=== PATIENT | male | born 1945 | race Caucasian/White ===

== ENCOUNTER 2016-07-28 16:30 | Inpatient (IN) | payer OTHER ==
--- NOTE | 2016-07-28 16:52 | CPEKG ---
Heart Rate: 155 RR Interval: 387 P-R Interval: 164 QRSD Interval: 98 QT Interval: 296 QTC Interval: 476 P Sheldon: 76 QRS Sheldon: 27 T Wave Sheldon: 51 EKG Severity - ABNORMAL ECG - EKG Impression: SUPRAVENTRICULAR TACHYCARDIA EKG Impression: SUPRAVENTRICULAR BIGEMINY EKG Impression: BORDERLINE R WAVE PROGRESSION, ANTERIOR LEADS Electronically Signed By: Sarah Lindquist 29-Jul-2016 18:12:35
[2016-07-28] MEDS ORDERED: NS 1,000 ML IV ONE ×2 (17:03→19:25)
[2016-07-28 17:13] LABS: ADD DIFF? YES; ADD MORPH? NO; ATYPICAL LYMPHOCYTE FLAG 20 (0-99); FRAGMENT RBC FLAG 0 (0-99); HEMATOCRIT 42.5 % (40.0-51.0); HEMOGLOBIN 15.2 g/dL (13.7-17.5); LIPEMIA HEMOLYSIS FLAG 90 (0-99); MEAN CELL HEMOGLOBIN CONCENTR. 35.8 g/dL (32.4-36.7); MEAN CELL VOLUME 78.4 fL (81.5-99.8); MEAN PLATELET VOLUME 9.4 fL (8.7-11.7); PLATELET CLUMPS FLAG 10 (0-99); PLATELET COUNT 213 10^3/uL (150-400); RED BLOOD CELL COUNT 5.42 10^6/uL (4.40-6.38); RED CELL DISTRIBUTION WIDTH 14.3 % (11.5-15.2)
[2016-07-28] MEDS ORDERED: NS 1,000 ML BAG *FOR SEPSIS ORDER SET ONLY IV ONE (17:19)
--- NOTE | 2016-07-28 17:22 | EDPHY ---
H & P Stated Complaint: SOB;dyspnea x 1 wk; worse past day Time Seen by Provider: 07/28/16 16:51 HPI/ROS: CHIEF COMPLAINT: Difficulty breathing HISTORY OF PRESENT ILLNESS: 70-year-old male presents the emergency department critically ill. Patient and his described that he developed a cold 6 days ago. They were in [place]. The return to [place] 4 days ago. Patient has been ill with generalized weakness, fever to 102, difficulty breathing, shortness of breath, and rapid heart rate. Patient denies sputum production. He has not been eating and drinking. He denies vomiting or diarrhea. He denies urinary complaints. He denies a headache. Further history is limited secondary to the patient's clinical condition. REVIEW OF SYSTEMS: Limited secondary to the patient's clinical condition. PAST MEDICAL HISTORY: Non-Hodgkin's lymphoma status post stem cell transplant 5 years ago. Currently not undergoing any treatment. Patient denies diabetes, hypertension, pulmonary embolism, asthma, emphysema. He does report he has a benign cyst on his right kidney. SOCIAL HISTORY: Patient is . Nonsmoker. VITAL SIGNS Reviewed by me. Hypoxic to 70%. Blood pressure 160/90, heart rate 140s, respiratory rate 22. Afebrile here. GENERAL: Thin, ill-appearing male. Significant respiratory distress. Retractions throughout. HEENT: Atraumatic. Eyes: No icterus, no injection. Mouth: Dry mucous membranes. No erythema or lesions. Neck: supple with no adenopathy. LUNGS: bibasilar rales. No wheezes or rhonchi auscultated. Increased work of breathing. CARDIAC: Tachycardic rate, regular. ABDOMEN: Soft, moderate right upper quadrant tenderness. A firm mass is palpable in the right upper quadrant. Patient states this is his renal cyst., abdomen is nondistended. No guarding or rebound. BACK: No CVA tenderness. EXTREMITIES: No trauma. No edema. Range of motion is normal throughout. NEURO: Alert and oriented, grossly nonfocal. SKIN: Warm and dry, no rash. PSYCHIATRIC: Normal mentation, no agitation. - Personal History Current Tetanus Diphtheria and Acellular Pertussis (TDAP): Yes - Social History Smoking Status: Current some day smoker Constitutional: Initial Vital Signs Temperature (C) 36.4 C 07/28/16 16:30 Heart Rate 122 H 07/28/16 16:30 Respiratory Rate 28 H 07/28/16 16:30 Blood Pressure 164/84 H 07/28/16 16:30 O2 Sat (%) 70 L 07/28/16 16:30 O2 Delivery Mode Non-Rebreather Mask O2 (L/minute) 14 Allergies/Adverse Reactions: Quinolones Allergy (Verified 07/28/16 18:40) mental status changes Home Medications: Medication Instructions Recorded Acetaminophen [Tylenol 325mg (*)] 650 mg PO Q6 PRN 07/28/16 Herbals/Supplements -Info Only 1 ea PO DAILY 07/28/16 Ibuprofen [Motrin (*)] 400 mg PO DAILY PRN 07/28/16 Godfrey-3 Fatty Acids [Fish Oil 1000 1,000 mg PO DAILY 07/28/16 mg (*)] Medical Decision Making ED Course/Re-evaluation: Patient was placed on a non-rebreather mask which allowed his saturations to increase to about 88%. Initial EKG demonstrates tachycardic rate with paired ventricular PVCs. Patient began receiving IV fluids. Portable chest x-ray was obtained which demonstrates bibasilar infiltrates left greater than right. Sepsis screen was begun. Patient has a initial lactic acid of 6.2. Of concern patient has a white count of 1.3, creatinine of 1.4, bilirubin of 6.2 , INR of 1.6. Patient's potassium is 2.9. He received 40 mEq by mouth. Respiratory therapy administered O2 via nasal cannula at 30 liters/minute. Patient's O2 sat is now 94%. Severe Sepsis/Septic Shock Care Note The patient presents to the ED with pneumonia identified as an acute infection. The patient did have evidence of end-organ dysfunction and met criteria for severe sepsis. This condition was identified by myself at 17 30. Patient also meets criteria for septic shock at this time.. The patients vital signs are 160 /90, 122, O2 sat 88%. Respiratory rate 20. 36.4. The patient has a venous lactic acid performed within 3 hours of the identification of severe sepsis which was found to be 6.2. The patient has blood cultures drawn and received ceftriaxone and azithromycin IV, per the severe sepsis treatment protocol. The initial lactate was elevated and rechecked within 6 hours of the identification time of severe sepsis and found to be: 4.1. Initially the patient was felt to have met criteria for septic shock secondary to a lactic acid of 6.1. However the patient's arterial lactic acid was 3.1. He has not been hypotensive at any point during his emergency department course. Patient was transferred to the ICU under the care of Dr. Edu Galarza. Differential Diagnosis: Differential diagnoses for the patient's symptom complex was considered including but not limited to sepsis, respiratory failure, pulmonary embolism, cardiac causes, atrial fibrillation, atrial flutter, overwhelming sepsis, septic shock, acidosis. Consult/Admit Bed Type: Dr. Edu Galarza, ICU Critical Care Time: I spent a total of 60 minutes minutes of critical care time in obtaining history , performing a physical exam, bedside monitoring of interventions, collecting and interpreting tests and discussion with consultants but not including time spent performing procedures. - Data Points Laboratory Results: Laboratory Results 07/28/16 17:00 07/28/16 17:00 07/28/16 17:00 WBC 1.31 L 10^3/uL (3.80-9.50) RBC 5.42 10^6/uL (4.40-6.38) Hgb 15.2 g/dL (13.7-17.5) Hct 42.5 % (40.0-51.0) MCV 78.4 L fL (81.5-99.8) MCH 28.0 pg (27.9-34.1) MCHC 35.8 g/dL (32.4-36.7) RDW 14.3 % (11.5-15.2) Plt Count 213 10^3/uL (150-400) MPV 9.4 fL (8.7-11.7) Neut % (Auto) Not Reported Lymph % (Auto) Not Reported [place] % (Auto) Not Reported Eos % (Auto) Not Reported Baso % (Auto) Not Reported Nucleat RBC Rel Count 0.0 % (0.0-0.2) Absolute Neuts (auto) Not Reported Absolute Lymphs (auto) Not Reported Absolute Monos (auto) Not Reported Absolute Eos (auto) Not Reported Absolute Basos (auto) Not Reported Absolute Nucleated RBC 0.00 10^3/uL (0-0.01) Immature Gran % Not Reported Seg Neutrophils % 7 % Band Neutrophils % 60 % Lymphocytes % 20 % Monocytes % 2 % Metamyelocytes % 10 % Myelocytes % 1 % Immature Gran # Not Reported Absolute Seg Neuts 0.09 L 10^/uL (1.70-6.50) Absolute Band Neuts 0.79 H 10^3/uL (0.00-0.70) Absolute Lymphocytes 0.26 L 10^3/uL (1.00-3.00) Absolute Monocytes 0.03 L 10^3/uL (0.30-0.80) Absolute Metamyelocyte 0.13 H 10^3/mL (0.00-0.00) Absolute Myelocytes 0.01 H 10^3/mL (0.00-0.00) Platelet Estimate ADEQUATE (ADEQ) Microcytic Cells 1+ H Schistocytes 1+ H Smear Review By Pending PT 13.7 SEC (12.0-15.0) INR 1.06 (0.83-1.16) D-Dimer 3.00 H ug/mLFEU (0.00-0.50) VBG Lactic Acid 6.1 H mmol/L (0.7-2.1) Sodium 131 L mEq/L (134-144) Potassium 2.9 L mEq/L (3.5-5.2) Chloride 84 L mEq/L (97-110) Carbon Dioxide 26 mEq/l (22-31) Anion Gap 21 mEq/L (8-16) BUN 25 H mg/dL (7-23) Creatinine 1.4 H mg/dL (0.7-1.3) Estimated GFR 50 Glucose 122 H mg/dL (70-100) Calcium 8.5 mg/dL (8.5-10.4) Total Bilirubin 6.2 H mg/dL (0.1-1.4) Conjugated Bilirubin 5.2 H mg/dL (0.0-0.5) Unconjugated Bilirubin 1.0 mg/dL (0.0-1.1) AST 170 H IU/L (17-59) ALT 82 H IU/L (21-72) Alkaline Phosphatase 217 H IU/L (38-126) Troponin I 0.018 ng/mL (0-0.034) NT-Pro-B Natriuret Pep 3210 H pg/mL (0-125) Total Protein 6.3 g/dL (6.3-8.2) Albumin 3.4 L g/dL (3.5-5.0) Medications Given: Discontinued Medications Hydromorphone HCl (Dilaudid) 0.5 mg IVP EDNOW ONE Stop: 07/28/16 18:04 Last Admin: 07/28/16 18:31 Dose: 0.5 mg Sodium Chloride (Ns) 1,000 mls @ 0 mls/hr IV ONCE ONE PRN Reason: Wide Open Stop: 07/28/16 17:04 Last Admin: 07/28/16 17:20 Dose: 1,000 mls Azithromycin 500 mg/ Dextrose 255 mls @ 255 mls/hr IV EDNOW ONE PRN Reason: Protocol Stop: 07/28/16 18:38 Last Admin: 07/28/16 18:30 Dose: 255 mls Ceftriaxone Sodium 2 gm/ (Dextrose) 50 mls @ 100 mls/hr IV EDNOW ONE PRN Reason: Protocol Stop: 07/28/16 18:08 Last Admin: 07/28/16 18:30 Dose: 50 mls Potassium Chloride (Klor-Con) 40 meq PO ONCE ONE Stop: 07/28/16 17:41 Last Admin: 07/28/16 18:30 Dose: 40 meq Sodium Chloride (Ns *For Sepsis Order Set Only*) 1,905 ml IV EDNOW ONE Stop: 07/28/16 17:20 Last Admin: 07/28/16 18:01 Dose: 1,905 ml Departure - Departure Disposition: [facility] Inpatient Acute Clinical Impression: Respiratory failure, Pneumonia, Severe sepsis with acute organ dysfunction Condition: Serious
--- NOTE | 2016-07-28 17:28 | DX ---
Portable Chest at 1706 hours History: Shortness of breath, tachypnea. Comparison: PA and lateral chest June 09, 2011. Findings: There is dense left lower lobe consolidation with patchy right basilar and inferior right upper lobe consolidation. A small left effusion is suspected. No pneumothorax . Heart size is normal. S-shaped scoliosis is present in the spine with mild degenerative change. Impression: 1. Dense basilar consolidation, most prominent in the left lower lobe, most likely representing pneum onia. 2. Possible small left effusion.
[2016-07-28 17:29] LABS: ADD SCAN? NO; LEFT SHIFT FLG 300 (0-99)
[2016-07-28 17:30] LABS: ALANINE AMINOTRANSFERASE 82 IU/L (21-72); ALBUMIN 3.4 g/dL (3.5-5.0); ALKALINE PHOSPHATASE 217 IU/L (38-126); ANION GAP 21 mEq/L (8-16); ASPARTATE AMINOTRANSFERASE 170 IU/L (17-59); BILIRUBIN,TOTAL 6.2 mg/dL (0.1-1.4); BILIRUBIN-CONJUGATED 5.2 mg/dL (0.0-0.5); CALCIUM 8.5 mg/dL (8.5-10.4); CARBON DIOXIDE 26 mEq/l (22-31); CHLORIDE 84 mEq/L (97-110); CREATININE 1.4 mg/dL (0.7-1.3); GLOMERULAR FILTRATION RATE 50; GLUCOSE 122 mg/dL (70-100); POTASSIUM 2.9 mEq/L (3.5-5.2); SODIUM 131 mEq/L (134-144); TOTAL PROTEIN 6.3 g/dL (6.3-8.2)
[2016-07-28] MEDS ORDERED: cefTRIAXone 2 GM in D5W 50 ML IV ONE (17:39)
[2016-07-28] MEDS ORDERED: AZITHROMYCIN IV 500 MG in D5W 250 ML IV ONE (17:39)
[2016-07-28] MEDS ORDERED: POTASSIUM CL 20 MEQ TAB PO ONE (17:40)
[2016-07-28 17:42] LABS: TROPONIN I 0.018 ng/mL (0-0.034)
[2016-07-28] MEDS ORDERED: HYDROmorphONE/DILAUDID 1 MG/ML SYR IVP ONE (18:03)
[2016-07-28 18:06] LABS: LACGHOST ORDER
[2016-07-28] MEDS ORDERED: ACETAMINOPHEN 325 MG TAB PO PRN (18:16)
[2016-07-28 18:28] LABS: INR 1.06 (0.83-1.16); PROTIME(PATIENT) 13.7 SEC (12.0-15.0)
[2016-07-28 18:33] LABS: PLATELET ESTIMATE ADEQUATE (ADEQ)
[2016-07-28 18:35] LABS: MICROCYTES 1+; SCHISTOCYTES 1+
[2016-07-28 18:40] LABS: BASE EXCESS 0.2 mEq/L (-2.5-2.5); BICARBONATE 22 mEq/L (22-26); MEASURED OXYGEN SATURATION 92 % (92-95); PCO2 29 mmHg (34-38); PO2 59 mmHg (65-75); TCO2 23 mEq/L (23-27)
[2016-07-28 18:42] LABS: O2 CONCENTRATIION 90 % (0-100); P/F RATIO 66 RATIO
--- NOTE | 2016-07-28 18:48 | PDGENHP ---
History and Physical - Chief Complaint Acute fatigue - History of Present Illness PCP: None HPI: 62-year-old male presenting with acute fatigue characterized as progressive weakness resulting in inability to get out of bed, rendering him mostly bed-bound for the past 2 days. He reports that approximately 7 days ago he began experiencing cough and shortness of breath, exacerbated by physical activity, resulting in generalized weakness and mostly bed-bound status. Since he has been bed-bound, he has noted increasing back and pelvic pain located posteriorly which he associates with being bed-bound. He denies any other infectious symptoms. He does report that he has had difficulty swallowing solids and particularly liquids, reporting that he has to keep from breathing while he drinks fluids. He is also noted that his urine output has decreased and has become increasingly dark. History Information - Allergies/Home Medication List Allergies/Adverse Reactions: Quinolones Allergy (Verified 07/28/16 18:40) mental status changes Home Medications: Acetaminophen [Tylenol 325mg (*)] 650 mg PO Q6 PRN 07/28/16 [Last Taken 16:00] Herbals/Supplements -Info Only 1 ea PO DAILY 07/28/16 [Last Taken Unknown] Ibuprofen [Motrin (*)] 400 mg PO DAILY PRN 07/28/16 [Last Taken 07/28/16 14:00] Meredith-3 Fatty Acids [Fish Oil 1000 mg (*)] 1,000 mg PO DAILY 07/28/16 [Last Taken Unknown] I have personally reviewed and updated: family history, medical history, social history, surgical history - Past Medical History Additional medical history: 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, underwent stem cell treatment in 2010 - Surgical History Additional surgical history: Numerous ports and catheter lines, all of which have been removed - Family History Additional family history: Mother with leukemia - Social History Smoking Status: Current some day smoker Alcohol Use: None Drug Use: Marijuana Additional social history: Normally very physically active and rides his bike approximately 30 miles, independent in ADLs Review of Systems ROS: 10pt was reviewed & negative except for what was stated in HPI & below Constitutional: Reports: weakness Respiratory: Reports: cough Gastrointestinal: Reports: other (Coughing with food) Muscolosketal: Reports: back pain, joint pain Physical Exam Temp Pulse Resp BP Pulse Ox 36.9 C 100 20 95/73 L 98 07/28/16 18:31 07/28/16 18:31 07/28/16 18:31 07/28/16 18:31 07/28/16 18:31 O2 (L/minute) 30 Constitutional: uncomfortable, No not in pain, No obese Eyes: PERRL, anicteric sclera, EOMI Ears, Nose, Mouth, Throat: hearing normal, no oral mucosal ulcers, dry mucous membranes Cardiovascular: tachycardia, No systolic murmur (Distant heart sounds), No irregularly irregular, No edema Respiratory: reduced air movement (Left base), respiratory distress (Visibly tachypneic), rhonchi (Bilaterally on inspiration), No expiratory wheeze, No bronchial breath sounds Gastrointestinal: normoactive bowel sounds, soft, non-tender abdomen, no palpable masses, No distension Skin: warm, normal color, no rashes or abrasions, no induration, other ( Infiltrated IV on right forearm), No mottled Musculoskeletal: other (No tenderness to palpation over his intercostals or his pelvic brim) Neurologic: AAOx3, sensation intact bilaterally, No weakness, No facial droop Psychiatric: interacting appropriately, not anxious, not encephalopathic, thought process linear Lab Data & Imaging Review 07/28/16 17:00 07/28/16 17:00 WBC 1.31 10^3/uL (3.80-9.50) L 07/28/16 17:00 RBC 5.42 10^6/uL (4.40-6.38) 07/28/16 17:00 Hgb 15.2 g/dL (13.7-17.5) 07/28/16 17:00 Hct 42.5 % (40.0-51.0) 07/28/16 17:00 MCV 78.4 fL (81.5-99.8) L 07/28/16 17:00 MCH 28.0 pg (27.9-34.1) 07/28/16 17:00 MCHC 35.8 g/dL (32.4-36.7) 07/28/16 17:00 RDW 14.3 % (11.5-15.2) 07/28/16 17:00 Plt Count 213 10^3/uL (150-400) 07/28/16 17:00 MPV 9.4 fL (8.7-11.7) 07/28/16 17:00 Neut % (Auto) Not Reported 07/28/16 17:00 Lymph % (Auto) Not Reported 07/28/16 17:00 [place] % (Auto) Not Reported 07/28/16 17:00 Eos % (Auto) Not Reported 07/28/16 17:00 Baso % (Auto) Not Reported 07/28/16 17:00 Nucleat RBC Rel Count 0.0 % (0.0-0.2) 07/28/16 17:00 Absolute Neuts (auto) Not Reported 07/28/16 17:00 Absolute Lymphs (auto) Not Reported 07/28/16 17:00 Absolute Monos (auto) Not Reported 07/28/16 17:00 Absolute Eos (auto) Not Reported 07/28/16 17:00 Absolute Basos (auto) Not Reported 07/28/16 17:00 Absolute Nucleated RBC 0.00 10^3/uL (0-0.01) 07/28/16 17:00 Immature Gran % Not Reported 07/28/16 17:00 Seg Neutrophils % 7 % 07/28/16 17:00 Band Neutrophils % 60 % 07/28/16 17:00 Lymphocytes % 20 % 07/28/16 17:00 Monocytes % 2 % 07/28/16 17:00 Metamyelocytes % 10 % 07/28/16 17:00 Myelocytes % 1 % 07/28/16 17:00 Immature Gran # Not Reported 07/28/16 17:00 Absolute Seg Neuts 0.09 10^/uL (1.70-6.50) L 07/28/16 17:00 Absolute Band Neuts 0.79 10^3/uL (0.00-0.70) H 07/28/16 17:00 Absolute Lymphocytes 0.26 10^3/uL (1.00-3.00) L 07/28/16 17:00 Absolute Monocytes 0.03 10^3/uL (0.30-0.80) L 07/28/16 17:00 Absolute Metamyelocyte 0.13 10^3/mL (0.00-0.00) H 07/28/16 17:00 Absolute Myelocytes 0.01 10^3/mL (0.00-0.00) H 07/28/16 17:00 Platelet Estimate ADEQUATE (ADEQ) 07/28/16 17:00 Microcytic Cells 1+ H 07/28/16 17:00 Schistocytes 1+ H 07/28/16 17:00 PT 13.7 SEC (12.0-15.0) 07/28/16 17:00 INR 1.06 (0.83-1.16) 07/28/16 17:00 D-Dimer 3.00 ug/mLFEU (0.00-0.50) H 07/28/16 17:00 Puncture Site LEFT RADIAL 07/28/16 18:30 Patient Temperature 37.0 DEGREES 07/28/16 18:30 pCO2 29 mmHg (34-38) L 07/28/16 18:30 pO2 59 mmHg (65-75) L 07/28/16 18:30 Total CO2 23 mEq/L (23-27) 07/28/16 18:30 ABG pH 7.50 (7.35-7.45) H 07/28/16 18:30 ABG PO2/FiO2 Ratio 66 RATIO 07/28/16 18:30 ABG O2 Saturation 92 % (92-95) 07/28/16 18:30 ABG Base Excess 0.2 mEq/L (-2.5-2.5) 07/28/16 18:30 ABG Lactic Acid 3.1 mmol/L (0.5-1.6) H 07/28/16 18:30 VBG Lactic Acid 4.1 mmol/L (0.7-2.1) H 07/28/16 18:15 Total O2 Concentration 30.0 LITERS 07/28/16 18:30 O2 Concentration % 90 % (0-100) 07/28/16 18:30 Sodium 131 mEq/L (134-144) L 07/28/16 17:00 Potassium 2.9 mEq/L (3.5-5.2) L 07/28/16 17:00 Chloride 84 mEq/L (97-110) L 07/28/16 17:00 Carbon Dioxide 26 mEq/l (22-31) 07/28/16 17:00 Bicarbonate 22 mEq/L (22-26) 07/28/16 18:30 Anion Gap 21 mEq/L (8-16) 07/28/16 17:00 BUN 25 mg/dL (7-23) H 07/28/16 17:00 Creatinine 1.4 mg/dL (0.7-1.3) H 07/28/16 17:00 Estimated GFR 50 07/28/16 17:00 Glucose 122 mg/dL (70-100) H 07/28/16 17:00 Calcium 8.5 mg/dL (8.5-10.4) 07/28/16 17:00 Total Bilirubin 6.2 mg/dL (0.1-1.4) H 07/28/16 17:00 Conjugated Bilirubin 5.2 mg/dL (0.0-0.5) H 07/28/16 17:00 Unconjugated Bilirubin 1.0 mg/dL (0.0-1.1) 07/28/16 17:00 AST 170 IU/L (17-59) H 07/28/16 17:00 ALT 82 IU/L (21-72) H 07/28/16 17:00 Alkaline Phosphatase 217 IU/L (38-126) H 07/28/16 17:00 Troponin I 0.018 ng/mL (0-0.034) 07/28/16 17:00 NT-Pro-B Natriuret Pep 3210 pg/mL (0-125) H 07/28/16 17:00 Total Protein 6.3 g/dL (6.3-8.2) 07/28/16 17:00 Albumin 3.4 g/dL (3.5-5.0) L 07/28/16 17:00 Visualized and Interpreted Chest x-ray results: Yes Chest X-Ray results: other (Dense infiltrate in the left, bilateral infiltrates present) Visualized and Interpreted EKG results: Yes EKG Interpretation: Positive for: other (Sinus arrhythmia versus SVT) Assessment & Plan Assessment: 70-year-old male presents with severe sepsis in the setting of possible aspiration pneumonia Plan: 1. Severe sepsis. Acute, new problem this provider, further workup indicated. Evidenced by tachycardia plus leukopenia plus tachypnea plus clear source of infection plus end-organ failure notably lactic acidosis and respiratory failure , resulting in autonomic dysregulation -severe sepsis order set placed -receiving weight based IV fluids -receiving empiric IV fluids -blood culture sent -will repeat arterial lactic acid now and then again in 2 hours as well as tomorrow a.m. to monitor for clearance -he will need to be monitored closely in the intensive care unit given marginally low blood pressures at a systolic of 95, potentially heralding the evolution of septic shock 2. Possible aspiration pneumonia. Acute, new problem this provider, further workup indicated. Evidenced by dense bilateral infiltrates, left greater than right, + sepsis physiology outlined above plus reports of coughing and possible aspiration with oral intake -initiate renally dosed Unasyn plus azithromycin -send sputum cultures when available -send urine strep and urine Legionella 3. Acute hypoxic respiratory failure. Evidenced by an SpO2 of 70% on room air on presentation with visible tachypnea and labored breathing with accessory muscle use, secondary to pneumonia outlined above and severe sepsis -requiring non-rebreather mask -getting ABG at this time -admitting to intensive care unit, monitor respiratory status for potential of intubation if necessary 4. Metabolic acidosis. Acute, lactic acidosis, secondary to autonomic dysregulation and severe sepsis -continue to monitor serial lactic acid levels -continue supplemental IV fluids 5. Acute kidney injury. Evidenced by serum creatinine level of 1.4, most likely secondary to a combination of hypovolemia as well as severe sepsis -continue to monitor strict I&Os, urine output, serum creatinine level -continue empiric IV fluids 6. Hyponatremia. Acute, secondary to renal hypoperfusion in the setting of conditions outlined above -continue monitor serum sodium level 7. Hypokalemia. Acute, replete with IV fluids -monitor serum sodium level closely given acute kidney injury -continue monitor on telemetry 8. Diffuse large B-cell lymphoma. Stage IIB, treated with stem cell transplant 5 years ago -doubt that his present presentation is related to this process -hold on consulting with Hematology Oncology Diet. Regular with [employer] eval tomorrow Prophylaxis. High risk patient, heparin subcu Code. Full per patient his child is MPOA Disposition. Anticipated discharge uncertain this time, anticipated length stay greater than 48 hours warranting inpatient admission status for acute severe sepsis requiring ICU level evaluation and management. 45 minutes of critical care time spent with the patient at bedside and coordinating his care, addressing the issues above, patient remains critically ill with a high risk of morbidity and mortality.
[2016-07-28] MEDS ORDERED: IBUPROFEN 200 MG TAB PO PRN (19:02)
[2016-07-28] MEDS ORDERED: NS W/ 20 KCl/L 1,000 ML IV SCH (19:15)
[2016-07-28 19:53] LABS: COLOR AMBER; LEUKOCYTE ESTERASE,URINE NEGATIVE (NEGATIVE); NITRITE,URINE NEGATIVE (NEGATIVE)
[2016-07-28 19:56] LABS: AMORPHOUS PRESENT /hpf (NONE-1+); BACTERIA TRACE /hpf (NONE SEEN)
[2016-07-28] MEDS: AMPICILLIN/SULBACTAM 1.5 GM in NS 50 ML IV SCH (21:01)
[2016-07-28] MEDS: oxyCODONE IR 5 MG TAB PO PRN (21:38)
[2016-07-28] MEDS: HEPARIN 5,000 UNIT/0.5 ML SYR SC SCH (21:41)
[2016-07-29] MEDS: NS W/ 20 KCl/L 1,000 ML IV SCH ×3 (04:10→20:47)
[2016-07-29 04:33] LABS: % IMMATURE GRANULYOCYTES 0.7 % (0.0-1.1); ABSOLUTE IMMATURE GRANULOCYTES 0.01 10^3/uL (0.00-0.10); ADD DIFF? NO; ADD MORPH? NO; ADD SCAN? YES; ATYPICAL LYMPHOCYTE FLAG 20 (0-99); FRAGMENT RBC FLAG 0 (0-99); HEMATOCRIT 31.5 % (40.0-51.0); HEMOGLOBIN 11.2 g/dL (13.7-17.5); LIPEMIA HEMOLYSIS FLAG 90 (0-99); MEAN CELL HEMOGLOBIN 28.1 pg (27.9-34.1); MEAN CELL HEMOGLOBIN CONCENTR. 35.6 g/dL (32.4-36.7); MEAN CELL VOLUME 78.9 fL (81.5-99.8); MEAN PLATELET VOLUME 10.1 fL (8.7-11.7); PLATELET CLUMPS FLAG 20 (0-99); PLATELET COUNT 160 10^3/uL (150-400); RED BLOOD CELL COUNT 3.99 10^6/uL (4.40-6.38); RED CELL DISTRIBUTION WIDTH 14.4 % (11.5-15.2)
[2016-07-29 04:53] LABS: BASE EXCESS -1.7 mEq/L (-2.5-2.5); BICARBONATE 21 mEq/L (22-26); MEASURED OXYGEN SATURATION 92 % (92-95); PCO2 31 mmHg (34-38); PO2 62 mmHg (65-75); TCO2 22 mEq/L (23-27)
[2016-07-29 04:54] LABS: O2 CONCENTRATIION 70 % (0-100); P/F RATIO 89 RATIO
[2016-07-29 04:54] LABS: INR 1.13 (0.83-1.16); PROTIME(PATIENT) 14.4 SEC (12.0-15.0)
[2016-07-29 05:06] LABS: LEFT SHIFT FLG 300 (0-99)
[2016-07-29 05:11] LABS: ALANINE AMINOTRANSFERASE 61 IU/L (21-72); ALBUMIN 2.4 g/dL (3.5-5.0); ALKALINE PHOSPHATASE 131 IU/L (38-126); ANION GAP 11 mEq/L (8-16); ASPARTATE AMINOTRANSFERASE 97 IU/L (17-59); BILIRUBIN,TOTAL 3.8 mg/dL (0.1-1.4); CALCIUM 6.7 mg/dL (8.5-10.4); CARBON DIOXIDE 22 mEq/l (22-31); CHLORIDE 98 mEq/L (97-110); GLOMERULAR FILTRATION RATE > 60; GLUCOSE 85 mg/dL (70-100); MAGNESIUM 2.1 mg/dL (1.6-2.3); POTASSIUM 3.7 mEq/L (3.5-5.2); SODIUM 131 mEq/L (134-144); TOTAL PROTEIN 5.1 g/dL (6.3-8.2)
[2016-07-29 05:17] LABS: TROPONIN I 0.014 ng/mL (0-0.034)
[2016-07-29] MEDS: HEPARIN 5,000 UNIT/0.5 ML SYR SC SCH ×3 (05:20→21:03)
[2016-07-29 05:21] LABS: BILIRUBIN-CONJUGATED 3.4 mg/dL (0.0-0.5); BILIRUBIN-UNCONJUGATED 0.4 mg/dL (0.0-1.1)
[2016-07-29 05:50] LABS: SCAN NEGATIVE
[2016-07-29] MEDS: AMPICILLIN/SULBACTAM 1.5 GM in NS 50 ML IV SCH ×2 (05:50→12:12)
[2016-07-29] MEDS: OMEGA-3 FATTY ACIDS 1,000 MG CAP PO SCH (08:22)
--- NOTE | 2016-07-29 08:48 | HOSPPROG ---
Hospitalist Progress Note Assessment/Plan: #Severe sepsis: 2/2 #Gram positive cocci bacteremia -all 4 bottles positive -likely Strep pneumo -cont IV Unasyn. ID consulted -check surveillance cultures #Aspiration PNA -LLL PNA -treatment as above #MELODY: resolved #Acute hypoxic resp failure -2/2 PNA #Hypovolemic hyponatremia -due to decreased PO intake -cont IVFs #Transaminitis -2/2 infection, hypotension. Trending down #Diffuss B-cell lymphoma -s/p several rounds of unsuccessful chemo. s/p stem cell transplant 2010 #Leukopenia -monitor closely. Suspect due to acute illness. Heme consulted #Diet: regular #DVT ppx: SQH Warrants inpatient admission with acute sepsis, IV abx, IVFs Subjective: tired today Objective: Vital Signs Temp Pulse Resp BP Pulse Ox 37.0 C 105 H 25 H 100/62 100 07/29/16 08:00 07/29/16 08:00 07/29/16 08:00 07/29/16 08:00 07/29/16 08:00 Laboratory Results 07/29/16 04:05 07/29/16 04:05 07/28/16 07/29/16 07/30/16 05:59 05:59 05:59 Intake Total 6635 500 Output Total 2004 125 Balance 4630 375 PT 14.4 SEC (12.0-15.0) 07/29/16 04:05 INR 1.13 (0.83-1.16) 07/29/16 04:05 - Physical Exam Constitutional: no apparent distress Eyes: PERRL Ears, Nose, Mouth, Throat: dry mucous membranes Cardiovascular: tachycardia Respiratory: reduced air movement (decreased BS in left base) Gastrointestinal: normoactive bowel sounds, soft, non-tender abdomen Genitourinary: no bladder fullness Skin: warm Musculoskeletal: full muscle strength Neurologic: AAOx3 Psychiatric: interacting appropriately ICD10 Worksheet Patient Problems: Problems Problem Status Diagnosed Pneumonia Acute Respiratory failure Acute Severe sepsis with acute organ dysfunction Acute
[2016-07-29] MEDS ORDERED: Herbals/Supplements -Info Only PO SCH (09:00)
[2016-07-29] MEDS ORDERED: AZITHROMYCIN IV 500 MG in D5W 250 ML IV SCH (09:00)
[2016-07-29] MEDS: oxyCODONE IR 5 MG TAB PO PRN ×3 (14:58→23:34)
--- NOTE | 2016-07-29 15:08 | GCON ---
[f rep st] CONSULTATION CRITICAL CARE CONSULTATION DATE OF CONSULTATION: 07/29/2016 REFERRING PHYSICIAN: Aleksandar Galarza MD CHIEF COMPLAINT: Weakness. HISTORY OF PRESENT ILLNESS: This is a 70-year-old male, who has had a several-day history of a cough productive of some thin mucus and shortness of breath and then great fatigue. He has been in bed an d has not been up being his usual active self. Usually he bicycles up to 30 miles a day and goes for long walks. He does not feel like he has had any fever or sweats or chills. There has been no orth opnea, paroxysmal nocturnal dyspnea, or pedal edema. He has had no gastrointestinal symptoms. He no rmally does not eat much, but his eating and especially his fluid intake has been remarkably decrease d over the past few days. PAST MEDICAL HISTORY: He had a diffuse large B-cell lymphoma and underwent several treatments of jessica motherapy and then stem cell treatment in 2010. The current status of that is unclear to me. ALLERGIES TO MEDICATIONS: Quinolones. SOCIAL HISTORY: He smokes tobacco and uses marijuana daily. He does not use alcohol and has never u sed illicit drugs. REVIEW OF SYSTEMS: Otherwise noncontributory, except as included above x 10 points. Specifically, ki martinez has had no genitourinary problems. PHYSICAL EXAMINATION: VITAL SIGNS: Blood pressure is 108/63, with a pulse of 99, respiratory rate o f 22, oxygen saturation 98% on L, and he has been afebrile the entire hospital stay. SKIN : Normal. HEAD: Without external evidence of trauma. EYES: Fundi not visualized. EARS: Canals clear. NOSE: Without septal deviation or polyps. MOUTH and PHARYNX: Clear without lesions. NECK: Supple without adenopathy. CHEST: There are extensive rales at both bases posteriorly. He is als o wheezing. HEART: PMI near the midepigastrium. S1 and S2 are normal. There is no S3, S4 or murmu r. ABDOMEN: Soft, without organomegaly or masses. No bruits are heard. Bowel sounds are present. There is no tenderness. EXTREMITIES: Full range of motion without clubbing, cyanosis, or periphera l edema. DATABASE: Chest x-ray shows bibasilar infiltrates. The white blood count is 1370, which is a signif icant reduction from his previous white blood counts of several years ago. Hematocrit is 31, with pl atelets of 160,000. INR is 1.1. Arterial blood gas is pO2 of 62, pCO2 31, pH 7.45. Chemistries: T he sodium is slightly low at 131. The total bilirubin is high at 3.8 with an elevated AST of 97. IMPRESSION: 1. Sepsis probably secondary to pneumonia. This has been worsened by the patient's decreased oral i ntake over the past several days. 2. Diffuse B-cell lymphoma. 3. Leukopenia. 4. Probable chronic obstructive pulmonary disease. PLAN: Blood cultures are showing gram-positive rods. The patient will be given Updraft nebulizers a nd is currently on supplemental oxygen. His white blood count will be carefully followed and Hematol ogy will be consulted. If it does not increase, the current decrease may well be due to his sepsis, but could also be recurrence of his lymphoma. He is on Unasyn intravenously. /[id number]/MODL
[2016-07-29] MEDS: cefTRIAXone 2 GM in D5W 50 ML IV SCH (18:13)
[2016-07-29] MEDS ORDERED: AMPICILLIN/SULBACTAM 1.5 GM in NS 50 ML IV SCH ×2 (18:42→21:00)
[2016-07-29 19:02] LABS: ANION GAP 9 mEq/L (8-16); CALCIUM 6.9 mg/dL (8.5-10.4); CARBON DIOXIDE 25 mEq/l (22-31); CHLORIDE 97 mEq/L (97-110); CREATININE 0.7 mg/dL (0.7-1.3); GLOMERULAR FILTRATION RATE > 60; GLUCOSE 105 mg/dL (70-100); MAGNESIUM 2.2 mg/dL (1.6-2.3); POTASSIUM 3.2 mEq/L (3.5-5.2); SODIUM 131 mEq/L (134-144)
[2016-07-29] MEDS ORDERED: PROTOCOL POTASSIUM 1 DOSE MISC PRN (19:38)
[2016-07-29] MEDS ORDERED: POTASSIUM CL 10 MEQ TAB PO ONE (19:41)
[2016-07-29] MEDS ORDERED: LORazepam 1 MG TAB PO ONE (20:00)
[2016-07-29] MEDS: guaiFENesin 600 MG TAB.ER PO SCH (20:05)
--- NOTE | 2016-07-29 20:52 | CPEKG ---
Heart Rate: 140 RR Interval: 429 QRSD Interval: 96 QT Interval: 300 QTC Interval: 458 QRS [place]: 66 T Wave [place]: 7 EKG Severity - ABNORMAL ECG - EKG Impression: ATRIAL FIBRILLATION, V-RATE 88-217 EKG Impression: VENTRICULAR PREMATURE COMPLEX EKG Impression: BORDERLINE INFERIOR Q WAVES Preliminary Awaiting MD Review
[2016-07-29] MEDS ORDERED: DILTIAZEM 25 MG/5 ML VIAL IVP ONE (20:53)
[2016-07-29] MEDS ORDERED: DILTIAZEM 25 MG/5 ML VIAL IVP SCH (21:00)
[2016-07-29] MEDS: DILTIAZEM 125 MG in D5W 125 ML IV SCH (21:29)
--- NOTE | 2016-07-29 21:59 | GCON ---
[f rep st] CONSULTATION INPATIENT INFECTIOUS DISEASE CONSULTATION. DATE OF CONSULTATION: 07/29/2016 REFERRING PHYSICIAN: Lillie Gongora MD REASON FOR REFERRAL: Strep pneumo bacteremia. HISTORY OF PRESENT ILLNESS: Patient is a 70-year-old male who was admitted through the emergency [facility] yesterday evening. He presented with acute fatigue over the past 2 days. He had reported that tito roximately a week prior to admission he began experiencing cough and shortness of breath. He was bran luated in the emergency room with a chest x-ray, blood work, and blood cultures. Chest x-ray showed significant consolidation in the left lower lobe. His blood work revealed a profound leukopenia to 1 .31. He had 60% band forms in his neutrophils. He was afebrile upon admission. Initial blood cultu res quickly grew Streptococcus pneumoniae in both sets. The patient was admitted to the ICU. He was started on Unasyn 1.5 g IV q.6. We are asked to give opinion on the treatment course for this condi tion. PAST MEDICAL HISTORY: 1. Diffuse large B-cell lymphoma. 2. Status post stem-cell treatment in 2010. The patient has been cancer free for the last 6 years. PAST SURGICAL HISTORY: Status post multiple port and catheter placements. ANTIBIOTICS: Unasyn. ALLERGIES: Patient is allergic to the fluoroquinolones. SOCIAL HISTORY: Patient currently is a tobacco user. Smokes some cigarettes every day. Denies any alcohol use. Occasional marijuana use. FAMILY HISTORY: Reviewed, but noncontributory. REVIEW OF SYSTEMS: Apart from that detailed above in history of present illness, comprehensive 10-sy stem review is negative. PHYSICAL EXAMINATION: VITAL SIGNS: Temperature maximum is 37.8, temperature current is 37.8, heart rate is 100, respiratory rate is 24, blood pressure is 119/84. GENERAL: The patient is a well-forme d, well-nourished male, in no acute distress. He is minorly toxic in appearance. He is alert and or iented x3. He has a pleasant demeanor. HEENT: Normocephalic for age. Atraumatic. No scleral icte kelsy. No oral lesion or drainage from the nares. Eyes: Lids and conjunctivae are within normal limi ts. Pupils are equal and round bilaterally. NECK: Supple, without meningismus. LUNGS: Clear to a uscultation on the right. Patient has coarse breath sounds with crackles in the left mid lung and di stal. Good effort. ABDOMEN: Soft, nontender. No masses. SKIN: Warm and dry to the touch. No ra sh or lesion noted. MUSCULOSKELETAL: No muscle belly tenderness is noted. No joint line effusion o r arthritis is seen. NEURO: Cranial nerves 2 through 12 seem to be intact. Peripheral sensation se ems intact in all extremities. LABORATORY DATA: The patient's CBC dated 07/29/2016 shows a white blood cell count of 1.37, hemoglob in 11.2, hematocrit 31.5, and a platelet count of 160. Differential shows 91% segmented neutrophils. Serum chemistries on 07/29/2016 show a sodium of 131, potassium of 3.2, chloride of 97, bicarbonate of 25, BUN of 15, creatinine of 0.7. Prior AST on admission is 170, ALT was 82. Urinalysis on 07/01 showed 2+ blood, 1+ protein, 5-10 white cells per high-power field. Urine Legionella antigen is pending, as is the urine Streptococcus pneumoniae antigen. MICROBIOLOGIC DATA: The patient has blood cultures dated 07/28/2016, which 2 out of 2 sets are growi ng Streptococcus pneumoniae. Sensitivity panel is pending. RADIOLOGIC DATA: Patient has a chest x-ray dated 07/28/2016. This x-ray was read as dense bibasilar consolidation most prominent in the left lower lobe, most likely representing pneumonia. Possible s mall left pleural effusion. ASSESSMENT: Left lower lobe pneumonia with Streptococcus pneumoniae bacteremia. Would at this point switch the patient from the broader Unasyn to a more narrow ceftriaxone 2 g IV daily. I think the l eukopenic findings on admission will likely resolve in the next 2-3 days given the assumption that th ere is no underlying malignancy or marrow involvement causing this. We will follow repeat blood cult ures tomorrow. Meantime, will continue ICU support. PLAN: 1. Continue antibiotics, but switch from Unasyn to ceftriaxone. 2. Repeat blood cultures tomorrow. 3. Continue ICU support and clinical monitoring. /[id number]/MODL
[2016-07-30] MEDS ORDERED: NS 500 ML IV ONE (01:57)
[2016-07-30] MEDS ORDERED: NS BOLUS 500 ML (Wide open) IV ONE (03:30)
[2016-07-30 04:47] LABS: IONIZED CALCIUM 1.03 MMOL/L (1.12-1.30)
[2016-07-30 04:58] LABS: ALANINE AMINOTRANSFERASE 57 IU/L (21-72); ALBUMIN 1.8 g/dL (3.5-5.0); ALKALINE PHOSPHATASE 148 IU/L (38-126); ANION GAP 8 mEq/L (8-16); ASPARTATE AMINOTRANSFERASE 89 IU/L (17-59); BILIRUBIN,TOTAL 1.9 mg/dL (0.1-1.4); CALCIUM 7.2 mg/dL (8.5-10.4); CARBON DIOXIDE 22 mEq/l (22-31); CHLORIDE 105 mEq/L (97-110); CREATININE 0.8 mg/dL (0.7-1.3); GLOMERULAR FILTRATION RATE > 60; GLUCOSE 100 mg/dL (70-100); POTASSIUM 3.2 mEq/L (3.5-5.2); SODIUM 135 mEq/L (134-144); TOTAL PROTEIN 3.8 g/dL (6.3-8.2)
[2016-07-30 05:00] LABS: % IMMATURE GRANULYOCYTES 1.6 % (0.0-1.1); ABSOLUTE IMMATURE GRANULOCYTES 0.12 10^3/uL (0.00-0.10); ADD DIFF? NO; ADD MORPH? NO; ADD SCAN? YES; ATYPICAL LYMPHOCYTE FLAG 0 (0-99); FRAGMENT RBC FLAG 0 (0-99); HEMATOCRIT 29.5 % (40.0-51.0); HEMOGLOBIN 10.5 g/dL (13.7-17.5); LIPEMIA HEMOLYSIS FLAG 90 (0-99); MEAN CELL HEMOGLOBIN 28.2 pg (27.9-34.1); MEAN CELL HEMOGLOBIN CONCENTR. 35.6 g/dL (32.4-36.7); MEAN CELL VOLUME 79.1 fL (81.5-99.8); MEAN PLATELET VOLUME 9.4 fL (8.7-11.7); PLATELET CLUMPS FLAG 10 (0-99); PLATELET COUNT 112 10^3/uL (150-400); RED BLOOD CELL COUNT 3.73 10^6/uL (4.40-6.38); RED CELL DISTRIBUTION WIDTH 14.9 % (11.5-15.2)
[2016-07-30 05:02] LABS: LEFT SHIFT FLG 300 (0-99)
[2016-07-30] MEDS ORDERED: POTASSIUM CL 10 MEQ TAB PO ONE (05:18)
[2016-07-30] MEDS ORDERED: CALCIUM GLUCONATE 2 GM in D5W 50 ML IV ONE (05:22)
[2016-07-30] MEDS ORDERED: ALBUMIN 25% 100 ML IV ONE (05:22)
[2016-07-30] MEDS: HEPARIN 5,000 UNIT/0.5 ML SYR SC SCH ×2 (05:43→14:27)
[2016-07-30 06:02] LABS: SCAN POSITIVE
[2016-07-30] MEDS: NS W/ 20 KCl/L 1,000 ML IV SCH ×2 (06:05→07:58)
[2016-07-30 06:28] LABS: PLATELET ESTIMATE DECREASED (ADEQ)
[2016-07-30 06:32] LABS: ELLIPTOCYTES 1+
[2016-07-30 06:36] LABS: TOXIC GRANULATION PRESENT; TOXIC VACUOLIZATION PRESENT
[2016-07-30] MEDS: cefTRIAXone 2 GM in D5W 50 ML IV SCH (07:59)
--- NOTE | 2016-07-30 08:33 | HOSPPROG ---
Hospitalist Progress Note Assessment/Plan: #Severe sepsis: 2/ #Strep pneumo bacteremia -cont IV CTX, surveillance bld cultures today #Acute toxic encephalopathy -due to morphine. Stopped this med. #Anxiety -low-dose Ativan PRN #Aspiration PNA -LLL PNA -treatment as above #MELODY: resolved #Hypocalcemia -IV calcium. Caution with CTX if needing further doses #Acute hypoxic resp failure -2/2 PNA #Hypovolemic hyponatremia -due to decreased PO intake -cont IVFs #Transaminitis -2/2 infection, hypotension. Trending down #Diffuss B-cell lymphoma -s/p several rounds of unsuccessful chemo. s/p stem cell transplant 2010 #Leukopenia -monitor closely. Suspect due to acute illness. Heme consulted #Diet: regular #DVT ppx: SQ[facility] Warrants inpatient admission with acute sepsis, IV abx, IVFs Subjective: confused this morning after morphine Objective: Vital Signs Temp Pulse Resp BP Pulse Ox 36.5 C 74 17 93/56 L 95 07/30/16 06:00 07/30/16 06:00 07/30/16 06:00 07/30/16 06:00 07/30/16 06:00 Laboratory Results 07/30/16 04:30 07/30/16 04:30 07/29/16 07/30/16 07/31/16 05:59 05:59 05:59 Intake Total 6635 8524 Output Total 2004 4400 Balance 4630 4124 PT 14.4 SEC (12.0-15.0) 07/29/16 04:05 INR 1.13 (0.83-1.16) 07/29/16 04:05 - Physical Exam Constitutional: other (confused, somnolent) Eyes: PERRL Ears, Nose, Mouth, Throat: moist mucous membranes Cardiovascular: tachycardia Respiratory: reduced air movement (LLL) Gastrointestinal: normoactive bowel sounds, soft, non-tender abdomen Genitourinary: no bladder fullness Skin: warm Musculoskeletal: full muscle strength Neurologic: CN II-XII Intact (slow to answer and not making complete sense) Psychiatric: interacting appropriately ICD10 Worksheet Patient Problems: Problems Problem Status Diagnosed Pneumonia Acute Respiratory failure Acute Severe sepsis with acute organ dysfunction Acute
--- NOTE | 2016-07-30 08:37 | HOSPPROG ---
Hospitalist Progress Note Assessment/Plan: #Severe sepsis: 2/2 #Strep pneumo bacteremia -cont IV CTX, surveillance bld cultures today #Aspiration PNA -LLL PNA -treatment as above #New onset a fib: HR 140s -dilt gtt started overnight #MELODY: resolved #Acute hypoxic resp failure -2/2 PNA #Hypovolemic hyponatremia -due to decreased PO intake -cont IVFs #Transaminitis -2/2 infection, hypotension. Trending down #Diffuss B-cell lymphoma -s/p several rounds of unsuccessful chemo. s/p stem cell transplant 2010 #Leukopenia -monitor closely. Suspect due to acute illness. Heme consulted #Diet: regular #DVT ppx: SQH Warrants inpatient admission with acute sepsis, IV abx, IVFs Objective: Vital Signs Temp Pulse Resp BP Pulse Ox 36.5 C 74 17 93/56 L 95 07/30/16 06:00 07/30/16 06:00 07/30/16 06:00 07/30/16 06:00 07/30/16 06:00 Laboratory Results 07/30/16 04:30 07/30/16 04:30 07/29/16 07/30/16 07/31/16 05:59 05:59 05:59 Intake Total 1126 8552 Output Total 2004 4409 Balance 4630 4124 PT 14.4 SEC (12.0-15.0) 07/29/16 04:05 INR 1.13 (0.83-1.16) 07/29/16 04:05 ICD10 Worksheet Patient Problems: Problems Problem Status Diagnosed Pneumonia Acute Respiratory failure Acute Severe sepsis with acute organ dysfunction Acute
[2016-07-30] MEDS: guaiFENesin 600 MG TAB.ER PO SCH ×2 (08:58→21:54)
[2016-07-30] MEDS: OMEGA-3 FATTY ACIDS 1,000 MG CAP PO SCH (08:58)
--- NOTE | 2016-07-30 09:56 | PDINTPN ---
Before School Progress Note Assessment/Plan: Assessment: #Pneumococcal pneumonia, slightly improved clinically #AFib resolved #B cell lymphoma #SIRS with tachycardia and hypotension resolved #MELODY resolved Plan: [facility]iotics [facility] 07/30/16 09:56 Subjective: Upset in general Objective: Vital Signs Temp Pulse Resp BP Pulse Ox 36.5 C 74 17 93/56 L 95 07/30/16 06:00 07/30/16 06:00 07/30/16 06:00 07/30/16 06:00 07/30/16 06:00 Laboratory Results 07/30/16 04:30 07/30/16 04:30 07/29/16 07/30/16 07/31/16 05:59 05:59 05:59 Intake Total 6635 8524 Output Total 2004 4400 Balance 4630 4124 PT 14.4 SEC (12.0-15.0) 07/29/16 04:05 INR 1.13 (0.83-1.16) 07/29/16 04:05 Physical Exam - Physical Exam General Appearance: alert, mild distress EENT: normal ENT inspection Neck: non-tender Respiratory: rales Cardiac/Chest: regular rate, rhythm Abdomen: non-tender, soft Back: Normal inspection Skin: warm/dry Lymphatic: no adenopathy Extremities: non-tender, No pedal edema ICD10 Worksheet Patient Problems: Problems Problem Status Diagnosed Pneumonia Acute Respiratory failure Acute Severe sepsis with acute organ dysfunction Acute
[2016-07-30] MEDS ORDERED: LORazepam 0.5 MG TAB PO PRN (10:45)
[2016-07-30] MEDS ORDERED: CALCIUM GLUCONATE 50 ML IV ONE (13:05)
--- NOTE | 2016-07-30 16:38 | PCMIDPN ---
Assessment/Plan: Assessment: Lobar pneumonia left lower lobe with some right basilar infiltrate as well. This coupled with Streptococcus pneumoniae bacteremia likely related. Continuing on ceftriaxone 2 g IV Q 24 hours. Sensitivities to the strep pneumo or not returned yet. Patient is ultimately going into a non sinus tachycardia. Likely atrial fibrillation. This is interfering with his oxygenation. Will repeat a chest x-ray today. Will also order a 2D echocardiogram to ensure that there is no valvular lesions in this presentation. White blood cell count return to 7000+. This is a good sign considering his presenting leukopenia. Plan: 1. Continue ceftriaxone. 2. Follow up on sensitivities to the Streptococcus pneumoniae isolate. 3. Follow repeat blood cultures. 4. Follow up on 2D echocardiogram. 07/30/16 16:37 Subjective: Patient is resting in his hospital bed. He is breathing somewhat rapidly. He is tachycardic. Able to converse but only in 3 or 4 words at a time. No fevers or chills. Objective: Ceftriaxone # 1 Vital Signs Temp Pulse Resp BP Pulse Ox 36.7 C 81 21 H 92/52 L 90 L 07/30/16 08:00 07/30/16 10:00 07/30/16 10:00 07/30/16 10:00 07/30/16 10:00 Laboratory Results 07/30/16 04:30 07/30/16 04:30 07/29/16 07/30/16 07/31/16 05:59 05:59 05:59 Intake Total 9175 1879 Output Total 2004 4400 Balance 4630 4124 - Physical Exam General Appearance: WD/WN, alert, apparent distress (Respiratory moderate), toxic (Mildly) Respiratory: respiratory distress (Add to my), accessory muscle use, crackles ( Bibasilar crackles left greater than right.), No lungs clear, No normal breath sounds Cardiac/Chest: tachycardia, irregularly irregular Skin: normal color, warm/dry, No rash Neuro/Psych: alert, normal mood/affect, oriented x 3 ICD10 Worksheet Patient Problems: Problems Problem Status Diagnosed Pneumonia Acute Respiratory failure Acute Severe sepsis with acute organ dysfunction Acute
--- NOTE | 2016-07-30 16:50 | DX ---
Chest 2 views - July 30, 2016, at 1640 hours history: Follow up pneumonia. Comparison: June 2016. Findings: Worsening bilateral diffuse alveolar opacities now involving not only the lower lobes, but also bilateral upper lobes. Borderline heart size. No pneumothorax. Atherosclerotic aorta. Impression: Worsening bilateral diffuse pneumonia.
--- NOTE | 2016-07-30 17:12 | CPEKG ---
Heart Rate: 116 RR Interval: 517 P-R Interval: 184 QRSD Interval: 100 QT Interval: 316 QTC Interval: 439 P [place]: 42 QRS [place]: 49 T Wave [place]: 24 EKG Severity - ABNORMAL ECG - EKG Impression: SINUS TACHYCARDIA EKG Impression: MULTIPLE VENTRICULAR PREMATURE COMPLEXES EKG Impression: PROBABLE LEFT ATRIAL ABNORMALITY EKG Impression: COMPARED TO PRIOR, SINUS TACHYCARDIA HAS REPLACED ATRIAL FIBRILLATION Electronically Signed By: Aleksandar Santana 31-Jul-2016 18:18:38
[2016-07-30 19:23] LABS: POTASSIUM 2.9 mEq/L (3.5-5.2)
[2016-07-30 20:41] LABS: BASE EXCESS -6.6 mEq/L (-2.5-2.5); BICARBONATE 18 mEq/L (22-26); MEASURED OXYGEN SATURATION 83 % (92-95); PCO2 33 mmHg (34-38); PO2 51 mmHg (65-75); TCO2 19 mEq/L (23-27)
[2016-07-30 20:42] LABS: O2 CONCENTRATIION 100 % (0-100); P/F RATIO 51 RATIO
--- NOTE | 2016-07-30 20:47 | DX ---
Chest, Two Views 2035 hours History: Pneumonia, hypoxia. Comparison: Earlier today at 16:40 hour. Findings: Cardiac silhouette is within normal range. No significant change in bilateral diffuse artur eolar opacities consistent with diffuse bilateral pneumonia. Possible minimal left pleural effusion. Heart is normal in size. Atherosclerotic aorta. No pneumothorax. Impression: No significant change in severe bilateral diffuse pneumonia.
[2016-07-30] MEDS ORDERED: fentaNYL 100 MCG/2 ML INJ IVP ONE (21:00)
[2016-07-30] MEDS: POTASSIUM Cl (KCl) 100 ML IV SCH ×3 (21:00→23:10)
[2016-07-30] MEDS ORDERED: PROPOFOL/EMULSION 1,000 MG/100 ML BOTTLE IV ONE (21:12)
[2016-07-30] MEDS ORDERED: fentaNYL 100 MCG/2 ML INJ ONE (21:12)
[2016-07-30] MEDS ORDERED: fentanYL/NACL/100 ML BAG IV ONE (21:13)
[2016-07-30] MEDS: fentaNYL/NACL 100 ML IV SCH (21:30)
[2016-07-30] MEDS: PROPOFOL/EMULSION 100 ML IV SCH (21:30)
--- NOTE | 2016-07-30 21:32 | SOAPPROG ---
Downtime Inpatient MD Late Entry SOAP Note: I was contacted by the ICU charge nurse for emergent central line placement in a patient with pneumonia, sepsis and pancytopenia. Platlet count has declined > 50% in 48 hours. He has been on Heparin and Ibuprofen. I will discontinue these meds and recheck the platelet count prior to proceeding. Management of patients sepsis optimally will require central venous catheter for monitoring of CVP despite increased risk of placement. Alejandro Branch MD, FACS
--- NOTE | 2016-07-30 21:32 | DX ---
Chest, One View Portable 2120 hours History: Pneumonia, hypoxia, intubation. Comparison: Earlier today. Findings: Cardiac silhouette is normal in size. Endotracheal torsion above the red. Diffuse alveo lar opacity throughout both lungs again identified and possible small left pleural effusion. Impression: 1. Diffuse bilateral pneumonia. 2. Endotracheal 4 cm above the red. 3. No pneumothorax.
[2016-07-30 21:49] LABS: HEMATOCRIT 28.8 % (40.0-51.0); HEMOGLOBIN 10.3 g/dL (13.7-17.5); MEAN CELL HEMOGLOBIN 27.9 pg (27.9-34.1); MEAN CELL HEMOGLOBIN CONCENTR. 35.8 g/dL (32.4-36.7); RED BLOOD CELL COUNT 3.69 10^6/uL (4.40-6.38); RED CELL DISTRIBUTION WIDTH 15.3 % (11.5-15.2)
[2016-07-30] MEDS ORDERED: SUCCINYLCHOLINE CHLORIDE 200 MG/10 ML VIAL IVP ONE (22:00)
[2016-07-30] MEDS ORDERED: ETOMIDATE 40 MG/20 ML INJ IV ONE (22:00)
--- NOTE | 2016-07-30 22:07 | EDPHY ---
Inpatient Procedure Narrative: I was called to the patient's bedside for worsening respiratory distress. Per report, Dr. Taylor requested that I come to the ICU to intubate the patient for worsening respiratory distress. I briefly reviewed the patient's medical record. I discussed the case with the nurse. Patient states that he is having increasing shortness of breath. He has failed his noninvasive respiratory measures. Patient consented verbally to intubation. I answered all his questions. Prior to intubation I treated the patient with fentanyl 100 mcg IV. Procedure: RSI Indication for the procedure was worsening respiratory distress and hypoxemia. The patient was preoxygenated with 100% oxygen by face mask and 10 L via nasal cannula. The patient was sedated with etomidate and paralyzed with succinylcholine (I reviewed the patient's potassium prior to intubation). The patient was orally endotracheally intubated with video laryngoscopy with an 7.5 ETT. Tracheal intubation was confirmed with misting on the tube; breath sounds were auscultated equally bilaterally; appropriate color change with [place] [employer] CO2 detector, capnography waveform is appropriate, oxygen saturation after procedure is 93% . Chest X-ray shows ETT in good position. The procedure was performed by myself. I discussed sedation with the nursing staff. There was started patient on a propofol drip per protocol.
[2016-07-30 22:20] LABS: BASE EXCESS -6.9 mEq/L (-2.5-2.5); BICARBONATE 19 mEq/L (22-26); MEASURED OXYGEN SATURATION 93 % (92-95); PCO2 43 mmHg (34-38); PO2 83 mmHg (65-75); TCO2 20 mEq/L (23-27)
[2016-07-30 22:21] LABS: END TIDAL CO2 40; O2 CONCENTRATIION 100 % (0-100); P/F RATIO 83 RATIO; PATIENT RATE 24; SIMV YES
[2016-07-30 22:22] LABS: PRESSURE SUPPORT 7
[2016-07-30] MEDS: NOREPINEPHRINE BITARTRATE 4 MG in D5W 500 ML IV SCH (23:38)
--- NOTE | 2016-07-30 23:48 | DX ---
Portable chest at 2336 hours History: Central line placement. Comparison: Same day earlier. Findings: Endotracheal 4 cm above the red . Left subclavian line in the superior vena cava region. No pneumothorax. No change in bilateral diffuse alveolar opacities. Cardiac silhouette within normal range. Impression: 1. Left subclavian central line in the superior vena cava without pneumothorax. 2. Severe diffuse bilateral pneumonia. 3. Endotracheal tube above the red.
[2016-07-30 23:53] LABS: IONIZED CALCIUM 1.16 MMOL/L (1.12-1.30)
--- NOTE | 2016-07-31 00:12 | POSTOPPROG ---
Post Op Note Date of Operation: 07/31/16 Surgeon: Chaim Branch (, FACS) Anesthesia: IV Sedation, Local (Specify) Pre-op Diagnosis: sepsis Post-op Diagnosis: same Indication: need for central venous pressure monitoring per sepsis protocol Procedure: placement left subclavian venous triple lume CVP cath Findings: CXR shows tip of catheter at the SVC/RA junction without pneumothorax Inf/Abcess present in the surg proc area at time of surgery?: Yes EBL: Minimal Complications: none
[2016-07-31] MEDS: POTASSIUM Cl (KCl) 100 ML IV SCH (00:16)
[2016-07-31] MEDS: LORazepam 2 MG/ML INJ IVP PRN ×3 (00:22→20:44)
--- NOTE | 2016-07-31 01:12 | GOP ---
[f rep st] OPERATIVE REPORT DATE OF OPERATION: SURGEON: Chaim Branch MD ANESTHESIA: Local with IV sedation. PREOPERATIVE DIAGNOSIS: 1. Sepsis. 2. Need for venous access for central venous pressure monitoring. POSTOPERATIVE DIAGNOSIS: 1. Sepsis. 2. Need for venous access for central venous pressure monitoring. PROCEDURE PERFORMED: Placement of left subclavian triple-lumen catheter. FINDINGS: ESTIMATED BLOOD LOSS: For the procedure 5 mL. INDICATIONS: Patient is a 70-year-old male, admitted to the hospital on 07/28/2016 with pneumonia. The patient has positive blood cultures for Streptococcus pneumoniae and has met sepsis criteria requ iring central venous pressure monitoring for further management with pressors and fluids. The patien t was also noted to have mild thrombocytopenia and has been on subcutaneous heparin, as well as nonst eroidal anti-inflammatory drugs. The patient is currently intubated. Consent was obtained prior to the procedure. DESCRIPTION OF PROCEDURE: A time-out was performed identifying the patient and the procedure itself. The left chest wall was prepped and draped in usual fashion. Patient was placed in Trendelenburg pos ition. At the time of the procedure his blood pressure was under 70 systolic. A sterile field was e stablished. The left subclavian vein was punctured on the 1st pass with an 18-gauge thin wall needle and a flexible J-wire was introduced and advanced without resistance. The subcutaneous tissues had been infiltrated with 1% lidocaine plain. The wire was advanced and the needle was withdrawn. A sma ll dianne was made in the skin with a scalpel and a dilator was passed over the wire. Subsequently a t riple lumen catheter was passed over the wire and advanced without resistance to a distance of approx imately 18 cm. The wire was removed. The catheter was secured to the skin with interrupted 0 silk s utures. Sterile dressings were applied. The catheter was aspirated and flushed with dilute heparin solution. The chest x-ray showed the catheter tip to be in the superior vena cava right atrial junct ion without pneumothorax. COMPLICATIONS: None. /[id number]/MODL
[2016-07-31] MEDS: PROPOFOL/EMULSION 100 ML IV SCH ×2 (03:30→11:18)
[2016-07-31] MEDS: fentaNYL/NACL 100 ML IV SCH ×2 (03:30→11:18)
[2016-07-31] MEDS ORDERED: PROTOCOL POTASSIUM 1 DOSE MISC PRN (03:31)
[2016-07-31 04:11] LABS: ALANINE AMINOTRANSFERASE 48 IU/L (21-72); ALBUMIN 1.9 g/dL (3.5-5.0); ALKALINE PHOSPHATASE 146 IU/L (38-126); ANION GAP 11 mEq/L (8-16); ASPARTATE AMINOTRANSFERASE 92 IU/L (17-59); BILIRUBIN,TOTAL 1.6 mg/dL (0.1-1.4); CALCIUM 7.5 mg/dL (8.5-10.4); CARBON DIOXIDE 20 mEq/l (22-31); CHLORIDE 106 mEq/L (97-110); CREATININE 0.7 mg/dL (0.7-1.3); GLOMERULAR FILTRATION RATE > 60; GLUCOSE 132 mg/dL (70-100); POTASSIUM 3.6 mEq/L (3.5-5.2); SODIUM 137 mEq/L (134-144); TOTAL PROTEIN 3.9 g/dL (6.3-8.2)
[2016-07-31] MEDS: NOREPINEPHRINE BITARTRATE 4 MG in D5W 500 ML IV SCH ×2 (04:13→08:28)
[2016-07-31 04:18] LABS: % IMMATURE GRANULYOCYTES 0.7 % (0.0-1.1); ABSOLUTE IMMATURE GRANULOCYTES 0.07 10^3/uL (0.00-0.10); ADD DIFF? NO; ADD MORPH? NO; ADD SCAN? YES; ATYPICAL LYMPHOCYTE FLAG 0 (0-99); FRAGMENT RBC FLAG 0 (0-99); HEMATOCRIT 28.5 % (40.0-51.0); HEMOGLOBIN 10.4 g/dL (13.7-17.5); LEFT SHIFT FLG 300 (0-99); LIPEMIA HEMOLYSIS FLAG 90 (0-99); MEAN CELL HEMOGLOBIN 28.2 pg (27.9-34.1); MEAN CELL HEMOGLOBIN CONCENTR. 36.5 g/dL (32.4-36.7); MEAN CELL VOLUME 77.2 fL (81.5-99.8); MEAN PLATELET VOLUME 10.3 fL (8.7-11.7); PLATELET CLUMPS FLAG 10 (0-99); PLATELET COUNT 113 10^3/uL (150-400); RED BLOOD CELL COUNT 3.69 10^6/uL (4.40-6.38); RED CELL DISTRIBUTION WIDTH 15.4 % (11.5-15.2)
[2016-07-31] MEDS: POTASSIUM Cl (KCl) 50 ML IV SCH ×6 (04:44→10:04)
[2016-07-31 05:09] LABS: SCAN POSITIVE
[2016-07-31 05:16] LABS: ECHINOCYTES 1+; HYPOCHROMIA 1+; LARGE PLATELETS PRESENT; MICROCYTES 1+; PLATELET ESTIMATE DECREASED (ADEQ); POLYCHROMASIA 1+
[2016-07-31 05:17] LABS: TOXIC GRANULATION PRESENT
[2016-07-31] MEDS: guaiFENesin 200 MG/10 ML UDCUP TUBE SCH ×5 (05:54→21:16)
[2016-07-31] MEDS: NS W/ 20 KCl/L 1,000 ML IV SCH (05:54)
[2016-07-31] MEDS: ACETAMINOPHEN 650 MG/20.3 ML UDCUP TUBE PRN ×2 (05:55→10:27)
[2016-07-31] MEDS ORDERED: FUROSEMIDE 40 MG/4 ML VIAL IVP ONE (07:47)
--- NOTE | 2016-07-31 07:54 | PDINTPN ---
Coil Machine Operator Progress Note Assessment/Plan: Assessment: #Pneumococcal pneumonia, slightly improved clinically #Respiratory Failure needing intubation overnight. CXR looks like pulmonary edema. I/O + by 13L in 3 days #AFib resolved #B cell lymphoma #SIRS with tachycardia and hypotension resolved until last night, then hypotensive again and on levophed at 9 #MELODY resolved #FEN: No nutrition Plan: Stop maintenance IV and give lasix Start tube feedings today Ceftriaxone Propofol and fentanyl Proph: famotidine and heparin 07/31/16 07:54 Subjective: sedated Objective: Vital Signs Temp Pulse Resp BP Pulse Ox 38.8 C H 119 H 26 H 101/67 91 L 07/31/16 07:00 07/31/16 07:00 07/31/16 07:00 07/31/16 07:00 07/31/16 07:00 Laboratory Results 07/31/16 03:40 07/31/16 03:40 07/30/16 07/31/16 08/01/16 05:59 05:59 05:59 Intake Total 8524 5979.0 Output Total 4400 2060 Balance 4124 3919.0 PT 14.4 SEC (12.0-15.0) 07/29/16 04:05 INR 1.13 (0.83-1.16) 07/29/16 04:05 Physical Exam - Physical Exam General Appearance: no apparent distress EENT: normal ENT inspection, ET tube Neck: non-tender Respiratory: rales Cardiac/Chest: regular rate, rhythm Abdomen: non-tender, soft Back: Normal inspection Skin: warm/dry Lymphatic: no adenopathy Extremities: non-tender, pedal edema Neuro/Psych: cognition abnormalities ICD10 Worksheet Patient Problems: Problems Problem Status Diagnosed Pneumonia Acute Respiratory failure Acute Severe sepsis with acute organ dysfunction Acute
[2016-07-31] MEDS: FAMOTIDINE 20 MG/NACL 50 ML IV SCH ×2 (08:18→21:16)
[2016-07-31 08:33] LABS: BASE EXCESS -6.7 mEq/L (-2.5-2.5); BICARBONATE 19 mEq/L (22-26); MEASURED OXYGEN SATURATION 89 % (92-95); PCO2 41 mmHg (34-38); PO2 67 mmHg (65-75); TCO2 20 mEq/L (23-27)
[2016-07-31 08:34] LABS: SIMV YES
[2016-07-31 08:35] LABS: END TIDAL CO2 28; O2 CONCENTRATIION 90 % (0-100); P/F RATIO 74 RATIO; PRESSURE SUPPORT 7
--- NOTE | 2016-07-31 08:57 | DX ---
Portable Chest, Single View July 31, 2016 5:15 am Indication: Pneumonia. Follow up. Comparison: Portable chest July 30, 2016. Findings: The ET tube and esophagogastric tube are unchanged in position. Diffuse bilateral confluent airspace consolidation has not significantly changed given differences in technique and positioning. Impression: No change since one day prior.
[2016-07-31] MEDS: cefTRIAXone 2 GM in D5W 50 ML IV SCH (09:10)
[2016-07-31] MEDS: OMEGA-3 FATTY ACIDS 1,000 MG CAP PO SCH (09:14)
[2016-07-31] MEDS: VASOPRESSIN/DEXTROSE 250 ML IV SCH ×2 (09:22→20:45)
--- NOTE | 2016-07-31 09:42 | CPEKG ---
Heart Rate: 130 RR Interval: 462 QRSD Interval: 90 QT Interval: 292 QTC Interval: 430 QRS [place]: 75 T Wave [place]: 67 EKG Severity - ABNORMAL ECG - EKG Impression: ATRIAL FIBRILLATION, V-RATE 61-169 EKG Impression: ATRIAL FIBRILLATION HAS RETURNED Electronically Signed By: Aleksandar Santana 31-Jul-2016 18:19:07
--- NOTE | 2016-07-31 09:51 | ECHO ---
[id number] + + [address] : : [place] [address] : : [phone] + + Adult Echocardiographic Report + ----+ :Name: JULIOCESAR MESA HStudy Date: 07/31/2016 07:01 AM : : Hospital Admission Number: [id number] Location: 247: :: 1945 Gender: Male Height: 69 in : :Age: 70 yrs Race: WH Weight: 143 lb : :Reason For Study: Strep pneumo bacteremia : : BSA: 1.8 meters2 : + ----+ MMode/2D Measurements & Calculations IVSd: 0.65 cm LVIDd: 4.7 cm FS: 12.7 % Ao root diam: 4.3 cm LVPWd: 0.81 cm LVIDs: 4.1 cm EDV(Teich): 101.5 ml LA dimension: 2.9 cm ESV(Teich): 73.7 ml EF(Teich): 27.3 % Normal Measurement Values: + + :LVIDd (3.5-5.7cm) IVSd (0.6-1.1cm) LVPWd (0.6-1.1cm) Aortic Root (2.0-3.7cm)Left Atrium (1.5-4.0cm): :LV Vol(d) (76-115ml) LV Vol(s) (29-48ml) Ejec Fraction (50-65%)PV Suhail (0.6- 1.2m/s) TV Suhail (0.4-1.0m/s) : :MV E Suhail (0.8-1.0m/s)MV A Suhail (0.3-1.0m/s)LVOT Suhail (0.7-1.2m/s) Asc Ao Suhail ( 0.9-1.8m/s) : + + Doppler Measurements & Calculations MV E max suhail: 51.3 cm/sec Ao V2 max: 123.8 cm/sec TR max suhail: 223.7 cm/sec MV A max suhail: 66.1 cm/sec Ao max P.1 mmHg TR max P.0 mmHg MV E/A: 0.78 RAP systole: 5.0 mmHg RVSP(TR): 25.0 mmHg Left Ventricle The left ventricle is normal in size. There is normal left ventricular wall thickness. Left ventricular systolic function is normal. E/a wave reversal. Regional wall motion abnormalities cannot be excluded due to limited visualization. pt is now in atrial fibrillation and comparing form echo of 2010 it is difficult to tel if there are any new rwma's noted. Right Ventricle The right ventricle is normal in size and function. Atria The left atrial size is normal. Right atrial size is normal. The interatrial septum is intact with no evidence for an atrial septal defect. Mitral Valve The mitral valve is normal in structure and function. There is no evidence of mitral valve prolapse. There is no mitral valve stenosis. There is trace mitral regurgitation. Tricuspid Valve Normal tricuspid valve. There is mild tricuspid regurgitation. Right ventricular systolic pressure is normal. Aortic Valve The aortic valve is trileaflet. The aortic valve opens well. There is no aortic stenosis. Trace to mild aortic regurgitation. Pulmonic Valve The pulmonic valve is normal in structure and function. There is no pulmonic valvular regurgitation. Great Vessels Borderline aortic root dilatation. Pericardium/Pleural There is no pericardial effusion. Conclusion A complete two-dimensional transthoracic echocardiogram was performed (2D, M-mode, Doppler and color flow Doppler). There is no evidence of a mass or vegetation. This does not rule out endocarditis. Left ventricular systolic function is normal. E/a wave reversal. There is trace mitral regurgitation. There is mild tricuspid regurgitation. Right ventricular systolic pressure is normal. Trace to mild aortic regurgitation. Borderline aortic root dilatation. pt is now in atrial fibrillation and comparing form echo of 2010 it is difficult to tel if there are any new rwma's noted Final Reading Physician: Noah Valenzuela signed on 07/31/2016 09:49 AM Ordering Physician: Farzad Rogers Performed By: Taisha Mcnulty, [facility]
[2016-07-31] MEDS: DILTIAZEM 125 MG in D5W 125 ML IV SCH (10:04)
[2016-07-31] MEDS ORDERED: ALBUTEROL 3 ML DEYVIAL IH PRN (10:53)
[2016-07-31] MEDS ORDERED: IPRATROPIUM BROMIDE 0.5 MG/2.5 ML DEYVIAL IH PRN (10:54)
[2016-07-31] MEDS ORDERED: AMIODARONE HCL 100 ML IV ONE (11:17)
[2016-07-31] MEDS ORDERED: AMIODARONE HCL 200 ML IV ONE (11:17)
[2016-07-31] MEDS: HYDROCORTISONE 100 MG/2 ML VIAL IVP SCH ×2 (11:18→21:16)
[2016-07-31 12:41] LABS: POTASSIUM 3.8 mEq/L (3.5-5.2)
[2016-07-31] MEDS ORDERED: POTASSIUM Cl (KCl) 50 ML IV ONE (12:48)
[2016-07-31 12:49] LABS: MAGNESIUM 1.5 mg/dL (1.6-2.3)
[2016-07-31] MEDS ORDERED: ALBUMIN 5% 500 ML BOTTLE IV ONE (13:24)
[2016-07-31] MEDS ORDERED: ALBUMIN 5% 500 ML IV ONE (13:28)
[2016-07-31] MEDS ORDERED: ALBUTEROL 60 PUFFS/8 GM MDI IH SCH (14:00)
[2016-07-31] MEDS: NOREPINEPHRINE BITARTRATE 16 MG in D5W 250 ML IV SCH (14:10)
--- NOTE | 2016-07-31 14:26 | PCMIDPN ---
Assessment/Plan: Assessment/Plan: 1. Sepsis secondary to Pneumococcal bacteremia adn LLL pneumonia: - Currently on ceftriaxone -f/u blood cx from 07/30/16 ngtd -tenuous hemodynamic status today. -care discussed with RN Med ceftraixone 2g qd Subjective: Intermittent spiking temps. on Vent, FIO2 100%. hypotensive. Objective: Vital Signs Temp Pulse Resp BP Pulse Ox 37.7 C 91 22 H 75/52 L 93 07/31/16 14:00 07/31/16 14:00 07/31/16 14:00 07/31/16 14:00 07/31/16 14:00 Microbiology 07/30/16 23:45 - Final Sputum, Induced/Suctioned Laboratory Results 07/31/16 03:40 07/31/16 12:20 07/30/16 07/31/16 08/01/16 05:59 05:59 05:59 Intake Total 8524 5979.0 Output Total 4400 2060 1550 Balance 4124 3919.0 -1550 - Physical Exam General Appearance: other (intubated in icu, sedated) EENT: ET Tube Respiratory: coarse breath sounds Cardiac/Chest: regular rate, rhythm Extremities: No swelling Abdomen: normal bowel sounds, non-tender, soft, No distended Skin: other (mottled skin) ICD10 Worksheet Patient Problems: Problems Problem Status Diagnosed Pneumonia Acute Respiratory failure Acute Severe sepsis with acute organ dysfunction Acute
[2016-07-31 14:59] LABS: HEMATOCRIT 28.9 % (40.0-51.0); HEMOGLOBIN 10.2 g/dL (13.7-17.5); MEAN CELL HEMOGLOBIN 27.6 pg (27.9-34.1); MEAN CELL HEMOGLOBIN CONCENTR. 35.3 g/dL (32.4-36.7); MEAN CELL VOLUME 78.1 fL (81.5-99.8); RED BLOOD CELL COUNT 3.7 10^6/uL (4.40-6.38); RED CELL DISTRIBUTION WIDTH 15.9 % (11.5-15.2)
[2016-07-31 15:03] LABS: BICARBONATE 18 mEq/L (22-26); MEASURED OXYGEN SATURATION 93 % (92-95); PCO2 39 mmHg (34-38); PO2 72 mmHg (65-75); TCO2 19 mEq/L (23-27)
[2016-07-31 15:04] LABS: SIMV YES
[2016-07-31 15:05] LABS: END TIDAL CO2 30; O2 CONCENTRATIION 100 % (0-100); P/F RATIO 72 RATIO; PRESSURE SUPPORT 7
--- NOTE | 2016-07-31 15:11 | DX ---
Portable Chest July 31, 2016 1436 hours Clinical Indications: Hypotension and hypoxia. Comparison: July 31, 2016, 0515 hours. Findings: Frontal view (only) shows persistent bilateral alveolar and interstitial infiltrates. Ther e is blunting of the left costophrenic angle. The endotracheal tube, nasogastric tube, and left subcl gene central line are unchanged in position. Impression: 1. Lines and tubes remain in adequate position. 2. Persistent bilateral airspace consolidation and left lower pleural effusion. No significant change from this morning or one day prior.
[2016-07-31 15:20] LABS: ALANINE AMINOTRANSFERASE 46 IU/L (21-72); ALBUMIN 2.2 g/dL (3.5-5.0); ALKALINE PHOSPHATASE 144 IU/L (38-126); ANION GAP 14 mEq/L (8-16); ASPARTATE AMINOTRANSFERASE 82 IU/L (17-59); BILIRUBIN,TOTAL 1.8 mg/dL (0.1-1.4); CALCIUM 7.7 mg/dL (8.5-10.4); CARBON DIOXIDE 20 mEq/l (22-31); CHLORIDE 102 mEq/L (97-110); CREATININE 0.8 mg/dL (0.7-1.3); GLOMERULAR FILTRATION RATE > 60; GLUCOSE 163 mg/dL (70-100); POTASSIUM 3.7 mEq/L (3.5-5.2); SODIUM 136 mEq/L (134-144); TOTAL PROTEIN 4.3 g/dL (6.3-8.2)
--- NOTE | 2016-07-31 15:31 | HOSPPROG ---
Hospitalist Progress Note Assessment/Plan: Assessment: 70-year-old male presents with septic shock in the setting of streptococcal pneumonia/bacteremia c/b worsening acute hypoxic/hypercapnic respiratory failure Plan: 1. Septic shock. Evidenced by tachycardia plus leukopenia plus tachypnea plus clear source of infection (bacteremia) plus end-organ failure notably lactic acidosis and respiratory failure, resulting in autonomic dysregulation in setting of infxn and requiring pressors -severe sepsis order set placed -received weight based IV fluids -received empiric IV fluids -CVP 10, cont on levo and vaso, adding steroids 2. Streptococcal pneumonia. Evidenced by dense bilateral infiltrates, left greater than right, + sepsis physiology outlined above plus strep bacteremia -cont CTX 2g 3. Acute hypoxic and hypercapnic respiratory failure. Evidenced by an SpO2 of 70% on room air on presentation with visible tachypnea and labored breathing with accessory muscle use plus elevated pCO2 and acidosis, secondary to pneumonia and acute diastolic CHF exacerbation -worsening and requiring intubation -requiring 100% FiO2 4. Metabolic acidosis. Acute, lactic acidosis, secondary to autonomic dysregulation and septic shock -off IVF given volume overload 5. Acute kidney injury. Evidenced by serum creatinine level of 1.4, most likely secondary to a combination of hypovolemia as well as septic shock -continue to monitor strict I&Os, urine output, serum creatinine level -appreciate nephrology consultation 6. Hyponatremia. Acute, secondary to renal hypoperfusion in the setting of conditions outlined above -continue monitor serum sodium level 7. Hypokalemia. Acute, repleted with IV fluids and K/Mg protocol -monitor serum sodium level closely given acute kidney injury -continue monitor on telemetry 8. Diffuse large B-cell lymphoma. Stage IIB, treated with stem cell transplant 5 years ago -doubt that his present presentation is related to this process -hold on consulting with Hematology Oncology 9. Acute diastolic CHF exacerbation. Evidenced by volume overload on exam + net pos 12+L LOS + diastolic dysfxn on Echo -given 80mg IV lasix this AM, reduce to 20mg IV 2xd given worsening hypotension -if UOP decreasing, consider albumin to augment renal perfusion given alb 1.9 10. Acute toxic encephalopathy. Evidenced by global brain dysfunction characterized as confusion + somnolence, acute change from baseline/presentation , 2/2 toxic effects of pain Rx and infxn -currently sedated while on vent -reassess once extubated 11. Atrial fibrillation. Acute RVR in setting of critical illness, likely paroxysmal -uncontrolled rate on dilt gtt -d/w Dr. Taylor, plan to amio load for afib and then wean off of dilt -hold on systemic anticoagulation 12. Streptococcal bacteremia. 2/2 PNA, repeat BCx NGTD -will need 14 days CTX 2g from neg cx date -appreciate ID consultation Diet. OGT, TF Prophylaxis. High risk patient, heparin subcu Code. Full per patient his child is MPOA Disposition. ADD uncertain, remains critically ill Subjective: Worsening respiratory distress overnight requiring intubation at approximately 10:00 p.m., receive Lasix this morning with worsening hypotension requiring introduction of vasopressin Objective: Vital Signs Temp Pulse Resp BP Pulse Ox 37.7 C 91 22 H 75/52 L 93 07/31/16 14:00 07/31/16 14:00 07/31/16 14:00 07/31/16 14:00 07/31/16 14:00 Microbiology 07/30/16 23:45 - Final Sputum, Induced/Suctioned Laboratory Results 07/31/16 14:30 07/31/16 14:24 07/30/16 07/31/16 08/01/16 05:59 05:59 05:59 Intake Total 8524 5979.0 Output Total 4400 2060 1550 Balance 4124 3919.0 -1550 PT 14.4 SEC (12.0-15.0) 07/29/16 04:05 INR 1.13 (0.83-1.16) 07/29/16 04:05 - Time Spent With Patient Time Spent with Patient: greater than 35 minutes Time Spent with Patient: Greater than 35 minutes spent on this patients care, greater than 50% of time spent counseling, educating, and coordinating care regarding the above mentioned plan. - Physical Exam Constitutional: chronically ill appearing, other (Intubated and sedated) Eyes: anicteric sclera, other (Constricted pupils bilaterally) Cardiovascular: irregularly irregular, tachycardia, edema (Diffuse anasarca) Respiratory: reduced air movement (Bilateral bases), rhonchi (Bilaterally left greater than right on inspiration), No expiratory wheeze, No bronchial breath sounds Gastrointestinal: normoactive bowel sounds, soft, non-tender abdomen, no palpable masses Neurologic: other (No response to tactile stimuli or verbal stimuli) ICD10 Worksheet Patient Problems: Problems Problem Status Diagnosed Pneumonia Acute Respiratory failure Acute Severe sepsis with acute organ dysfunction Acute
[2016-07-31] MEDS: ALBUTEROL 60 PUFFS/8 GM MDI IH SCH ×3 (16:07→23:59)
[2016-07-31] MEDS ORDERED: SODIUM BICARBONATE 50 MEQ/50 ML SYR IVP ONE (16:09)
[2016-07-31] MEDS ORDERED: NA BICARBONATE 50 MEQ/50 ML VIAL IV ONE (16:30)
[2016-07-31] MEDS: HEPARIN 5,000 UNIT/0.5 ML SYR SC SCH ×2 (16:36→21:16)
[2016-07-31] MEDS ORDERED: AMIODARONE HCL 540 MG in D5W 300 ML IV ONE (17:45)
[2016-07-31 18:40] LABS: POTASSIUM 4.4 mEq/L (3.5-5.2)
[2016-07-31] MEDS: CHLORHEXIDINE GLUCONATE 15 ML UDL PO SCH (21:15)
[2016-08-01] MEDS: NOREPINEPHRINE BITARTRATE 16 MG in D5W 250 ML IV SCH
[2016-08-01 00:45] LABS: POTASSIUM 4.3 mEq/L (3.5-5.2)
[2016-08-01] MEDS: guaiFENesin 200 MG/10 ML UDCUP TUBE SCH ×5 (01:35→23:54)
[2016-08-01] MEDS: PROPOFOL/EMULSION 100 ML IV SCH ×2 (01:35→21:13)
[2016-08-01] MEDS ORDERED: METOCLOPRAMIDE 10 MG/2 ML VIAL ONE (02:10)
[2016-08-01] MEDS ORDERED: METOCLOPRAMIDE 10 MG/2 ML VIAL IVP ONE (02:15)
[2016-08-01] MEDS ORDERED: PROTOCOL K PHOSPHATE 1 DOSE IV PRN (02:37)
[2016-08-01] MEDS ORDERED: PROTOCOL MAGNESIUM 1 DOSE IV PRN (02:37)
[2016-08-01] MEDS: fentaNYL/NACL 100 ML IV SCH ×2 (03:29→23:50)
[2016-08-01 04:18] LABS: BASE EXCESS -6.6 mEq/L (-2.5-2.5); BICARBONATE 19 mEq/L (22-26); IONIZED CALCIUM 1.21 MMOL/L (1.12-1.30); MEASURED OXYGEN SATURATION 96 % (92-95); PCO2 38 mmHg (34-38); PO2 89 mmHg (65-75); TCO2 20 mEq/L (23-27)
[2016-08-01 04:20] LABS: O2 CONCENTRATIION 70 % (0-100); P/F RATIO 127 RATIO; PATIENT RATE 28; PRESSURE SUPPORT 7; SIMV YES
[2016-08-01] MEDS: ALBUTEROL 60 PUFFS/8 GM MDI IH SCH ×5 (04:24→20:12)
[2016-08-01] MEDS ORDERED: NA BICARBONATE 50 MEQ/50 ML VIAL ONE (04:26)
[2016-08-01] MEDS ORDERED: NA BICARBONATE 50 MEQ/50 ML VIAL IV ONE (05:00)
[2016-08-01 05:30] LABS: ABSOLUTE NRBC COUNT 0.05 10^3/uL (0-0.01); ADD DIFF? YES; ADD MORPH? NO; ATYPICAL LYMPHOCYTE FLAG 10 (0-99); FRAGMENT RBC FLAG 0 (0-99); HEMATOCRIT 28.8 % (40.0-51.0); HEMOGLOBIN 10.3 g/dL (13.7-17.5); LIPEMIA HEMOLYSIS FLAG 90 (0-99); MEAN CELL HEMOGLOBIN 27.5 pg (27.9-34.1); MEAN CELL HEMOGLOBIN CONCENTR. 35.8 g/dL (32.4-36.7); MEAN PLATELET VOLUME 10.3 fL (8.7-11.7); NRBC-AUTO% 0.3 % (0.0-0.2); PLATELET CLUMPS FLAG 10 (0-99); PLATELET COUNT 74 10^3/uL (150-400); RED BLOOD CELL COUNT 3.74 10^6/uL (4.40-6.38); RED CELL DISTRIBUTION WIDTH 15.8 % (11.5-15.2)
[2016-08-01 05:38] LABS: ADD SCAN? NO; LEFT SHIFT FLG 300 (0-99)
[2016-08-01] MEDS: HEPARIN 5,000 UNIT/0.5 ML SYR SC SCH ×3 (05:48→21:05)
[2016-08-01 05:49] LABS: ALANINE AMINOTRANSFERASE 81 IU/L (21-72); ALBUMIN 2.3 g/dL (3.5-5.0); ALKALINE PHOSPHATASE 150 IU/L (38-126); ANION GAP 13 mEq/L (8-16); ASPARTATE AMINOTRANSFERASE 173 IU/L (17-59); CARBON DIOXIDE 24 mEq/l (22-31); CHLORIDE 101 mEq/L (97-110); CREATININE 0.8 mg/dL (0.7-1.3); GLOMERULAR FILTRATION RATE > 60; GLUCOSE 218 mg/dL (70-100); MAGNESIUM 1.7 mg/dL (1.6-2.3); POTASSIUM 4.2 mEq/L (3.5-5.2); SODIUM 138 mEq/L (134-144); TOTAL PROTEIN 4.3 g/dL (6.3-8.2)
[2016-08-01 06:14] LABS: HYPOCHROMIA 2+; TARGET CELLS 1+; TOXIC GRANULATION PRESENT; TOXIC VACUOLIZATION PRESENT
[2016-08-01 06:15] LABS: LARGE PLATELETS PRESENT; PLATELET ESTIMATE DECREASED (ADEQ)
[2016-08-01] MEDS ORDERED: MAGNESIUM SULF 1 GM/DEXTROSE 100 ML IV ONE (07:21)
[2016-08-01] MEDS: cefTRIAXone 2 GM in D5W 50 ML IV SCH (07:42)
[2016-08-01] MEDS: CHLORHEXIDINE GLUCONATE 15 ML UDL PO SCH ×2 (07:42→19:57)
[2016-08-01] MEDS: FAMOTIDINE 20 MG/NACL 50 ML IV SCH ×2 (07:43→20:18)
[2016-08-01] MEDS: HYDROCORTISONE 100 MG/2 ML VIAL IVP SCH ×2 (07:43→20:18)
[2016-08-01] MEDS: OMEGA-3 FATTY ACIDS 1,000 MG CAP PO SCH (07:45)
--- NOTE | 2016-08-01 08:33 | DX ---
Single Frontal Chest August 01, 2016 Indication: Persistent hypoxia. Comparison: July 31, 2016. Findings: Bilateral patchy alveolar and interstitial infiltrates are largely unchanged from one day prior. Endotracheal tube, central line, and NG tube are stable. Left base is slightly better aerated than one day prior. Impression: 1. Stable lines and tubes. 2. Slightly improved aeration at the left base. Bilateral infiltrates are otherwise largely unchanged .
[2016-08-01] MEDS: VECURONIUM BROMIDE 50 MG in D5W 50 ML IV SCH (09:12)
--- NOTE | 2016-08-01 09:13 | PDINTPN ---
Cylindrical Mixer Progress Note Assessment/Plan: Assessment/Plan: * #Pneumococcal pneumonia-continues to improve slowly clinically * #Respiratory Failure -fighting vent -add paralytic -continue rotarest bed * Shock-on multiple pressors * #AFib resolved * #B cell lymphoma * Sepsis with tachycardia and hypotension resolved until last night, then hypotensive again and on levophed at 9 * #MELODY resolved * #Nutrition-hold 40 min of critical care time spent with patient Case discussed with RT and nursing Subjective: Sedated, vented on rotarest bed Objective: Vital Signs Temp Pulse Resp BP Pulse Ox 37.1 C 72 16 130/97 H 95 08/01/16 08:00 08/01/16 08:00 08/01/16 08:00 08/01/16 08:00 08/01/16 08:00 Microbiology 07/30/16 23:45 - Final Sputum, Induced/Suctioned Laboratory Results 08/01/16 05:05 08/01/16 05:05 07/31/16 08/01/16 08/02/16 05:59 05:59 05:59 Intake Total 5979.0 3321.3 Output Total 2060 3350 Balance 3919.0 -28.7 PT 14.4 SEC (12.0-15.0) 07/29/16 04:05 INR 1.13 (0.83-1.16) 07/29/16 04:05 Physical Exam - Physical Exam General Appearance: other (on rotarest bed), No alert EENT: PERRL/EOMI, ET tube Neck: non-tender, full range of motion Respiratory: crackles (scattered), No lungs clear, No stridor, No wheezing Cardiac/Chest: normal peripheral pulses, regular rate, rhythm, systolic murmur Peripheral Pulses: 2+: carotid (R), carotid (L), femoral (R), femoral (L), dorsalis-pedis (R), dorsalis-pedis (L) Abdomen: normal bowel sounds, non-tender, soft Male Genitalia: deferred Rectal: deferred Skin: normal color, warm/dry Extremities: normal range of motion, non-tender, normal inspection, normal capillary refill Neuro/Psych: No alert ICD10 Worksheet Patient Problems: Problems Problem Status Diagnosed Pneumonia Acute Respiratory failure Acute Severe sepsis with acute organ dysfunction Acute
--- NOTE | 2016-08-01 09:22 | CPEKG ---
Heart Rate: 159 RR Interval: 377 P-R Interval: 152 QRSD Interval: 106 QT Interval: 280 QTC Interval: 456 P [place]: 74 QRS [place]: 27 T Wave [place]: 51 EKG Severity - ABNORMAL ECG - EKG Impression: SINUS TACHYCARDIA WITH PACs Electronically Signed By: Sinan Ling 01-Aug-2016 21:18:26
--- NOTE | 2016-08-01 09:28 | CPEKG ---
Heart Rate: 152 RR Interval: 395 QRSD Interval: 106 QT Interval: 300 QTC Interval: 477 QRS [place]: 62 T Wave [place]: 52 EKG Severity - ABNORMAL ECG - EKG Impression: SINUS TACHYCARDIA WITH PACs Electronically Signed By: Sinan Ling 01-Aug-2016 21:19:15
[2016-08-01] MEDS ORDERED: AMIODARONE HCL 100 ML IV ONE ×2 (10:21→21:00)
[2016-08-01] MEDS ORDERED: FUROSEMIDE 40 MG/4 ML VIAL IVP ONE (10:22)
--- NOTE | 2016-08-01 10:26 | HOSPPROG ---
Hospitalist Progress Note Assessment/Plan: Assessment: 70-year-old male presents with septic shock in the setting of streptococcal pneumonia/bacteremia c/b worsening acute hypoxic/hypercapnic respiratory failure Plan: 1. Septic shock. Evidenced by tachycardia plus leukopenia plus tachypnea plus clear source of infection (bacteremia) plus end-organ failure notably lactic acidosis and respiratory failure, resulting in autonomic dysregulation in setting of infxn and requiring pressors -order set placed -received weight based IV fluids -received empiric IV fluids -cont on vaso/levo/steroids, PRN albumin if worsening 2. Streptococcal pneumonia. Evidenced by dense bilateral infiltrates, left greater than right, + sepsis physiology outlined above plus strep bacteremia -cont CTX 2g 3. Acute hypoxic and hypercapnic respiratory failure. Evidenced by an SpO2 of 70% on room air on presentation with visible tachypnea and labored breathing with accessory muscle use plus elevated pCO2 and acidosis, secondary to pneumonia and acute diastolic CHF exacerbation -worsening and requiring intubation -remains very high risk patient of worsening morbidity/mortality -requiring 60% FiO2 on rotorest bed w/ paralytics 4. Metabolic acidosis. Acute, lactic acidosis, secondary to autonomic dysregulation and septic shock -off IVF given volume overload 5. Acute kidney injury. Evidenced by serum creatinine level of 1.4, most likely secondary to a combination of hypovolemia as well as septic shock -continue to monitor strict I&Os, urine output, serum creatinine level -appreciate nephrology consultation 6. Hyponatremia. Acute, secondary to renal hypoperfusion in the setting of conditions outlined above -continue monitor serum sodium level 7. Hypokalemia. Acute, repleted with IV fluids and K/Mg protocol -monitor serum sodium level closely given acute kidney injury -continue monitor on telemetry 8. Diffuse large B-cell lymphoma. Stage IIB, treated with stem cell transplant 5 years ago -doubt that his present presentation is related to this process -hold on consulting with Hematology Oncology 9. Acute diastolic CHF exacerbation. Evidenced by volume overload on exam + net pos 12+L LOS + diastolic dysfxn on Echo -CXR w/ improvement in based (personally interpreted) -net even w/ 40mg IV lasix, give 40mg IV lasix this AM w/ less vol infusion -if UOP decreasing, consider albumin to augment renal perfusion given alb 1.9 10. Acute toxic encephalopathy. Evidenced by global brain dysfunction characterized as confusion + somnolence, acute change from baseline/presentation , 2/2 toxic effects of pain Rx and infxn -currently sedated while on vent -reassess once extubated 11. Atrial fibrillation. Acute RVR in setting of critical illness, likely paroxysmal -s/p amio gtt/load -d/w Dr. Welch, plan to give daily 150mg IV amio and return to drip if rates run uncontrolled -DC dilt -hold on systemic anticoagulation 12. Streptococcal bacteremia. 2/2 PNA, repeat BCx NGTD -will need 14 days CTX 2g from 07/30/16 -appreciate ID consultation Diet. OGT, TF on hold given rotorest Prophylaxis. High risk patient, heparin subcu contraindicated w/ worsening thrombocytopenia Code. Full per patient his child is MPOA Disposition. ADD uncertain, remains critically ill Subjective: placed on rotorest, received alb for worsening BPs, no lasix last PM Objective: Vital Signs Temp Pulse Resp BP Pulse Ox 37.1 C 71 20 116/72 92 08/01/16 10:00 08/01/16 10:00 08/01/16 10:00 08/01/16 10:00 08/01/16 10:00 Microbiology 07/31/16 21:00 - Final Sputum, Induced/Suctioned 07/30/16 23:45 - Final Sputum, Induced/Suctioned Laboratory Results 08/01/16 05:05 08/01/16 05:05 07/31/16 08/01/16 08/02/16 05:59 05:59 05:59 Intake Total 5979.0 3321.3 Output Total 2060 3350 Balance 3919.0 -28.7 PT 14.4 SEC (12.0-15.0) 07/29/16 04:05 INR 1.13 (0.83-1.16) 07/29/16 04:05 - Physical Exam Constitutional: no apparent distress, not in pain, chronically ill appearing, other (intubated sedated), No uncomfortable Eyes: anicteric sclera, other (constricted pupils ) Cardiovascular: edema (diffuse), No systolic murmur, No irregularly irregular, No tachycardia Respiratory: reduced air movement (shortened insp and exp phase), rhonchi (L>R on inspiration), No expiratory wheeze, No bronchial breath sounds Gastrointestinal: soft, non-tender abdomen, No normoactive bowel sounds ( hypoactive), No guarding, No distension Psychiatric: encephalopathic, other (does not respond to tactile or verbal stimuli), No agitated ICD10 Worksheet Patient Problems: Problems Problem Status Diagnosed Pneumonia Acute Respiratory failure Acute Severe sepsis with acute organ dysfunction Acute
[2016-08-01 11:08] LABS: BASE EXCESS -4.2 mEq/L (-2.5-2.5); BICARBONATE 21 mEq/L (22-26); MEASURED OXYGEN SATURATION 95 % (92-95); PCO2 40 mmHg (34-38); PO2 79 mmHg (65-75); TCO2 22 mEq/L (23-27)
[2016-08-01 11:10] LABS: ASSIST CONTROL YES; O2 CONCENTRATIION 60 % (0-100); P/F RATIO 132 RATIO; TOTAL RATE 27
[2016-08-01] MEDS ORDERED: CARBOXYMETHYLCELLULOSE 1% 0.4 ML DROPERETTE EACHEYE PRN (11:21)
[2016-08-01] MEDS ORDERED: PETROLAT,WHT/MIN OIL/SOD CHL 3.5 GM OPHT.OINT EACHEYE PRN (11:31)
[2016-08-01 12:49] LABS: POTASSIUM 3.6 mEq/L (3.5-5.2)
[2016-08-01] MEDS: POTASSIUM Cl (KCl) 50 ML IV SCH ×3 (13:56→15:09)
[2016-08-01 18:01] LABS: POTASSIUM 3.7 mEq/L (3.5-5.2)
--- NOTE | 2016-08-01 18:30 | PCMIDPN ---
Assessment/Plan: Assessment/Plan: * Sepsis due to pneumococcal bacteremia with bilateral pneumonia: Remains on pressors with FiO2 decreased to 60%. Pneumococcal isolate is beta-lactam susceptible. Repeat blood culture show no growth to date. Continue ceftriaxone. Increased white blood cell count is encouraging given initial presentation with marked leukopenia. 08/01/16 18:27 Subjective: Patient intubated and paralyzed with FiO2 of 60%. Remains on blood pressure support. Objective: Vital Signs Temp Pulse Resp BP Pulse Ox 36.3 C 69 27 H 119/78 98 08/01/16 18:00 08/01/16 18:00 08/01/16 18:00 08/01/16 18:00 08/01/16 18:00 Microbiology 07/31/16 21:00 - Final Sputum, Induced/Suctioned 07/30/16 23:45 - Final Sputum, Induced/Suctioned Laboratory Results 08/01/16 05:05 08/01/16 17:34 07/31/16 08/01/16 08/02/16 05:59 05:59 05:59 Intake Total 5979.0 3321.3 1194.2 Output Total 2060 3350 2000 Balance 3919.0 -28.7 -805.8 Ceftriaxone # 3 Blood cultures 07/30/2016 no growth Sputum with Justyna albicans - Physical Exam General Appearance: other (Intubated and paralyzed) EENT: other (White coating on tongue), No scleral icterus, No conjunctival petechiae Respiratory: coarse breath sounds Cardiac/Chest: regular rate, rhythm Extremities: No inflammation Abdomen: No distended Skin: No embolic lesions ICD10 Worksheet Patient Problems: Problems Problem Status Diagnosed Pneumonia Acute Respiratory failure Acute Severe sepsis with acute organ dysfunction Acute
[2016-08-01] MEDS ORDERED: POTASSIUM Cl (KCl) 50 ML IV ONE (20:55)
[2016-08-02] MEDS: ALBUTEROL 60 PUFFS/8 GM MDI IH SCH ×6 (00:13→19:42)
[2016-08-02 01:00] LABS: POTASSIUM 4.4 mEq/L (3.5-5.2)
[2016-08-02] MEDS: VECURONIUM BROMIDE 50 MG in D5W 50 ML IV SCH (01:59)
[2016-08-02] MEDS: guaiFENesin 200 MG/10 ML UDCUP TUBE SCH ×6 (03:10→21:34)
[2016-08-02 04:06] LABS: ADD DIFF? YES; ADD MORPH? NO; FRAGMENT RBC FLAG 0 (0-99); LIPEMIA HEMOLYSIS FLAG 90 (0-99); MEAN CELL HEMOGLOBIN CONCENTR. 36.4 g/dL (32.4-36.7); PLATELET CLUMPS FLAG 0 (0-99)
[2016-08-02 04:27] LABS: ALANINE AMINOTRANSFERASE 218 IU/L (21-72); ALBUMIN 2.4 g/dL (3.5-5.0); ALKALINE PHOSPHATASE 160 IU/L (38-126); ANION GAP 13 mEq/L (8-16); ASPARTATE AMINOTRANSFERASE 465 IU/L (17-59); BILIRUBIN,TOTAL 2.3 mg/dL (0.1-1.4); CALCIUM 8.3 mg/dL (8.5-10.4); CARBON DIOXIDE 27 mEq/l (22-31); CHLORIDE 99 mEq/L (97-110); CREATININE 0.7 mg/dL (0.7-1.3); GLOMERULAR FILTRATION RATE > 60; GLUCOSE 172 mg/dL (70-100); MAGNESIUM 1.8 mg/dL (1.6-2.3); POTASSIUM 3.9 mEq/L (3.5-5.2); SODIUM 139 mEq/L (134-144); TOTAL PROTEIN 4.7 g/dL (6.3-8.2)
[2016-08-02 04:29] LABS: % IMMATURE GRANULYOCYTES 1.5 % (0.0-1.1); ABSOLUTE IMMATURE GRANULOCYTES 0.25 10^3/uL (0.00-0.10); ABSOLUTE NRBC COUNT 0.08 10^3/uL (0-0.01); ATYPICAL LYMPHOCYTE FLAG 20 (0-99); HEMATOCRIT 29.4 % (40.0-51.0); HEMOGLOBIN 10.7 g/dL (13.7-17.5); MEAN CELL HEMOGLOBIN 27.8 pg (27.9-34.1); MEAN CELL VOLUME 76.4 fL (81.5-99.8); MEAN PLATELET VOLUME 10.5 fL (8.7-11.7); NRBC-AUTO% 0.5 % (0.0-0.2); RED BLOOD CELL COUNT 3.85 10^6/uL (4.40-6.38); RED CELL DISTRIBUTION WIDTH 15.4 % (11.5-15.2)
[2016-08-02 04:34] LABS: ADD SCAN? NO; LEFT SHIFT FLG 300 (0-99); PLATELET COUNT 48 10^3/uL (150-400)
[2016-08-02 04:37] LABS: BILIRUBIN-CONJUGATED 1.8 mg/dL (0.0-0.5); BILIRUBIN-UNCONJUGATED 0.5 mg/dL (0.0-1.1)
[2016-08-02] MEDS: HEPARIN 5,000 UNIT/0.5 ML SYR SC SCH (04:49)
[2016-08-02] MEDS ORDERED: POTASSIUM Cl (KCl) 50 ML IV ONE ×3 (05:04→15:00)
[2016-08-02 05:07] LABS: HYPOCHROMIA 1+; PLATELET ESTIMATE DECREASED (ADEQ); TARGET CELLS 1+
[2016-08-02] MEDS: PROPOFOL/EMULSION 100 ML IV SCH ×2 (07:15→14:57)
[2016-08-02] MEDS ORDERED: MAGNESIUM SULF 1 GM/DEXTROSE 100 ML IV ONE (07:52)
[2016-08-02 08:16] LABS: BASE EXCESS -0.5 mEq/L (-2.5-2.5); BICARBONATE 24 mEq/L (22-26); MEASURED OXYGEN SATURATION 94 % (92-95); PCO2 43 mmHg (34-38); PO2 75 mmHg (65-75); TCO2 26 mEq/L (23-27)
[2016-08-02 08:18] LABS: ASSIST CONTROL YES; O2 CONCENTRATIION 60 % (0-100); P/F RATIO 125 RATIO; TOTAL RATE 27
--- NOTE | 2016-08-02 08:37 | PDINTPN ---
Community Engagement Specialist Progress Note Assessment/Plan: Assessment/Plan: * Pneumococcal pneumonia-continues to improve slowly clinically * Respiratory Failure -markedly better -D/C paralytic -D/C rotarest bed * Shock-improved * AFib resolved * B cell lymphoma * Sepsis with tachycardia and hypotension resolved until last night, then hypotensive again and on levophed at 9 * MELODY resolved * Nutrition-will restart this afternoon * VTE proph * Stress ulcer proph 35 min of critical care time spent with patient Case discussed with RT and nursing Subjective: Sedated and paralyzed Objective: Vital Signs Temp Pulse Resp BP Pulse Ox 37.5 C 73 27 H 94/58 L 96 08/02/16 07:00 08/02/16 07:00 08/02/16 07:00 08/02/16 07:00 08/02/16 07:00 Microbiology 07/31/16 21:00 - Final Sputum, Induced/Suctioned 07/30/16 23:45 - Final Sputum, Induced/Suctioned Laboratory Results 08/02/16 03:45 08/02/16 03:45 08/01/16 08/02/16 08/03/16 05:59 05:59 05:59 Intake Total 3321.3 2144.2 Output Total 3350 2625 120 Balance -28.7 -480.8 -120 PT 14.4 SEC (12.0-15.0) 07/29/16 04:05 INR 1.13 (0.83-1.16) 07/29/16 04:05 Laboratory Results 08/02/16 03:45 08/02/16 03:45 08/02/16 08/02/16 08:07 03:45 Patient Temperature 37.0 DEGREES pCO2 43 H mmHg (34 - 38) pO2 75 mmHg (65 - 75) Total CO2 26 mEq/L (23 - 27) ABG pH 7.37 (7.35 - 7.45) ABG PO2/FiO2 Ratio 125 RATIO ABG O2 Saturation 94 % (92 - 95) ABG Base Excess -0.5 mEq/L (-2.5 - 2.5) O2 Concentration % 60 % Respiration Rate 27 Set Respiration Rate 27 Assist Control YES Tidal Volume 700 PEEP 5 Calcium 8.3 L mg/dL (8.5 - 10.4) Phosphorus 3.2 mg/dL (2.5 - 4.5) Magnesium 1.8 mg/dL (1.6 - 2.3) Total Bilirubin 2.3 H mg/dL (0.1 - 1.4) Conjugated Bilirubin 1.8 H mg/dL (0.0 - 0.5) Unconjugated Bilirubin 0.5 mg/dL (0.0 - 1.1) AST 465 H IU/L (17 - 59) ALT 218 H IU/L (21 - 72) Alkaline Phosphatase 160 H IU/L (38 - 126) Total Protein 4.7 L g/dL (6.3 - 8.2) Albumin 2.4 L g/dL (3.5 - 5.0) 07/31/16 21:00 - Final Sputum, Induced/Suctioned Sputum Culture - Preliminary Justyna Albicans 07/30/16 23:45 - Final Sputum, Induced/Suctioned Sputum Culture - Preliminary Justyna Albicans Physical Exam - Physical Exam General Appearance: other (sedated), No alert EENT: PERRL/EOMI, ET tube Neck: non-tender, full range of motion, supple Respiratory: crackles (scattered), No respiratory distress, No wheezing Cardiac/Chest: normal peripheral pulses, regular rate, rhythm, systolic murmur Peripheral Pulses: 2+: carotid (R), carotid (L), femoral (R), femoral (L), dorsalis-pedis (R), dorsalis-pedis (L) Abdomen: normal bowel sounds, non-tender, soft Male Genitalia: deferred Rectal: deferred Skin: normal color, warm/dry Neuro/Psych: No alert ICD10 Worksheet Patient Problems: Problems Problem Status Diagnosed Pneumonia Acute Respiratory failure Acute Severe sepsis with acute organ dysfunction Acute
[2016-08-02] MEDS ORDERED: MAGNESIUM SULF 1 GM/DEXTROSE 100 ML BAG IV ONE (08:51)
[2016-08-02] MEDS: FAMOTIDINE 20 MG/NACL 50 ML IV SCH ×2 (08:52→20:34)
[2016-08-02] MEDS: CHLORHEXIDINE GLUCONATE 15 ML UDL PO SCH ×2 (08:52→19:49)
[2016-08-02] MEDS: HYDROCORTISONE 100 MG/2 ML VIAL IVP SCH (08:53)
[2016-08-02] MEDS: OMEGA-3 FATTY ACIDS 1,000 MG CAP PO SCH (08:54)
[2016-08-02] MEDS: cefTRIAXone 2 GM in D5W 50 ML IV SCH (08:55)
[2016-08-02 09:30] LABS: INR 1.03 (0.83-1.16); PROTIME(PATIENT) 13.4 SEC (12.0-15.0)
[2016-08-02] MEDS ORDERED: FUROSEMIDE 40 MG/4 ML VIAL ONE (10:22)
[2016-08-02] MEDS: FUROSEMIDE 40 MG/4 ML VIAL IVP SCH (10:30)
[2016-08-02] MEDS ORDERED: AMIODARONE HCL 150 MG/3 ML VIAL ONE (10:54)
[2016-08-02] MEDS ORDERED: AMIODARONE HCL 100 ML IV ONE (10:54)
[2016-08-02] MEDS ORDERED: AMIODARONE HCL 150 MG/3 ML VIAL IV ONE ×2 (11:30)
[2016-08-02] MEDS ORDERED: ALBUMIN 5% 250 ML BOTTLE IV ONE (12:02)
[2016-08-02] MEDS ORDERED: ALBUMIN 25% 100 ML IV ONE (12:19)
[2016-08-02 13:28] LABS: POTASSIUM 3.4 mEq/L (3.5-5.2)
[2016-08-02] MEDS ORDERED: AMIODARONE HCL 540 MG in D5W 300 ML IV ONE ×2 (13:30→18:00)
[2016-08-02] MEDS ORDERED: AMIODARONE HCL 200 ML IV ONE (13:30)
[2016-08-02] MEDS ORDERED: POTASSIUM Cl (KCl) 50 ML IV SCH (13:57)
[2016-08-02] MEDS: methylPREDNISolone SOD SUCC 125 MG/2 ML VIAL IVP SCH ×2 (14:37→22:42)
[2016-08-02] MEDS: fentaNYL/NACL 100 ML IV SCH (15:33)
--- NOTE | 2016-08-02 17:26 | HOSPPROG ---
Hospitalist Progress Note Assessment/Plan: Assessment: 70-year-old male presents with septic shock in the setting of streptococcal pneumonia/bacteremia c/b worsening acute hypoxic/hypercapnic respiratory failure and new onset Afib Plan: 1. Septic shock. Evidenced by tachycardia plus leukopenia plus tachypnea plus clear source of infection (bacteremia) plus end-organ failure notably lactic acidosis and respiratory failure, resulting in autonomic dysregulation in setting of infxn and requiring pressors -order set placed -off further fluids given dCHF -received empiric IV fluids -weaned off vaso/levo, PRN albumin IV 2. Streptococcal pneumonia. Evidenced by dense bilateral infiltrates, left greater than right, + sepsis physiology outlined above plus strep bacteremia -cont CTX 2g 3. Acute hypoxic and hypercapnic respiratory failure. Evidenced by an SpO2 of 70% on room air on presentation with visible tachypnea and labored breathing with accessory muscle use plus elevated pCO2 and acidosis, secondary to pneumonia and acute diastolic CHF exacerbation -requiring 40% FiO2 on vent, off rotorest and paralytics 4. Metabolic acidosis. Acute, lactic acidosis, secondary to autonomic dysregulation and septic shock -off IVF given volume overload 5. Acute kidney injury. Evidenced by serum creatinine level of 1.4, most likely secondary to a combination of hypovolemia as well as septic shock -continue to monitor strict I&Os, urine output, serum creatinine level -appreciate nephrology consultation 6. Hyponatremia. Acute, secondary to renal hypoperfusion in the setting of conditions outlined above -continue monitor serum sodium level 7. Hypokalemia. Acute, K/Mg protocol -monitor serum sodium level closely given acute kidney injury -continue monitor on telemetry 8. Diffuse large B-cell lymphoma. Stage IIB, treated with stem cell transplant 5 years ago -doubt that his present presentation is related to this process -hold on consulting with Hematology Oncology 9. Acute diastolic CHF exacerbation. Evidenced by volume overload on exam + net pos 12+L LOS + diastolic dysfxn on Echo -CXR w/ improvement in bases (personally interpreted) -net neg 500cc o/n, give 40mg IV today 10. Acute toxic encephalopathy. Evidenced by global brain dysfunction characterized as confusion + somnolence, acute change from baseline/presentation , 2/2 toxic effects of pain Rx and infxn -currently sedated while on vent -reassess once extubated 11. Atrial fibrillation. Acute RVR in setting of critical illness, likely paroxysmal, new diagnosis and worsening this AM -s/p amio gtt/load, then on HS dosing -hold on systemic anticoagulation -recurrence w/o hemodynamic compromise, given 150mg once, then continuous gtt -high risk morbidity/mortality, 35 minutes bedside critical care time spent addressing this issue and those above 12. Streptococcal bacteremia. 2/2 PNA, repeat BCx NGTD -will need 14 days CTX 2g from 07/30/16 -appreciate ID consultation 13. Acute reactive airway exacerbation. Evidenced by pCO2 retention, acidosis, smoking hx -d/w Dr. Welch, adjusted steroids to 60mg q8 IV, transition to prednisone once taking PO -cont nebs Diet. OGT, TF on hold given rotorest Prophylaxis. High risk patient, heparin subcu contraindicated w/ worsening thrombocytopenia Code. Full per patient his child is MPOA Disposition. ADD uncertain, remains critically ill Subjective: went back into atrial fibrillation with heart rates in the 150s Objective: Vital Signs Temp Pulse Resp BP Pulse Ox 37.3 C 98 24 H 130/68 H 90 L 08/02/16 17:00 08/02/16 17:00 08/02/16 17:00 08/02/16 17:00 08/02/16 17:00 Microbiology 07/31/16 21:00 - Final Sputum, Induced/Suctioned Sputum Culture - Final Justyna Albicans 07/30/16 23:45 - Final Sputum, Induced/Suctioned Sputum Culture - Final Justyna Albicans Laboratory Results 08/02/16 03:45 08/02/16 12:50 08/01/16 08/02/16 08/03/16 05:59 05:59 05:59 Intake Total 3321.3 2144.2 1.4 Output Total 3350 2625 2900 Balance -28.7 -480.8 -2898.6 PT 13.4 SEC (12.0-15.0) 08/02/16 08:45 INR 1.03 (0.83-1.16) 08/02/16 08:45 - Physical Exam Constitutional: no apparent distress, not in pain, chronically ill appearing, No uncomfortable Eyes: other ( constricted pupils) Cardiovascular: irregularly irregular, tachycardia, edema ( less in the lower extremities, persistently upper extremity), No systolic murmur Respiratory: rhonchi ( faint left greater than right on inspiration), No reduced air movement, No expiratory wheeze, No bronchial breath sounds Gastrointestinal: distension ( mildly), No normoactive bowel sounds ( hypoactive ), No tenderness Psychiatric: other ( no response to verbal stimuli) ICD10 Worksheet Patient Problems: Problems Problem Status Diagnosed Pneumonia Acute Respiratory failure Acute Severe sepsis with acute organ dysfunction Acute
--- NOTE | 2016-08-02 18:01 | PCMIDPN ---
Assessment/Plan: Assessment: Streptococcus pneumoniae sepsis and pneumonia. Continuing on ceftriaxone 2 g IV Q 24 hours. Seems to be improving. Oxygenating off the road arrest bed. Pressor support continues but at a lower level. Agree that the leukocytosis is an appropriate sign at this point. Plan: 1. Continue ceftriaxone. 2. Follow repeat blood cultures. Subjective: Patient remains sedated intubated. Less pressor support necessary. Tolerating ceftriaxone without obvious issue. No fevers. Objective: Ceftriaxone #4 Vital Signs Temp Pulse Resp BP Pulse Ox 37.3 C 98 24 H 130/68 H 90 L 08/02/16 17:00 08/02/16 17:00 08/02/16 17:00 08/02/16 17:00 08/02/16 17:00 Microbiology 07/31/16 21:00 - Final Sputum, Induced/Suctioned Sputum Culture - Final Justyna Albicans 07/30/16 23:45 - Final Sputum, Induced/Suctioned Sputum Culture - Final Justyna Albicans Laboratory Results 08/02/16 03:45 08/02/16 12:50 08/01/16 08/02/16 08/03/16 05:59 05:59 05:59 Intake Total 3321.3 2144.2 1110.6 Output Total 3350 2625 2900 Balance -28.7 -480.8 -1789.4 - Physical Exam General Appearance: WD/WN, other (Intubated and sedated.), No alert Respiratory: crackles (Scattered bilaterally), No lungs clear, No normal breath sounds Cardiac/Chest: tachycardia, irregularly irregular, No regular rate, rhythm Extremities: non-tender, normal inspection Skin: normal color, warm/dry, No rash ICD10 Worksheet Patient Problems: Problems Problem Status Diagnosed Pneumonia Acute Respiratory failure Acute Severe sepsis with acute organ dysfunction Acute
[2016-08-02 18:56] LABS: POTASSIUM 3.5 mEq/L (3.5-5.2)
[2016-08-02] MEDS: POTASSIUM Cl (KCl) 50 ML IV SCH ×3 (19:50→21:34)
[2016-08-02] MEDS ORDERED: AMIODARONE HCL 100 ML IV SCH (21:00)
[2016-08-02 22:50] LABS: POTASSIUM 4.2 mEq/L (3.5-5.2)
[2016-08-03] MEDS: ALBUTEROL 60 PUFFS/8 GM MDI IH SCH ×6 (00:37→20:47)
[2016-08-03] MEDS: PROPOFOL/EMULSION 100 ML IV SCH ×3 (01:38→22:17)
[2016-08-03] MEDS: guaiFENesin 200 MG/10 ML UDCUP TUBE SCH ×6 (01:51→22:08)
[2016-08-03 05:16] LABS: BASE EXCESS 4.6 mEq/L (-2.5-2.5); BICARBONATE 28 mEq/L (22-26); MEASURED OXYGEN SATURATION 93 % (92-95); PCO2 38 mmHg (34-38); PO2 65 mmHg (65-75); TCO2 29 mEq/L (23-27)
[2016-08-03] MEDS: methylPREDNISolone SOD SUCC 125 MG/2 ML VIAL IVP SCH ×3 (05:18→22:11)
[2016-08-03 05:20] LABS: CPAP YES; O2 CONCENTRATIION 40 % (0-100); P/F RATIO 163 RATIO; PATIENT RATE 19; PRESSURE SUPPORT 7
[2016-08-03 05:22] LABS: % IMMATURE GRANULYOCYTES 0.9 % (0.0-1.1); ABSOLUTE IMMATURE GRANULOCYTES 0.13 10^3/uL (0.00-0.10); ABSOLUTE NRBC COUNT 0.15 10^3/uL (0-0.01); ADD DIFF? NO; ADD MORPH? NO; ADD SCAN? YES; ATYPICAL LYMPHOCYTE FLAG 20 (0-99); FRAGMENT RBC FLAG 0 (0-99); HEMATOCRIT 29.7 % (40.0-51.0); HEMOGLOBIN 10.7 g/dL (13.7-17.5); LIPEMIA HEMOLYSIS FLAG 90 (0-99); MEAN CELL HEMOGLOBIN 27.3 pg (27.9-34.1); MEAN CELL VOLUME 75.8 fL (81.5-99.8); MEAN PLATELET VOLUME 12.6 fL (8.7-11.7); PLATELET CLUMPS FLAG 0 (0-99); PLATELET COUNT 51 10^3/uL (150-400); RED BLOOD CELL COUNT 3.92 10^6/uL (4.40-6.38); RED CELL DISTRIBUTION WIDTH 14.9 % (11.5-15.2)
[2016-08-03 05:27] LABS: LEFT SHIFT FLG 300 (0-99)
[2016-08-03 05:35] LABS: ALANINE AMINOTRANSFERASE 489 IU/L (21-72); ALBUMIN 2.7 g/dL (3.5-5.0); ALKALINE PHOSPHATASE 353 IU/L (38-126); BILIRUBIN,TOTAL 2.2 mg/dL (0.1-1.4); CALCIUM 8.6 mg/dL (8.5-10.4); CARBON DIOXIDE 31 mEq/l (22-31); CHLORIDE 102 mEq/L (97-110); CREATININE 0.8 mg/dL (0.7-1.3); GLOMERULAR FILTRATION RATE > 60; GLUCOSE 145 mg/dL (70-100); MAGNESIUM 2.1 mg/dL (1.6-2.3); SODIUM 144 mEq/L (134-144)
[2016-08-03] MEDS: fentaNYL/NACL 100 ML IV SCH ×2 (05:50→19:40)
[2016-08-03 05:59] LABS: SCAN NEGATIVE
[2016-08-03 06:49] LABS: ASPARTATE AMINOTRANSFERASE 970 IU/L (17-59)
[2016-08-03 07:29] LABS: ANION GAP 11 mEq/L (8-16); POTASSIUM 4.1 mEq/L (3.5-5.2)
[2016-08-03 07:30] LABS: BILIRUBIN-CONJUGATED 1.6 mg/dL (0.0-0.5); BILIRUBIN-UNCONJUGATED 0.6 mg/dL (0.0-1.1)
--- NOTE | 2016-08-03 08:11 | DX ---
Portable chest x-ray 0609 hours. History: Followup pneumonia. Findings: Comparison to August 01, 2016. ET tube and central line remain in place. NG tube has been removed. Heart size remains within normal limits. Pulmonary vasculature remains mildly prominent centrally. Moderate patchy bilateral alveolar infiltrates are stable more prominent centrally when compared to the prior study. No new consolidatio n is seen. Small left pleural effusion is suspected layering posteriorly. There is no pneumothorax. O sseous structures are unchanged. Impression: 1. Relatively stable moderate bilateral alveolar infiltrates with probable small left effusion compat ible with bilateral pneumonia. Consider ARDS or cryptogenic organizing pneumonia.
--- NOTE | 2016-08-03 09:14 | PDINTPN ---
[facility] Progress Note Assessment/Plan: Assessment/Plan: * Pneumococcal pneumonia-continues to improve slowly clinically * Respiratory Failure -markedly better. Did well on CPAP trial -if weaning parameters okay, will extubate * Shock-resolved * AFib resolved * B cell lymphoma * Sepsis * Elevated transaminases-agree with abd u/s -check NH3 * Sedation-on hold * MELODY resolved * Nutrition-will restart this afternoon * VTE proph * Stress ulcer proph 35 min of critical care time spent with patient Case discussed with RT and nursing Subjective: sedated, but arousable Objective: Vital Signs Temp Pulse Resp BP Pulse Ox 36.7 C 65 27 H 105/71 96 08/03/16 08:00 08/03/16 08:00 08/03/16 08:00 08/03/16 08:00 08/03/16 08:00 Microbiology 07/31/16 21:00 - Final Sputum, Induced/Suctioned Sputum Culture - Final Justyna Albicans 07/30/16 23:45 - Final Sputum, Induced/Suctioned Sputum Culture - Final Justyna Albicans Laboratory Results 08/03/16 05:05 08/03/16 05:05 08/02/16 08/03/16 08/04/16 05:59 05:59 05:59 Intake Total 2144.2 2103.1 Output Total 2625 4010 Balance -480.8 -1906.9 PT 13.4 SEC (12.0-15.0) 08/02/16 08:45 INR 1.03 (0.83-1.16) 08/02/16 08:45 Laboratory Results 08/03/16 05:05 08/03/16 05:05 08/03/16 08/03/16 05:08 05:05 Patient Temperature 37.0 DEGREES pCO2 38 mmHg (34 - 38) pO2 65 mmHg (65 - 75) Total CO2 29 H mEq/L (23 - 27) ABG pH 7.48 H (7.35 - 7.45) ABG PO2/FiO2 Ratio 163 RATIO ABG O2 Saturation 93 % (92 - 95) ABG Base Excess 4.6 H mEq/L (-2.5 - 2.5) O2 Concentration % 40 % Actual Respiration Rate 19 PEEP 5 Pressure Support 7 CPAP YES Calcium 8.6 mg/dL (8.5 - 10.4) Phosphorus 2.8 mg/dL (2.5 - 4.5) Magnesium 2.1 mg/dL (1.6 - 2.3) Total Bilirubin 2.2 H mg/dL (0.1 - 1.4) Conjugated Bilirubin 1.6 H mg/dL (0.0 - 0.5) Unconjugated Bilirubin 0.6 mg/dL (0.0 - 1.1) AST 970 H IU/L (17 - 59) ALT 489 H IU/L (21 - 72) Alkaline Phosphatase 353 H IU/L (38 - 126) Total Protein 5.0 L g/dL (6.3 - 8.2) Albumin 2.7 L g/dL (3.5 - 5.0) 07/31/16 21:00 - Final Sputum, Induced/Suctioned Sputum Culture - Final Justyna Albicans 07/30/16 23:45 - Final Sputum, Induced/Suctioned Sputum Culture - Final Justyna Albicans CXR-Reviewed by myself. ETT okay. No change overall - Time Spent With Patient Time Spent With Patient: 35 Physical Exam - Physical Exam General Appearance: other (sedated), No alert EENT: PERRL/EOMI, ET tube Neck: non-tender, full range of motion Respiratory: rhonchi (scattered), No respiratory distress, No stridor, No wheezing Cardiac/Chest: normal peripheral pulses, regular rate, rhythm, systolic murmur Abdomen: normal bowel sounds, non-tender, soft Male Genitalia: deferred Rectal: deferred Skin: normal color, warm/dry Extremities: normal range of motion Neuro/Psych: No alert ICD10 Worksheet Patient Problems: Problems Problem Status Diagnosed Pneumonia Acute Respiratory failure Acute Severe sepsis with acute organ dysfunction Acute
[2016-08-03] MEDS: CHLORHEXIDINE GLUCONATE 15 ML UDL PO SCH ×2 (09:26→20:14)
[2016-08-03] MEDS: FAMOTIDINE 20 MG/NACL 50 ML IV SCH ×2 (09:26→22:08)
[2016-08-03] MEDS: FUROSEMIDE 40 MG/4 ML VIAL IVP SCH (09:27)
[2016-08-03] MEDS: OMEGA-3 FATTY ACIDS 1,000 MG CAP PO SCH (09:27)
[2016-08-03] MEDS: cefTRIAXone 2 GM in D5W 50 ML IV SCH (09:49)
--- NOTE | 2016-08-03 11:05 | US ---
Ultrasound Abdomen Limited Clinical Indication: Transaminitis. Evaluate for venous thrombosis in a patient with a history of B- cell lymphoma. Comparison: November 07, 2010. Technique: Color and grayscale imaging of the abdomen. Findings: The liver is enlarged at 19.3 cm in length. Echotexture is normal. The portal vein is paten t. Hepatic veins are patent. There is mild dilation of the proximal hepatic veins near the right atri al confluence. There is no sonographic Alexandra sign. Gallbladder wall is normal between 2 and 4 mm. Co mmon bile duct is normal at 3.4 mm. The right kidney measures 6.8 x 5.7 x 17.4 cm with a 1.3 cm cortex, however the majority of the lengt h is a 10.5 x 11.1 x 10.9 cm cyst. Multiple other parapelvic and pararenal cysts are present. These h ave a benign appearance and are incidental. There is mild atherosclerotic disease of the aorta and a focal aneurysmal dilation to 31 mm. There is no significant lymphadenopathy. Limited views of the pancreas are unremarkable. Impression 1. 31 mm infrarenal abdominal aortic aneurysm. Recommend interval follow up in one year. 2. Hepatomegaly, nonspecific. 3. Flow in the hepatic veins is normal, however, there is mild dilation of the proximal hepatic veins . This can be seen in a patient with a history of high right atrial pressures. Recommend clinical cor relation for this finding. Message was relayed by Dr. Parsons to Dr. Galarza on August 03, 2016 at 10:25 a.m.
--- NOTE | 2016-08-03 13:02 | HOSPPROG ---
Hospitalist Progress Note Assessment/Plan: INTERVAL SUMMARY & DAILY PROGRESS NOTE DATE OF ADMISSION: 07/28/2016 INTERVAL DIAGNOSES 1. Septic shock 2. Streptococcal pneumonia 3. Acute hypoxic and hypercapnic respiratory failure 4. Acute metabolic acidosis 5. Acute kidney injury 6. Acute hyponatremia 7. Acute hypokalemia 8. Diffuse large B-cell lymphoma 9. Acute diastolic CHF exacerbation 10. Acute toxic encephalopathy 11. Atrial fibrillation with acute rapid ventricular response 12. Streptococcal bacteremia 13. Acute reactive airway exacerbation 14. Acute thrombocytopenia 15. Acute transaminitis 16. AAA CONSULTATIONS Infectious Disease, Pulmonary Critical Care, General surgery, Nephrology PROCEDURES / IMAGING 07/31/2016 subclavian line placement as well as intubation CHIEF COMPLAINT Shortness of breath and cough SUBJECTIVE Patient is currently intubated and sedated, appears uncomfortable on the vent HOSPITAL COURSE BY PROBLEM The patient presented with respiratory distress secondary to a dense streptococcal pneumonia complicated by streptococcal bacteremia and septic shock. Patient was intubated, required pressors, developed diastolic CHF after he was net positive 13 L length of stay. He has been weaned off of pressors and he is receiving diuretics daily with attempts to reduce his FiO2 and daily CPAP trial. He has developed intermittent atrial fibrillation with acute rapid ventricular response and it is suspected that this is occurring in the setting of intravascular depletion in the setting of active diuresis and hypoalbuminemia. His AFib RVR has responded favorably to an amiodarone drip and we are currently continuing him on twice daily dosing of 150 IV to be adjusted to oral dosing once he is extubated. He has been intermittently receiving boluses of albumin to improve renal perfusion and has been net-3 L over the past 48 hours as result of his active diuresis. Assessment: 70-year-old male presents with septic shock in the setting of streptococcal pneumonia/bacteremia c/b worsening acute hypoxic/hypercapnic respiratory failure and new onset Afib Plan: 1. Septic shock. Evidenced by tachycardia plus leukopenia plus tachypnea plus clear source of infection (bacteremia) plus end-organ failure notably lactic acidosis and respiratory failure, resulting in autonomic dysregulation in setting of infxn and requiring pressors -order set placed -off further fluids given dCHF -received empiric IV fluids -weaned off vaso/levo, PRN albumin IV 2. Streptococcal pneumonia. Evidenced by dense bilateral infiltrates, left greater than right, + sepsis physiology outlined above plus strep bacteremia -cont CTX 2g 3. Acute hypoxic and hypercapnic respiratory failure. Evidenced by an SpO2 of 70% on room air on presentation with visible tachypnea and labored breathing with accessory muscle use plus elevated pCO2 and acidosis, secondary to pneumonia and acute diastolic CHF exacerbation -requiring 40% FiO2 on vent, off rotorest and paralytics -d/w Dr. Welch, CPAP trial today -remains high risk patient w/ high risk of morbidity/mortality 4. Metabolic acidosis. Acute, lactic acidosis, secondary to autonomic dysregulation and septic shock -off IVF given volume overload 5. Acute kidney injury. Evidenced by serum creatinine level of 1.4, most likely secondary to a combination of hypovolemia as well as septic shock -continue to monitor strict I&Os, urine output, serum creatinine level -appreciate nephrology consultation 6. Hyponatremia. Acute, secondary to renal hypoperfusion in the setting of conditions outlined above -continue monitor serum sodium level 7. Hypokalemia. Acute, K/Mg protocol -monitor serum sodium level closely given acute kidney injury -continue monitor on telemetry 8. Diffuse large B-cell lymphoma. Stage IIB, treated with stem cell transplant 5 years ago -doubt that his present presentation is related to this process -hold on consulting with Hematology Oncology, should re-establish care s/p DC 9. Acute diastolic CHF exacerbation. Evidenced by volume overload on exam + net pos 13+L LOS + diastolic dysfxn on Echo -CXR w/ improvement in bases (personally interpreted) -net neg 2000cc o/n, give 40mg IV today 10. Acute toxic encephalopathy. Evidenced by global brain dysfunction characterized as confusion + somnolence, acute change from baseline/presentation , 2/2 toxic effects of pain Rx and infxn -currently sedated while on vent, lightening sedation for CPAP trial -reassess once extubated 11. Atrial fibrillation. Acute RVR in setting of critical illness, likely paroxysmal, new diagnosis -s/p amio gtt/load, then bid dosing -hold on systemic anticoagulation -adjust to PO dosing once extubated or has OGT 12. Streptococcal bacteremia. 2/2 PNA, repeat BCx NGTD -will need 14 days CTX 2g from 07/30/16 (08/12/16 stop date) -appreciate ID consultation 13. Acute reactive airway exacerbation. Evidenced by pCO2 retention, acidosis, smoking hx -d/w Dr. Welch, adjusted steroids to 60mg q8 IV, transition to prednisone once taking PO -cont nebs 14. Thrombocytopenia. Suspect 2/2 acute illness -monitor CBC -HIT Ab sent -no e/o DIC on labs 15. Transaminitis. Acutely worsening, new problem, further w/u indicated. Suspect 2/2 hepatic congestion in setting of CHF -US w/o portal thrombus -get NH4 level to determine if contributing to encephalopathy -cont to monitor CMP and INR 16. AAA. Incidental finding, 3.1cm -will rec annual monitoring Diet. No OGT, will need to place if unable to extubate in next 24hrs Prophylaxis. High risk patient, heparin subcu contraindicated w/ worsening thrombocytopenia Code. Full per patient his child is MPOA Disposition. ADD uncertain, remains critically ill Subjective: Patient appears uncomfortable on vent, non directable Objective: Vital Signs Temp Pulse Resp BP Pulse Ox 36.5 C 89 17 130/87 H 94 08/03/16 12:00 08/03/16 12:00 08/03/16 12:00 08/03/16 12:00 08/03/16 12:00 Microbiology 07/31/16 21:00 - Final Sputum, Induced/Suctioned Sputum Culture - Final Justyna Albicans 07/30/16 23:45 - Final Sputum, Induced/Suctioned Sputum Culture - Final Justyna Albicans Laboratory Results 08/03/16 05:05 08/02/16 08/03/16 08/04/16 05:59 05:59 05:59 Intake Total 2144.2 2103.1 94.4 Output Total 2625 4010 1000 Balance -480.8 -1906.9 -905.6 PT 13.4 SEC (12.0-15.0) 08/02/16 08:45 INR 1.03 (0.83-1.16) 08/02/16 08:45 - Physical Exam Constitutional: not in pain, uncomfortable, other (Intubated and somewhat sedated), No no apparent distress Eyes: anicteric sclera, other (Pupils are no longer constricted, patient is not focusing or moving his pupils from a fixed position), No scleral injection Cardiovascular: tachycardia, edema (Trace in the bilateral upper extremities), No systolic murmur, No irregularly irregular Respiratory: respiratory distress (Visible tachypnea), rhonchi (On inspiration and expiration bilaterally), No expiratory wheeze, No bronchial breath sounds Gastrointestinal: soft, non-tender abdomen, no palpable masses, No normoactive bowel sounds (Hypoactive), No distension Neurologic: other (Not responding to verbal stimuli or tactile stimuli) ICD10 Worksheet Patient Problems: Problems Problem Status Diagnosed Pneumonia Acute Respiratory failure Acute Severe sepsis with acute organ dysfunction Acute
[2016-08-03 13:04] LABS: POTASSIUM 3.4 mEq/L (3.5-5.2)
[2016-08-03] MEDS: POTASSIUM Cl (KCl) 50 ML IV SCH ×6 (13:22→21:30)
--- NOTE | 2016-08-03 15:32 | PCMIDPN ---
Assessment/Plan: Assessment/Plan: * Sepsis due to pneumococcal bacteremia with bilateral pneumonia: Overall improved with discontinuation of pressors and decreasing FiO2. Tolerating CPAP trials. Repeat blood culture show clearing of bacteremia. Chest x-ray with stable bilateral infiltrates. Continue ceftriaxone therapy. * Transaminitis: Suspect due to shock liver. Doubt related to ceftriaxone although would be other consideration. 08/03/16 15:29 08/03/16 15:29 Objective: Vital Signs Temp Pulse Resp BP Pulse Ox 36.5 C 134 H 23 H 127/81 H 97 08/03/16 12:00 08/03/16 15:00 08/03/16 15:00 08/03/16 15:00 08/03/16 15:00 Microbiology 07/31/16 21:00 - Final Sputum, Induced/Suctioned Sputum Culture - Final Justyna Albicans 07/30/16 23:45 - Final Sputum, Induced/Suctioned Sputum Culture - Final Justyna Albicans Laboratory Results 08/03/16 05:05 08/03/16 12:42 08/02/16 08/03/16 08/04/16 05:59 05:59 05:59 Intake Total 2144.2 2103.1 94.4 Output Total 2625 4010 1000 Balance -480.8 -1906.9 -905.6 Ceftriaxone # 5 Blood cultures 07/30/2016 no growth Chest x-ray with stable bilateral infiltrates Laboratory Tests 08/03/16 05:05 Total Bilirubin 2.2 H Conjugated Bilirubin 1.6 H AST 970 H ALT 489 H Alkaline Phosphatase 353 H - Physical Exam General Appearance: other (Intubated) EENT: ET Tube Respiratory: coarse breath sounds Cardiac/Chest: tachycardia Extremities: No inflammation Abdomen: non-tender, No distended Skin: No embolic lesions ICD10 Worksheet Patient Problems: Problems Problem Status Diagnosed Pneumonia Acute Respiratory failure Acute Severe sepsis with acute organ dysfunction Acute
[2016-08-03] MEDS ORDERED: NOREPINEPHRINE BITARTRATE 4 MG in D5W 500 ML IV SCH (16:30)
[2016-08-03] MEDS: NOREPINEPHRINE BITARTRATE 16 MG in D5W 250 ML IV SCH (18:23)
[2016-08-03 18:42] LABS: POTASSIUM 3.6 mEq/L (3.5-5.2)
[2016-08-03 19:11] LABS: HEPARIN INDUCED ANTIBODY Negative (Negative); REACTIVITY 5 % (<20)
[2016-08-03] MEDS ORDERED: POTASSIUM Cl (KCl) 10 MEQ/50 ML BAG IV ONE (19:40)
[2016-08-03] MEDS: LORazepam 2 MG/ML INJ IVP PRN (19:59)
[2016-08-03] MEDS ORDERED: AMIODARONE HCL 100 ML IV SCH (21:00)
[2016-08-04 00:40] LABS: POTASSIUM 3.9 mEq/L (3.5-5.2)
[2016-08-04] MEDS: ALBUTEROL 60 PUFFS/8 GM MDI IH SCH ×6 (00:50→21:12)
[2016-08-04] MEDS ORDERED: POTASSIUM Cl (KCl) 50 ML IV ONE ×4 (01:05→19:02)
[2016-08-04] MEDS: guaiFENesin 200 MG/10 ML UDCUP TUBE SCH ×6 (02:29→20:18)
[2016-08-04 04:42] LABS: INR 1.14 (0.83-1.16); PROTIME(PATIENT) 14.5 SEC (12.0-15.0)
[2016-08-04 04:48] LABS: ABSOLUTE IMMATURE GRANULOCYTES 0.13 10^3/uL (0.00-0.10); ABSOLUTE NRBC COUNT 0.35 10^3/uL (0-0.01); ADD DIFF? NO; ADD MORPH? YES; ADD SCAN? NO; ATYPICAL LYMPHOCYTE FLAG 80 (0-99); FRAGMENT RBC FLAG 0 (0-99); HEMATOCRIT 28.1 % (40.0-51.0); HEMOGLOBIN 10.1 g/dL (13.7-17.5); LEFT SHIFT FLG 70 (0-99); LIPEMIA HEMOLYSIS FLAG 90 (0-99); MEAN CELL HEMOGLOBIN 27.8 pg (27.9-34.1); MEAN CELL HEMOGLOBIN CONCENTR. 35.9 g/dL (32.4-36.7); MEAN CELL VOLUME 77.4 fL (81.5-99.8); PLATELET CLUMPS FLAG 0 (0-99); PLATELET COUNT 56 10^3/uL (150-400); RED BLOOD CELL COUNT 3.63 10^6/uL (4.40-6.38); RED CELL DISTRIBUTION WIDTH 14.5 % (11.5-15.2)
[2016-08-04 04:58] LABS: NRBC-AUTO% 2.8 % (0.0-0.2)
[2016-08-04 05:01] LABS: BASE EXCESS 6.2 mEq/L (-2.5-2.5); BICARBONATE 29 mEq/L (22-26); MEASURED OXYGEN SATURATION 96 % (92-95); PCO2 36 mmHg (34-38); PO2 80 mmHg (65-75); TCO2 30 mEq/L (23-27)
[2016-08-04 05:02] LABS: END TIDAL CO2 25; PATIENT RATE 27; PRESSURE SUPPORT 7; SIMV YES
[2016-08-04 06:06] LABS: MICROCYTES 1+; PLATELET ESTIMATE DECREASED (ADEQ); POLYCHROMASIA 1+; TARGET CELLS 2+
[2016-08-04 06:07] LABS: GIANT PLATELETS PRESENT
[2016-08-04] MEDS: methylPREDNISolone SOD SUCC 125 MG/2 ML VIAL IVP SCH ×3 (06:28→21:43)
--- NOTE | 2016-08-04 07:24 | DX ---
Portable Chest, 6:35 a.m., 2 views Clinical Indications: Followup pneumonia Comparison: August 03 Findings: ET tube and left subclavian catheter remain in place in good position. There is perhaps ea rly improvement in the patient's bilateral infiltrate consistent with pneumonia. Minimal costophreni c gutter blunting is also stable. There is no pneumothorax. Impression: Suspect early improvement.
[2016-08-04 07:54] LABS: ALANINE AMINOTRANSFERASE 422 IU/L (21-72); ALBUMIN 2.9 g/dL (3.5-5.0); ALKALINE PHOSPHATASE 345 IU/L (38-126); ANION GAP 14 mEq/L (8-16); ASPARTATE AMINOTRANSFERASE 467 IU/L (17-59); BILIRUBIN,TOTAL 1.8 mg/dL (0.1-1.4); CALCIUM 8.5 mg/dL (8.5-10.4); CARBON DIOXIDE 32 mEq/l (22-31); CHLORIDE 105 mEq/L (97-110); CREATININE 0.8 mg/dL (0.7-1.3); GLOMERULAR FILTRATION RATE > 60; GLUCOSE 158 mg/dL (70-100); MAGNESIUM 2.3 mg/dL (1.6-2.3); POTASSIUM 4.2 mEq/L (3.5-5.2); SODIUM 151 mEq/L (134-144); TOTAL PROTEIN 5.4 g/dL (6.3-8.2)
--- NOTE | 2016-08-04 08:18 | PCMIDPN ---
Assessment/Plan: 70-year-old male with an underlying large B-cell lymphoma presents with sepsis due to pneumococcal pneumonia and bacteremia. Generally patient is improving with a decreasing WBC and less O2 requirements. Limiting extubation is mental status. HIV test negative in 2010. Likely predisposition to severe pneumococcal disease is underlying lymphoma. # Pneumococcal pneumonia and bacteremia: Continue ceftriaxone 2 g IV daily # Elevated LFTs: Up yesterday but trending down today. At this point would not change antibiotics, although ceftriaxone can cause elevated LFTs. Microbiology 07/28 blood cultures 2 sets with pneumococcus 07/30 blood cultures: Negative Medications Ceftriaxone 2 g IV daily, # 6 Chest x-ray: Diffuse somewhat nodular appearing infiltrates, slightly improved particularly on the right Subjective: No specific events overnight. Tube feeds were stopped yesterday possibly for extubation and remain off. Some loose BMs associated with tube feeds. Objective: Vital Signs Temp Pulse Resp BP Pulse Ox 37 C 112 H 23 H 135/100 H 96 08/04/16 07:47 08/04/16 07:47 08/04/16 07:47 08/04/16 07:47 08/04/16 07:47 Microbiology 07/30/16 04:20 Blood Culture - Final Blood 07/30/16 04:30 Blood Culture - Final Blood Laboratory Results 08/04/16 04:25 08/04/16 07:20 08/03/16 08/04/16 08/05/16 05:59 05:59 05:59 Intake Total 2103.1 1652.7 Output Total 4010 2750 Balance -1906.9 -1097.3 Laboratory Tests 08/02/16 08/03/16 08/04/16 03:45 05:05 07:20 AST 465 H 970 H 467 H ALT 218 H 489 H 422 H - Physical Exam EENT: ET Tube, NG Tube, dry mucous membranes Respiratory: lungs clear, accessory muscle use Cardiac/Chest: tachycardia Extremities: No pedal edema Abdomen: normal bowel sounds, non-tender, soft Male Genitalia: solano Skin: pallor, No rash Neuro/Psych: other (Moving all 4 extremities spontaneously, but not following commands) - Line/s other Lines: other (Left triple-lumen subclavian), No drainage, No erythema ICD10 Worksheet Patient Problems: Problems Problem Status Diagnosed Pneumonia Acute Respiratory failure Acute Severe sepsis with acute organ dysfunction Acute
[2016-08-04] MEDS: fentaNYL/NACL 100 ML IV SCH ×2 (08:36→20:18)
[2016-08-04] MEDS: FUROSEMIDE 40 MG/4 ML VIAL IVP SCH (08:36)
[2016-08-04] MEDS: cefTRIAXone 2 GM in D5W 50 ML IV SCH (08:36)
[2016-08-04] MEDS: FAMOTIDINE 20 MG/NACL 50 ML IV SCH (08:36)
[2016-08-04] MEDS: OMEGA-3 FATTY ACIDS 1,000 MG CAP PO SCH (08:37)
[2016-08-04] MEDS: CHLORHEXIDINE GLUCONATE 15 ML UDL PO SCH ×2 (08:37→20:18)
--- NOTE | 2016-08-04 08:50 | PDINTPN ---
Mold Closer Helper Progress Note Assessment/Plan: Assessment/Plan: * Pneumococcal pneumonia-continues to improve slowly clinically * Respiratory Failure -markedly better. Did well on CPAP trial -ready for extubation once MS improves * Shock-resolved * AFib resolved * B cell lymphoma * Sepsis * Elevated transaminases-agree with abd u/s -check NH3 * Sedation-change to precedex * MELODY resolved * Nutrition-will restart this afternoon * VTE proph * Stress ulcer proph 35 min of critical care time spent with patient Case discussed with RT and nursing Subjective: agitated, not alert. Objective: Vital Signs Temp Pulse Resp BP Pulse Ox 39.6 C H 106 H 20 142/94 H 96 08/04/16 08:41 08/04/16 08:41 08/04/16 08:41 08/04/16 08:41 08/04/16 08:41 Microbiology 07/30/16 04:20 Blood Culture - Final Blood 07/30/16 04:30 Blood Culture - Final Blood Laboratory Results 08/04/16 04:25 08/04/16 07:20 08/03/16 08/04/16 08/05/16 05:59 05:59 05:59 Intake Total 2103.1 1652.7 Output Total 4010 2750 Balance -1906.9 -1097.3 PT 14.5 SEC (12.0-15.0) 08/04/16 04:25 INR 1.14 (0.83-1.16) 08/04/16 04:25 Laboratory Results 08/04/16 04:25 08/04/16 07:20 08/04/16 08/04/16 07:20 04:55 Patient Temperature 36.7 DEGREES pCO2 36 mmHg (34 - 38) pO2 80 H mmHg (65 - 75) Total CO2 30 H mEq/L (23 - 27) ABG pH 7.52 H (7.35 - 7.45) ABG O2 Saturation 96 H % (92 - 95) ABG Base Excess 6.2 H mEq/L (-2.5 - 2.5) Total O2 Concentration 40.0 LITERS Actual Respiration Rate 27 Set Respiration Rate 27 SIMV YES Tidal Volume 600 End Tidal CO2 25 PEEP 5 Pressure Support 7 Total Bilirubin 1.8 H mg/dL (0.1 - 1.4) AST 467 H IU/L (17 - 59) ALT 422 H IU/L (21 - 72) Alkaline Phosphatase 345 H IU/L (38 - 126) Total Protein 5.4 L g/dL (6.3 - 8.2) Albumin 2.9 L g/dL (3.5 - 5.0) CXR-reviewed by myself. Mildly improved - Time Spent With Patient Time Spent With Patient: 35 Physical Exam - Physical Exam General Appearance: other (restless), No alert EENT: PERRL/EOMI, normal ENT inspection, ET tube Neck: non-tender, full range of motion, supple, normal inspection Respiratory: crackles, prolonged expiration, No respiratory distress, No wheezing Cardiac/Chest: normal peripheral pulses, regular rate, rhythm, systolic murmur Peripheral Pulses: 2+: carotid (R), carotid (L), femoral (R), femoral (L), dorsalis-pedis (R), dorsalis-pedis (L) Abdomen: normal bowel sounds, non-tender, soft Male Genitalia: deferred Rectal: deferred Skin: normal color, warm/dry Extremities: normal range of motion, non-tender, normal inspection, normal capillary refill Neuro/Psych: No alert ICD10 Worksheet Patient Problems: Problems Problem Status Diagnosed Pneumonia Acute Respiratory failure Acute Severe sepsis with acute organ dysfunction Acute
[2016-08-04] MEDS: DEXMEDETOMIDINE HCL 400 MCG in NS 100 ML IV SCH ×2 (09:06→21:48)
--- NOTE | 2016-08-04 10:15 | HOSPPROG ---
Hospitalist Progress Note Assessment/Plan: 70-year-old male presents with septic shock in the setting of streptococcal pneumonia/bacteremia c/b worsening acute hypoxic/hypercapnic respiratory failure and new onset Afib 1. Septic shock (improving). Evidenced by tachycardia plus leukopenia plus tachypnea plus clear source of infection (bacteremia) plus end-organ failure notably lactic acidosis and respiratory failure, resulting in autonomic dysregulation in setting of infxn and requiring pressors 2. Streptococcal pneumonia with bacteremia . Evidenced by dense bilateral infiltrates, left greater than right, + sepsis physiology outlined above plus strep bacteremia -cont CTX 2g -will need 14 days CTX 2g from 07/30/16 (08/12/16 stop date) -appreciate ID consultation 3. Acute hypoxic and hypercapnic respiratory failure. Evidenced by an SpO2 of 70% on room air on presentation with visible tachypnea and labored breathing with accessory muscle use plus elevated pCO2 and acidosis, secondary to pneumonia and acute diastolic CHF exacerbation -requiring 40% FiO2 on vent, off rotorest and paralytics -d/w Dr. Welch, CPAP trial today -remains high risk patient w/ high risk of morbidity/mortality 4. Metabolic acidosis. Acute, lactic acidosis, secondary to autonomic dysregulation and septic shock -off IVF given volume overload 5. Acute kidney injury. Evidenced by serum creatinine level of 1.4, most likely secondary to a combination of hypovolemia as well as septic shock -continue to monitor strict I&Os, urine output, serum creatinine level -appreciate nephrology consultation 6. Hyponatremia. Acute, secondary to renal hypoperfusion in the setting of conditions outlined above -continue monitor serum sodium level 7. Hypokalemia. Acute, K/Mg protocol -monitor serum sodium level closely given acute kidney injury -continue monitor on telemetry 8. Diffuse large B-cell lymphoma. Stage IIB, treated with stem cell transplant 5 years ago -doubt that his present presentation is related to this process -hold on consulting with Hematology Oncology, should re-establish care s/p DC 9. Acute diastolic CHF exacerbation. Evidenced by volume overload on exam + net pos 13+L LOS + diastolic dysfxn on Echo -CXR w/ improvement in bases (personally interpreted) -net neg 2000cc o/n, give 40mg IV today 10. Acute toxic encephalopathy. Evidenced by global brain dysfunction characterized as confusion + somnolence, acute change from baseline/presentation , 2/2 toxic effects of pain Rx and infxn -currently sedated while on vent, lightening sedation for CPAP trial -reassess once extubated 11. Atrial fibrillation. Acute RVR in setting of critical illness, likely paroxysmal, new diagnosis -s/p amio gtt/load, then bid dosing -hold on systemic anticoagulation -adjust to PO dosing once extubated or has OGT 12. Acute reactive airway exacerbation. Evidenced by pCO2 retention, acidosis, smoking hx -d/w Dr. Welch, adjusted steroids to 60mg q8 IV, transition to prednisone once taking PO -cont nebs 13. Thrombocytopenia. Suspect 2/2 acute illness -monitor CBC -HIT Ab negative -no e/o DIC on labs 15. Transaminitis (improving) Suspect 2/2 hepatic congestion in setting of CHF -US w/o portal thrombus -NH4 within normal range -cont to monitor CMP and INR 16. AAA. Incidental finding, 3.1cm -will rec annual monitoring Diet. No OGT, will need to place if unable to extubate in next 24hrs Prophylaxis. High risk patient, heparin subcu contraindicated w/ worsening thrombocytopenia Code. Full per patient his child is MPOA Disposition. ADD uncertain, remains critically ill Subjective: pt is sedated Objective: Vital Signs Temp Pulse Resp BP Pulse Ox 37 C 110 H 20 135/88 H 94 08/04/16 09:15 08/04/16 09:15 08/04/16 09:15 08/04/16 09:15 08/04/16 09:15 Microbiology 07/30/16 04:20 Blood Culture - Final Blood 07/30/16 04:30 Blood Culture - Final Blood Laboratory Results 08/04/16 04:25 08/04/16 07:20 08/03/16 08/04/16 08/05/16 05:59 05:59 05:59 Intake Total 2103.1 1652.7 Output Total 4010 2750 Balance -1906.9 -1097.3 PT 14.5 SEC (12.0-15.0) 08/04/16 04:25 INR 1.14 (0.83-1.16) 08/04/16 04:25 - Physical Exam Constitutional: chronically ill appearing Cardiovascular: regular rate and rhythym, no murmur, rub, or gallop Respiratory: no respiratory distress, no rales or rhonchi, clear to auscultation , reduced air movement Gastrointestinal: normoactive bowel sounds, soft, non-tender abdomen, no palpable masses, No guarding, No rebound Genitourinary: no bladder fullness, no bladder tenderness Skin: no rashes or abrasions, no fluctuance, no induration ICD10 Worksheet Patient Problems: Problems Problem Status Diagnosed Pneumonia Acute Respiratory failure Acute Severe sepsis with acute organ dysfunction Acute
[2016-08-04 12:13] LABS: POTASSIUM 3.8 mEq/L (3.5-5.2)
--- NOTE | 2016-08-04 13:21 | DX ---
Portable Chest August 04, 2016 1243 hours History: Feeding tube placement. Pneumonia. Comparison: Earlier today. Findings: ET tube 7 cm above the red. Left subclavian line in the superior vena cava. Bilateral alveolar opacities again noted more prominent in the left lower lobe. Tortuous aorta. Cardi ac silhouette within normal range. Feeding tube coiled in the esophagogastric junction. Impression: 1. ET tube 7 cm above the red. 2. Feeding tube coiled in the distal esophagogastric junction. Continue advancing.
[2016-08-04] MEDS ORDERED: D5W 1,000 ML IV SCH (15:00)
[2016-08-04] MEDS ORDERED: D50W 25 GM/50 ML SYR IVP PRN (18:06)
[2016-08-04] MEDS ORDERED: PARAMETERS MISC PRN (18:06)
[2016-08-04 18:34] LABS: POTASSIUM 3.8 mEq/L (3.5-5.2)
[2016-08-04] MEDS: FAMOTIDINE 20 MG TAB TUBE SCH (20:18)
[2016-08-04] MEDS: INSULIN REGULAR, HUMAN 100 UNIT/1 ML VIAL STANDARD SC SCH (20:54)
[2016-08-04] MEDS ORDERED: PROPOFOL/EMULSION 1,000 MG/100 ML BOTTLE IV ONE (23:17)
[2016-08-05] MEDS: PROPOFOL/EMULSION 100 ML IV SCH ×3 (00:23→19:53)
[2016-08-05] MEDS: ALBUTEROL 60 PUFFS/8 GM MDI IH SCH ×7 (00:31→23:56)
[2016-08-05] MEDS: guaiFENesin 200 MG/10 ML UDCUP TUBE SCH ×6 (02:12→20:01)
[2016-08-05] MEDS: fentaNYL/NACL 100 ML IV SCH ×2 (02:15→19:54)
[2016-08-05 03:44] LABS: % IMMATURE GRANULYOCYTES 1.2 % (0.0-1.1); ABSOLUTE IMMATURE GRANULOCYTES 0.16 10^3/uL (0.00-0.10); ABSOLUTE NRBC COUNT 0.17 10^3/uL (0-0.01); ADD DIFF? NO; ADD MORPH? YES; ADD SCAN? NO; ATYPICAL LYMPHOCYTE FLAG 80 (0-99); FRAGMENT RBC FLAG 0 (0-99); HEMATOCRIT 26.9 % (40.0-51.0); HEMOGLOBIN 9.2 g/dL (13.7-17.5); LEFT SHIFT FLG 20 (0-99); LIPEMIA HEMOLYSIS FLAG 90 (0-99); MEAN CELL HEMOGLOBIN 27.7 pg (27.9-34.1); MEAN CELL HEMOGLOBIN CONCENTR. 34.2 g/dL (32.4-36.7); PLATELET CLUMPS FLAG 10 (0-99); PLATELET COUNT 58 10^3/uL (150-400); RED BLOOD CELL COUNT 3.32 10^6/uL (4.40-6.38)
[2016-08-05 03:49] LABS: NRBC-AUTO% 1.2 % (0.0-0.2)
[2016-08-05 04:10] LABS: ALANINE AMINOTRANSFERASE 268 IU/L (21-72); ALBUMIN 2.4 g/dL (3.5-5.0); ALKALINE PHOSPHATASE 240 IU/L (38-126); ANION GAP 10 mEq/L (8-16); ASPARTATE AMINOTRANSFERASE 163 IU/L (17-59); BILIRUBIN,TOTAL 1.1 mg/dL (0.1-1.4); CARBON DIOXIDE 34 mEq/l (22-31); CHLORIDE 105 mEq/L (97-110); CREATININE 0.7 mg/dL (0.7-1.3); GLOMERULAR FILTRATION RATE > 60; GLUCOSE 145 mg/dL (70-100); MAGNESIUM 2.4 mg/dL (1.6-2.3); POTASSIUM 3.9 mEq/L (3.5-5.2); SODIUM 149 mEq/L (134-144); TOTAL PROTEIN 4.6 g/dL (6.3-8.2)
[2016-08-05] MEDS ORDERED: POTASSIUM Cl (KCl) 50 ML IV ONE ×2 (04:33→07:51)
[2016-08-05 04:38] LABS: BASE EXCESS 5.6 mEq/L (-2.5-2.5); BICARBONATE 30 mEq/L (22-26); MEASURED OXYGEN SATURATION 92 % (92-95); PCO2 48 mmHg (34-38); PO2 68 mmHg (65-75); TCO2 32 mEq/L (23-27)
[2016-08-05 04:39] LABS: CPAP YES
[2016-08-05 04:40] LABS: END TIDAL CO2 39; O2 CONCENTRATIION 50 % (0-100); P/F RATIO 136 RATIO; PATIENT RATE 20; PRESSURE SUPPORT 10
[2016-08-05 04:52] LABS: GIANT PLATELETS PRESENT; PLATELET ESTIMATE DECREASED (ADEQ); POLYCHROMASIA 1+; TARGET CELLS 2+; TOXIC GRANULATION PRESENT
[2016-08-05] MEDS: methylPREDNISolone SOD SUCC 125 MG/2 ML VIAL IVP SCH ×3 (05:00→20:01)
[2016-08-05] MEDS: OMEGA-3 FATTY ACIDS 1,000 MG CAP PO SCH (07:55)
[2016-08-05] MEDS: cefTRIAXone 2 GM in D5W 50 ML IV SCH (08:08)
[2016-08-05] MEDS: CHLORHEXIDINE GLUCONATE 15 ML UDL PO SCH ×2 (08:08→20:01)
[2016-08-05] MEDS: INSULIN REGULAR, HUMAN 100 UNIT/1 ML VIAL STANDARD SC SCH ×4 (08:14→20:01)
--- NOTE | 2016-08-05 08:38 | PDINTPN ---
Career Placement Services Counselor Progress Note Assessment/Plan: Assessment/Plan: * Pneumococcal pneumonia-continues to improve slowly clinically. CXR better * Respiratory Failure -markedly better. Did well on CPAP trial -ready for extubation once MS improves * Shock-resolved * AFib resolved * B cell lymphoma * Sepsis * Elevated transaminases-agree with abd u/s * Encephalopathy-not waking up. Unclear cause. Metabolic most likely -check CT head * Sedation-back on propofol * Hypernatremia-start 07/31 NS * MELODY resolved * Nutrition-will restart this afternoon * VTE proph * Stress ulcer proph 35 min of critical care time spent with patient Case discussed with RT and nursing Subjective: Eyes open. Objective: Vital Signs Temp Pulse Resp BP Pulse Ox 37.1 C 105 H 30 H 148/97 H 95 08/05/16 08:15 08/05/16 08:15 08/05/16 08:15 08/05/16 08:15 08/05/16 08:15 Microbiology 07/30/16 04:20 Blood Culture - Final Blood 07/30/16 04:30 Blood Culture - Final Blood Laboratory Results 08/05/16 03:35 08/05/16 03:35 08/04/16 08/05/16 08/06/16 05:59 05:59 05:59 Intake Total 1652.7 2478.4 Output Total 2750 2975 150 Balance -1097.3 -496.6 -150 PT 14.5 SEC (12.0-15.0) 08/04/16 04:25 INR 1.14 (0.83-1.16) 08/04/16 04:25 Laboratory Results 08/05/16 03:35 08/05/16 03:35 08/05/16 08/05/16 04:25 03:35 Patient Temperature 36.9 DEGREES pCO2 48 H mmHg (34 - 38) pO2 68 mmHg (65 - 75) Total CO2 32 H mEq/L (23 - 27) ABG pH 7.42 (7.35 - 7.45) ABG PO2/FiO2 Ratio 136 RATIO ABG O2 Saturation 92 % (92 - 95) ABG Base Excess 5.6 H mEq/L (-2.5 - 2.5) O2 Concentration % 50 % Actual Respiration Rate 20 End Tidal CO2 39 PEEP 5 Pressure Support 10 CPAP YES Calcium 8.0 L mg/dL (8.5 - 10.4) Phosphorus 3.3 D mg/dL (2.5 - 4.5) Magnesium 2.4 H mg/dL (1.6 - 2.3) Total Bilirubin 1.1 mg/dL (0.1 - 1.4) AST 163 H IU/L (17 - 59) ALT 268 H IU/L (21 - 72) Alkaline Phosphatase 240 H IU/L (38 - 126) Total Protein 4.6 L g/dL (6.3 - 8.2) Albumin 2.4 L g/dL (3.5 - 5.0) CXR-reviewed by myself. Improved infiltrates. ETT okay - Time Spent With Patient Time Spent With Patient: 35 Physical Exam - Physical Exam General Appearance: other (agitated), No alert EENT: PERRL/EOMI, normal ENT inspection Neck: non-tender, full range of motion, supple, normal inspection Respiratory: chest non-tender, lungs clear, normal breath sounds Cardiac/Chest: normal peripheral pulses, regular rate, rhythm Abdomen: normal bowel sounds, non-tender, soft Male Genitalia: deferred Rectal: deferred Skin: normal color, warm/dry Extremities: normal range of motion, non-tender, normal inspection, normal capillary refill Neuro/Psych: cognition abnormalities, No alert ICD10 Worksheet Patient Problems: Problems Problem Status Diagnosed Pneumonia Acute Respiratory failure Acute Severe sepsis with acute organ dysfunction Acute
--- NOTE | 2016-08-05 08:47 | DX ---
Portable Chest, Single View August 05, 2016 at 6:45 a.m. Indication: Pneumonia. Follow up. Comparison: Portable chest dated August 04, 2016. Findings: The feeding tube has been advanced and the tip, likely in the body of the stomach, now exte nds off the inferior margin of the film. The ET tube and left subclavian line are unchanged. Bilatera l perihilar and basilar airspace consolidation has not significantly changed since 18 hours prior. No pneumothorax has developed. Heart size is within normal limits for technique. Impression: 1. Feeding tube tip now in stomach. 2. The remainder of support devices are in good position. 3. Bilateral airspace consolidation either representing noncardiogenic pulmonary edema, aspiration, o r bronchopneumonia is unchanged.
[2016-08-05] MEDS ORDERED: FAMOTIDINE 20 MG TAB PO SCH (09:00)
[2016-08-05] MEDS ORDERED: LORazepam 2 MG/ML INJ IVP ONE (09:00)
[2016-08-05] MEDS: 1/2 NS 1,000 ML IV SCH ×2 (09:06→23:14)
[2016-08-05] MEDS: FAMOTIDINE 20 MG TAB TUBE SCH (09:07)
--- NOTE | 2016-08-05 09:22 | PCMIDPN ---
Assessment/Plan: Assessment/Plan: 1. Sepsis secondary to Pneumococcal bacteremia with bilateral pneumonia: - Currently on ceftriaxone -f/u blood cx from 07/30/16 ngtd -D #7 from negative cultures. -recent cxr images reviewed: continued bilateral infiltrates. 2. Leukocytosis: - fluctuating. Likely multifactorial (current infections, steroids, etc) -will follow 3. Elevated LFT's: - improving. continue to monitor while on ceftraixone therapy. 4. Hx of Large B-cell Lymphoma. Med ceftraixone 2g qd--07/29/16------D#7 from negative blood cultures solumedrol 60mg q8--08/02/16 Subjective: Afebrile. On vent, fio2 at 50%. some tachypnea despite that. [place] with clear yellow urine. Objective: Vital Signs Temp Pulse Resp BP Pulse Ox 37.1 C 105 H 30 H 148/97 H 95 08/05/16 08:15 08/05/16 08:15 08/05/16 08:15 08/05/16 08:15 08/05/16 08:15 Microbiology 07/30/16 04:20 Blood Culture - Final Blood 07/30/16 04:30 Blood Culture - Final Blood Laboratory Results 08/05/16 03:35 08/05/16 03:35 08/04/16 08/05/16 08/06/16 05:59 05:59 05:59 Intake Total 1652.7 2478.4 Output Total 2750 2975 150 Balance -1097.3 -496.6 -150 - Physical Exam General Appearance: other (arousable to verbal stimuli) EENT: ET Tube Respiratory: coarse breath sounds Cardiac/Chest: regular rate, rhythm Extremities: No swelling Abdomen: normal bowel sounds, non-tender, soft, No distended Male Genitalia: solano Skin: No erythema ICD10 Worksheet Patient Problems: Problems Problem Status Diagnosed Pneumonia Acute Respiratory failure Acute Severe sepsis with acute organ dysfunction Acute
[2016-08-05] MEDS: FAMOTIDINE 20 MG/NACL 50 ML IV SCH ×2 (09:58→20:02)
--- NOTE | 2016-08-05 12:42 | CT ---
CT Head (Without Contrast) August 05, 2016 Indication: Altered mental status. Technique: Standard noncontrast head CT protocol utilizing 5 mm thick collimated slices and field of view of 23 cm. Dose reduction techniques were utilized. Comparison: None. Findings: The brain is normally developed. No intracranial hemorrhage, mass lesion, swelling, or ext raaxial fluid collection. The ventricles are normal caliber and midline. The torres and white matter odonnell s normal attenuation. No evidence of ischemia. The bones are unremarkable. An ET tube and nasogastric tube are in place. Paranasal sinuses are clear except for minimal mucosal thickening in the ethmoid and maxillary sinuses. Impression: 1. Normal brain. No acute intracranial hemorrhage or evidence of ischemia. 2. Minimal sinus disease.
[2016-08-05 13:06] LABS: POTASSIUM 4.3 mEq/L (3.5-5.2)
--- NOTE | 2016-08-05 15:21 | HOSPPROG ---
Hospitalist Progress Note Assessment/Plan: 70-year-old male presents with septic shock in the setting of streptococcal pneumonia/bacteremia c/b worsening acute hypoxic/hypercapnic respiratory failure and new onset Afib 1. Septic shock secondary to PNA - improving. 2. Streptococcal pneumonia with bacteremia. CXR shows some improvement. -cont CTX 2g -will need 14 days CTX 2g from 07/30/16 (08/12/16 stop date) -appreciate ID consultation 3. Acute hypoxic and hypercapnic respiratory failure secondary to pneumonia and acute diastolic CHF exacerbation -requiring 40% FiO2 on vent, off rotorest and paralytics -did well with CPAP trial, but mentation not ready for extubation -remains high risk patient w/ high risk of morbidity/mortality 4. Metabolic acidosis. Acutely had lactic acidosis secondary to septic shock, now serum CO2 >30. 5. Acute kidney injury. Resolved, but still azotemic. Cr initially 1.4, most likely secondary to a combination of hypovolemia as well as septic shock / decreased perfusion -continue to monitor strict I&Os, urine output, serum creatinine level -appreciate nephrology consultation 6. Hypernatremia. D5W started yesterday, changed to 1/2 NS today, some improvement. -continue monitor serum sodium level 7. Hypokalemia - resolved 8. Diffuse large B-cell lymphoma. Stage IIB, treated with stem cell transplant 5 years ago -doubt that his present presentation is related to this process -hold on consulting with Hematology Oncology, should re-establish care s/p DC 9. Acute diastolic CHF exacerbation. Continues to diurese net negative, wt down to 67 kg from 73 kg after volume resuscitation during initial sepsis phase -CXR w/ improvement in bases (personally interpreted) 10. Acute toxic encephalopathy. 2/2 toxic effects of pain Rx and infxn -currently sedated while on vent, prn ativan -reassess once extubated 11. Atrial fibrillation. Acute RVR in setting of critical illness, likely paroxysmal, new diagnosis, now back in sinus -Amio dc'd, cont to monitor -hold on systemic anticoagulation 12. Acute reactive airway exacerbation. Evidenced by pCO2 retention, acidosis, smoking hx -wean solumedrol to 60 mg IV BID -cont nebs 13. Thrombocytopenia. Suspect 2/2 acute illness -monitor CBC -HIT Ab negative -no e/o DIC on labs 15. Transaminitis (improving) Suspect 2/2 hepatic congestion in setting of CHF vs shock liver secondary to septic shock presentation -US w/o portal thrombus -NH4 within normal range -cont to monitor CMP and INR 16. AAA. Incidental finding, 3.1cm -will rec annual monitoring as outpt Diet. No OGT, will need to place if unable to extubate in next 24hrs Prophylaxis. High risk patient, heparin subcu contraindicated w/ worsening thrombocytopenia. Code. Full per patient his child is MPOA Disposition. Cont ICU Subjective: Intubated, sedated. Occasionally restless, agitated, tries to pull at tubes. Objective: Vital Signs Temp Pulse Resp BP Pulse Ox 37 C 78 17 134/92 H 94 08/05/16 14:00 08/05/16 14:00 08/05/16 14:00 08/05/16 14:00 08/05/16 14:00 Laboratory Results 08/05/16 03:35 08/05/16 12:35 08/04/16 08/05/16 08/06/16 05:59 05:59 05:59 Intake Total 1652.7 2478.4 Output Total 2750 2975 150 Balance -1097.3 -496.6 -150 PT 14.5 SEC (12.0-15.0) 08/04/16 04:25 INR 1.14 (0.83-1.16) 08/04/16 04:25 - Physical Exam Constitutional: chronically ill appearing Eyes: PERRL Ears, Nose, Mouth, Throat: moist mucous membranes Cardiovascular: regular rate and rhythym Respiratory: no respiratory distress, inspiratory crackles Gastrointestinal: normoactive bowel sounds, soft, non-tender abdomen Skin: warm Neurologic: other (sedated) Psychiatric: encephalopathic ICD10 Worksheet Patient Problems: Problems Problem Status Diagnosed Pneumonia Acute Respiratory failure Acute Severe sepsis with acute organ dysfunction Acute
[2016-08-05] MEDS: LORazepam 2 MG/ML INJ IVP SCH ×2 (16:37→20:02)
[2016-08-06] MEDS: LORazepam 2 MG/ML INJ IVP SCH ×2 (02:04→08:46)
[2016-08-06] MEDS: PROPOFOL/EMULSION 100 ML IV SCH ×3 (02:04→23:34)
[2016-08-06] MEDS: guaiFENesin 200 MG/10 ML UDCUP TUBE SCH ×2 (02:04→05:13)
[2016-08-06 03:27] LABS: % IMMATURE GRANULYOCYTES 1.4 % (0.0-1.1); ABSOLUTE IMMATURE GRANULOCYTES 0.13 10^3/uL (0.00-0.10); ABSOLUTE NRBC COUNT 0.14 10^3/uL (0-0.01); ADD DIFF? NO; ADD MORPH? YES; ADD SCAN? NO; ATYPICAL LYMPHOCYTE FLAG 50 (0-99); FRAGMENT RBC FLAG 0 (0-99); HEMATOCRIT 27.8 % (40.0-51.0); HEMOGLOBIN 9.1 g/dL (13.7-17.5); LEFT SHIFT FLG 20 (0-99); LIPEMIA HEMOLYSIS FLAG 80 (0-99); MEAN CELL HEMOGLOBIN 27.7 pg (27.9-34.1); MEAN CELL HEMOGLOBIN CONCENTR. 32.7 g/dL (32.4-36.7); MEAN CELL VOLUME 84.5 fL (81.5-99.8); MEAN PLATELET VOLUME 13.1 fL (8.7-11.7); PLATELET CLUMPS FLAG 0 (0-99); PLATELET COUNT 73 10^3/uL (150-400); RED BLOOD CELL COUNT 3.29 10^6/uL (4.40-6.38); RED CELL DISTRIBUTION WIDTH 15.4 % (11.5-15.2)
[2016-08-06 03:34] LABS: NRBC-AUTO% 1.5 % (0.0-0.2)
[2016-08-06 03:45] LABS: ALANINE AMINOTRANSFERASE 185 IU/L (21-72); ALBUMIN 2.3 g/dL (3.5-5.0); ALKALINE PHOSPHATASE 183 IU/L (38-126); ANION GAP 7 mEq/L (8-16); ASPARTATE AMINOTRANSFERASE 75 IU/L (17-59); BILIRUBIN,TOTAL 1.1 mg/dL (0.1-1.4); CALCIUM 7.9 mg/dL (8.5-10.4); CARBON DIOXIDE 32 mEq/l (22-31); CHLORIDE 107 mEq/L (97-110); CREATININE 0.7 mg/dL (0.7-1.3); GLOMERULAR FILTRATION RATE > 60; GLUCOSE 134 mg/dL (70-100); MAGNESIUM 2.4 mg/dL (1.6-2.3); POTASSIUM 3.8 mEq/L (3.5-5.2); SODIUM 146 mEq/L (134-144); TOTAL PROTEIN 4.4 g/dL (6.3-8.2)
[2016-08-06] MEDS ORDERED: POTASSIUM Cl (KCl) 50 ML IV ONE (04:07)
[2016-08-06 04:16] LABS: BASE EXCESS 5.5 mEq/L (-2.5-2.5); BICARBONATE 29 mEq/L (22-26); MEASURED OXYGEN SATURATION 99 % (92-95); PCO2 40 mmHg (34-38); PO2 115 mmHg (65-75); TCO2 30 mEq/L (23-27)
[2016-08-06 04:18] LABS: SIMV YES
[2016-08-06 04:19] LABS: END TIDAL CO2 35; O2 CONCENTRATIION 45 % (0-100); P/F RATIO 256 RATIO; PATIENT RATE 16; PRESSURE SUPPORT 7
[2016-08-06] MEDS: ALBUTEROL 60 PUFFS/8 GM MDI IH SCH ×5 (04:19→20:07)
[2016-08-06 04:22] LABS: MACROCYTES 1+; MICROCYTES 1+
[2016-08-06 04:23] LABS: GIANT PLATELETS PRESENT; LARGE PLATELETS PRESENT; PLATELET ESTIMATE DECREASED (ADEQ)
[2016-08-06 04:24] LABS: HYPOCHROMIA 2+; POLYCHROMASIA 1+
[2016-08-06 04:27] LABS: TOXIC GRANULATION PRESENT
[2016-08-06] MEDS: CHLORHEXIDINE GLUCONATE 15 ML UDL PO SCH ×2 (08:05→19:56)
[2016-08-06] MEDS: FAMOTIDINE 20 MG/NACL 50 ML IV SCH ×2 (08:05→20:07)
--- NOTE | 2016-08-06 08:06 | PCMIDPN ---
Assessment/Plan: Assessment/Plan: 1. Sepsis secondary to Pneumococcal bacteremia with bilateral pneumonia: - Currently on ceftriaxone -f/u blood cx from 07/30/16 ngtd -D #8 from negative cultures. -recent cxr images reviewed: continued bilateral infiltrates. -Remains on vent 2. Leukocytosis: - improved today. Likely multifactorial in nature. -will follow 3. Elevated LFT's: - continues to improve. continue to monitor while on ceftriaxone therapy. 4. Hx of Large B-cell Lymphoma. Med ceftraixone 2g qd--07/29/16------D#8 from negative blood cultures solumedrol 60mg q8--08/02/16---changed to q12 08/05/16 Subjective: Afebrile. REmains in icu. sedated due to agitation and mental status issues per RN. on 40% fio2. less secretions. Objective: Vital Signs Temp Pulse Resp BP Pulse Ox 36.7 C 102 H 20 122/79 H 97 08/06/16 04:00 08/06/16 07:00 08/06/16 07:00 08/06/16 07:00 08/06/16 07:00 Laboratory Results 08/06/16 03:15 08/06/16 03:15 08/05/16 08/06/16 08/07/16 05:59 05:59 05:59 Intake Total 2478.4 2448 Output Total 2975 1950 Balance -496.6 498 - Physical Exam General Appearance: other (intubated , sedated in icu. agitated when sedation lightened per RN. moves legs all over) EENT: ET Tube Respiratory: coarse breath sounds Cardiac/Chest: regular rate, rhythm Extremities: No swelling Abdomen: normal bowel sounds, non-tender, soft, No distended Male Genitalia: solano Skin: No erythema ICD10 Worksheet Patient Problems: Problems Problem Status Diagnosed Pneumonia Acute Respiratory failure Acute Severe sepsis with acute organ dysfunction Acute
[2016-08-06] MEDS: INSULIN REGULAR, HUMAN 100 UNIT/1 ML VIAL STANDARD SC SCH ×4 (08:11→21:27)
[2016-08-06] MEDS: cefTRIAXone 2 GM in D5W 50 ML IV SCH (08:12)
[2016-08-06] MEDS: OMEGA-3 FATTY ACIDS 1,000 MG CAP PO SCH (08:20)
[2016-08-06] MEDS: methylPREDNISolone SOD SUCC 125 MG/2 ML VIAL IVP SCH ×2 (08:20→20:05)
--- NOTE | 2016-08-06 08:31 | DX ---
Portable chest x-ray 0633 hours. History: Followup pneumonia. Findings: Comparison to August 05, 2016. ET tube, feeding tube, and central line remain in place. Heart size and pulmonary vasculature are nor mal. Moderate bilateral perihilar alveolar infiltrates are stable. There is no new consolidation or s ignificant effusion. There is no pneumothorax. Impression: 1. Stable moderate perihilar bilateral infiltrates.
--- NOTE | 2016-08-06 09:03 | PDINTPN ---
Safety Officer Progress Note Assessment/Plan: Assessment/Plan: * Pneumococcal pneumonia-continues to improve slowly clinically. CXR better * Respiratory Failure -markedly better. Did well on CPAP trial -ready for extubation once MS improves * Shock-resolved * AFib resolved * B cell lymphoma * Sepsis * Elevated transaminases-agree with abd u/s * Encephalopathy-not waking up. Unclear cause. Metabolic most likely. -CT head negative * Sedation-back on propofol -stop ativan * Hypernatremia-improved -continue 07/31 NS * MELODY resolved * Nutrition-will restart this afternoon * VTE proph * Stress ulcer proph 35 min of critical care time spent with patient Case discussed with RT and nursing Subjective: Obtunded. Objective: Vital Signs Temp Pulse Resp BP Pulse Ox 37.2 C 97 21 H 141/84 H 97 08/06/16 08:00 08/06/16 08:00 08/06/16 08:00 08/06/16 08:00 08/06/16 08:00 Laboratory Results 08/06/16 03:15 08/06/16 03:15 08/05/16 08/06/16 08/07/16 05:59 05:59 05:59 Intake Total 2478.4 2448 Output Total 2975 1950 Balance -496.6 498 PT 14.5 SEC (12.0-15.0) 08/04/16 04:25 INR 1.14 (0.83-1.16) 08/04/16 04:25 Laboratory Results 08/06/16 03:15 08/06/16 03:15 08/06/16 04:10 Patient Temperature 36.7 DEGREES pCO2 40 H mmHg (34 - 38) pO2 115 H mmHg (65 - 75) Total CO2 30 H mEq/L (23 - 27) ABG pH 7.48 H (7.35 - 7.45) ABG PO2/FiO2 Ratio 256 RATIO ABG O2 Saturation 99 H % (92 - 95) ABG Base Excess 5.5 H mEq/L (-2.5 - 2.5) O2 Concentration % 45 % Actual Respiration Rate 16 Set Respiration Rate 16 SIMV YES Tidal Volume 600 End Tidal CO2 35 PEEP 5 Pressure Support 7 Physical Exam - Physical Exam General Appearance: unresponsive, No alert EENT: PERRL/EOMI, normal ENT inspection, ET tube Neck: non-tender, full range of motion, supple Respiratory: crackles (few), No respiratory distress, No stridor, No wheezing Cardiac/Chest: normal peripheral pulses, regular rate, rhythm Peripheral Pulses: 2+: carotid (R), carotid (L), femoral (R), femoral (L), dorsalis-pedis (R), dorsalis-pedis (L) Abdomen: normal bowel sounds, non-tender, soft Male Genitalia: deferred Rectal: deferred Skin: normal color, warm/dry Extremities: normal range of motion, non-tender, normal inspection, normal capillary refill Neuro/Psych: sensory deficit, cognition abnormalities, No alert ICD10 Worksheet Patient Problems: Problems Problem Status Diagnosed Pneumonia Acute Respiratory failure Acute Severe sepsis with acute organ dysfunction Acute
[2016-08-06] MEDS: 1/2 NS 1,000 ML IV SCH (11:46)
--- NOTE | 2016-08-06 13:57 | HOSPPROG ---
Hospitalist Progress Note Assessment/Plan: 70-year-old male presents with septic shock in the setting of streptococcal pneumonia/bacteremia c/b worsening acute hypoxic/hypercapnic respiratory failure and new onset Afib 1. Septic shock secondary to PNA - improving though still ventilated due to mentation 2. Acute encephalopathy - suspect toxic/metabolic, may need time for drug clearance. Ativan D/C'd. Ct head neg. 2. Streptococcal pneumonia with bacteremia. CXR shows some improvement. -cont CTX 2g -will need 14 days CTX 2g from 07/30/16 (08/12/16 stop date) -appreciate ID consultation 3. Acute hypoxic and hypercapnic respiratory failure secondary to pneumonia and acute diastolic CHF exacerbation -requiring 40% FiO2 on vent, off rotorest and paralytics -did well with CPAP trial, but mentation not ready for extubation -remains high risk patient w/ high risk of morbidity/mortality 4. Metabolic acidosis. Acutely had lactic acidosis secondary to septic shock, now serum CO2 >30. 5. Acute kidney injury. Resolved, but still azotemic. Cr initially 1.4, most likely secondary to a combination of hypovolemia as well as septic shock / decreased perfusion -continue to monitor strict I&Os, urine output, serum creatinine level -appreciate nephrology consultation 6. Hypernatremia. D5W started yesterday, changed to 1/2 NS today, some improvement. -continue monitor serum sodium level 7. Hypokalemia - resolved 8. Diffuse large B-cell lymphoma. Stage IIB, treated with stem cell transplant 5 years ago -doubt that his present presentation is related to this process -hold on consulting with Hematology Oncology, should re-establish care s/p DC 9. Acute diastolic CHF exacerbation. Continues to diurese net negative, wt down to 67 kg from 73 kg after volume resuscitation during initial sepsis phase -CXR w/ improvement in bases (personally interpreted) 10. Acute toxic encephalopathy. 2/2 toxic effects of pain Rx and infxn -currently sedated while on vent -reassess once extubated 11. Atrial fibrillation. Acute RVR in setting of critical illness, likely paroxysmal, new diagnosis, now back in sinus -Amio dc'd, cont to monitor -hold on systemic anticoagulation 12. Acute reactive airway exacerbation. Evidenced by pCO2 retention, acidosis, smoking hx -wean solumedrol to 60 mg IV BID -cont nebs 13. Thrombocytopenia. Suspect 2/2 acute illness -monitor CBC -HIT Ab negative -no e/o DIC on labs 15. Transaminitis (improving) Suspect 2/2 hepatic congestion in setting of CHF vs shock liver secondary to septic shock presentation -US w/o portal thrombus -NH4 within normal range -cont to monitor CMP and INR 16. AAA. Incidental finding, 3.1cm -will rec annual monitoring as outpt Diet. No OGT, will need to place if unable to extubate in next 24hrs Prophylaxis. High risk patient, heparin subcu contraindicated w/ worsening thrombocytopenia. Code. Full per patient his child is MPOA Disposition. Cont ICU Subjective: Pt vented, sedated, intermittently agitated Objective: Vital Signs Temp Pulse Resp BP Pulse Ox 37.2 C 108 H 25 H 139/95 H 95 08/06/16 12:00 08/06/16 12:13 08/06/16 12:13 08/06/16 12:00 08/06/16 12:13 Laboratory Results 08/06/16 03:15 08/06/16 11:59 08/05/16 08/06/16 08/07/16 05:59 05:59 05:59 Intake Total 2478.4 2448 Output Total 2975 1950 Balance -496.6 498 PT 14.5 SEC (12.0-15.0) 08/04/16 04:25 INR 1.14 (0.83-1.16) 08/04/16 04:25 - Physical Exam Constitutional: no apparent distress Eyes: PERRL Cardiovascular: regular rate and rhythym Respiratory: no respiratory distress, inspiratory crackles Gastrointestinal: normoactive bowel sounds, soft, non-tender abdomen Skin: warm ICD10 Worksheet Patient Problems: Problems Problem Status Diagnosed Pneumonia Acute Respiratory failure Acute Severe sepsis with acute organ dysfunction Acute
[2016-08-06 18:16] LABS: POTASSIUM 4.1 mEq/L (3.5-5.2)
[2016-08-06] MEDS: fentaNYL/NACL 100 ML IV SCH (20:53)
[2016-08-07] MEDS: ALBUTEROL 60 PUFFS/8 GM MDI IH SCH ×6 (00:15→20:17)
[2016-08-07] MEDS: 1/2 NS 1,000 ML IV SCH ×2 (04:04→19:40)
[2016-08-07 04:36] LABS: % IMMATURE GRANULYOCYTES 1.7 % (0.0-1.1); ABSOLUTE IMMATURE GRANULOCYTES 0.28 10^3/uL (0.00-0.10); ABSOLUTE NRBC COUNT 0.09 10^3/uL (0-0.01); ADD DIFF? NO; ADD MORPH? NO; ADD SCAN? NO; ATYPICAL LYMPHOCYTE FLAG 10 (0-99); FRAGMENT RBC FLAG 0 (0-99); HEMOGLOBIN 11.2 g/dL (13.7-17.5); LEFT SHIFT FLG 10 (0-99); LIPEMIA HEMOLYSIS FLAG 90 (0-99); MEAN CELL HEMOGLOBIN 28.3 pg (27.9-34.1); MEAN CELL HEMOGLOBIN CONCENTR. 33.9 g/dL (32.4-36.7); MEAN CELL VOLUME 83.3 fL (81.5-99.8); MEAN PLATELET VOLUME 11.6 fL (8.7-11.7); NRBC-AUTO% 0.5 % (0.0-0.2); PLATELET CLUMPS FLAG 10 (0-99); PLATELET COUNT 110 10^3/uL (150-400); RED BLOOD CELL COUNT 3.96 10^6/uL (4.40-6.38)
[2016-08-07 04:45] LABS: ALANINE AMINOTRANSFERASE 217 IU/L (21-72); ALBUMIN 2.8 g/dL (3.5-5.0); ALKALINE PHOSPHATASE 219 IU/L (38-126); ANION GAP 6 mEq/L (8-16); ASPARTATE AMINOTRANSFERASE 111 IU/L (17-59); BILIRUBIN,TOTAL 1.2 mg/dL (0.1-1.4); CARBON DIOXIDE 31 mEq/l (22-31); CHLORIDE 108 mEq/L (97-110); CREATININE 0.5 mg/dL (0.7-1.3); GLOMERULAR FILTRATION RATE > 60; GLUCOSE 156 mg/dL (70-100); MAGNESIUM 2.2 mg/dL (1.6-2.3); SODIUM 145 mEq/L (134-144); TOTAL PROTEIN 5.1 g/dL (6.3-8.2)
[2016-08-07] MEDS: fentaNYL/NACL 100 ML IV SCH ×3 (04:53→23:09)
[2016-08-07] MEDS: cefTRIAXone 2 GM in D5W 50 ML IV SCH (08:45)
[2016-08-07] MEDS: methylPREDNISolone SOD SUCC 125 MG/2 ML VIAL IVP SCH (08:45)
[2016-08-07] MEDS: INSULIN REGULAR, HUMAN 100 UNIT/1 ML VIAL STANDARD SC SCH ×4 (08:45→20:45)
[2016-08-07] MEDS: FAMOTIDINE 20 MG/NACL 50 ML IV SCH ×2 (08:45→20:46)
[2016-08-07] MEDS: CHLORHEXIDINE GLUCONATE 15 ML UDL PO SCH ×2 (08:46→20:47)
[2016-08-07] MEDS: OMEGA-3 FATTY ACIDS 1,000 MG CAP PO SCH (08:46)
[2016-08-07] MEDS ORDERED: METOPROLOL TARTRATE 50 MG TAB ONE (10:28)
[2016-08-07] MEDS: METOPROLOL TARTRATE 25 MG TAB TUBE SCH ×2 (10:30→20:47)
[2016-08-07] MEDS ORDERED: AMIODARONE HCL 100 ML IV ONE (10:53)
[2016-08-07] MEDS ORDERED: METOPROLOL TARTRATE 5 MG/5 ML INJ IVP ONE (10:54)
[2016-08-07] MEDS ORDERED: AMIODARONE HCL 540 MG in D5W 300 ML IV ONE ×2 (10:56→22:00)
[2016-08-07] MEDS ORDERED: FUROSEMIDE 40 MG/4 ML VIAL IVP ONE (11:00)
[2016-08-07] MEDS: PROPOFOL/EMULSION 100 ML IV SCH ×2 (11:17→19:27)
[2016-08-07] MEDS: AMIODARONE HCL 200 ML IV ONE ×2 (11:24→16:01)
[2016-08-07] MEDS: AMIODARONE HCL 200 MG TAB PO SCH ×2 (11:35→20:46)
[2016-08-07] MEDS: ACETAMINOPHEN 650 MG/20.3 ML UDCUP TUBE PRN (13:36)
[2016-08-07] MEDS: HEPARIN 5,000 UNIT/0.5 ML SYR SC SCH ×2 (14:18→21:33)
--- NOTE | 2016-08-07 14:53 | HOSPPROG ---
Hospitalist Progress Note Assessment/Plan: 70-year-old male presents with septic shock in the setting of streptococcal pneumonia/bacteremia c/b worsening acute hypoxic/hypercapnic respiratory failure and new onset Afib #. Septic shock secondary to PNA - shock physiology improved though still ventilated #. Acute encephalopathy - Improved. Ativan D/C'd. Ct head neg. #. Streptococcal pneumonia with bacteremia. CXR shows some improvement. -cont CTX 2g -will need 14 days CTX 2g from 07/30/16 (08/12/16 stop date) -appreciate ID consultation #. Acute hypoxic and hypercapnic respiratory failure secondary to pneumonia and acute diastolic CHF exacerbation -increased WOB with CPAP trial this am, though mentation improved off sedation. Will attempt again this afternoon. #. Acute kidney injury. Resolved, but still azotemic. #. Hypernatremia. Improving. Cont / NS, follow. #. Diffuse large B-cell lymphoma. Stage IIB, treated with stem cell transplant 5 years ago -outpt oncology f/u #. Acute diastolic CHF exacerbation. Continues to diurese net negative, wt down to 62 kg from 73 kg after volume resuscitation during initial sepsis phase -CXR w/ improvement in bases (personally interpreted) -hold Lasix for now #. Atrial fibrillation. Acute RVR in setting of critical illness, was on amio, which had been d/c'd due to return of NSR. A fib / RVR recurred today, converted to NSR after IV Amio bolus -start oral amio to maintain NSR -hold on systemic anticoagulation, if continues to recur, will need to reconsider #. Acute reactive airway exacerbation. Evidenced by pCO2 retention, acidosis, smoking hx -change to po pred via feeding tube -cont nebs #. Thrombocytopenia. Suspect 2/2 acute illness, improved. -monitor CBC -HIT Ab negative, resume DELVIS for DVT PPLX and monitor plt -no e/o DIC on labs #. Transaminitis (improving) Suspect 2/2 hepatic congestion in setting of CHF vs shock liver secondary to septic shock presentation -US w/o portal thrombus -NH4 within normal range -cont to monitor CMP and INR #. AAA. Incidental finding, 3.1cm -will rec annual monitoring as outpt Diet. OGT, tube feeds Prophylaxis. High risk patient, resume DELVIS Code. Full per patient his child is MPOA Disposition. Cont ICU Subjective: Pt ventilated, sedated. During CPAP trial this am, pt was more alert off sedation, but had tachypnea. No fevers. Objective: Vital Signs Temp Pulse Resp BP Pulse Ox 37.9 C 95 27 H 143/90 H 95 08/07/16 14:00 08/07/16 14:00 08/07/16 14:00 08/07/16 14:00 08/07/16 14:00 Laboratory Results 08/07/16 04:18 08/07/16 04:18 08/06/16 08/07/16 08/08/16 05:59 05:59 05:59 Intake Total 2448 3370.1 Output Total 1950 2250 1900 Balance 498 1120.1 -1900 PT 14.5 SEC (12.0-15.0) 08/04/16 04:25 INR 1.14 (0.83-1.16) 08/04/16 04:25 - Physical Exam Constitutional: no apparent distress Eyes: PERRL Ears, Nose, Mouth, Throat: moist mucous membranes Cardiovascular: regular rate and rhythym Respiratory: no respiratory distress Gastrointestinal: normoactive bowel sounds, soft, non-tender abdomen Skin: warm ICD10 Worksheet Patient Problems: Problems Problem Status Diagnosed Pneumonia Acute Respiratory failure Acute Severe sepsis with acute organ dysfunction Acute
[2016-08-07] MEDS ORDERED: DIGOXIN 500 MCG/2 ML AMP IVP ONE ×2 (16:07→23:55)
[2016-08-07] MEDS ORDERED: DIGOXIN 500 MCG/2 ML AMP IVP SCH (16:30)
[2016-08-07] MEDS ORDERED: AMIODARONE HCL 200 ML IV ONE (16:30)
--- NOTE | 2016-08-07 16:34 | PDINTPN ---
Label Press Operator Progress Note Assessment/Plan: Assessment: * Pneumococcal pneumonia-continues to improve slowly. CXR better but infiltrates persist * Respiratory Failure: Not weaning today, still with labored respirations * Shock-resolved * AFib recurrent: Back on amiodarone * B cell lymphoma * Sepsis - resolving * Elevated transaminases-improved * Encephalopathy-secondary to toxic metabolic issues, improving * Sedation-on propofol * Hypernatremia-improved -continue 1/2 NS * MELODY resolved * Nutrition-on TFs * VTE proph-on subcu heparin * Stress ulcer proph Plan: Continue care in the intensive care unit. Continue ventilatory management. Increased CPAP weans as tolerated. Restart amiodarone bolus and drip. Consider digoxin if this does not hold his atrial fibrillation. Metoprolol to be started as well. Continue antibiotics, bronchodilator therapy , and steroids as well as current medical management. Follow lab, chest x-ray and blood gases. 45 min of critical care time spent with patient. Discussed with hospitalist, nursing, respiratory therapy, and the ICU multi disciplinary team. Objective: Vital Signs Temp Pulse Resp BP Pulse Ox 38.0 C 145 H 29 H 135/102 H 97 08/07/16 16:00 08/07/16 16:00 08/07/16 16:00 08/07/16 16:00 08/07/16 16:00 Laboratory Results 08/07/16 04:18 08/07/16 04:18 08/06/16 08/07/16 08/08/16 05:59 05:59 05:59 Intake Total 2448 3370.1 Output Total 1950 2250 2120 Balance 498 1120.1 -2120 PT 14.5 SEC (12.0-15.0) 08/04/16 04:25 INR 1.14 (0.83-1.16) 08/04/16 04:25 ICD10 Worksheet Patient Problems: Problems Problem Status Diagnosed Pneumonia Acute Respiratory failure Acute Severe sepsis with acute organ dysfunction Acute
[2016-08-07] MEDS ORDERED: ALBUMIN 5% 500 ML IV ONE ×2 (16:45→18:00)
[2016-08-07] MEDS ORDERED: ALBUMIN 5% 500 ML BOTTLE IV ONE ×2 (16:48→17:37)
[2016-08-07 18:07] LABS: POTASSIUM 3.4 mEq/L (3.5-5.2)
--- NOTE | 2016-08-07 18:48 | PCMIDPN ---
Assessment/Plan: Assessment/Plan: * Sepsis due to pneumococcal bacteremia with bilateral pneumonia: Low grade temperature overnight. CXR with less prominent infiltrates. Continued trials to wean from ventilator. Continue ceftriaxone. * Transaminitis: Suspect due to shock liver. Improving over time. 08/07/16 18:46 Objective: Vital Signs Temp Pulse Resp BP Pulse Ox 37.1 C 73 16 114/72 97 08/07/16 18:00 08/07/16 18:00 08/07/16 18:00 08/07/16 18:00 08/07/16 18:00 Laboratory Results 08/07/16 04:18 08/07/16 17:45 08/06/16 08/07/16 08/08/16 05:59 05:59 05:59 Intake Total 2448 3370.1 2963.0 Output Total 1950 2250 2220 Balance 498 1120.1 743.0 Tm 38.0 Ceftriaxone #9 CXR with bilateral infiltrates; less prominent - Physical Exam General Appearance: no apparent distress EENT: ET Tube Respiratory: coarse breath sounds Cardiac/Chest: regular rate, rhythm Abdomen: non-tender, No distended Skin: No embolic lesions ICD10 Worksheet Patient Problems: Problems Problem Status Diagnosed Pneumonia Acute Respiratory failure Acute Severe sepsis with acute organ dysfunction Acute
[2016-08-07] MEDS ORDERED: DIGOXIN 100 MCG/ML AMP *PEDIATRIC IVP ONE (20:07)
[2016-08-08] MEDS: ALBUTEROL 60 PUFFS/8 GM MDI IH SCH ×7 (00:11→21:00)
[2016-08-08] MEDS: ACETAMINOPHEN 650 MG/20.3 ML UDCUP TUBE PRN ×3 (02:04→18:02)
[2016-08-08 05:22] LABS: BASE EXCESS 5.5 mEq/L (-2.5-2.5); BICARBONATE 30 mEq/L (22-26); END TIDAL CO2 39; MEASURED OXYGEN SATURATION 92 % (92-95); PCO2 44 mmHg (34-38); PO2 66 mmHg (65-75); TCO2 31 mEq/L (23-27)
[2016-08-08 05:23] LABS: PATIENT RATE 28; PRESSURE SUPPORT 7
[2016-08-08 06:01] LABS: % IMMATURE GRANULYOCYTES 1.1 % (0.0-1.1); ABSOLUTE NRBC COUNT 0.02 10^3/uL (0-0.01); ADD DIFF? NO; ADD MORPH? NO; ADD SCAN? NO; ATYPICAL LYMPHOCYTE FLAG 0 (0-99); FRAGMENT RBC FLAG 0 (0-99); HEMATOCRIT 31.5 % (40.0-51.0); HEMOGLOBIN 10.4 g/dL (13.7-17.5); LEFT SHIFT FLG 30 (0-99); LIPEMIA HEMOLYSIS FLAG 80 (0-99); MEAN CELL HEMOGLOBIN 27.7 pg (27.9-34.1); MEAN CELL VOLUME 83.8 fL (81.5-99.8); MEAN PLATELET VOLUME 12.6 fL (8.7-11.7); NRBC-AUTO% 0.1 % (0.0-0.2); PLATELET CLUMPS FLAG 0 (0-99); PLATELET COUNT 102 10^3/uL (150-400); RED BLOOD CELL COUNT 3.76 10^6/uL (4.40-6.38); RED CELL DISTRIBUTION WIDTH 16.8 % (11.5-15.2)
[2016-08-08 06:20] LABS: ALANINE AMINOTRANSFERASE 137 IU/L (21-72); ALBUMIN 3.1 g/dL (3.5-5.0); ALKALINE PHOSPHATASE 159 IU/L (38-126); ANION GAP 9 mEq/L (8-16); ASPARTATE AMINOTRANSFERASE 56 IU/L (17-59); CALCIUM 8.2 mg/dL (8.5-10.4); CARBON DIOXIDE 33 mEq/l (22-31); CHLORIDE 102 mEq/L (97-110); CREATININE 0.6 mg/dL (0.7-1.3); GLOMERULAR FILTRATION RATE > 60; GLUCOSE 87 mg/dL (70-100); POTASSIUM 3.4 mEq/L (3.5-5.2); SODIUM 144 mEq/L (134-144); TOTAL PROTEIN 5.2 g/dL (6.3-8.2)
[2016-08-08] MEDS: PROPOFOL/EMULSION 100 ML IV SCH ×3 (06:29→22:48)
[2016-08-08] MEDS: HEPARIN 5,000 UNIT/0.5 ML SYR SC SCH ×3 (06:29→21:13)
[2016-08-08] MEDS: OMEGA-3 FATTY ACIDS 1,000 MG CAP PO SCH (07:37)
[2016-08-08] MEDS: INSULIN REGULAR, HUMAN 100 UNIT/1 ML VIAL STANDARD SC SCH ×4 (08:33→21:10)
[2016-08-08] MEDS: 1/2 NS 1,000 ML IV SCH (08:38)
--- NOTE | 2016-08-08 08:38 | PCMIDPN ---
Assessment/Plan: Assessment/Plan: 1. Sepsis secondary to Pneumococcal bacteremia with bilateral pneumonia: - Currently on ceftriaxone -f/u blood cx from 07/30/16 ngtd -D #10 from negative cultures. -recent cxr images reviewed: continued bilateral infiltrates. - care discussed and coordinated with flame cutting supervisor and hospitalist team, as well as RN. 2. Leukocytosis: -Likely multifactorial (current infections, steroids, etc) -trending up past few days. Follow -given recent fevers, presence of cental lines. blood cx one through line, peripheral vein. -no stools at present despite tube feeds. Will order for c. diff if stools loose. 3. Elevated LFT's: - improving. continue to monitor while on ceftraixone therapy. 4. Hx of Large B-cell Lymphoma. Med ceftraixone 2g qd--07/29/16------D#10 from negative blood cultures (07/30/16) solumedrol 60mg q8--08/02/16--dosed reduced over past several days. Now on prednisone 60mg daily. Subjective: Remains in ICU. Eyes open, tracks occasionally to verbal stimuli. Not consistently nodding to questions. No overnight events per RN. Not having stools. solano in place. Secretions improved per RN. Objective: Vital Signs Temp Pulse Resp BP Pulse Ox 37.8 C 64 16 95/55 L 92 08/08/16 06:00 08/08/16 07:00 08/08/16 07:00 08/08/16 07:00 08/08/16 07:00 Laboratory Results 08/08/16 05:29 08/08/16 05:23 08/07/16 08/08/16 08/09/16 05:59 05:59 05:59 Intake Total 3370.1 5054.0 Output Total 2250 3470 Balance 1120.1 1584.0 - Physical Exam General Appearance: alert, other (mildly tachypneic. On vent. ) EENT: ET Tube Respiratory: coarse breath sounds (bilaterally) Cardiac/Chest: regular rate, rhythm, other (sc line) Extremities: No swelling Abdomen: normal bowel sounds, non-tender, soft, distended (mild but soft. no guarding.) Male Genitalia: solano Skin: No rash - Time Spent With Patient Time Spent with Patient: greater than 35 minutes Time Spent with Patient: Greater than 35 minutes spent on this patients care, greater than 50% of time spent counseling, educating, and coordinating care regarding the above mentioned plan. ICD10 Worksheet Patient Problems: Problems Problem Status Diagnosed Pneumonia Acute Respiratory failure Acute Severe sepsis with acute organ dysfunction Acute
[2016-08-08] MEDS: CHLORHEXIDINE GLUCONATE 15 ML UDL PO SCH ×2 (08:39→20:23)
[2016-08-08] MEDS: FAMOTIDINE 20 MG/NACL 50 ML IV SCH ×2 (08:39→21:13)
[2016-08-08] MEDS: METOPROLOL TARTRATE 25 MG TAB TUBE SCH ×2 (08:54→21:13)
[2016-08-08] MEDS: cefTRIAXone 2 GM in D5W 50 ML IV SCH (08:55)
[2016-08-08] MEDS: predniSONE 20 MG TAB TUBE SCH (08:55)
[2016-08-08] MEDS ORDERED: predniSONE 20 MG TAB PO SCH (09:00)
[2016-08-08] MEDS ORDERED: PROTOCOL MAGNESIUM 1 DOSE IV PRN (09:10)
[2016-08-08] MEDS ORDERED: PROTOCOL POTASSIUM 1 DOSE MISC PRN (09:10)
[2016-08-08] MEDS ORDERED: PROTOCOL K PHOSPHATE 1 DOSE IV PRN (09:10)
[2016-08-08] MEDS ORDERED: PROTOCOL CALCIUM 1 DOSE IV PRN (09:10)
[2016-08-08] MEDS: AMIODARONE HCL 200 MG TAB PO SCH ×2 (09:12→21:13)
--- NOTE | 2016-08-08 09:16 | DX ---
Portable Chest August 08, 2016, at 0616 Hours History: Follow up pneumonia. Comparison: Portable chest August 06, 2016. Findings: There is increased, diffuse, predominantly basilar and perihilar consolidation bilaterally with relative sparing of the lung apices. There is no pneumothorax. Heart size is normal. Left PICC tip is in the upper SVC. Feeding tube tip extends off the inferior margin of the study. Endotracheal tube tip is 5.3 cm above the red. Impression: Increased bilateral consolidation suggesting worsening pneumonia, aspiration, or pulmona ry edema.
[2016-08-08 09:35] LABS: MAGNESIUM 1.9 mg/dL (1.6-2.3); POTASSIUM 3.5 mEq/L (3.5-5.2)
[2016-08-08 09:48] LABS: IONIZED CALCIUM 1.19 MMOL/L (1.12-1.30)
[2016-08-08] MEDS: POTASSIUM Cl (KCl) 50 ML IV SCH ×3 (09:51→11:16)
[2016-08-08 12:00] LABS: BASE EXCESS 3.7 mEq/L (-2.5-2.5); BICARBONATE 28 mEq/L (22-26); MEASURED OXYGEN SATURATION 98 % (92-95); PCO2 42 mmHg (34-38); PO2 106 mmHg (65-75); TCO2 29 mEq/L (23-27)
[2016-08-08] MEDS ORDERED: K PHOS 10 MMOL in D5W 250 ML IV ONE (12:00)
[2016-08-08 12:01] LABS: CPAP YES; END TIDAL CO2 39; O2 CONCENTRATIION 40 % (0-100); P/F RATIO 265 RATIO
[2016-08-08 12:02] LABS: PATIENT RATE 23; PRESSURE SUPPORT 7
[2016-08-08] MEDS: fentaNYL/NACL 100 ML IV SCH (12:32)
[2016-08-08] MEDS ORDERED: LIDOCAINE 2% JELLY 5 ML TUBE TP ONE (12:53)
[2016-08-08] MEDS ORDERED: LIDOCAINE 1% 30 ML SDV MISC ONE (12:53)
--- NOTE | 2016-08-08 13:01 | HOSPPROG ---
Hospitalist Progress Note Assessment/Plan: 70-year-old male presents with septic shock in the setting of streptococcal pneumonia/bacteremia c/b worsening acute hypoxic/hypercapnic respiratory failure and new onset Afib #. Septic shock secondary to PNA - shock physiology improved though remains vent dependent #. Acute encephalopathy - Improved. Ativan D/C'd. Ct head neg. #. Streptococcal pneumonia with bacteremia. CXR shows slightly increasing infiltrates. wbc's on the rise. -bronch today revealed significant secretions -repeat sputum culture sent -cont CTX 2g -will need 14 days CTX 2g from 07/30/16 (08/12/16 stop date) -appreciate ID consultation #. Acute hypoxic and hypercapnic respiratory failure secondary to pneumonia and acute diastolic CHF exacerbation. Currently on 100% FiO2 from 40%, weaning back down. -bronch today as above -cont daily CPAP trials #. Acute kidney injury. Resolved, but still azotemic, likely secondary to diuresis. #. Hypernatremia. Improving. Cont 07/31 NS, follow. #. Diffuse large B-cell lymphoma. Stage IIB, treated with stem cell transplant 5 years ago -outpt oncology f/u #. Acute diastolic CHF exacerbation. With diuresis, wt down to 61 kg from 73 kg after volume resuscitation during initial sepsis phase. Wt on admit 63kg. -CXR today shows worsening infiltrates -bronch planned, if goes well, try for extubation -hold Lasix for now #. Atrial fibrillation. Acute RVR in setting of critical illness, was on amio, which had been d/c'd due to return of NSR. A fib / RVR recurred today, converted to NSR after IV Amio bolus -cont oral amio to maintain NSR -hold on systemic anticoagulation, if continues to recur, will need to reconsider #. Acute reactive airway exacerbation. Evidenced by pCO2 retention, acidosis, smoking hx -change to po pred via feeding tube -cont nebs #. Thrombocytopenia. Suspect 2/2 acute illness, improved. -monitor CBC -HIT Ab negative, resume DELVIS for DVT PPLX and monitor plt -no e/o DIC on labs #. Transaminitis (improving) Suspect 2/2 hepatic congestion in setting of CHF vs shock liver secondary to septic shock presentation -US w/o portal thrombus -NH4 within normal range -cont to monitor CMP and INR #. AAA. Incidental finding, 3.1cm -will rec annual monitoring as outpt Diet. OGT, tube feeds Prophylaxis. High risk patient, resume DELVIS Code. Full per patient his child is MPOA Disposition. Cont ICU Subjective: Pt vented, sedated, though he is tracking. No fevers. Objective: Vital Signs Temp Pulse Resp BP Pulse Ox 38.2 C 73 28 H 137/86 H 92 08/08/16 12:00 08/08/16 12:20 08/08/16 12:00 08/08/16 12:00 08/08/16 12:20 Laboratory Results 08/08/16 05:29 08/08/16 05:29 08/07/16 08/08/16 08/09/16 05:59 05:59 05:59 Intake Total 3370.1 5054.0 Output Total 2250 3470 Balance 1120.1 1584.0 PT 14.5 SEC (12.0-15.0) 08/04/16 04:25 INR 1.14 (0.83-1.16) 08/04/16 04:25 - Physical Exam Constitutional: no apparent distress Eyes: PERRL Cardiovascular: regular rate and rhythym Respiratory: no respiratory distress, inspiratory crackles Gastrointestinal: normoactive bowel sounds, soft, non-tender abdomen Skin: warm ICD10 Worksheet Patient Problems: Problems Problem Status Diagnosed Pneumonia Acute Respiratory failure Acute Severe sepsis with acute organ dysfunction Acute
--- NOTE | 2016-08-08 13:54 | PDINTPN ---
Computer Operations Technician Progress Note Assessment/Plan: Assessment: * Pneumococcal pneumonia-continues to improve slowly. CXR: infiltrates persist , slightly worse today, impart secondary to volume * Respiratory Failure: Tolerating CPAP weans much better but occasionally has increased tachypnea with retractions and accessary muscle use, probably secondary to mucus plugging. Will bronch today. * Shock-resolved * AFib recurrent: Back on amiodarone: In normal sinus rhythm currently * H/O B cell lymphoma * Sepsis - resolved, blood pressures occasionally on the low side. * Elevated transaminases-improved * Encephalopathy-secondary to toxic metabolic issues, improved * Sedation-on propofol, fentanyl at as low of doses as possible * Hypernatremia-improved * MELODY resolved * Nutrition-on TFs * VTE proph-on subcu heparin * Stress ulcer proph-Pepcid Plan: Continue care in the intensive care unit. Continue ventilatory management. Bronchoscopy today to assess secretions. Re-culture sputum. Increased CPAP weans as tolerated. Continue amiodarone. Metoprolol to be started as well. Continue antibiotics, bronchodilator therapy, and steroids as well as current medical management. Follow lab, chest x-ray and blood gases. 50 min of critical care time spent with patient, not including bronchoscopy. Discussed with patient's son who just arrived from out of town in his family, hospitalist, nursing, respiratory therapy, and the ICU multi disciplinary team. Subjective: Sedated, on the ventilator, appears comfortable, arouses and is responsive. Dyspneic at times. Tolerating CPAP weans for an hour or longer but can develop some respiratory distress late in the weans. Objective: Vital Signs Temp Pulse Resp BP Pulse Ox 38.2 C 80 20 115/68 100 08/08/16 12:00 08/08/16 13:00 08/08/16 13:00 08/08/16 13:00 08/08/16 13:00 Laboratory Results 08/08/16 05:29 08/08/16 05:29 08/07/16 08/08/16 08/09/16 05:59 05:59 05:59 Intake Total 3370.1 5054.0 Output Total 2250 3470 Balance 1120.1 1584.0 PT 14.5 SEC (12.0-15.0) 08/04/16 04:25 INR 1.14 (0.83-1.16) 08/04/16 04:25 Laboratory Tests 08/08/16 08/08/16 08/08/16 05:23 05:29 11:50 pCO2 42 H pO2 106 H ABG pH 7.44 O2 Concentration % 40 Actual Respiration Rate 23 PEEP 5 Pressure Support 7 CPAP YES Sodium 144 Potassium 3.4 L Chloride 102 Carbon Dioxide 33 H BUN 27 H Creatinine 0.6 L Glucose 87 Calcium 8.2 L Phosphorus 2.0 L D Magnesium 1.9 Total Bilirubin 1.0 AST 56 ALT 137 H Albumin 3.1 L CXR: Bilateral infiltrates appear to be somewhat worse today with increased consolidation in the retrocardiac area. Lines and tubes in good position. Physical Exam - Physical Exam General Appearance: thin, other (Sedated, on the ventilator) EENT: PERRL/EOMI, ET tube, other (NG in place) Neck: normal inspection Respiratory: respiratory distress (At time), accessory muscle use (At time), decreased breath sounds (Markedly decreased breath sounds bilaterally.), rales ( Few at lateral bases), rhonchi (Few present centrally), wheezing (Minimal in expiration), prolonged expiration, No normal breath sounds Cardiac/Chest: regular rate, rhythm (Remains in normal sinus on amiodarone) Abdomen: normal bowel sounds (Tolerating), non-tender, soft Male Genitalia: other (Thomas catheter) Skin: warm/dry, pallor Lymphatic: no adenopathy Extremities: pedal edema Neuro/Psych: no motor/sensory deficits (Moves all extremities weakly), motor weakness (Generalized), No cognition abnormalities (Appears intact, looks to voice, responds) ICD10 Worksheet Patient Problems: Problems Problem Status Diagnosed Pneumonia Acute Respiratory failure Acute Severe sepsis with acute organ dysfunction Acute
--- NOTE | 2016-08-08 14:59 | GPN ---
[f rep st] PROCEDURE NOTE DATE OF PROCEDURE: 08/08/2016 PROCEDURE: Therapeutic bronchoscopy. REASON FOR PROCEDURE: Pneumonia, secretions in a patient on the ventilator who has mucous plugging a nd difficulty regarding weaning attempts. PROCEDURE NOTE: The procedure was done in the intensive care unit. Informed consent was obtained fr om the patient's son. Appropriate time-out was performed. Barrier masks were worn. The fiberoptic bronchoscope was passed via an adapter in the end of the patient's endotracheal tube, into the distal trachea, and from there into the lower tracheobronchial tree bilaterally. There were copious secretions on the left side distally in all segments. Secretions were removed with suction and lavage. These were somewhat purulent and relatively thick. Secretions were present on the right side, but were much less in quantity. No culture was sent, as a culture was sent by Respiratory ear lier in the day with similar secretions suctioned from the patient's trachea. The patient tolerated the procedure well. There were no complications. Vital signs and oxygen satur ation on the ventilator remained normal throughout the procedure. The patient was on propofol and fe ntanyl at the time of the procedure, and was bolused with 40 mg of propofol and 25 mcg of fentanyl sp ecifically for the procedure. /[id number]/MODL
[2016-08-08 19:16] LABS: POTASSIUM 4.2 mEq/L (3.5-5.2)
[2016-08-09] MEDS: ALBUTEROL 60 PUFFS/8 GM MDI IH SCH ×6 (00:39→20:40)
[2016-08-09] MEDS: fentaNYL/NACL 100 ML IV SCH ×2 (02:45→11:41)
[2016-08-09] MEDS: ACETAMINOPHEN 650 MG/20.3 ML UDCUP TUBE PRN (03:13)
[2016-08-09 05:32] LABS: BASE EXCESS 4.8 mEq/L (-2.5-2.5); BICARBONATE 28 mEq/L (22-26); CPAP YES; END TIDAL CO2 35; MEASURED OXYGEN SATURATION 92 % (92-95); O2 CONCENTRATIION 40 % (0-100); P/F RATIO 158 RATIO; PATIENT RATE 18; PCO2 37 mmHg (34-38); PO2 63 mmHg (65-75); PRESSURE SUPPORT 7; TCO2 29 mEq/L (23-27)
[2016-08-09 05:33] LABS: IONIZED CALCIUM 1.19 MMOL/L (1.12-1.30)
[2016-08-09 05:38] LABS: % IMMATURE GRANULYOCYTES 0.9 % (0.0-1.1); ABSOLUTE IMMATURE GRANULOCYTES 0.17 10^3/uL (0.00-0.10); ADD DIFF? NO; ADD MORPH? NO; ADD SCAN? NO; ATYPICAL LYMPHOCYTE FLAG 10 (0-99); FRAGMENT RBC FLAG 0 (0-99); HEMATOCRIT 30.7 % (40.0-51.0); HEMOGLOBIN 10.2 g/dL (13.7-17.5); LEFT SHIFT FLG 30 (0-99); LIPEMIA HEMOLYSIS FLAG 80 (0-99); MEAN CELL HEMOGLOBIN 27.3 pg (27.9-34.1); MEAN CELL HEMOGLOBIN CONCENTR. 33.2 g/dL (32.4-36.7); MEAN CELL VOLUME 82.1 fL (81.5-99.8); MEAN PLATELET VOLUME 11.2 fL (8.7-11.7); PLATELET CLUMPS FLAG 0 (0-99); PLATELET COUNT 102 10^3/uL (150-400); RED BLOOD CELL COUNT 3.74 10^6/uL (4.40-6.38); RED CELL DISTRIBUTION WIDTH 16.5 % (11.5-15.2)
[2016-08-09 05:55] LABS: ALANINE AMINOTRANSFERASE 132 IU/L (21-72); ALBUMIN 2.6 g/dL (3.5-5.0); ALKALINE PHOSPHATASE 165 IU/L (38-126); ANION GAP 7 mEq/L (8-16); ASPARTATE AMINOTRANSFERASE 77 IU/L (17-59); BILIRUBIN,TOTAL 0.9 mg/dL (0.1-1.4); CALCIUM 8.4 mg/dL (8.5-10.4); CARBON DIOXIDE 30 mEq/l (22-31); CHLORIDE 102 mEq/L (97-110); CREATININE 0.5 mg/dL (0.7-1.3); GLOMERULAR FILTRATION RATE > 60; GLUCOSE 133 mg/dL (70-100); MAGNESIUM 1.9 mg/dL (1.6-2.3); POTASSIUM 3.6 mEq/L (3.5-5.2); SODIUM 139 mEq/L (134-144); TOTAL PROTEIN 4.9 g/dL (6.3-8.2)
[2016-08-09] MEDS: HEPARIN 5,000 UNIT/0.5 ML SYR SC SCH ×2 (06:04→14:30)
[2016-08-09] MEDS: CHLORHEXIDINE GLUCONATE 15 ML UDL PO SCH ×2 (08:46→19:58)
[2016-08-09] MEDS: predniSONE 20 MG TAB TUBE SCH (09:39)
[2016-08-09] MEDS: cefTRIAXone 2 GM in D5W 50 ML IV SCH (09:40)
[2016-08-09] MEDS: INSULIN REGULAR, HUMAN 100 UNIT/1 ML VIAL STANDARD SC SCH ×4 (09:40→21:13)
[2016-08-09] MEDS: METOPROLOL TARTRATE 25 MG TAB TUBE SCH ×2 (09:40→22:17)
[2016-08-09] MEDS: AMIODARONE HCL 200 MG TAB PO SCH ×2 (09:40→22:18)
[2016-08-09] MEDS: FAMOTIDINE 20 MG/NACL 50 ML IV SCH ×2 (09:40→20:06)
[2016-08-09] MEDS: OMEGA-3 FATTY ACIDS 1,000 MG CAP PO SCH (09:40)
[2016-08-09] MEDS: PROPOFOL/EMULSION 100 ML IV SCH ×2 (09:54→17:21)
[2016-08-09] MEDS ORDERED: LIDOCAINE 1% 30 ML SDV MISC ONE (09:59)
[2016-08-09] MEDS ORDERED: LIDOCAINE 2% JELLY 5 ML TUBE TP ONE (09:59)
--- NOTE | 2016-08-09 10:12 | WOCRNPDOC ---
WOCRN Advanced Assessment Note - Skin Integrity Problem, Advanced Assess coccyx Dressing Type: Allevyn Life Dressing Description: Clean/Dry, Intact Exudate Amount: None Exudate Characteristic(s): None Integumentary Issue Intervention: Visualized Under Dressing Jada Wound Tissue: Blanching, Erythema, Intact Jada Wound Swelling: None Wound Bed Color: Red Site Odor: None Site Measurement - Head-to-Toe Length X Width X Depth (cm): [id number] Pressure Injury Stage: Stage 1 Pressure Injury Present on Admit: No Skin Integrity Problem Comment: Small area of non-blanching erythema noted on coccyx, consistent in appearance with a stage I pressure injury. Jada-wound tissue has mild blanching erythema, presently intact. Patient repositioned on L side. brand communications manager Brad present and assisting.
--- NOTE | 2016-08-09 11:14 | HOSPPROG ---
Hospitalist Progress Note Assessment/Plan: 70-year-old male presented with septic shock in the setting of streptococcal pneumonia/bacteremia with worsening acute hypoxic/hypercapnic respiratory failure requiring intubation on 07/30/2016 and new onset Afib. Day 10 on ventilator, repeat sputum Cx growing pseudomonas, atbx broadened to Zosyn per ID. #. Septic shock secondary to PNA - shock physiology improved though remains vent dependent #. Acute hypoxic and hypercapnic respiratory failure secondary to pneumococcal and now pseudomonal pneumonia, acute diastolic CHF exacerbation and likely element of COPD exacerbation with tobacco hx and elevated pCO2. Currently on 40 % FiO2. Day 10 on vent. Bronch again today revealed persistent left sided secretions. CXR with increasing infiltrates. 08/08 sputum Cx growing pseudomonas. Diuresed, weight down to 61 kg from 73 kg after volume resuscitation during initial sepsis phase. Currently holding Lasix, but rapidly becoming more net positive. -repeat bronch today -s/p 11 days of Ceftriaxone -atbx broadened to Zosyn, day 1 -cont prednisone, nebs -resume Lasix -cont daily CPAP trials -Appreciate ID and Pulmonary assistance #. Atrial fibrillation. Acute RVR in setting of critical illness, was on amio, which had been d/c'd due to return of NSR. A fib / RVR recurred, converted to NSR after IV Amio bolus -cont oral amio to maintain NSR -hold on systemic anticoagulation, if continues to recur, will need to reconsider #. Acute kidney injury. Resolved, but still azotemic, likely secondary to diuresis, improving, Lasix on hold. #. Diffuse large B-cell lymphoma. Stage IIB, treated with stem cell transplant 5 years ago -outpt oncology f/u #. Thrombocytopenia. Suspect 2/2 acute illness, improved. -monitor CBC -HIT Ab negative, resume DELVIS for DVT PPLX and monitor plt -no e/o DIC on labs #. Transaminitis (improving) Suspect 2/2 hepatic congestion in setting of CHF vs shock liver secondary to septic shock presentation -US w/o portal thrombus -NH4 within normal range -cont to monitor CMP and INR #. AAA. Incidental finding, 3.1cm -will rec annual monitoring as outpt Diet. OGT, tube feeds at goal Prophylaxis. High risk patient, cont DELVIS Code. Full per patient his child is MPOA Disposition. Cont ICU Subjective: Vented, sedated. Tmax 38.5. Objective: Vital Signs Temp Pulse Resp BP Pulse Ox 38.4 C H 88 27 H 150/83 H 92 08/09/16 10:00 08/09/16 10:00 08/09/16 10:00 08/09/16 10:00 08/09/16 10:00 Microbiology 08/08/16 11:45 - Final Sputum, Induced/Suctioned Laboratory Results 08/09/16 05:22 08/09/16 05:22 08/08/16 08/09/16 08/10/16 05:59 05:59 05:59 Intake Total 5054.0 3436 Output Total 3470 2350 Balance 1584.0 1086 PT 14.5 SEC (12.0-15.0) 08/04/16 04:25 INR 1.14 (0.83-1.16) 08/04/16 04:25 - Physical Exam Constitutional: no apparent distress Eyes: PERRL Cardiovascular: regular rate and rhythym Respiratory: inspiratory crackles Gastrointestinal: normoactive bowel sounds, soft, non-tender abdomen Skin: warm ICD10 Worksheet Patient Problems: Problems Problem Status Diagnosed Pneumonia Acute Respiratory failure Acute Severe sepsis with acute organ dysfunction Acute
--- NOTE | 2016-08-09 11:17 | PCMIDPN ---
Assessment/Plan: Assessment/Plan: * Sepsis due to pneumococcal bacteremia with bilateral pneumonia: Temperature to 38.5 today. Chest x-ray with more prominent infiltrates and still with difficulty weaning. BAL yesterday showed purulent secretions and sputum is growing Pseudomonas. Findings consistent with healthcare associated pneumonia. Will change ceftriaxone to Zosyn pending susceptibility profile. Zosyn will also provide coverage against Streptococcus pneumoniae which is penicillin susceptible. * Healthcare associated pneumonia: See above. * Fever: Likely due to healthcare associated pneumonia. Antibiotic modification as outlined above. Obtain blood cultures. * Transaminitis: Suspect due to shock liver. Continued improvement over time. 08/09/16 11:14 Subjective: Intubated and difficulty with weaning trials. Agitated. Objective: Vital Signs Temp Pulse Resp BP Pulse Ox 38.4 C H 88 27 H 150/83 H 92 08/09/16 10:00 08/09/16 10:00 08/09/16 10:00 08/09/16 10:00 08/09/16 10:00 Microbiology 08/08/16 11:45 - Final Sputum, Induced/Suctioned Laboratory Results 08/09/16 05:22 08/09/16 05:22 08/08/16 08/09/16 08/10/16 05:59 05:59 05:59 Intake Total 5054.0 3436 Output Total 3470 2350 Balance 1584.0 1086 Tm 38.5 Ceftriaxone # 11 Sputum with 4+ Pseudomonas aeruginosa BAL yesterday with purulent secretions noted Chest x-ray with more prominent bilateral infiltrates - Physical Exam General Appearance: other (Agitated but able to follow some simple commands) EENT: ET Tube, No scleral icterus Respiratory: coarse breath sounds Cardiac/Chest: regular rate, rhythm Extremities: No inflammation Abdomen: non-tender, No distended - Line/s other Lines: other (Left IJ), No drainage, No erythema ICD10 Worksheet Patient Problems: Problems Problem Status Diagnosed Pneumonia Acute Respiratory failure Acute Severe sepsis with acute organ dysfunction Acute
[2016-08-09] MEDS: PIPERACILLIN/TAZO 4.5 GM/DEX 100 ML IV SCH ×3 (11:18→17:21)
--- NOTE | 2016-08-09 13:34 | PDINTPN ---
Butter Grader Progress Note Assessment/Plan: Assessment: * Pneumococcal pneumonia-continues to improve slowly, however now with Pseudomonas. Antibiotics changed to Zosyn. Appreciate ID consult * Respiratory Failure: Tolerating CPAP weans better but has increased tachypnea with retractions and accessary muscle use after 1 hour. Copious secretions on bronchoscopy yesterday. Will bronch again today. * Shock-resolved * AFib recurrent: Back on amiodarone: In normal sinus rhythm * H/O B cell lymphoma * Sepsis - resolved, blood pressures occasionally on the low side. * Elevated transaminases-improved * Encephalopathy-secondary to toxic metabolic issues, improved * Sedation-on propofol, fentanyl at as low of doses as possible * Hypernatremia-improved * MELODY resolved * Nutrition-on TFs * VTE proph-on subcu heparin * Stress ulcer proph-Pepcid Plan: Continue care in the intensive care unit. Continue ventilatory management. Bronchoscopy again today to removed secretions. Increased CPAP weans as tolerated, but will not extubate today. Continue amiodarone orally. Continue Metoprolol. Start Zosyn per ID, continue bronchodilator therapy, steroids, as well as current medical management. Follow lab, chest x-ray and blood gases. 45 min of critical care time spent with patient, not including bronchoscopy. Discussed with hospitalist, nursing, respiratory therapy, and the ICU multi disciplinary team. Subjective: More awake, alert, responsive. Tolerating CPAP weaning trials for over an hour, but will become more tachypneic at the end. Secretions persist. Objective: Vital Signs Temp Pulse Resp BP Pulse Ox 38.4 C H 88 27 H 150/83 H 92 08/09/16 10:00 08/09/16 10:00 08/09/16 10:00 08/09/16 10:00 08/09/16 10:00 Microbiology 08/08/16 11:45 - Final Sputum, Induced/Suctioned Laboratory Results 08/09/16 05:22 08/09/16 05:22 08/08/16 08/09/16 08/10/16 05:59 05:59 05:59 Intake Total 5054.0 3436 Output Total 3470 2350 Balance 1584.0 1086 PT 14.5 SEC (12.0-15.0) 08/04/16 04:25 INR 1.14 (0.83-1.16) 08/04/16 04:25 Laboratory Tests 08/09/16 08/09/16 05:22 05:25 pCO2 37 pO2 63 L ABG pH 7.49 H O2 Concentration % 40 Actual Respiration Rate 18 End Tidal CO2 35 PEEP 5 Pressure Support 7 CPAP YES Calcium 8.4 L Ionized Calcium 1.19 Phosphorus 2.1 L Magnesium 1.9 AST 77 H ALT 132 H Albumin 2.6 L CXR: None today. Physical Exam - Physical Exam General Appearance: thin, other ( Sedated, arouses, tries to communicate.) EENT: PERRL/EOMI, ET tube, other ( NG tube in place ) Neck: normal inspection (gular venous distension) Respiratory: decreased breath sounds ( bilaterally), rales (nchia), rhonchi ( present), No normal breath sounds Cardiac/Chest: regular rate, rhythm ( sinus) Abdomen: normal bowel sounds (ng), non-tender, soft Male Genitalia: other (lae) Skin: warm/dry, pallor Lymphatic: no adenopathy Extremities: pedal edema ( 1+) Neuro/Psych: no motor/sensory deficits (ties), cognition abnormalities ( hard to assess but improved, probably normal) ICD10 Worksheet Patient Problems: Problems Problem Status Diagnosed Pneumonia Acute Respiratory failure Acute Severe sepsis with acute organ dysfunction Acute
--- NOTE | 2016-08-09 14:48 | GPN ---
[f rep st] PROCEDURE NOTE DATE OF PROCEDURE: 08/09/2016 PROCEDURE: Therapeutic bronchoscopy. INDICATION: Persistent secretions in a patient with pneumococcal, now Pseudomonas pneumonia, on the ventilator, unable to wean successfully secondary to increased secretions. This procedure is being d one to fully remove secretions and facilitate his weaning. DESCRIPTION OF PROCEDURE: The procedure was performed in the intensive care unit. Informed consent was obtained from the patient's family. Appropriate time-out was performed. Barrier masks were worn . The patient was on propofol and fentanyl. He was bolused with 40 mg of propofol and 50 mcg of fen tanyl, for the procedure. Approximately 10 mL of 1% lidocaine was used for topical anesthesia. PROCEDURE NOTE: The fiberoptic bronchoscope was advanced via an adaptor on the end of the patient's endotracheal tube, and into the trachea and lower tracheobronchial tree bilaterally. Copious secreti ons were present bilaterally, left greater than right. These were somewhat less than seen yesterday but were a little thicker. Secretions were removed with suction and lavage. No cultures were sent. The patient tolerated the procedure well. Vital signs and oxygen saturations during the procedure on the ventilator, stayed within normal limits. IMPRESSION: Copious secretions persist, slightly less, slightly thicker compared to yesterday. /[id number]/MODL
[2016-08-09] MEDS ORDERED: ALBUMIN 5% 500 ML BOTTLE IV ONE (15:25)
[2016-08-09] MEDS ORDERED: ALBUMIN 5% 500 ML IV ONE (15:30)
[2016-08-09] MEDS ORDERED: FUROSEMIDE 40 MG/4 ML VIAL IVP ONE (16:28)
[2016-08-09 17:54] LABS: POTASSIUM 3.7 mEq/L (3.5-5.2)
[2016-08-09] MEDS ORDERED: POTASSIUM Cl (KCl) 50 ML IV ONE (18:19)
[2016-08-09] MEDS ORDERED: NS BOLUS 1000 ML (Wide open) IV ONE (20:30)
[2016-08-09] MEDS ORDERED: OLANZapine 10 MG/2 ML VIAL IM ONE (22:30)
[2016-08-10] MEDS: PIPERACILLIN/TAZO 4.5 GM/DEX 100 ML IV SCH ×4 (00:02→18:13)
[2016-08-10] MEDS: HEPARIN 5,000 UNIT/0.5 ML SYR SC SCH ×4 (00:02→21:57)
[2016-08-10] MEDS: ALBUTEROL 60 PUFFS/8 GM MDI IH SCH ×7 (00:19→20:08)
[2016-08-10] MEDS ORDERED: PROPOFOL/EMULSION 100 ML IV SCH (00:26)
[2016-08-10] MEDS: 1/2 NS 1,000 ML IV SCH ×2 (00:43→16:39)
[2016-08-10] MEDS: PROPOFOL/EMULSION 100 ML IV SCH ×2 (00:44→07:44)
[2016-08-10] MEDS: ACETAMINOPHEN 650 MG/20.3 ML UDCUP TUBE PRN ×3 (02:47→20:16)
[2016-08-10] MEDS: NOREPINEPHRINE BITARTRATE 16 MG in D5W 250 ML IV SCH (02:55)
[2016-08-10] MEDS: fentaNYL/NACL 100 ML IV SCH ×2 (03:50→13:32)
[2016-08-10 04:33] LABS: IONIZED CALCIUM 1.18 MMOL/L (1.12-1.30)
[2016-08-10 04:34] LABS: % IMMATURE GRANULYOCYTES 0.7 % (0.0-1.1); ADD DIFF? NO; ADD MORPH? NO; ADD SCAN? NO; ATYPICAL LYMPHOCYTE FLAG 0 (0-99); FRAGMENT RBC FLAG 0 (0-99); HEMOGLOBIN 8.7 g/dL (13.7-17.5); LEFT SHIFT FLG 10 (0-99); LIPEMIA HEMOLYSIS FLAG 80 (0-99); MEAN CELL HEMOGLOBIN 27.7 pg (27.9-34.1); MEAN CELL HEMOGLOBIN CONCENTR. 33.5 g/dL (32.4-36.7); MEAN CELL VOLUME 82.8 fL (81.5-99.8); MEAN PLATELET VOLUME 11.4 fL (8.7-11.7); PLATELET CLUMPS FLAG 10 (0-99); PLATELET COUNT 110 10^3/uL (150-400); RED BLOOD CELL COUNT 3.14 10^6/uL (4.40-6.38); RED CELL DISTRIBUTION WIDTH 16.4 % (11.5-15.2)
[2016-08-10 04:53] LABS: BASE EXCESS 7.4 mEq/L (-2.5-2.5); BICARBONATE 32 mEq/L (22-26); MEASURED OXYGEN SATURATION 92 % (92-95); PCO2 47 mmHg (34-38); PO2 62 mmHg (65-75); TCO2 34 mEq/L (23-27)
[2016-08-10 04:53] LABS: ALANINE AMINOTRANSFERASE 115 IU/L (21-72); ALBUMIN 2.3 g/dL (3.5-5.0); ALKALINE PHOSPHATASE 143 IU/L (38-126); ANION GAP 7 mEq/L (8-16); ASPARTATE AMINOTRANSFERASE 75 IU/L (17-59); BILIRUBIN,TOTAL 0.7 mg/dL (0.1-1.4); CALCIUM 7.7 mg/dL (8.5-10.4); CARBON DIOXIDE 33 mEq/l (22-31); CHLORIDE 102 mEq/L (97-110); CREATININE 0.7 mg/dL (0.7-1.3); GLOMERULAR FILTRATION RATE > 60; GLUCOSE 126 mg/dL (70-100); MAGNESIUM 1.8 mg/dL (1.6-2.3); POTASSIUM 3.3 mEq/L (3.5-5.2); SODIUM 142 mEq/L (134-144); TOTAL PROTEIN 4.7 g/dL (6.3-8.2)
[2016-08-10 05:01] LABS: CPAP YES; O2 CONCENTRATIION 45 % (0-100); P/F RATIO 138 RATIO; PATIENT RATE 12; PRESSURE SUPPORT 7
[2016-08-10] MEDS ORDERED: POTASSIUM CL 10 MEQ TAB TUBE ONE (07:34)
[2016-08-10] MEDS ORDERED: MAGNESIUM SULF 1 GM/DEXTROSE 100 ML IV ONE (07:35)
[2016-08-10] MEDS: INSULIN REGULAR, HUMAN 100 UNIT/1 ML VIAL STANDARD SC SCH ×4 (08:26→22:03)
[2016-08-10] MEDS: CHLORHEXIDINE GLUCONATE 15 ML UDL PO SCH ×2 (08:37→20:06)
--- NOTE | 2016-08-10 08:43 | DX ---
AP Portable Chest August 10, 2016 Clinical Indication: Follow up infiltrates. Comparison: August 08, 2016. Findings: The bilateral infiltrates are relatively stable. Endotracheal tube terminates in the mid ca bing. Central line is in adequate position in the upper SVC. Feeding tube takes a normal course. Left basilar consolidation and/or effusion is stable. Impression: Stable bilateral consolidation and left effusion.
[2016-08-10] MEDS: OMEGA-3 FATTY ACIDS 1,000 MG CAP PO SCH (08:53)
[2016-08-10] MEDS: predniSONE 20 MG TAB TUBE SCH (08:55)
[2016-08-10] MEDS: AMIODARONE HCL 200 MG TAB PO SCH ×2 (08:55→20:17)
[2016-08-10] MEDS: FAMOTIDINE 20 MG/NACL 50 ML IV SCH ×2 (08:58→20:15)
[2016-08-10] MEDS: FUROSEMIDE 40 MG/4 ML VIAL IVP SCH (08:58)
[2016-08-10] MEDS: METOPROLOL TARTRATE 25 MG TAB TUBE SCH ×2 (08:58→20:21)
[2016-08-10] MEDS: VANCOMYCIN HCL/NORMAL SALINE 250 ML IV SCH ×2 (10:03→21:57)
--- NOTE | 2016-08-10 10:49 | HOSPPROG ---
Hospitalist Progress Note Assessment/Plan: DIAGNOSIS: # ACUTE SEPTIC SHOCK WITH PULM, RENAL, LIVER AFFECTED # ACUTE RESP FAILURE, HYPOXEMIC, [facility] # PNEUMOCOCCAL PNEUMONIA # RECURRENT FEVER, NOW WITH PSEUDOMONAS IN SPUTUM CX # MELODY, RESOLVED FXN # STAGE 1 DECUB CHANGES ON COCCYX # HX LYMPHOMA PLANS: -continue supportive care with mechanical ventilator, fluid resuscitation, pressors -Continue current antibiotics -DVT and stress ulcer prophylaxis -skin care prevention measures for stage I decubitus I reviewed the patient's condition and care plan detail Dr. Stewart Dillard today Patient also seen on multidisciplinary rounds SUBJECTIVE: Sedated on vent stenosis symptom evaluation available OBJECTIVE Vitals reviewed: Stable without fever solutions developer, my personal review: Sinus rhythm Exam: Sedated on ventilator Endotracheal tube in good position and secured Ventilator pressures in compliance good skin warm dry color ok resps per ventilator lungs clear BSs heart regular abd soft nondistended nontender, bowel sounds present limbs warm, no edema iv site ok Chest x-ray, portable today, my personal review: Persistent unchanged bilateral pulmonary infiltrates with likely left pleural effusion Laboratory data reviewed Objective: Vital Signs Temp Pulse Resp BP Pulse Ox 38.5 C H 81 16 104/52 L 95 08/10/16 10:00 08/10/16 10:00 08/10/16 10:00 08/10/16 10:00 08/10/16 10:00 Microbiology 08/08/16 11:45 - Final Sputum, Induced/Suctioned Sputum Culture - Final Pseudomonas Aeruginosa Laboratory Results 08/10/16 04:20 08/10/16 04:20 08/09/16 08/10/16 08/11/16 06:59 06:59 06:59 Intake Total 3436 4855 Output Total 2040 5548 Balance 1086 -735 PT 14.5 SEC (12.0-15.0) 08/04/16 04:25 INR 1.14 (0.83-1.16) 08/04/16 04:25 ICD10 Worksheet Patient Problems: Problems Problem Status Diagnosed Pneumonia Acute Respiratory failure Acute Severe sepsis with acute organ dysfunction Acute
[2016-08-10] MEDS ORDERED: ALBUMIN 5% 500 ML IV ONE (10:50)
--- NOTE | 2016-08-10 13:45 | PCMIDPN ---
Assessment/Plan: Assessment/Plan: * Sepsis due to pneumococcal bacteremia with bilateral pneumonia: Has completed 12 days of antibiotic therapy and continues on agent active against Streptococcus pneumoniae as outlined below. * Healthcare associated pneumonia due to Pseudomonas aeruginosa: Continue Zosyn 4.5 g IV q.6 hours. Follow chest x-ray including effusion which present on left but appears relatively small. * Fever: Likely due to healthcare associated pneumonia. Blood cultures also show 1 of 2 sets with GPCs in clusters. Suspect this likely will represent contamination but given that patient has persistent fever and is on vasopressors will treat with vancomycin pending identification. * Transaminitis: Suspect due to shock liver. Continued improvement over time. 08/10/16 13:44 Subjective: Intubated. Continues with fever. On Levophed for blood pressure support. Objective: Vital Signs Temp Pulse Resp BP Pulse Ox 38 C 65 12 110/56 L 94 08/10/16 13:00 08/10/16 13:00 08/10/16 13:00 08/10/16 13:00 08/10/16 13:00 Microbiology 08/08/16 11:45 - Final Sputum, Induced/Suctioned Sputum Culture - Final Pseudomonas Aeruginosa Laboratory Results 08/10/16 04:20 08/10/16 04:20 08/09/16 08/10/16 08/11/16 05:59 05:59 05:59 Intake Total 3436 4855 100 Output Total 2350 5590 1900 Balance 0968 -570 -2756 Zosyn # 2 (antibiotics # 12) Blood cultures 08/09/2016 1/2 sets GPCs in clusters Blood cultures 08/08/2016 no growth Pseudomonal susceptibility shows fischer susceptibility to usual anti pseudomonal drugs - Physical Exam General Appearance: non-toxic EENT: No scleral icterus Respiratory: coarse breath sounds Cardiac/Chest: regular rate, rhythm Extremities: No inflammation Abdomen: non-tender, No distended - Line/s other Lines: other (Left IJ), No drainage, No erythema ICD10 Worksheet Patient Problems: Problems Problem Status Diagnosed Pneumonia Acute Respiratory failure Acute Severe sepsis with acute organ dysfunction Acute
[2016-08-10] MEDS ORDERED: POLYETHYLENE GLYCOL 3350 17 GM PKT PO PRN (16:07)
[2016-08-10] MEDS ORDERED: PHENOL 177 ML THROAT SPRAY PO PRN (16:07)
[2016-08-10] MEDS ORDERED: LACTULOSE 20 GM/30 ML UDCUP PO PRN (16:07)
[2016-08-10] MEDS ORDERED: BISACODYL 10 MG SUPP PR PRN (16:07)
[2016-08-10] MEDS ORDERED: MAGNESIUM HYDROXIDE 30 ML UDCUP PO PRN (16:07)
--- NOTE | 2016-08-10 16:24 | PDINTPN ---
Le[employer]aper Deliverer Progress Note Assessment/Plan: Assessment: * Pneumococcal pneumonia-continues to improve slowly, however now with Pseudomonas. Antibiotics changed to Zosyn. Appreciate ID consult * Respiratory Failure: Tolerating CPAP weans today for greater than 2 hours. Parameters acceptable, blood gas okay. Secretions seem less. Will extubate and see how he does. If he needs to be reintubated then tracheostomy likely will be needed. * Shock-resolved * AFib recurrent: On amiodarone: In normal sinus rhythm * H/O B cell lymphoma * Sepsis - resolved, blood pressures occasionally on the low side. * Elevated transaminases-improved * Encephalopathy-secondary to toxic metabolic issues, improved * Sedation-on propofol, fentanyl at as low of doses as possible * Hypernatremia-improved . Hypokalemia: On replacement. * MELODY resolved * Nutrition-on TFs * VTE proph-on subcu heparin * Stress ulcer proph-Pepcid Plan: Continue care in the intensive care unit. Will proceed with extubation today issues doing well on CPAP. Mental status however remains an issue for post extubation status, cough, clearing mucus, etc. Will leave NG to be in his I anticipate swallow will be quite unsafe. Continue amiodarone orally. Continue Metoprolol. Continue Zosyn per ID, continue bronchodilator therapy, steroids, as well as current medical management. Follow lab, chest x-ray and blood gases. Vancomycin will be started for the good positive blood culture showing gram-positive cocci however this may be a contaminant. 55 min of critical care time spent with patient, not including bronchoscopy. Discussed with Patient's son and [id number], hospitalist, nursing, respiratory therapy, and the ICU multi disciplinary team. Subjective: On ventilator, sedated, restless, looks to voice, a kicking his legs off the bed. Tolerating CPAP weans Objective: Vital Signs Temp Pulse Resp BP Pulse Ox 37.8 C 85 12 125/68 H 93 08/10/16 16:00 08/10/16 16:00 08/10/16 16:00 08/10/16 16:00 08/10/16 16:00 Microbiology 08/08/16 11:45 - Final Sputum, Induced/Suctioned Sputum Culture - Final Pseudomonas Aeruginosa Laboratory Results 08/10/16 04:20 08/10/16 04:20 08/09/16 08/10/16 08/11/16 05:59 05:59 05:59 Intake Total 3436 4855 100 Output Total 2350 5579 2700 Balance 1086 -735 -2600 PT 14.5 SEC (12.0-15.0) 08/04/16 04:25 INR 1.14 (0.83-1.16) 08/04/16 04:25 Laboratory Tests 08/10/16 08/10/16 04:20 04:43 pCO2 47 H pO2 62 L ABG pH 7.44 O2 Concentration % 45 Actual Respiration Rate 12 PEEP 5 Pressure Support 7 CPAP YES Sodium 142 Potassium 3.3 L Chloride 102 Carbon Dioxide 33 H BUN 22 Creatinine 0.7 Calcium 7.7 L Phosphorus 2.8 D Magnesium 1.8 AST 75 H ALT 115 H Albumin 2.3 L CXR: About the same. Bilateral infiltrates persist with left lower lobe atelectasis/more dense infiltrate and effusion. Physical Exam - Physical Exam General Appearance: mild distress, thin EENT: PERRL/EOMI, ET tube, other ( Nasogastric tube in place) Neck: normal inspection (bvious JVD) Respiratory: No decreased breath sounds ( course, scattered rales with central congestion), No wheezing Cardiac/Chest: regular rate, rhythm ( distant heart tones. Soft systolic murmur. P2 normal) Abdomen: non-tender, soft, No normal bowel sounds (ng) Male Genitalia: other ( Thomas catheter in place. Good urine output last 48 hours) Skin: warm/dry, pallor Extremities: pedal edema ( trace) Neuro/Psych: no motor/sensory deficits (s), No cognition abnormalities ( restless, confused on the ventilator) ICD10 Worksheet Patient Problems: Problems Problem Status Diagnosed Pneumonia Acute Respiratory failure Acute Severe sepsis with acute organ dysfunction Acute
[2016-08-10 18:49] LABS: POTASSIUM 3.3 mEq/L (3.5-5.2)
[2016-08-10] MEDS: POTASSIUM Cl (KCl) 50 ML IV SCH ×3 (20:15→21:55)
[2016-08-10] MEDS: SENNOSIDES/DOCUSATE SODIUM TAB PO SCH (20:22)
[2016-08-10] MEDS: IPRATROPIUM/ALBUTEROL 3 ML DEYVIAL IH SCH (21:41)
[2016-08-11] MEDS: PIPERACILLIN/TAZO 4.5 GM/DEX 100 ML IV SCH ×4 (00:31→18:27)
[2016-08-11] MEDS: LORazepam 2 MG/ML INJ IVP PRN ×3 (00:32→22:50)
[2016-08-11 00:48] LABS: POTASSIUM 3.7 mEq/L (3.5-5.2)
[2016-08-11] MEDS ORDERED: POTASSIUM Cl (KCl) 50 ML IV ONE (01:09)
[2016-08-11] MEDS: ACETAMINOPHEN 650 MG/20.3 ML UDCUP TUBE PRN ×2 (02:00→18:27)
[2016-08-11 02:42] LABS: BASE EXCESS 1.7 mEq/L (-2.5-2.5); BICARBONATE 24 mEq/L (22-26); MEASURED OXYGEN SATURATION 81 % (92-95); PCO2 36 mmHg (34-38); PO2 51 mmHg (65-75); TCO2 25 mEq/L (23-27)
[2016-08-11 02:44] LABS: IONIZED CALCIUM 1.21 MMOL/L (1.12-1.30)
[2016-08-11 02:45] LABS: % IMMATURE GRANULYOCYTES 0.8 % (0.0-1.1); ABSOLUTE IMMATURE GRANULOCYTES 0.13 10^3/uL (0.00-0.10); ADD DIFF? NO; ADD MORPH? NO; ADD SCAN? NO; ATYPICAL LYMPHOCYTE FLAG 10 (0-99); FRAGMENT RBC FLAG 0 (0-99); HEMATOCRIT 29.5 % (40.0-51.0); HEMOGLOBIN 9.8 g/dL (13.7-17.5); LEFT SHIFT FLG 10 (0-99); LIPEMIA HEMOLYSIS FLAG 80 (0-99); MEAN CELL HEMOGLOBIN 27.7 pg (27.9-34.1); MEAN CELL HEMOGLOBIN CONCENTR. 33.2 g/dL (32.4-36.7); MEAN CELL VOLUME 83.3 fL (81.5-99.8); MEAN PLATELET VOLUME 10.7 fL (8.7-11.7); PLATELET CLUMPS FLAG 0 (0-99); PLATELET COUNT 147 10^3/uL (150-400); RED BLOOD CELL COUNT 3.54 10^6/uL (4.40-6.38); RED CELL DISTRIBUTION WIDTH 16.7 % (11.5-15.2)
[2016-08-11 03:19] LABS: ALANINE AMINOTRANSFERASE 227 IU/L (21-72); ALBUMIN 2.9 g/dL (3.5-5.0); ALKALINE PHOSPHATASE 280 IU/L (38-126); ANION GAP 12 mEq/L (8-16); ASPARTATE AMINOTRANSFERASE 200 IU/L (17-59); BILIRUBIN,TOTAL 1.1 mg/dL (0.1-1.4); CALCIUM 8.6 mg/dL (8.5-10.4); CARBON DIOXIDE 28 mEq/l (22-31); CHLORIDE 106 mEq/L (97-110); CREATININE 0.7 mg/dL (0.7-1.3); GLOMERULAR FILTRATION RATE > 60; GLUCOSE 86 mg/dL (70-100); POTASSIUM 4.9 mEq/L (3.5-5.2); SODIUM 146 mEq/L (134-144); TOTAL PROTEIN 5.8 g/dL (6.3-8.2)
[2016-08-11 03:43] LABS: BASE EXCESS 2.4 mEq/L (-2.5-2.5); BICARBONATE 27 mEq/L (22-26); MEASURED OXYGEN SATURATION 99 % (92-95); TCO2 28 mEq/L (23-27)
[2016-08-11 03:47] LABS: PCO2 47 mmHg (34-38); PO2 168 mmHg (65-75)
[2016-08-11 04:01] LABS: BIPAP YES; EXP PRESSURE 7; INSP PRESSURE 14; O2 CONCENTRATIION 100 % (0-100); P/F RATIO 168 RATIO
[2016-08-11 04:17] LABS: COLOR YELLOW; LEUKOCYTE ESTERASE,URINE NEGATIVE (NEGATIVE); NITRITE,URINE NEGATIVE (NEGATIVE)
[2016-08-11 04:30] LABS: MUCUS TRACE /lpf (NONE-1+); RBC,URINE 50-182 /hpf (0-3)
[2016-08-11] MEDS: IPRATROPIUM/ALBUTEROL 3 ML DEYVIAL IH SCH ×4 (04:33→21:42)
[2016-08-11] MEDS: HEPARIN 5,000 UNIT/0.5 ML SYR SC SCH ×3 (05:42→20:17)
--- NOTE | 2016-08-11 08:35 | DX ---
Single Frontal Chest August 11, 2016 Clinical Indication: Follow up infiltrates. Comparison: August 10, 2015. Findings: The central line and feeding tube are unchanged and in good position. Bilateral diffuse inf iltrates are again noted. Heart size is upper limits of normal. Small left and right pleural effusion s are present. Impression: 1. Stable bilateral consolidation and small effusions. 2. Feeding tube and central line in good position. Endotracheal tube is not visualized on today's exa mination.
--- NOTE | 2016-08-11 08:42 | HOSPPROG ---
Hospitalist Progress Note Assessment/Plan: DIAGNOSIS: # RECURRENT FEVER/HYPOTENSION/RESP FAILURE TODAY WITH INCREASED LIVER TRANSAMINASES # ACUTE SEPTIC SHOCK WITH PULM, RENAL, LIVER AFFECTED # ACUTE RESP FAILURE, HYPOXEMIC, REMAINS ON [facility] VENTILATOR # PNEUMOCOCCAL PNEUMONIA # RECURRENT FEVER, NOW WITH PSEUDOMONAS IN SPUTUM CX # MELODY, RESOLVED FXN # STAGE 1 DECUB CHANGES ON COCCYX # HX LYMPHOMA yest was extubated and taken off pressor. Last night he had high fever to 104 along with acute change in card/resp status. Remains on bipap now. Also he required resumption of pressor overnight. Also all 08/09 blood cultures now w staph in clusters, so ? staph from a line or other source Will need to review w ID PLANS: -continue supportive care with bipap, fluid resuscitation, pressors -Dr Ashby has recommended change in antibiotics to cover possible staph -will DC central line in case of line sepsis as source, and get new picc -DVT and stress ulcer prophylaxis -skin care prevention measures for stage I decubitus Patient seen on multidisciplinary rounds SUBJECTIVE: The patient was extubated overnight and taken off pressors. However during the night he had acute episode with hypotension respiratory distress and temperature 40 degrees. At this time he is back on significant dose of pressor support as well as BiPAP therapy The patient is encephalopathic and having difficulty in conversation so symptoms are difficult to evaluate. It seems that he does not have pain as best I can tell OBJECTIVE Vitals reviewed: Stable without fever cardiac tech, my personal review: Sinus rhythm Exam: Sedated on ventilator Endotracheal tube in good position and secured Ventilator pressures in compliance good skin warm dry color ok resps per ventilator lungs clear BSs heart regular abd soft nondistended nontender, bowel sounds present limbs warm, no edema iv site ok Chest x-ray, portable today, my personal review: Persistent unchanged bilateral pulmonary infiltrates with likely left pleural effusion Laboratory data reviewed Objective: Vital Signs Temp Pulse Resp BP Pulse Ox 38.1 C 92 17 133/71 H 100 08/11/16 07:00 08/11/16 07:00 08/11/16 07:00 08/11/16 07:00 08/11/16 07:00 Microbiology 08/08/16 11:45 - Final Sputum, Induced/Suctioned Sputum Culture - Final Pseudomonas Aeruginosa Laboratory Results 08/11/16 02:40 08/11/16 02:40 08/10/16 08/11/16 08/12/16 06:59 06:59 06:59 Intake Total 4857 4298 Output Total 4972 4280 Balance -735 18 PT 14.5 SEC (12.0-15.0) 08/04/16 04:25 INR 1.14 (0.83-1.16) 08/04/16 04:25 ICD10 Worksheet Patient Problems: Problems Problem Status Diagnosed Pneumonia Acute Respiratory failure Acute Severe sepsis with acute organ dysfunction Acute
[2016-08-11] MEDS: VANCOMYCIN HCL/NORMAL SALINE 250 ML IV SCH ×2 (08:48→20:16)
[2016-08-11] MEDS: FAMOTIDINE 20 MG/NACL 50 ML IV SCH ×2 (08:48→20:16)
[2016-08-11] MEDS: CHLORHEXIDINE GLUCONATE 15 ML UDL PO SCH ×2 (08:48→20:17)
[2016-08-11] MEDS: METOPROLOL TARTRATE 25 MG TAB TUBE SCH ×2 (08:48→20:16)
[2016-08-11] MEDS: FUROSEMIDE 40 MG/4 ML VIAL IVP SCH (08:48)
[2016-08-11] MEDS: predniSONE 20 MG TAB TUBE SCH (08:48)
[2016-08-11] MEDS: SENNOSIDES/DOCUSATE SODIUM TAB PO SCH ×2 (08:48→19:19)
[2016-08-11 09:27] LABS: IONIZED CALCIUM 1.17 MMOL/L (1.12-1.30)
[2016-08-11] MEDS: AMIODARONE HCL 200 MG TAB PO SCH ×2 (09:28→20:16)
[2016-08-11] MEDS: INSULIN REGULAR, HUMAN 100 UNIT/1 ML VIAL STANDARD SC SCH ×4 (09:28→20:21)
[2016-08-11 10:08] LABS: MAGNESIUM 1.9 mg/dL (1.6-2.3); POTASSIUM 3.6 mEq/L (3.5-5.2)
[2016-08-11] MEDS ORDERED: ALTEPLASE 2 MG VIAL IVP PRN (10:26)
--- NOTE | 2016-08-11 10:26 | PCMIDPN ---
Assessment/Plan: 1. History of sepsis secondary to pneumococcus with bilateral pneumonia: Extubated yesterday. Stable-oid on BiPAP. As per Dr. Green's note, the patient received 12 days of therapy for this, and remains on 2 antibiotics active against this organism. No evidence of meningitis or endocarditis. Although rare , pneumococcus can also cause metastatic disease to unusual sites, such as the spleen and liver. Would obtain right upper quadrant ultrasound given history of transaminitis. Please see 4. Also of note, the patient has agreed to an HIV antibody test. 2. History of healthcare associated pneumonia with pansensitive Pseudomonas aeruginosa: Continue Zosyn as is. Dose appropriate, creatinine stable. Chest x-ray stable , as are oxygen requirements. 3. Fever with blood cultures growing gram-positive cocci in clusters: Microbiology lab feels that this is likely a coagulase-negative staphylococci, although definitive tests are pending. Suspect line-related bacteremia given growth from left subclavian. Would discontinue left subclavian today and replace central line. This was conveyed to the patient's nurse and treating team. Continue vancomycin; Vancomycin trough will need to be checked tomorrow. 4. Transaminitis: This is worse today with an elevated AST, ALT, and alkaline phosphatase. As per 1., will obtain right upper quadrant ultrasound. I have also ordered hepatitis serologies for completeness sake. Suspect ischemic hepatopathy overall, but feel it is appropriate to obtain ultrasound to rule out other causes. 5. Diarrhea: C diff has been ordered. This is apparently new. 6. Stage I decubitus on coccyx: Continue wound care. Subjective: Extubated yesterday. Remains stable-oid on BiPAP. Had a fever last night to 40 degrees--blood cultures are growing gram-positive cocci in clusters. Also having some diarrhea, which is new. In spite of all this however, his Levophed dose is being weaned to off. Objective: Prednisone 60 mg daily started on August 08 Vancomycin 1 g IV q.12 hours day 1. Zosyn 4.5 g IV Q 6 day 3. (Antibiotics day 13.) T-max 40 degrees BiPAP 100% FiO2, 98% Vital Signs Temp Pulse Resp BP Pulse Ox 38.1 C 91 17 131/76 H 100 08/11/16 07:00 08/11/16 08:48 08/11/16 07:00 08/11/16 08:48 08/11/16 07:00 Microbiology 08/08/16 11:45 - Final Sputum, Induced/Suctioned Sputum Culture - Final Pseudomonas Aeruginosa Laboratory Results 08/11/16 02:40 08/11/16 09:05 08/10/16 08/11/16 08/12/16 05:59 05:59 05:59 Intake Total 4855 4298 Output Total 5567 4280 Balance -735 August 09 blood cultures x2 are growing 2/4 bottles GPCs in clusters August 08 sputum 4+ Pseudomonas aeruginosa - Physical Exam General Appearance: cachetic, other (Response to simple commands such as open your eyes) EENT: No scleral icterus, No thrush Respiratory: lungs clear (Anterolaterally) Neck: supple Cardiac/Chest: tachycardia, No diastolic murmur, No systolic murmur Abdomen: soft, distended Skin: other (Skin mottling plantar aspects of both feet. Apparently has stage I decubitus on his sacrum that I did not see.), No embolic lesions ICD10 Worksheet Patient Problems: Problems Problem Status Diagnosed Pneumonia Acute Respiratory failure Acute Severe sepsis with acute organ dysfunction Acute
[2016-08-11] MEDS: OMEGA-3 FATTY ACIDS 1,000 MG CAP PO SCH (12:16)
[2016-08-11] MEDS: 1/2 NS 1,000 ML IV SCH (13:03)
[2016-08-11] MEDS: POTASSIUM Cl (KCl) 50 ML IV SCH ×3 (13:03→15:19)
--- NOTE | 2016-08-11 14:37 | US ---
Portable Complete Abdominal Sonography Clinical History: 70-year-old male in the ICU with a history of pneumococcal sepsis and pseudomonal p neumonia, and a prior lymphoma now with fevers to 104 degrees, and rising liver function tests. Technique: A curvilinear 5 MHz transducer was used to sonographically evaluate the upper abdomen. Col or Doppler was also used. The exam was technically limited by the patient's body habitus, and an inab ility to follow the project manager process development's commands. Comparison Studies: Right upper quadrant abdominal sonography dated August 03, 2016, complete abdomin al sonography dated November 15, 2010, the images associated with a percutaneous biopsy of left upper qu adrant mass dated November 18, 2010, and CT imaging of the abdomen and pelvis dated December 29, 2009. Findings: The pancreas is completely obscured by overlying bowel gas, as is the zzh-[id number] abdomin al aorta. The proximal abdominal aorta is at the upper limits of normal, measuring 2.[address] The visualized IVC is normal in caliber. The main portal vein is patent, and color flow is demon strated at the hepatic vein trifurcation. The liver measures 16.5 cm along the right midaxillary line . There is no focal hepatic mass. There is no intrahepatic or extrahepatic bile duct dilatation. The common bile duct measures 5.6 mm. There is no intrahepatic bile duct dilatation. The gallbladder is m oderately distended, with a small amount of sludge. The patient was unable to be positioned in the le ft lateral decubitus position. There is no ascites, however, there is a small right pleural effusion. The right kidney measures 16.3 x 6.7 x 3.4 cm and in the lower pole, there is a 10.5 x 4.0 x 9.1 cm cyst. In the upper pole, there is a 1.9 x 1.8 x 1.5 cm cyst. The left kidney measures 11.7 x 5.1 x 4. 7 cm, and multiple cysts are identified. The largest is seen in the upper pole measuring 2.0 x 1.7 x 2.0 cm, and in the mid-pole measuring 2.8 x 3.0 x 2.7 cm. There is no hydronephrosis or perinephric f luid. The spleen is not identified. Impression: 1. Technically limited study secondary to the patient's body habitus and bowel gas, with inadequate a ssessment of the pancreas and of the [id number]-yz-ripjpt abdominal aorta. 2. Normal sonographic appearance of the liver, with no focal hepatic mass or bile duct dilatation. 3. Small amount of gallbladder sludge, and no evidence of cholecystitis. 4. Bilateral renal cortical cysts. 5. Absent spleen. 6. Small right pleural effusion.
[2016-08-11] MEDS: fentaNYL/NACL 100 ML IV SCH (16:25)
--- NOTE | 2016-08-11 17:59 | PDINTPN ---
Liner Assembler Progress Note Assessment/Plan: Assessment: * Pneumococcal pneumonia-continues to improve slowly, however now with Pseudomonas. Antibiotics changed to Zosyn. Appreciate ID consult * Respiratory Failure: Respiratory status remains somewhat marginal post extubation. needed BiPAP over night. Now seems to be more comfortable with a simple mask alone. We will see how he does. * Shock-resolved , but blood pressures remain marginal. Often on Levophed. * Gram-positive sepsis. Staph hominis is growing on 2 different cultures. On vancomycin. Infectious Disease following. * AFib recurrent: On amiodarone: In normal sinus rhythm , bradycardic at times * H/O B cell lymphoma * Sepsis - resolved, blood pressures occasionally on the low side. * Elevated transaminases-improved * Encephalopathy-secondary to toxic metabolic issues, improved * Hypernatremia-improved . Hypokalemia: On replacement. * MELODY resolved * Nutrition-on TFs * VTE proph-on subcu heparin * Stress ulcer proph-Pepcid Plan: Continue care in the intensive care unit. Will leave NG to be in for now. I anticipate swallow will be quite unsafe. Continue amiodarone. Continue Metoprolol. Continue Zosyn and vancomycin per ID, continue bronchodilator therapy, steroids, as well as current medical management. Pull current central line. Culture tip if possible. Place new PICC line. Follow lab, chest x-ray and blood gases. Prognosis based on respiratory status is guarded. He may need to be reintubated. If so, would proceed with tracheostomy. May need LTAC if he goes in this direction. 45 min of critical care time spent with patient, not including bronchoscopy. Discussed with hospitalist, nursing, respiratory therapy, and the ICU multi disciplinary team. Subjective: Lethargic, needing BiPAP alternating with a simple mask. Arousable, responsive, confused. Does not remember he is in the hospital.. Objective: Vital Signs Temp Pulse Resp BP Pulse Ox 38.6 C H 81 26 H 131/73 H 97 08/11/16 17:00 08/11/16 17:25 08/11/16 17:25 08/11/16 17:00 08/11/16 17:25 Laboratory Results 08/11/16 02:40 08/11/16 09:05 08/10/16 08/11/16 08/12/16 05:59 05:59 05:59 Intake Total 4855 4298 Output Total 5590 4280 3025 Balance -735 18 -3025 PT 14.5 SEC (12.0-15.0) 08/04/16 04:25 INR 1.14 (0.83-1.16) 08/04/16 04:25 Microbiology 08/09/16 11:27 Blood Blood Culture - Preliminary Staphylococcus Hominis 08/09/16 11:27 Blood Blood Culture - Preliminary Staphylococcus Hominis Laboratory Tests 08/11/16 08/11/16 02:40 03:35 pCO2 47 H pO2 168 H D ABG pH 7.38 O2 Concentration % 100 Expiratory Pressure 7 Inspiratory Pressure 14 Mode BiPAP YES Sodium 146 H Potassium 4.9 Chloride 106 Carbon Dioxide 28 BUN 19 Creatinine 0.7 Glucose 86 Calcium 8.6 Phosphorus 2.2 L D Magnesium 2.0 Total Bilirubin 1.1 D AST 200 H ALT 227 H Albumin 2.9 L CXR: Bilateral diffuse perihilar infiltrates persist. Effusion primarily at left base. Lines and tubes in good position. Abdominal ultrasound: Liver and gallbladder negative. Spleen absent. Small effusion present on the left. Physical Exam - Physical Exam General Appearance: thin, other ( Sleepy, arouses. Febrile) EENT: PERRL/EOMI, other ( simple mask in place. Nasogastric tube. Dry mucous membranes) Neck: normal inspection (n) Respiratory: lungs clear ( anteriorly), decreased breath sounds ( at bases), rales ( rales at lateral posterior bases), No rhonchi, No wheezing Cardiac/Chest: regular rate, rhythm, systolic murmur Abdomen: normal bowel sounds, non-tender, soft, other ( tolerating tube feeding) Male Genitalia: other Skin: warm/dry, pallor Extremities: pedal edema ( trace +) Neuro/Psych: no motor/sensory deficits ( moves all extremities weakly and equally), cognition abnormalities ( confused but appropriate. Not agitated currently.), No oriented x 3 ICD10 Worksheet Patient Problems: Problems Problem Status Diagnosed Pneumonia Acute Respiratory failure Acute Severe sepsis with acute organ dysfunction Acute
--- NOTE | 2016-08-11 18:12 | IR ---
Imaging Guided Peripherally Inserted Central Catheter History: Central line access for multiple medications. Prophylactic Antibiotic: Cefazolin was not ordered and administered for antimicrobial prophylaxis be cause it was not medically necessary for this procedure. VTE Prophylaxis: There is not an order for VTE prophylaxis to be given within 24 hours after procedu re end time because it was not medically necessary for this procedure. Crosscutting Measure: Patient's current list of medications including all known prescriptions, over- the-counters, herbals, and vitamin/mineral/dietary supplements are reviewed. Medications' name, dosa ge, frequency, and route of administration are confirmed. patient is a non-smoker. Technique: This procedure is performed at patient's bedside. No fluoroscopy was utilized. Following i nformed consent, the right arm was prepped and draped in sterile fashion. 1% Xylocaine was used for l ocal anesthetic. All elements of maximal sterile barrier technique including cap, mask, sterile damian n, sterile gloves, large sterile sheet, hand hygiene, and 2% chlorhexidine for cutaneous antisepsis, followed. Ultrasound evaluation of potential access site was performed. After successfully identifying a patent vessel, ultrasound guidance was used to puncture the vein. A permanent recording was created for the patient's record. Ultrasound transducer was placed in sterile sleeve and used for real-time imaging guidance over steri le gel to enter the basilic vein. 0.018 measuring wire was passed centrally. A skin dianne with scalpel blade was followed by removing the access needle. A 5 Tamazight peel-away sheath was followed by a 5 F rench double-lumen central catheter, trimmed to 38 cm length. The tip of the catheter was positioned centrally and the guidewire removed. The hub of the catheter was fixed to the skin using a sterile S tatLock adhesive device, and a sterile dressing was applied. The catheter was irrigated. Fluoroscopy: 0 min Dose: 0 mGy Exposures: 0 images Impression: 5 Tamazight double lumen peripherally inserted central catheter. Chest x-ray to follow to e valuate tip placement.
[2016-08-11 18:53] LABS: POTASSIUM 3.3 mEq/L (3.5-5.2)
--- NOTE | 2016-08-11 19:41 | DX ---
AP Portable Chest on August 11, 2016 Indication: Evaluate line placement. Findings: Left-sided catheter terminates in proximal SVC, unchanged. Right-sided PICC terminates in t he mid SVC. Diffuse pulmonary infiltrates are again noted. Impression: Good positioning of right-sided PICC, ready for immediate use.
[2016-08-12] MEDS: PIPERACILLIN/TAZO 4.5 GM/DEX 100 ML IV SCH ×2 (00:15→05:06)
[2016-08-12] MEDS: ACETAMINOPHEN 650 MG/20.3 ML UDCUP TUBE PRN ×6 (00:44→23:42)
[2016-08-12 03:41] LABS: HEMATOCRIT 26.8 % (40.0-51.0); HEMOGLOBIN 9.2 g/dL (13.7-17.5); MEAN CELL HEMOGLOBIN 27.9 pg (27.9-34.1); MEAN CELL HEMOGLOBIN CONCENTR. 34.3 g/dL (32.4-36.7); MEAN CELL VOLUME 81.2 fL (81.5-99.8); RED BLOOD CELL COUNT 3.3 10^6/uL (4.40-6.38); RED CELL DISTRIBUTION WIDTH 16.4 % (11.5-15.2)
[2016-08-12 03:45] LABS: IONIZED CALCIUM 1.18 MMOL/L (1.12-1.30)
[2016-08-12] MEDS: LORazepam 2 MG/ML INJ IVP PRN ×2 (03:46→23:42)
[2016-08-12 03:57] LABS: MAGNESIUM 1.9 mg/dL (1.6-2.3); POTASSIUM 3.2 mEq/L (3.5-5.2)
[2016-08-12] MEDS ORDERED: POTASSIUM CL 10 MEQ TAB PO ONE (04:02)
[2016-08-12] MEDS: IPRATROPIUM/ALBUTEROL 3 ML DEYVIAL IH SCH ×4 (04:05→20:45)
[2016-08-12] MEDS ORDERED: POTASSIUM CL 20 MEQ/15 ML UDCUP PO ONE (04:30)
[2016-08-12] MEDS: HEPARIN 5,000 UNIT/0.5 ML SYR SC SCH ×3 (05:06→21:17)
[2016-08-12] MEDS: SENNOSIDES/DOCUSATE SODIUM TAB PO SCH ×2 (07:04→20:35)
[2016-08-12] MEDS: OMEGA-3 FATTY ACIDS 1,000 MG CAP PO SCH (07:04)
[2016-08-12] MEDS: CHLORHEXIDINE GLUCONATE 15 ML UDL PO SCH ×2 (08:43→19:09)
[2016-08-12] MEDS: INSULIN REGULAR, HUMAN 100 UNIT/1 ML VIAL STANDARD SC SCH ×4 (08:43→21:17)
[2016-08-12] MEDS: FAMOTIDINE 20 MG/NACL 50 ML IV SCH ×2 (08:45→21:17)
[2016-08-12] MEDS: 1/2 NS 1,000 ML IV SCH (08:47)
[2016-08-12] MEDS: METOPROLOL TARTRATE 25 MG TAB TUBE SCH ×2 (08:55→20:35)
[2016-08-12] MEDS: AMIODARONE HCL 200 MG TAB PO SCH ×2 (08:56→20:34)
[2016-08-12] MEDS: FUROSEMIDE 40 MG/4 ML VIAL IVP SCH (08:56)
[2016-08-12] MEDS: predniSONE 20 MG TAB TUBE SCH (08:56)
--- NOTE | 2016-08-12 10:13 | PCMIDPN ---
Assessment/Plan: 70-year-old male with an underlying large B-cell lymphoma initially presents with sepsis due to pneumococcal pneumonia and bacteremia now course complicated by recurrent sepsis due to HAP # HAP secondary to PsA --on high dose zosyn # CoNS line infection, subclavian removed, on vancomycin --increase dose of vancomycin, plan 14 day course # ongoing fever: ?drug fever --check LFTs, manual diff on WBC # Pneumococcal pneumonia and bacteremia: zosyn will cover # Elevated LFTs - repeat today, could be ischemic from sepsis or related to zosyn/drug fever Microbiology 07/28 blood cultures 2 sets with pneumococcus 07/30 blood cultures (2) : Negative 08/08 blood cx (2): NGTD Subjective: off bipap at time of my exam. Difficult to get him to endorse any complaints Objective: Vital Signs Temp Pulse Resp BP Pulse Ox 38.6 C H 85 22 H 120/89 H 98 08/12/16 08:00 08/12/16 08:00 08/12/16 08:00 08/12/16 08:00 08/12/16 08:00 Laboratory Results 08/12/16 03:30 08/12/16 03:30 08/11/16 08/12/16 08/13/16 05:59 05:59 05:59 Intake Total 4298 3988 Output Total 4280 4200 Balance 18 -212 - Physical Exam General Appearance: cachetic, other EENT: dry mucous membranes, poor dentition Respiratory: crackles, No accessory muscle use Neck: supple Cardiac/Chest: regular rate, rhythm Extremities: No pedal edema, No swelling Abdomen: non-tender, soft Male Genitalia: solano Skin: No rash, No embolic lesions Neuro/Psych: other (sleep but arousable, following commmands) - Line/s RUE PICC Lines: No drainage, No erythema ICD10 Worksheet Patient Problems: Problems Problem Status Diagnosed Pneumonia Acute Respiratory failure Acute Severe sepsis with acute organ dysfunction Acute
[2016-08-12] MEDS: VANCOMYCIN HCL/NORMAL SALINE 250 ML IV SCH (10:34)
[2016-08-12] MEDS: VANCOMYCIN 1.25 GM in D5W 250 ML IV SCH ×2 (11:08→22:21)
--- NOTE | 2016-08-12 11:32 | HOSPPROG ---
Hospitalist Progress Note Assessment/Plan: DIAGNOSIS: # RECURRENT FEVER / HYPOTENSION / RESP FAILURE WITH INCREASED LIVER TRANSAMINASES - # SUSPECTED CENTRAL IV LINE SEPSIS (that line removed; staph in cultures) # ACUTE SEPTIC SHOCK WITH PULM, RENAL, LIVER AFFECTED # ACUTE RESP FAILURE, HYPOXEMIC, REMAINS ON MECH VENTILATOR # PNEUMOCOCCAL PNEUMONIA # RECURRENT FEVER, WITH PSEUDOMONAS IN SPUTUM CX - possible nosocomial infection on top of original pnuemonia # ACUTE ENCEPHALOPATHY, MULTIFACTORIAL # SEVERE DECONDTIONING # MELODY, RESOLVED FXN # STAGE 1 DECUB CHANGES ON COCCYX # HX LYMPHOMA Overnight had some ativan, 3 doses and used bipap This am is lethargic/encephalopathic, and with ongoing high fever. ? if the fever is from staph or a drug fever or other source Overall resps and hemodynamics stable, but remains severely ill w marked fever, and is not far from needing vent support PLANS: -continue supportive care with intermittent bipap, fluid resuscitation, nutrition by tube feeds -continue vanco for staph line sepsis (dose increased due to low trough) -recheck liver enzymes, ? indication of possible drug fever -? consider change of abx for his strep and pseudomonas -DVT and stress ulcer prophylaxis -skin care prevention measures for stage I decubitus Patient seen on multidisciplinary rounds I reviewed his condition and care in detail with Dr Dillard and Dr Felder today SUBJECTIVE: Used Bipap overnight per nurses had some agitation and was given 3 doses ativan on night guard is now off pressors currently he is awake but not conversant, he does indicate to me he has no pain or nausea hard to assess sxs otherwise OBJECTIVE Vitals reviewed: Stable bp,p,r; current temp 39.7 and he has basically had continuous fever > 24 hrs now cafeteria monitor, my personal review: Sinus rhythm 70s Exam: awake, but lethargic and looks very tired; gives me occaisional yes/no answers; hard to assess orientation resps relaxed skin warm dry color ok lungs clear BSs heart regular abd soft nondistended nontender, bowel sounds present limbs warm, no edema picc site ok Objective: Vital Signs Temp Pulse Resp BP Pulse Ox 38.6 C H 72 21 H 115/68 97 08/12/16 08:00 08/12/16 10:00 08/12/16 10:00 08/12/16 10:00 08/12/16 10:00 Laboratory Results 08/12/16 03:30 08/12/16 03:30 08/11/16 08/12/16 08/13/16 06:59 06:59 06:59 Intake Total 4298 3988 Output Total 4286 4203 Balance 18 -212 PT 14.5 SEC (12.0-15.0) 08/04/16 04:25 INR 1.14 (0.83-1.16) 08/04/16 04:25 ICD10 Worksheet Patient Problems: Problems Problem Status Diagnosed Pneumonia Acute Respiratory failure Acute Severe sepsis with acute organ dysfunction Acute
[2016-08-12 11:43] LABS: ALANINE AMINOTRANSFERASE 170 IU/L (21-72); ALBUMIN 2.3 g/dL (3.5-5.0); ALKALINE PHOSPHATASE 236 IU/L (38-126); ANION GAP 7 mEq/L (8-16); ASPARTATE AMINOTRANSFERASE 137 IU/L (17-59); BILIRUBIN,TOTAL 0.8 mg/dL (0.1-1.4); CARBON DIOXIDE 28 mEq/l (22-31); CHLORIDE 103 mEq/L (97-110); CREATININE 0.7 mg/dL (0.7-1.3); GLOMERULAR FILTRATION RATE > 60; GLUCOSE 129 mg/dL (70-100); POTASSIUM 3.3 mEq/L (3.5-5.2); SODIUM 138 mEq/L (134-144); TOTAL PROTEIN 5.2 g/dL (6.3-8.2)
[2016-08-12 12:24] LABS: ELLIPTOCYTES 1+; HYPOCHROMIA 1+; MICROCYTES 1+; PLATELET ESTIMATE ADEQUATE (ADEQ); TARGET CELLS 1+; TOXIC VACUOLIZATION PRESENT
[2016-08-12] MEDS ORDERED: ALBUMIN 5% 500 ML IV ONE (12:37)
--- NOTE | 2016-08-12 12:38 | PDINTPN ---
Holter Scanning Technician Progress Note Assessment/Plan: Assessment: * Pneumococcal pneumonia-continues to improve slowly, however now with Pseudomonas. Antibiotics changed to Zosyn. Initial pneumococcal pneumonia associated with ARDS. He has persistent post inflammatory infiltrates. * Respiratory Failure: Respiratory status remains somewhat marginal post extubation. Needed BiPAP over night. On simple OxyMask currently and doing well. * Sepsis/Septic Shock-resolved , but blood pressures remain marginal. Off and on Levophed. * Gram-positive sepsis possibly secondary to central line, now removed. Staph hominis is growing on 2 different cultures. On vancomycin. Infectious Disease following. * AFib recurrent: On amiodarone: In normal sinus rhythm with ectopy, bradycardic at times * H/O B cell lymphoma, stem cell transplant in 2010 * Elevated transaminases-improved * Encephalopathy-secondary to toxic metabolic issues, improved but he remains significantly confused. Multifactorial. * Hypernatremia: improved . Hypokalemia: On replacement. * MELODY resolved * Nutrition-on TFs * VTE proph-on subcu heparin * Stress ulcer proph-Pepcid Plan: Continue care in the intensive care unit. Continue feedings by NG tube. Swallow not yet safe.. Continue amiodarone. Continue Metoprolol. Continue Zosyn and vancomycin per ID, continue bronchodilator therapy, steroids, as well as current medical management. Culture tip if possible. Follow lab, chest x- ray and blood gases. Prognosis based on respiratory status remains guarded. He may need to be reintubated? If so, would proceed with tracheostomy. May need LTAC if he goes in this direction. 45 min of critical care time spent with patient, not including bronchoscopy. Discussed with hospitalist, nursing, respiratory therapy, and the ICU multi disciplinary team. Subjective: Confused, mild distress. Looks to voice, tries to answer simple questions. Got Ativan last night, was on fentanyl. Off fentanyl currently. Objective: Vital Signs Temp Pulse Resp BP Pulse Ox 38.6 C H 82 24 H 115/68 93 08/12/16 08:00 08/12/16 11:41 08/12/16 11:41 08/12/16 10:00 08/12/16 11:41 Laboratory Results 08/12/16 03:30 08/12/16 03:30 08/11/16 08/12/16 08/13/16 05:59 05:59 05:59 Intake Total 4298 3988 Output Total 4280 4200 Balance 18 -212 PT 14.5 SEC (12.0-15.0) 08/04/16 04:25 INR 1.14 (0.83-1.16) 08/04/16 04:25 Laboratory Tests 08/12/16 03:30 Calcium 8.0 L Total Bilirubin 0.8 AST 137 H ALT 170 H Albumin 2.3 L Physical Exam - Physical Exam General Appearance: mild distress, cachetic EENT: PERRL/EOMI, other (OxyMask in place) Neck: normal inspection (No JVD) Respiratory: lungs clear (Anteriorly), decreased breath sounds (At bases), rales (Bibasilar rales laterally), wheezing (Minimal), other (Less tachypneic), No respiratory distress, No accessory muscle use, No rhonchi Cardiac/Chest: regular rate, rhythm, other (CVP 8) Abdomen: normal bowel sounds (Tolerating tube feeding), non-tender, soft Male Genitalia: other Skin: warm/dry, pallor Extremities: pedal edema (Trace) Neuro/Psych: no motor/sensory deficits (Moves all extremities equally), cognition abnormalities (Confused, oriented x1), No oriented x 3 ICD10 Worksheet Patient Problems: Problems Problem Status Diagnosed Pneumonia Acute Respiratory failure Acute Severe sepsis with acute organ dysfunction Acute
[2016-08-12] MEDS: NS W/ 20 KCl/L 1,000 ML IV SCH (12:55)
[2016-08-12] MEDS: PIPERACILLIN NA/TAZO 4.5 GM in D5W 100 ML IV SCH ×3 (12:55→23:43)
[2016-08-12 18:12] LABS: POTASSIUM 3.4 mEq/L (3.5-5.2)
[2016-08-12] MEDS: POTASSIUM Cl (KCl) 50 ML IV SCH ×3 (18:29→19:39)
[2016-08-12] MEDS: METOPROLOL TARTRATE 5 MG/5 ML INJ IVP SCH (21:16)
[2016-08-13] MEDS ORDERED: ACETAMINOPHEN 650 MG SUPP PR ONE (01:16)
[2016-08-13] MEDS: ACETAMINOPHEN 650 MG SUPP PR PRN ×2 (02:09→13:33)
[2016-08-13] MEDS: METOPROLOL TARTRATE 5 MG/5 ML INJ IVP SCH (02:40)
[2016-08-13] MEDS: IPRATROPIUM/ALBUTEROL 3 ML DEYVIAL IH SCH ×4 (04:24→19:42)
[2016-08-13] MEDS: LORazepam 2 MG/ML INJ IVP PRN ×2 (04:47→21:06)
[2016-08-13] MEDS: PIPERACILLIN NA/TAZO 4.5 GM in D5W 100 ML IV SCH (05:27)
[2016-08-13] MEDS: HEPARIN 5,000 UNIT/0.5 ML SYR SC SCH ×3 (05:27→21:09)
[2016-08-13 05:46] LABS: % IMMATURE GRANULYOCYTES 0.8 % (0.0-1.1); ABSOLUTE IMMATURE GRANULOCYTES 0.08 10^3/uL (0.00-0.10); ADD DIFF? NO; ADD MORPH? NO; ADD SCAN? NO; ATYPICAL LYMPHOCYTE FLAG 10 (0-99); FRAGMENT RBC FLAG 20 (0-99); HEMATOCRIT 27.1 % (40.0-51.0); HEMOGLOBIN 9.2 g/dL (13.7-17.5); LEFT SHIFT FLG 70 (0-99); LIPEMIA HEMOLYSIS FLAG 90 (0-99); MEAN CELL HEMOGLOBIN 27.5 pg (27.9-34.1); MEAN CELL HEMOGLOBIN CONCENTR. 33.9 g/dL (32.4-36.7); MEAN CELL VOLUME 80.9 fL (81.5-99.8); MEAN PLATELET VOLUME 11.4 fL (8.7-11.7); PLATELET CLUMPS FLAG 10 (0-99); PLATELET COUNT 179 10^3/uL (150-400); RED BLOOD CELL COUNT 3.35 10^6/uL (4.40-6.38); RED CELL DISTRIBUTION WIDTH 15.6 % (11.5-15.2)
[2016-08-13 05:47] LABS: BASE EXCESS 0.5 mEq/L (-2.5-2.5); BICARBONATE 23 mEq/L (22-26); MEASURED OXYGEN SATURATION 93 % (92-95); PCO2 34 mmHg (34-38); PO2 76 mmHg (65-75); TCO2 24 mEq/L (23-27)
[2016-08-13 05:55] LABS: BIPAP YES; EXP PRESSURE 7; INSP PRESSURE 15; O2 CONCENTRATIION 50 % (0-100); P/F RATIO 152 RATIO
[2016-08-13 05:56] LABS: IONIZED CALCIUM 1.14 MMOL/L (1.12-1.30)
[2016-08-13 06:27] LABS: ALANINE AMINOTRANSFERASE 321 IU/L (21-72); ALBUMIN 2.7 g/dL (3.5-5.0); ALKALINE PHOSPHATASE 304 IU/L (38-126); ANION GAP 10 mEq/L (8-16); ASPARTATE AMINOTRANSFERASE 388 IU/L (17-59); BILIRUBIN,TOTAL 1.1 mg/dL (0.1-1.4); CALCIUM 7.8 mg/dL (8.5-10.4); CARBON DIOXIDE 26 mEq/l (22-31); CHLORIDE 104 mEq/L (97-110); CREATININE 0.8 mg/dL (0.7-1.3); GLOMERULAR FILTRATION RATE > 60; GLUCOSE 89 mg/dL (70-100); MAGNESIUM 1.9 mg/dL (1.6-2.3); POTASSIUM 3.3 mEq/L (3.5-5.2); SODIUM 140 mEq/L (134-144); TOTAL PROTEIN 5.9 g/dL (6.3-8.2)
[2016-08-13] MEDS: OMEGA-3 FATTY ACIDS 1,000 MG CAP PO SCH (07:01)
[2016-08-13] MEDS: SENNOSIDES/DOCUSATE SODIUM TAB PO SCH ×2 (07:01→20:36)
[2016-08-13] MEDS: CHLORHEXIDINE GLUCONATE 15 ML UDL PO SCH ×2 (07:43→21:07)
[2016-08-13] MEDS: POTASSIUM Cl (KCl) 50 ML IV SCH ×7 (07:44→22:34)
[2016-08-13] MEDS: FAMOTIDINE 20 MG/NACL 50 ML IV SCH ×2 (07:44→21:07)
[2016-08-13] MEDS: INSULIN REGULAR, HUMAN 100 UNIT/1 ML VIAL STANDARD SC SCH ×4 (07:48→21:41)
--- NOTE | 2016-08-13 08:48 | PCMIDPN ---
Assessment/Plan: 70-year-old male with an underlying large B-cell lymphoma initially presents with sepsis due to pneumococcal pneumonia and bacteremia now course complicated by recurrent sepsis due to HAP and ongoing fever remains critically ill. # HAP secondary to PsA, CXR reviewed and appears generally stable, possibly slightly improved --change from zosyn for concern driving fever, change to meropenem as below. Plan total of 7 days of therapy, MAR adjusted # CoNS line infection, subclavian removed --cont vancomycin, plan 14 day course --check trough Sunday # ongoing fever: ?drug fever - no rash, improving wbc without eosinophils BUT increasing LFTs + constant fever suggests drug fever. Could also consider malignancy as a cause --repeat blood cultures --change zosyn to Merrem for 2 more days to complete therapy for HAP. noted allergy to FQ # Pneumococcal pneumonia and bacteremia: carbapenem will cover, although day # 16 of therapy, likely adequately treated # Elevated LFTs - trending up today, concern for drug reaction, also could consider ischemic from sepsis Microbiology 07/28 blood cultures 2 sets with pneumococcus 07/30 blood cultures (2) : Negative 08/08 blood cx /2 (one from [facility], one peripheral): s. hominis, vanco AMANDA <0.5 08/11 blood cx (1): NGTD 08/11 Cdiff neg meds zosyn #5 vancomycin #3 pred 60 daily Subjective: multiple BMs overnight but semi-formed continued fever, Tm 40 Objective: Vital Signs Temp Pulse Resp BP Pulse Ox 40.1 C H 96 38 H 101/69 98 08/13/16 07:54 08/13/16 07:54 08/13/16 07:54 08/13/16 07:54 08/13/16 07:54 Laboratory Results 08/13/16 05:30 08/13/16 05:30 08/12/16 08/13/16 08/14/16 05:59 05:59 05:59 Intake Total 3988 3639 Output Total 4200 3400 Balance -212 239 - Physical Exam General Appearance: alert, apparent distress, other (BIPAP in place) EENT: pale conjunctiva, NG Tube, dry mucous membranes Respiratory: accessory muscle use, crackles, coarse breath sounds Neck: supple Cardiac/Chest: regular rate, rhythm Extremities: No pedal edema, No inflammation, No swelling Abdomen: normal bowel sounds, non-tender, soft Skin: diaphoresis, No rash Neuro/Psych: other (moving all 4 ext, following commands) - Line/s RUE PICC Lines: No drainage, No erythema ICD10 Worksheet Patient Problems: Problems Problem Status Diagnosed Pneumonia Acute Respiratory failure Acute Severe sepsis with acute organ dysfunction Acute
--- NOTE | 2016-08-13 08:58 | DX ---
Portable AP Upright Chest August 13, 2016 at 6:25 a.m. Clinical History: 70-year-old male in the ICU for follow-up of respiratory status. Comparison Study: Chest, dated August 11, 2016. Findings: In the interim, the feeding tube and the left subclavian central venous catheter have been removed. A right-sided PICC line remains stable in position, terminating near the SVC/right atrial ju nction. Numerous telemetry monitoring lead lines are present. The cardiac silhouette size is stable. There is blunting of the costophrenic angles, consistent with small pleural effusions. There are bila teral parenchymal infiltrates, perhaps slightly more consolidated in each midlung. There is no pneumo thorax. The patient is slightly rotated to right. Impression: 1. Interval removal of the Dobbhoff feeding tube and the left subclavian central venous catheter sinc e August 11, 2016. 2. Progressive bilateral infiltrates with more dense consolidation in the midlung zones, right greate r than left.
[2016-08-13] MEDS: predniSONE 20 MG TAB TUBE SCH (09:06)
[2016-08-13] MEDS: AMIODARONE HCL 200 MG TAB PO SCH ×2 (09:06→20:36)
[2016-08-13] MEDS: MEROPENEM 1 GM in NS 100 ML IV SCH ×3 (10:01→21:34)
[2016-08-13] MEDS: VANCOMYCIN 1.25 GM in D5W 250 ML IV SCH ×2 (11:05→22:34)
[2016-08-13] MEDS: FUROSEMIDE 40 MG/4 ML VIAL IVP SCH (12:10)
[2016-08-13] MEDS: NS W/ 20 KCl/L 1,000 ML IV SCH (13:52)
--- NOTE | 2016-08-13 15:14 | PDINTPN ---
Recycle Coordinator Progress Note Assessment/Plan: Assessment: * Pneumococcal pneumonia-improved, extubated, however now with Pseudomonas. Antibiotics adjusted per Infectious Disease. Initial pneumococcal pneumonia associated with ARDS. He has persistent post inflammatory infiltrates. * Respiratory Failure: Respiratory status remains somewhat marginal post extubation. Needed BiPAP over night. On simple OxyMask currently and doing well. * Sepsis/Septic Shock-resolved , but blood pressures remain marginal. Off and on Levophed. * Gram-positive sepsis possibly secondary to central line, now removed. Staph hominis is growing on 2 different cultures. On vancomycin. Infectious Disease following. * AFib recurrent: On amiodarone: In normal sinus rhythm with ectopy, bradycardic at times * H/O B cell lymphoma, stem cell transplant in 2010 * Elevated transaminases-improved * Encephalopathy-secondary to toxic metabolic issues, improved but he remains significantly confused. Multifactorial. * Hypernatremia: improved . Hypokalemia: On replacement. * Anemia: Hematocrit stable, 27 today. No evidence of active bleeding. Follow. * MELODY resolved * Nutrition-off TFs as he pulled out his feeding to * VTE proph-on subcu heparin * Stress ulcer proph-Pepcid Plan: Continue care in the intensive care unit. I will try to replace feeding NG tube. Swallow not yet safe.. Continue amiodarone. Continue Metoprolol. Continue antibiotics per ID, continue bronchodilator therapy, steroids, as well as current medical management. Follow lab, chest x-ray and blood gases. Prognosis based on respiratory status remains guarded. He has not progressed since his extubation and is somewhat worse today, requiring BiPAP almost continually. My feeling is that we will need to proceed with tracheostomy and LTAC. I discussed this with the patient's son and his [id number]. 45 min of critical care time spent with patient, not including bronchoscopy. Discussed with the patient's family, hospitalist, nursing, respiratory therapy, and the ICU multi disciplinary team. Subjective: On BiPAP over night. Appears weaker. Looks to voice, tries to respond to simple questions. Family at bedside Objective: Vital Signs Temp Pulse Resp BP Pulse Ox 40 C H 70 32 H 109/66 90 L 08/13/16 12:00 08/13/16 14:00 08/13/16 14:00 08/13/16 14:00 08/13/16 14:00 Microbiology 08/08/16 09:41 Blood Culture - Final Blood Laboratory Results 08/13/16 05:30 08/13/16 05:30 08/12/16 08/13/16 08/14/16 05:59 05:59 05:59 Intake Total 3988 3639 Output Total 4200 3400 Balance -212 239 PT 14.5 SEC (12.0-15.0) 08/04/16 04:25 INR 1.14 (0.83-1.16) 08/04/16 04:25 Laboratory Tests 08/13/16 08/13/16 05:30 05:40 pCO2 34 pO2 76 H ABG pH 7.45 O2 Concentration % 50 Expiratory Pressure 7 Inspiratory Pressure 15 Mode BiPAP YES Calcium 7.8 L Ionized Calcium 1.14 Phosphorus 2.3 L Magnesium 1.9 Total Bilirubin 1.1 AST 388 H ALT 321 H Albumin 2.7 L CXR: About the same. Bilateral interstitial/post inflammatory infiltrates persist. Left base is better. Physical Exam - Physical Exam General Appearance: thin, other (Some) EENT: PERRL/EOMI, other (BiPAP in place, nasogastric tube has been pulled out) Neck: normal inspection (No obvious) Respiratory: decreased breath sounds (Lungs fairly clear, better than x-ray suggests.), rales (Few at bases), No rhonchi, No wheezing Cardiac/Chest: regular rate, rhythm, systolic murmur (Heart tones somewhat distant) Abdomen: normal bowel sounds, non-tender, soft, other (NG tube pulled out) Male Genitalia: other (Place. Good urine output last 4 days: Output greater than input) Skin: warm/dry, pallor Extremities: pedal edema Neuro/Psych: no motor/sensory deficits (Moves all extremities), motor weakness ( Globally weak), cognition abnormalities (Oriented to person, confused otherwise) ICD10 Worksheet Patient Problems: Problems Problem Status Diagnosed Pneumonia Acute Respiratory failure Acute Severe sepsis with acute organ dysfunction Acute
--- NOTE | 2016-08-13 15:23 | CPEKG ---
Heart Rate: 69 RR Interval: 870 P-R Interval: 140 QRSD Interval: 82 QT Interval: 404 QTC Interval: 433 P Moccasin: 73 QRS [place]occasin: 35 T Wave Moccasin: 80 EKG Severity - ABNORMAL ECG - EKG Impression: SINUS RHYTHM EKG Impression: LEFT ATRIAL ABNORMALITY EKG Impression: PROBABLE LVH WITH SECONDARY REPOL ABNRM EKG Impression: ST DEPRESSION, CONSIDER ISCHEMIA, ANT-LAT LDS Electronically Signed By: Dexter Clemons 14-Aug-2016 07:39:59
[2016-08-13 15:56] LABS: POTASSIUM 2.9 mEq/L (3.5-5.2)
[2016-08-13] MEDS ORDERED: PROTOCOL POTASSIUM 1 DOSE MISC PRN (16:12)
[2016-08-13] MEDS ORDERED: ALBUMIN 5% 500 ML IV ONE (17:16)
--- NOTE | 2016-08-13 17:29 | HOSPPROG ---
Hospitalist Progress Note Assessment/Plan: DIAGNOSIS: # SUSPECTED DRUG FEVER (ERTAPENAM) / HYPOTENSION / WITH INCREASED LIVER TRANSAMINASES - # SUSPECTED CENTRAL IV LINE SEPSIS (that line removed; staph in cultures) # ACUTE SEPTIC SHOCK WITH PULM, RENAL, LIVER AFFECTED # ACUTE RESP FAILURE, HYPOXEMIC, REMAINS ON MECH VENTILATOR # PNEUMOCOCCAL PNEUMONIA # RECURRENT FEVER, WITH PSEUDOMONAS IN SPUTUM CX - possible nosocomial infection on top of original pnuemonia # ACUTE ENCEPHALOPATHY, MULTIFACTORIAL # SEVERE DECONDTIONING # MELODY, RESOLVED FXN # STAGE 1 DECUB CHANGES ON COCCYX # HX LYMPHOMA today remains with ongoing and continuous high fevers (?drug fever) and is somewhat hypotensive; CVP may need some help; is requiring bipap support overall not making much progress day to day I agree with Dr Dillard that he is likely going to need tracheostomy PLANS: -antibiotics changed in case ertapenam was cause of fever (to merem) -continue supportive care with bipap, fluid resuscitation, nutrition by tube feeds -continue vanco for staph line sepsis (dose increased due to low trough) -DVT and stress ulcer prophylaxis -skin care prevention measures for stage I decubitus Patient seen on multidisciplinary rounds I reviewed his condition and care in detail with Dr Dillard and Dr Felder today SUBJECTIVE: pt is unable to discuss sxs due to weakness, resp failure on bipap, and delirium requiring ongoing bipap per nurses had some agitation and was given 3 doses ativan on night custodian is now off pressors OBJECTIVE Vitals reviewed: Fevers remain continuously high, BPs are upper 80s to low 90s syst, pulse steady claims associate, my personal review: Sinus rhythm Exam: awake, but lethargic and looks very tired; too weak to converse resps per bipap skin warm dry color ok lungs clear BSs heart regular abd soft nondistended, appears nontender, bowel sounds present limbs warm, no edema picc site ok Objective: Vital Signs Temp Pulse Resp BP Pulse Ox 39.7 C H 88 26 H 103/53 L 92 08/13/16 16:00 08/13/16 17:00 08/13/16 17:00 08/13/16 16:00 08/13/16 17:00 Microbiology 08/08/16 09:41 Blood Culture - Final Blood Laboratory Results 08/13/16 05:30 08/13/16 15:26 08/12/16 08/13/16 08/14/16 06:59 06:59 06:59 Intake Total 3988 3639 Output Total 4200 3400 Balance -212 239 PT 14.5 SEC (12.0-15.0) 08/04/16 04:25 INR 1.14 (0.83-1.16) 08/04/16 04:25 ICD10 Worksheet Patient Problems: Problems Problem Status Diagnosed Pneumonia Acute Respiratory failure Acute Severe sepsis with acute organ dysfunction Acute
[2016-08-14 01:17] LABS: POTASSIUM 3.5 mEq/L (3.5-5.2)
[2016-08-14] MEDS: POTASSIUM Cl (KCl) 50 ML IV SCH ×3 (01:56→03:28)
[2016-08-14] MEDS: ACETAMINOPHEN 650 MG SUPP PR PRN ×2 (02:49→15:46)
[2016-08-14] MEDS: LORazepam 2 MG/ML INJ IVP PRN ×2 (03:14→22:26)
[2016-08-14] MEDS: IPRATROPIUM/ALBUTEROL 3 ML DEYVIAL IH SCH ×4 (03:46→20:28)
[2016-08-14] MEDS: MEROPENEM 1 GM in NS 100 ML IV SCH (05:11)
[2016-08-14] MEDS: HEPARIN 5,000 UNIT/0.5 ML SYR SC SCH ×3 (05:11→22:26)
[2016-08-14 05:30] LABS: BASE EXCESS -2.9 mEq/L (-2.5-2.5); BICARBONATE 20 mEq/L (22-26); MEASURED OXYGEN SATURATION 90 % (92-95); PCO2 32 mmHg (34-38); PO2 68 mmHg (65-75); TCO2 21 mEq/L (23-27)
[2016-08-14 05:31] LABS: BIPAP YES; EXP PRESSURE 7; INSP PRESSURE 14; O2 CONCENTRATIION 50 % (0-100); P/F RATIO 136 RATIO
[2016-08-14 05:42] LABS: % IMMATURE GRANULYOCYTES 1.1 % (0.0-1.1); ABSOLUTE IMMATURE GRANULOCYTES 0.09 10^3/uL (0.00-0.10); ADD DIFF? NO; ADD MORPH? NO; ADD SCAN? YES; ATYPICAL LYMPHOCYTE FLAG 0 (0-99); FRAGMENT RBC FLAG 20 (0-99); HEMATOCRIT 26.5 % (40.0-51.0); LEFT SHIFT FLG 90 (0-99); LIPEMIA HEMOLYSIS FLAG 90 (0-99); MEAN CELL HEMOGLOBIN 27.1 pg (27.9-34.1); MEAN CELL VOLUME 79.8 fL (81.5-99.8); MEAN PLATELET VOLUME 11.2 fL (8.7-11.7); PLATELET CLUMPS FLAG 0 (0-99); PLATELET COUNT 174 10^3/uL (150-400); RED BLOOD CELL COUNT 3.32 10^6/uL (4.40-6.38); RED CELL DISTRIBUTION WIDTH 15.9 % (11.5-15.2)
[2016-08-14 05:45] LABS: ALANINE AMINOTRANSFERASE 356 IU/L (21-72); ALBUMIN 2.9 g/dL (3.5-5.0); ALKALINE PHOSPHATASE 262 IU/L (38-126); ANION GAP 8 mEq/L (8-16); ASPARTATE AMINOTRANSFERASE 427 IU/L (17-59); BILIRUBIN,TOTAL 0.9 mg/dL (0.1-1.4); CALCIUM 7.6 mg/dL (8.5-10.4); CARBON DIOXIDE 25 mEq/l (22-31); CHLORIDE 110 mEq/L (97-110); CREATININE 0.8 mg/dL (0.7-1.3); GLOMERULAR FILTRATION RATE > 60; GLUCOSE 68 mg/dL (70-100); MAGNESIUM 2.1 mg/dL (1.6-2.3); POTASSIUM 3.9 mEq/L (3.5-5.2); SODIUM 143 mEq/L (134-144); TOTAL PROTEIN 5.5 g/dL (6.3-8.2)
[2016-08-14 06:15] LABS: SCAN NEGATIVE
[2016-08-14] MEDS: OMEGA-3 FATTY ACIDS 1,000 MG CAP PO SCH (07:37)
[2016-08-14] MEDS: SENNOSIDES/DOCUSATE SODIUM TAB PO SCH ×2 (07:37→19:16)
[2016-08-14] MEDS: predniSONE 20 MG TAB TUBE SCH (07:37)
[2016-08-14] MEDS: INSULIN REGULAR, HUMAN 100 UNIT/1 ML VIAL STANDARD SC SCH ×4 (07:38→23:01)
--- NOTE | 2016-08-14 07:54 | DX ---
Portable Chest, 6:16 a.m. Clinical Indications: Followup pneumonia Comparison: August 13 and Findings: Blunting of the left costophrenic gutter continues to improve since August 11. Mild right costophrenic gutter blunting is stable. There is progressive consolidation of the lateral segment of the right upper lobe. The remainder the infiltrates are little if at all changed. A right arm PICC l ine remains in place with tip in the superior vena cava. Heart size remains stable and normal. Impression: 1. Increasing peripheral consolidation right upper lobe. 2. Improving left pleural effusion.
[2016-08-14] MEDS: FAMOTIDINE 20 MG/NACL 50 ML IV SCH ×2 (08:23→20:13)
[2016-08-14] MEDS: CHLORHEXIDINE GLUCONATE 15 ML UDL PO SCH ×2 (08:23→20:13)
[2016-08-14] MEDS: FUROSEMIDE 40 MG/4 ML VIAL IVP SCH (08:24)
[2016-08-14] MEDS: AMIODARONE HCL 200 MG TAB PO SCH ×2 (08:24→19:16)
--- NOTE | 2016-08-14 08:49 | PDINTPN ---
Clean Room Operator Progress Note Assessment/Plan: Assessment/Plan: * Pneumococcal pneumonia- * Respiratory Failure -Stable on Bipap--unable to wean -consider trial of vapotherm -Consider trach * Shock-resolved * AFib resolved * B cell lymphoma * Sepsis * Elevated transaminases- * Encephalopathy-markedly better * MELODY resolved * Nutrition-will restart this afternoon * VTE proph * Stress ulcer proph Case discussed with RT and nursing Subjective: Awake. comfortable on Bipap Objective: Vital Signs Temp Pulse Resp BP Pulse Ox 38.2 C 94 28 H 114/82 H 95 08/14/16 08:00 08/14/16 08:00 08/14/16 08:00 08/14/16 08:00 08/14/16 08:00 Microbiology 08/08/16 10:06 Blood Culture - Final Blood 08/08/16 09:41 Blood Culture - Final Blood Laboratory Results 08/14/16 05:10 08/14/16 05:00 08/13/16 08/14/16 08/15/16 05:59 05:59 05:59 Intake Total 3639 2642 Output Total 3400 3550 Balance 239 -908 PT 14.5 SEC (12.0-15.0) 08/04/16 04:25 INR 1.14 (0.83-1.16) 08/04/16 04:25 Laboratory Results 08/14/16 05:10 08/14/16 05:00 08/14/16 08/14/16 05:20 05:00 Patient Temperature 39.0 DEGREES pCO2 32 L mmHg (34 - 38) pO2 68 mmHg (65 - 75) Total CO2 21 L mEq/L (23 - 27) ABG pH 7.43 (7.35 - 7.45) ABG PO2/FiO2 Ratio 136 RATIO ABG O2 Saturation 90 L % (92 - 95) ABG Base Excess -2.9 L mEq/L (-2.5 - 2.5) O2 Concentration % 50 % Expiratory Pressure 7 Inspiratory Pressure 14 Mode BiPAP YES AST 427 H IU/L (17 - 59) ALT 356 H IU/L (21 - 72) Alkaline Phosphatase 262 H IU/L (38 - 126) Total Protein 5.5 L g/dL (6.3 - 8.2) Albumin 2.9 L g/dL (3.5 - 5.0) Physical Exam - Physical Exam General Appearance: alert, no apparent distress EENT: PERRL/EOMI, other (bipap mask) Neck: non-tender, full range of motion Respiratory: decreased breath sounds, No respiratory distress, No wheezing Cardiac/Chest: normal peripheral pulses, regular rate, rhythm, systolic murmur Abdomen: normal bowel sounds, non-tender, soft Male Genitalia: deferred Rectal: deferred Skin: normal color, warm/dry Extremities: normal range of motion, non-tender, normal inspection, normal capillary refill Neuro/Psych: alert ICD10 Worksheet Patient Problems: Problems Problem Status Diagnosed Pneumonia Acute Respiratory failure Acute Severe sepsis with acute organ dysfunction Acute
[2016-08-14] MEDS ORDERED: POTASSIUM Cl (KCl) 50 ML IV ONE ×2 (11:07→13:46)
--- NOTE | 2016-08-14 11:19 | PCMIDPN ---
Assessment/Plan: Assessment: Streptococcus pneumoniae sepsis and pneumonia. Finished treatment, then covered for possible pseudomonal pneumonia with zosyn then meropenem - now with persisting fevers felt possibly due to drug reaction/drug fever. Staph hominis bacteremia from 08/09 felt to be central line related -- line removed. After reviewing the progression of CXR, doubt there is evidence of new area of infiltrate from his original s. pneumo presentation, so suspect that the pseudomonas may be a colonizer and not a pathogen. He does seem likely to be having trouble dealing with beta lactam antibiotics, so removal of the meropenem leaving only vancomycin for the coverage of the documented s. hominis may help him defervesce and normalize. Plan: 1. Discontinue meropenem. 2. Follow repeat blood cultures. 3. Continue Vancomycin. 08/15/16 00:16 08/15/16 00:17 Subjective: Patient resting in hospital bed. Weak appearing but nods that he is doing okay. Remains persistently febrile. Objective: Vancomycin #4 meropenem #1 Vital Signs Temp Pulse Resp BP Pulse Ox 38.9 C H 94 27 H 125/77 H 90 L 08/14/16 10:00 08/14/16 10:00 08/14/16 10:00 08/14/16 10:00 08/14/16 10:00 Microbiology 08/08/16 10:06 Blood Culture - Final Blood 08/08/16 09:41 Blood Culture - Final Blood Laboratory Results 08/14/16 05:10 08/14/16 05:00 08/13/16 08/14/16 08/15/16 05:59 05:59 05:59 Intake Total 3639 2642 Output Total 3400 3550 Balance 239 -908 - Physical Exam General Appearance: WD/WN, alert, no apparent distress, thin, toxic (moderately) Respiratory: No lungs clear, No normal breath sounds, No respiratory distress Cardiac/Chest: regular rate, rhythm, No tachycardia Extremities: non-tender, normal inspection Skin: normal color, warm/dry, No rash Neuro/Psych: alert ICD10 Worksheet Patient Problems: Problems Problem Status Diagnosed Pneumonia Acute Respiratory failure Acute Severe sepsis with acute organ dysfunction Acute
[2016-08-14] MEDS: VANCOMYCIN 1.25 GM in D5W 250 ML IV SCH ×2 (11:47→22:26)
[2016-08-14] MEDS ORDERED: K PHOS 10 MMOL in D5W 250 ML IV ONE (12:00)
[2016-08-14 12:07] LABS: IONIZED CALCIUM 0.96 MMOL/L (1.12-1.30)
[2016-08-14] MEDS ORDERED: CALCIUM GLUCONATE 50 ML IV ONE (12:15)
[2016-08-14 12:56] LABS: IMMUNOGLOBULIN A 76 mg/dL (61 - 356); IMMUNOGLOBULIN G 1080 mg/dL (767 - 1590); IMMUNOGLOBULIN M 95 mg/dL (37 - 286)
[2016-08-14 13:43] LABS: POTASSIUM 3.7 mEq/L (3.5-5.2)
--- NOTE | 2016-08-14 16:11 | HOSPPROG ---
Hospitalist Progress Note Assessment/Plan: DIAGNOSIS: # SUSPECTED DRUG FEVER (ERTAPENAM) / HYPOTENSION / WITH INCREASED LIVER TRANSAMINASES - # SUSPECTED CENTRAL IV LINE SEPSIS (that line removed; staph in cultures) # ACUTE SEPTIC SHOCK WITH PULM, RENAL, LIVER AFFECTED # ACUTE RESP FAILURE, HYPOXEMIC, REMAINS ON MECH VENTILATOR # PNEUMOCOCCAL PNEUMONIA # RECURRENT FEVER, WITH PSEUDOMONAS IN SPUTUM CX - possible nosocomial infection on top of original pnuemonia # ACUTE ENCEPHALOPATHY, MULTIFACTORIAL # SEVERE DECONDTIONING # MELODY, RESOLVED FXN # STAGE 1 DECUB CHANGES ON COCCYX # HX LYMPHOMA remains with ongoing and continuous high fevers (?drug fever) and is somewhat hypotensive; CVP may need some help; is requiring bipap support he is likely going to need tracheostomy hemodynamically stable but no real resp improvement PLANS: -stop ertapenam -continue supportive care with bipap, fluid resuscitation, nutrition by tube feeds -continue vanco for staph line sepsis (dose increased due to low trough) -DVT and stress ulcer prophylaxis -skin care prevention measures for stage I decubitus -will need LTAC when stablizes enough Patient seen on multidisciplinary rounds I reviewed his condition and care in detail with Dr Welch and Ken today SUBJECTIVE: pt is unable to discuss sxs due to weakness, resp failure on bipap, and delirium requiring ongoing bipap OBJECTIVE Vitals reviewed: Fevers remain continuously high, BPs now normal off pressor, pulse steady monitor tech, my personal review: Sinus rhythm Exam: awake, but lethargic and looks very tired; too weak to converse resps per bipap skin warm dry color ok lungs clear BSs heart regular abd soft nondistended, appears nontender, bowel sounds present limbs warm, no edema picc site ok CXR today one view, my personal review/interp: persisting dense bilateral infiltrates diffusely Objective: Vital Signs Temp Pulse Resp BP Pulse Ox 39.9 C H 119 H 19 122/86 H 99 08/14/16 15:00 08/14/16 15:00 08/14/16 15:00 08/14/16 15:00 08/14/16 15:00 Microbiology 08/08/16 10:06 Blood Culture - Final Blood 08/08/16 09:41 Blood Culture - Final Blood Laboratory Results 08/14/16 05:10 08/14/16 13:10 08/13/16 08/14/16 08/15/16 06:59 06:59 06:59 Intake Total 3639 2642 Output Total 3400 6400 1800 Balance 603 -843 -1800 PT 14.5 SEC (12.0-15.0) 08/04/16 04:25 INR 1.14 (0.83-1.16) 08/04/16 04:25 ICD10 Worksheet Patient Problems: Problems Problem Status Diagnosed Pneumonia Acute Respiratory failure Acute Severe sepsis with acute organ dysfunction Acute
[2016-08-14] MEDS: ORAL BALANCE GEL TUBE PO PRN (22:32)
[2016-08-15 00:48] LABS: POTASSIUM 4.4 mEq/L (3.5-5.2)
[2016-08-15] MEDS: IPRATROPIUM/ALBUTEROL 3 ML DEYVIAL IH SCH ×2 (04:28→11:45)
[2016-08-15] MEDS: HEPARIN 5,000 UNIT/0.5 ML SYR SC SCH ×3 (06:12→23:25)
[2016-08-15 06:15] LABS: IONIZED CALCIUM 1.17 MMOL/L (1.12-1.30)
[2016-08-15 06:48] LABS: MAGNESIUM 2.2 mg/dL (1.6-2.3); POTASSIUM 3.6 mEq/L (3.5-5.2)
[2016-08-15] MEDS: INSULIN REGULAR, HUMAN 100 UNIT/1 ML VIAL STANDARD SC SCH ×3 (07:29→18:06)
[2016-08-15] MEDS ORDERED: fentaNYL 100 MCG/2 ML INJ IV ONE ×2 (07:30→12:30)
[2016-08-15] MEDS ORDERED: MIDAZOLAM 2 MG/2 ML VIAL IVP ONE ×2 (07:30→12:30)
[2016-08-15] MEDS ORDERED: LIDOCAINE 1% 30 ML SDV MISC ONE (07:40)
[2016-08-15] MEDS ORDERED: LIDOCAINE 2% JELLY 5 ML TUBE TP ONE (07:40)
[2016-08-15] MEDS ORDERED: PROPOFOL/EMULSION 1,000 MG/100 ML BOTTLE IV ONE (07:43)
[2016-08-15] MEDS: PROPOFOL/EMULSION 100 ML IV SCH ×2 (08:00→20:42)
[2016-08-15] MEDS ORDERED: SUCCINYLCHOLINE CHLORIDE 200 MG/10 ML VIAL IV ONE ×2 (08:00→12:30)
[2016-08-15] MEDS: fentaNYL/NACL 100 ML IV SCH ×2 (08:00→20:42)
--- NOTE | 2016-08-15 08:06 | PDINTPN ---
Special Day Class Teacher Progress Note Assessment/Plan: Assessment/Plan: * Pneumococcal pneumonia- * Respiratory Failure -Stable on Bipap--unable to wean -Patient intubated -trach today * Shock-resolved * AFib resolved * B cell lymphoma * Sepsis * Elevated transaminases- * Encephalopathy-markedly better * MELODY resolved * Nutrition-will restart this afternoon -consult GI for PEG * VTE proph * Stress ulcer proph Case discussed with RT and nursing 40 min of critical care time spent with patient Subjective: Sedated Objective: Vital Signs Temp Pulse Resp BP Pulse Ox 39.2 C H 100 25 H 121/81 H 94 08/15/16 07:00 08/15/16 07:00 08/15/16 07:00 08/15/16 07:00 08/15/16 07:00 Microbiology 08/09/16 11:27 Blood Culture - Final Blood Staphylococcus Hominis 08/08/16 10:06 Blood Culture - Final Blood Laboratory Results 08/14/16 05:10 08/15/16 06:00 08/14/16 08/15/16 08/16/16 05:59 05:59 05:59 Intake Total 2642 2034 Output Total 3550 2700 Balance -908 -666 PT 14.5 SEC (12.0-15.0) 08/04/16 04:25 INR 1.14 (0.83-1.16) 08/04/16 04:25 Physical Exam - Physical Exam General Appearance: other (sedated), No alert EENT: PERRL/EOMI, normal ENT inspection, ET tube Neck: non-tender, full range of motion, supple, normal inspection Respiratory: crackles (few), No respiratory distress, No wheezing, No prolonged expiration Cardiac/Chest: normal peripheral pulses, regular rate, rhythm, systolic murmur Peripheral Pulses: 2+: carotid (R), carotid (L), femoral (R), femoral (L), dorsalis-pedis (R), dorsalis-pedis (L) Abdomen: normal bowel sounds, non-tender, soft Male Genitalia: deferred Rectal: deferred Skin: normal color, warm/dry Extremities: normal range of motion, non-tender, normal inspection, normal capillary refill ICD10 Worksheet Patient Problems: Problems Problem Status Diagnosed Pneumonia Acute Respiratory failure Acute Severe sepsis with acute organ dysfunction Acute
--- NOTE | 2016-08-15 08:24 | PCMIDPN ---
Assessment/Plan: Assessment/Plan: 1. Fevers: - Possible drug fevers. No rash noted. LFT were going up as of yesterday. -Off b-lactams, and carbapenems since 08/14/16 - not requiring pressors. -If drug fever, will usually take several days for fevers to improve despite being off offending agent. -f/u blood cx from 08/13 pending. no diarrhea. Solano in place - if fevers persist may need further imaging with Ct chest and possibly abd/ pelvis -care coordiated with roller mill operator team and RN. 2. Staph hominis line infection: - Currently on Vanco for above. new picc line from 08/11/16. -old line removed. -f/u blood cx from 08/13 pending still -vanco trough 14.4 on 08/14/16, 3. Sepsis secondary to Pneumococcal bacteremia with bilateral pneumonia: - s/p ceftriaxone -f/u blood cx from 07/30/16 ngtd -Completed therapy - care discussed and coordinated with roller mill operator and hospitalist team, as well as RN. 4. Resp failure: - ongoing. had to be intubated today 08/15/16. plan is for trach later this morning. -recent sputum with Pseudomonas. Colonization vs new pneumonia. s/p 6 days of anti-pseudomonal coverage. 5. Hx of Large B-cell Lymphoma. Med vanco 1.25gm q12- 08/12/16 s/p zosyn (08/09/16- 08/13/16); merem (08/13/16- 08/14/16) s/p ceftraixone 2g qd--07/29/16--- s/p solumedrol--->prednisone Subjective: Remains in icu. was on bipap but required intubated this morning. for trach later this morning. Patient restless this AM. tachypneic on vent. bp high. Solano with morgan urine, not cloudy at present. no diarrhea. hasn't been fed. no skin breakdown per RN. Objective: Vital Signs Temp Pulse Resp BP Pulse Ox 39.2 C H 109 H 23 H 174/116 H 97 08/15/16 08:00 08/15/16 08:00 08/15/16 08:00 08/15/16 08:00 08/15/16 08:00 Microbiology 08/09/16 11:27 Blood Culture - Final Blood Staphylococcus Hominis 08/08/16 10:06 Blood Culture - Final Blood Laboratory Results 08/14/16 05:10 08/15/16 06:00 08/14/16 08/15/16 08/16/16 05:59 05:59 05:59 Intake Total 1808 0984 Output Total 9628 5540 Balance -908 -666 - Physical Exam General Appearance: alert, other (restless and tachypneic) EENT: ET Tube Respiratory: coarse breath sounds (bilaterally) Cardiac/Chest: tachycardia Extremities: No swelling Abdomen: normal bowel sounds, non-tender, soft, No distended Male Genitalia: solano Skin: No rash (anteriorly), No erythema ICD10 Worksheet Patient Problems: Problems Problem Status Diagnosed Pneumonia Acute Respiratory failure Acute Severe sepsis with acute organ dysfunction Acute
--- NOTE | 2016-08-15 09:16 | GPN ---
[f rep st] PROCEDURE NOTE PROCEDURE: Intubation. INDICATION: Respiratory failure. ANESTHESIA GIVEN: He received Versed 2 mg, succinylcholine 80 mg. He was also placed on a propofol drip. Procedure was performed in the intensive care unit with continuous pulse ox, EKG, and blood pressure monitoring. DESCRIPTION OF PROCEDURE: Via GlideScope, patient was intubated with a #8 endotracheal tube and tape d in at 25 cm at the lip. Tracheal position was confirmed via capnograph. Patient tolerated the pro cedure well. There were no apparent complications. Portable chest x-ray will be performed later aft er tracheostomy. /[id number]/MODL
[2016-08-15] MEDS: AMIODARONE HCL 200 MG TAB PO SCH ×2 (10:07→22:49)
[2016-08-15] MEDS: SENNOSIDES/DOCUSATE SODIUM TAB PO SCH ×2 (10:08→23:25)
[2016-08-15] MEDS: predniSONE 20 MG TAB TUBE SCH (10:08)
[2016-08-15] MEDS: OMEGA-3 FATTY ACIDS 1,000 MG CAP PO SCH (10:08)
[2016-08-15] MEDS: FAMOTIDINE 20 MG/NACL 50 ML IV SCH ×4 (10:13→21:30)
--- NOTE | 2016-08-15 10:31 | GPN ---
[f rep st] PROCEDURE NOTE PROCEDURE: Percutaneous tracheostomy. INDICATION: Chronic respiratory failure. ANESTHESIA: He received Versed 2 mg, fentanyl 100 mcg, as well as Norcuron 8 mg. The procedure was performed in the intensive care unit with continuous pulse ox, EKG, blood pressure, and bronchoscopic monitoring. DESCRIPTION OF PROCEDURE: The patient was prepped and draped in the usual fashion. A 1 cm incision was made approximately 1 cm above the suprasternal notch. Blunt dissection was then made to the trac hea. Needle with catheter was inserted through the 2nd tracheal interspace. Tracheal position was c onfirmed via bronchoscopy. Catheter was advanced, and the needle was removed. Guidewire was inserte d through the catheter, and the catheter was removed. A small bore dilator was inserted over the rocio dewire and then removed. A tapering size dilator was then inserted over the guidewire. The trachea was dilated to a #36-[place]. Dilator was then removed. A #8 Shiley trach was loaded over a #28-Fren ch dilator. This was inserted over the guidewire. The guidewire and the dilator were then removed. Tracheal position was re-confirmed via bronchoscopy. #8 Shiley trach was then sewn into place. The patient tolerated the procedure well. There were no apparent complications. Portable chest x-ray h as been called for. /[id number]/MODL
--- NOTE | 2016-08-15 10:45 | HOSPPROG ---
Hospitalist Progress Note Assessment/Plan: SUMMARY OF HOSPITAL COURSE TO DATE: This man presented initially critically ill with pneumococcal pneumonia and septic shock, with respiratory failure requiring mech vent. He subsequently grew pseudomonas in sputum with fever and antibiotics were changed to cover the organism. After this he defervesced and was making some progress. However subsequently he had recurrence of fever with Staph hominis growing in blood cultures. It was felt that he most likely had line sepsis. His central line was removed and replaced with a new PICC, and vancomycin was started and he continues on vancomycin. Following this he again defervesced and continued to make slow progress. Most recently however he has developed ongoing continuous around the clock high fevers between 38 and 40 degrees for approximately the last 4 days. It was felt that this was most likely due to carbapenem medications being given for pneumococcus and Pseudomonas. Those medicines have been stopped as of August 14. He did complete a full course of therapy for the Pseudomonas and pneumococcus. He remains on vancomycin at this time to treat staff, and is still having high fevers. In terms of respiratory failure we have been able to wean him off of the vent however he continued to have ongoing severe secretions as well as need for ventilatory support with BiPAP which he was only tolerating moderately well. As of this morning he now has a tracheostomy in place and is doing actually significantly better with that and will now be able to suction secretions more effectively. He is still somewhat hypotensive but has been off pressors now for a few days. He does not have evidence of heart failure otherwise and does not have renal failure or liver failure at this time. He does remain somewhat encephalopathic. Hopefully this will improve if we can reduce sedation if he tolerates the tracheostomy better than the BiPAP. He remains extremely weak, and needs assistance with nutrition. He will receive a PEG hopefully either today or tomorrow. Is anticipated that he will most likely end up needing LTAC unless he has dramatic improvement in the next couple of days or so after his tracheostomy placement DIAGNOSIS: # SUSPECTED DRUG FEVER (ERTAPENAM) / HYPOTENSION / WITH INCREASED LIVER TRANSAMINASES - # SUSPECTED CENTRAL IV LINE SEPSIS (that line removed; staph in cultures) # ACUTE SEPTIC SHOCK WITH PULM, RENAL, LIVER AFFECTED # ACUTE RESP FAILURE, HYPOXEMIC, REMAINS ON MECH VENTILATOR # PNEUMOCOCCAL PNEUMONIA # RECURRENT FEVER, WITH PSEUDOMONAS IN SPUTUM CX - possible nosocomial infection on top of original pnuemonia # ACUTE ENCEPHALOPATHY, MULTIFACTORIAL # SEVERE DECONDTIONING # MELODY, RESOLVED FXN # STAGE 1 DECUB CHANGES ON COCCYX # HX LYMPHOMA PLANS: -tracheostomy care, suctioning -continue supportive care, fluid resuscitation, nutrition by tube feeds -continue vanco for staph line sepsis (dose increased due to low trough); continue off carbipenams which are suspected to have caused drug fever -DVT and stress ulcer prophylaxis -skin care and prevention measures for stage I decubitus -will need likely LTAC when stablizes enough Patient seen on multidisciplinary rounds I reviewed his condition and care in detail with Dr Welch and Ken today SUBJECTIVE: pt is unable to discuss sxs due to sedation after tracheostomy tracheostomy has been placed this am, and large volumes of thick mucous plugs were removed at that time OBJECTIVE Vitals reviewed: still with continuously high fevers, BPs now normal off pressor, pulse intermittently tachycardic certified welder, my personal review: Sinus rhythm Exam: awake, but lethargic and looks very tired; too weak to converse resps per tracheostomy which looks good skin warm dry color ok lungs course BSs heart regular abd soft nondistended, appears nontender, bowel sounds present limbs warm, no edema picc site ok Objective: Vital Signs Temp Pulse Resp BP Pulse Ox 39.3 C H 94 20 74/47 L 88 L 08/15/16 10:00 08/15/16 10:00 08/15/16 10:00 08/15/16 10:00 08/15/16 10:00 Microbiology 08/09/16 11:27 Blood Culture - Final Blood Staphylococcus Hominis 08/08/16 10:06 Blood Culture - Final Blood Laboratory Results 08/14/16 05:10 08/15/16 06:00 08/14/16 08/15/16 08/16/16 06:59 06:59 06:59 Intake Total 2642 2034 Output Total 3550 2700 Balance -908 -666 PT 14.5 SEC (12.0-15.0) 08/04/16 04:25 INR 1.14 (0.83-1.16) 08/04/16 04:25 ICD10 Worksheet Patient Problems: Problems Problem Status Diagnosed Pneumonia Acute Respiratory failure Acute Severe sepsis with acute organ dysfunction Acute
[2016-08-15] MEDS ORDERED: fentaNYL 100 MCG/2 ML INJ ONE (10:59)
[2016-08-15] MEDS ORDERED: MIDAZOLAM 2 MG/2 ML VIAL ONE (10:59)
[2016-08-15] MEDS ORDERED: VECURONIUM BROMIDE 10 MG VIAL ONE (10:59)
[2016-08-15] MEDS ORDERED: SUCCINYLCHOLINE CHLORIDE*ANESTHESIA ONLY*200 MG/10 ML SYR IVP ONE (11:00)
[2016-08-15] MEDS: FUROSEMIDE 40 MG/4 ML VIAL IVP SCH (11:10)
[2016-08-15] MEDS: VANCOMYCIN 1.25 GM in D5W 250 ML IV SCH ×2 (11:10→23:25)
[2016-08-15] MEDS: ACETAMINOPHEN 650 MG SUPP PR PRN (11:10)
[2016-08-15] MEDS: POTASSIUM Cl (KCl) 50 ML IV SCH ×3 (11:10→12:24)
[2016-08-15] MEDS: CHLORHEXIDINE GLUCONATE 15 ML UDL PO SCH ×3 (11:11→22:49)
[2016-08-15] MEDS: NS W/ 20 KCl/L 1,000 ML IV SCH (11:38)
--- NOTE | 2016-08-15 12:17 | GPN ---
[f rep st] PROCEDURE NOTE DATE OF PROCEDURE: 08/15/2016 PROCEDURE: Therapeutic bronchoscopy. INDICATION: Pseudomonas pneumonia with mucous plugging and hypoxemia and chronic respiratory failure . DESCRIPTION OF PROCEDURE: The procedure was done in the intensive care unit. Informed consent was o btained from the patient's family. The patient was intubated by Dr. Welch prior to the procedure. A tracheostomy was also performed during my bronchoscopy, and the patient was paralyzed and given oth er medications for the procedure per Dr. Welch. Please see his tracheostomy note regarding details. Appropriate timeout was performed. Barrier masks were worn. No topical lidocaine was required. The fiberoptic bronchoscope was passed via an adapter on the end of the patient's endotracheal tube into the distal trachea and in the lower tracheobronchial tree. There was significant mucus plugging on the left side obstructing the left upper lobe. There was purulent mucus in the left lower lobe and i n the right lower lobe area. This was identified. The bronchoscope was then withdrawn to the end of the patient's endotracheal tube and the endotracheal tube was slid up with the bronchoscope at its e nd to the upper trachea, just below the larynx. Ventilation was maintained with the balloon up. Und er direct visualization by myself, Dr. Welch entered the trachea, passed a wire, dilators, and passe d the percutaneous tracheostomy tube into the trachea without difficulty. The bronchoscope was remov ed from the patient's endotracheal tube and placed in the patient's new tracheostomy tube. Perfect p osition above the main red was documented. The bronchoscope was removed and the patient was then placed on the ventilator. Oxygen saturations during this portion of the procedure and vital signs re mained normal throughout. Following stabilization on the ventilator, the bronchoscope was advanced through an adaptor on the en d of the patient's tracheostomy tube, into the trachea, and into the lower tracheobronchial tree bila terally. Mucus was removed from both lower lobes. I attempted to remove the mucus plug from the lef t upper lobe, but was unable to do this with a small bronchoscope. Cultures were obtained at this ti me and sent for an aerobic specimen. The therapeutic bronchoscope was then obtained. Bronchoscopy was completed with the therapeutic scop e and the patient's very significant large mucous plug obstructing the left upper lobe was removed wi th some difficulty via multiple attempts. At the end, there were no further secretions in the left u pper lobe and airways were clear bilaterally. The patient tolerated the procedure well. The lowest saturation seen was 88% during this portion of the procedure. Other vital signs and blood pressure remained stable. ASSESSMENT: 1. Mucus plugging of the left upper lobe with bilateral purulent mucus consistent with pneumonia. M ucus plugs were removed during this procedure and cultures were sent. 2. Successful percutaneous tracheostomy tube placement by Dr. Welch with endotracheal visualization by myself. /[id number]/MODL
[2016-08-15] MEDS ORDERED: VECURONIUM BROMIDE 10 MG VIAL IV ONE (12:30)
[2016-08-15] MEDS: ALBUTEROL 60 PUFFS/8 GM MDI IH SCH ×3 (13:43→20:50)
--- NOTE | 2016-08-15 14:52 | WOCRNPDOC ---
[facility] Advanced Assessment Note - Skin Integrity Problem, Advanced Assess coccyx Dressing Type: Allevyn Life Dressing Description: Soiled Exudate Amount: None Exudate Characteristic(s): None Integumentary Issue Intervention: Dressing Changed, Barrier Cream Applied Laura Wound Tissue: Blanching, Erythema, Intact Laura Wound Swelling: None Wound Bed Color: Red Pressure Injury Stage: Stage 1 Skin Integrity Problem Comment: Site was previously non-blanching w/ intact skin. During today's assessment, skin remains intact and now demonstrates sluggish blanching. Patient has a very prominent coccyx, and site should continue to be protected. Allevyn Life dressing applied, and Calazime cream applied distally to laura-anal skin where incontinence-associated dermatitis was noted. Continue w/ turns q2, off-loading coccyx at all times.
[2016-08-15 15:14] LABS: POTASSIUM 4.9 mEq/L (3.5-5.2)
[2016-08-15 19:05] LABS: POTASSIUM 4.5 mEq/L (3.5-5.2)
[2016-08-15 21:50] LABS: BASE EXCESS -6.2 mEq/L (-2.5-2.5); BICARBONATE 19 mEq/L (22-26); MEASURED OXYGEN SATURATION 94 % (92-95); PCO2 37 mmHg (34-38); PO2 78 mmHg (65-75); TCO2 20 mEq/L (23-27)
[2016-08-15 21:51] LABS: O2 CONCENTRATIION 100 % (0-100); P/F RATIO 78 RATIO; SIMV YES
[2016-08-15 21:52] LABS: END TIDAL CO2 30; PATIENT RATE 20; PRESSURE SUPPORT 10
[2016-08-16] MEDS: ALBUTEROL 60 PUFFS/8 GM MDI IH SCH ×6 (00:30→20:53)
[2016-08-16] MEDS: INSULIN REGULAR, HUMAN 100 UNIT/1 ML VIAL STANDARD SC SCH ×4 (01:40→18:51)
[2016-08-16] MEDS: ACETAMINOPHEN 650 MG SUPP PR PRN (04:37)
[2016-08-16 05:34] LABS: BASE EXCESS -5.4 mEq/L (-2.5-2.5); BICARBONATE 20 mEq/L (22-26); MEASURED OXYGEN SATURATION 92 % (92-95); PCO2 43 mmHg (34-38); PO2 77 mmHg (65-75); TCO2 21 mEq/L (23-27)
[2016-08-16 05:36] LABS: END TIDAL CO2 31; O2 CONCENTRATIION 80 % (0-100); P/F RATIO 96 RATIO; PATIENT RATE 22; PRESSURE SUPPORT 10; SIMV YES
[2016-08-16 05:37] LABS: IONIZED CALCIUM 1.13 MMOL/L (1.12-1.30)
[2016-08-16] MEDS: fentaNYL/NACL 100 ML IV SCH ×3 (05:51→22:40)
[2016-08-16] MEDS: HEPARIN 5,000 UNIT/0.5 ML SYR SC SCH (05:52)
[2016-08-16 06:12] LABS: POTASSIUM 4.2 mEq/L (3.5-5.2)
[2016-08-16] MEDS ORDERED: LACTULOSE 20 GM/30 ML UDCUP TUBE PRN (08:08)
[2016-08-16] MEDS ORDERED: MAGNESIUM HYDROXIDE 30 ML UDCUP TUBE PRN (08:09)
[2016-08-16] MEDS: PROPOFOL/EMULSION 100 ML IV SCH ×2 (08:20→20:53)
[2016-08-16] MEDS: ORAL BALANCE GEL TUBE PO PRN (08:21)
[2016-08-16] MEDS: CHLORHEXIDINE GLUCONATE 15 ML UDL PO SCH ×3 (08:26→20:50)
[2016-08-16] MEDS: AMIODARONE HCL 200 MG TAB TUBE SCH ×3 (08:28→20:53)
[2016-08-16] MEDS: FUROSEMIDE 40 MG/4 ML VIAL IVP SCH (08:29)
[2016-08-16] MEDS: FAMOTIDINE 20 MG/NACL 50 ML IV SCH (08:29)
[2016-08-16] MEDS: predniSONE 20 MG TAB TUBE SCH ×3 (08:29→11:37)
--- NOTE | 2016-08-16 08:51 | PDINTPN ---
[employer] Processing Worker Progress Note Assessment/Plan: Assessment/Plan: * Pneumococcal pneumonia- * Respiratory Failure -Stable on vent. Still with high FIO2 * S/P trach * Shock-resolved * AFib resolved * B cell lymphoma * Sepsis * Elevated transaminases- * Encephalopathy-markedly better * MELODY resolved * Nutrition-will restart this afternoon -consult GI for PEG * VTE proph * Stress ulcer proph Case discussed with RT and nursing 35 min of critical care time spent with patient Subjective: awake Objective: Vital Signs Temp Pulse Resp BP Pulse Ox 38.3 C 106 H 27 H 107/67 99 08/16/16 07:00 08/16/16 07:00 08/16/16 07:00 08/16/16 07:00 08/16/16 07:00 Microbiology 08/11/16 03:29 Blood Culture - Final Blood 08/15/16 10:55 - Final Sputum, Induced/Suctioned Laboratory Results 08/14/16 05:10 08/16/16 05:40 08/15/16 08/16/16 08/17/16 05:59 05:59 05:59 Intake Total 2034 4532.4 Output Total 2700 2450 Balance -666 2082.4 PT 14.5 SEC (12.0-15.0) 08/04/16 04:25 INR 1.14 (0.83-1.16) 08/04/16 04:25 Laboratory Results 08/14/16 05:10 08/16/16 05:40 08/16/16 08/16/16 08/16/16 06:38 05:40 05:23 Puncture Site RIGHT RADIAL Patient Temperature 38.9 DEGREES pCO2 43 H mmHg (34 - 38) pO2 77 H mmHg (65 - 75) Total CO2 21 L mEq/L (23 - 27) ABG pH 7.30 L (7.35 - 7.45) ABG PO2/FiO2 Ratio 96 RATIO ABG O2 Saturation 92 % (92 - 95) ABG Base Excess -5.4 L mEq/L (-2.5 - 2.5) O2 Concentration % 80 % Actual Respiration Rate 22 Set Respiration Rate 22 SIMV YES Tidal Volume 600 End Tidal CO2 31 PEEP 5 Pressure Support 10 Potassium 4.2 mEq/L (3.5 - 5.2) Bicarbonate 20 L mEq/L (22 - 26) POC Glucose 82 mg/dL (70 - 100) Ionized Calcium 1.13 MMOL/L (1.12 - 1.30) Phosphorus 3.9 D mg/dL (2.5 - 4.5) 08/16/16 08/16/16 01:25 01:00 Puncture Site Patient Temperature pCO2 pO2 Total CO2 ABG pH ABG PO2/FiO2 Ratio ABG O2 Saturation ABG Base Excess O2 Concentration % Actual Respiration Rate Set Respiration Rate SIMV Tidal Volume End Tidal CO2 PEEP Pressure Support Potassium 4.0 mEq/L (3.5 - 5.2) Bicarbonate POC Glucose 112 H mg/dL (70 - 100) Ionized Calcium Phosphorus CXR-reviewed by myself. Trach okay. No change in bilat infiltrates - Time Spent With Patient Time Spent With Patient: 35 Physical Exam - Physical Exam General Appearance: alert, mild distress EENT: PERRL/EOMI, normal ENT inspection Neck: non-tender, full range of motion, other (trach site C&D) Respiratory: crackles (scattered), No normal breath sounds, No respiratory distress, No wheezing Cardiac/Chest: systolic murmur, irregularly irregular Peripheral Pulses: 2+: carotid (R), carotid (L), femoral (R), femoral (L), dorsalis-pedis (R), dorsalis-pedis (L) Abdomen: normal bowel sounds, non-tender, soft Male Genitalia: deferred Rectal: deferred Skin: normal color, warm/dry ICD10 Worksheet Patient Problems: Problems Problem Status Diagnosed Pneumonia Acute Respiratory failure Acute Severe sepsis with acute organ dysfunction Acute
--- NOTE | 2016-08-16 09:11 | DX ---
Portable AP Chest at 5:45 AM Clinical History: 70-year-old male in the ICU for follow up of respiratory status. COMPARISON STUDY: Chest, dated August 14, 2016. FINDINGS: In the interim, a tracheostomy tube has been placed which terminates 7 cm above the red. There is a right-sided PICC line which terminates in the distal SVC. Telemetry monitoring lead lines are present. The cardiac and mediastinal silhouette is stable in appearance. There are persistent bi lateral infiltrates, which are similar in distribution. Trace blunting of the costophrenic angles is observed. There are senescent features of the spine with a sigmoid-shaped thoracolumbar scoliosis. IMPRESSION: Interim tracheostomy placement since August 14, 2016 with a stable appearance of bilater al infiltrates and trace effusions.
[2016-08-16] MEDS ORDERED: LIDOCAINE 1% 2 ML INJ ONE (10:51)
--- NOTE | 2016-08-16 10:52 | GCON ---
[f rep st] CONSULTATION INPATIENT CONSULTATION NOTE REQUESTING PHYSICIAN: Dr. Welch. REASON FOR CONSULTATION: Consider PEG tube placement. CHIEF COMPLAINT: Difficult to evaluate given the patient's sedation status. HISTORY OF PRESENT ILLNESS: Briefly, the patient is a 70-year-old male who was admitted to the [facility] on July 28, 2016. At that time, he was having progressive weakness and shortness of breath. He was ultimately diagnosed with severe sepsis as a consequence of pneumonia. His hospital course h as been prolonged. He has had complications of drug fever, line sepsis, septic shock with multiorgan failure (pulmonary, kidney, and liver affected). He has had pneumococcal pneumonia as well as perha ps Pseudomonas pneumonia. He has, as a result, developed severe deconditioning. It is anticipated t hat he will have a relatively prolonged recovery. He recently had a tracheostomy tube placed and now requires a more permanent means of administering food and medication prior to considering discharge to long-term assisted care facility. ALLERGIES: Quinolones. CURRENT MEDICATIONS: Include Tylenol, Proventil, amiodarone, Dulcolax, calcium, Peridex, dextrose, s ubcu Lovenox, Pepcid, fentanyl, insulin, lactulose, lorazepam, milk of magnesia, Lopressor, morphine, potassium replacement, prednisone, Diprivan. He has recently completed courses of antibiotics with ertapenem. SOCIAL HISTORY: He does not drink alcohol. He smokes cigarettes rarely. He uses marijuana periodic ally. He has a very active physical lifestyle with approximately 30 miles of bike riding per day. FAMILY HISTORY: Significant for a mother with leukemia. 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 REVIEW OF SYSTEMS: A complete review of systems was unable to be elicited from the patient due to hi s current sedated and trach status. PHYSICAL EXAM: GENERAL: This is a thin, ill-appearing male in no apparent distress. HEENT: His pu pils are equal, round, reactive to light and accommodation. His sclerae are nonicteric. His orophar ynx is clear, but his oral mucosa is dry. HEART: Tachycardia without murmur. RESPIRATORY: Good ai r movement with ventilator dependence, although he has some decreased sounds at the left base and mike e crackles and rhonchi. GI: Normoactive bowel sounds. He has a soft, nontender abdomen without micah ound or guarding. SKIN: Warm and dry without rash. MUSCULOSKELETAL: No tenderness or arthritis. NEUROLOGIC: He appears to be somewhat alert and will track with questions, but the exact detail of h is orientation is uncertain given his sedated and trach status. He has no overt neurological abnorma lities. LABORATORY TESTING: His white count is 7.91, hematocrit of 26.5, platelet count of 174. INR at last check was 1.1 on the 6th of this month. IMPRESSION AND RECOMMENDATIONS: The patient is currently convalescing from an acute septic illness r elated to pneumonia. It is felt that due to his deconditioning and poor return of pulmonary function that he may need a long-term reliable source of nutrition and medication administration. He has no current contraindications undergoing percutaneous endoscopic gastrostomy tube placement. The placeme nt of the tube, its risks and benefits, were discussed with the patient's power of district attorney. The pat ient is currently on antibiotic therapy. We will plan for attempt at PEG placement today. If we are unsuccessful in finding a suitable locati on for the PEG, we will consider alternate recommendations for PEG placement. I am hopeful, however, given his thin abdomen that has not had operative interventions prior, that we will have a successfu l procedure. Assuming PEG placement goes well today, we can proceed with nutrition and medication ad ministration tomorrow. /[id number]/MODL
[2016-08-16 10:54] LABS: ALANINE AMINOTRANSFERASE 307 IU/L (21-72); ALBUMIN 2.6 g/dL (3.5-5.0); ALKALINE PHOSPHATASE 261 IU/L (38-126); ANION GAP 14 mEq/L (8-16); ASPARTATE AMINOTRANSFERASE 240 IU/L (17-59); CALCIUM 7.2 mg/dL (8.5-10.4); CARBON DIOXIDE 22 mEq/l (22-31); CHLORIDE 115 mEq/L (97-110); CREATININE 1.4 mg/dL (0.7-1.3); GLOMERULAR FILTRATION RATE 50; GLUCOSE 75 mg/dL (70-100); SODIUM 151 mEq/L (134-144); TOTAL PROTEIN 5.8 g/dL (6.3-8.2)
--- NOTE | 2016-08-16 11:17 | SUROPNOTE ---
[facility] Operative Report - Surgery BRIEF GI NOTE PEG PLACEMENT Indication: feeding difficulty Meds: additional propofol and fentanyl was titrated using current sedation orders Complications: none acutely Findings 1. nl duodenum, stomach, and esophagus 2. successful 20Fr PEG placed in left upper abdomen without complications 3. unsuccessful placement of finder needle 2x prior to successful placement of finder needle into stomach in a more lateral and caudal position IMPRESSION/RECS: 1. Feeding Difficulty - PEG placed - ok to use for meds/flushes today - I will check on the PEG site tomorrow, and if it remains good, will ok for use with feeding - will follow, call with questions
[2016-08-16] MEDS: VANCOMYCIN 1.25 GM in D5W 250 ML IV SCH (11:21)
[2016-08-16] MEDS ORDERED: LIDOCAINE 1% 30 ML SDV IF ONE (11:30)
--- NOTE | 2016-08-16 11:57 | GPN ---
[f rep st] PROCEDURE NOTE PROCEDURE: Percutaneous endoscopic gastrostomy tube placement. INDICATION: Prolonged need for medication and nutrition administration. COMPLICATIONS: Acutely none. MEDICATIONS: Additional propofol and fentanyl were administered at the bedside using the patient's sedation protocol related to his ventilator status. Vancomycin antibiotic is currently being used for underlying infection, so no additional antibiotics were given. DESCRIPTION OF PROCEDURE: After informed consent was obtained from the patient' s durable power of criminal attorney (his son), the patient was left in the supine position. The forward viewing upper endoscope was advanced through the mouth into the proximal duodenum. Retroflexed views in the gastric cardia were obtained. The duodenum, stomach and esophagus were examined and were normal. Using palpation and transillumination, a place on the anterior abdomen suitable for PEG placement was chosen. This area was anesthetized with approximately 5 cc of Xylocaine. Introduction of the finer needle was then done. Initial placement of the finder needle was unsuccessful, and despite what appeared to be good location via transillumination and palpation, the needle tip did not enter the stomach. This area was then abandoned. A new area was cleaned with lidocaine and anesthetized with Xylocaine, and reintroduction of the finder needle led to passage into the gastric lumen. The wire was then advanced through the needle, drug through the mouth, and attached to the PEG tube. The PEG was then pulled through the mouth and out the hole made by the finer needle after a small incision to extend that os. The scope was then readvanced in the stomach to check gastrostomy tube placement. The bumper was then cinched to approximately 2 cm. The area was dressed. IMPRESSION/RECOMMENDATIONS: Successful placement of PEG tube. There was 1 site chosen that did not yield any good result. Ultimately, a slightly more lateral and caudal location was chosen and successful. We will monitor the PEG location overnight. If it appears to be in suitable location without complication, we will okay the PEG for use for feedings tomorrow. /[id number]/MODL MTDD
[2016-08-16] MEDS ORDERED: NS 500 ML IV ONE ×2 (13:07→19:00)
[2016-08-16] MEDS: ACETAMINOPHEN 650 MG/20.3 ML UDCUP TUBE PRN ×3 (13:13→21:45)
[2016-08-16] MEDS ORDERED: D5W 1/2 NS 1,000 ML IV SCH (13:15)
[2016-08-16 14:42] LABS: POTASSIUM 3.6 mEq/L (3.5-5.2)
[2016-08-16] MEDS: POTASSIUM Cl (KCl) 50 ML IV SCH ×3 (14:57→16:22)
--- NOTE | 2016-08-16 16:54 | HOSPPROG ---
Hospitalist Progress Note Assessment/Plan: * severe pneumococcal pneumonia * status post ceftriaxone * Pseudomonas in sputum * status post antibiotics * this has been stopped due to drug fever * possible drug fever * off beta-lactam antibiotics * elevated liver function tests * may be due to antibiotics as well * will trend * acute respiratory failure * status post tracheostomy now with PEG tube * atrial fibrillation * resolved * continue amiodarone and metoprolol * hypernatremia * due to diuresis * will stop Lasix * Staph hominis bacteremia * on vancomycin * acute renal failure * creatinine has increased due to diuresis * will get back a little bit of fluid * acute encephalopathy * history of lymphoma 35 minutes of critical care times inspected Subjective: continued fevers. Getting PEG tube today Objective: Vital Signs Temp Pulse Resp BP Pulse Ox 37.5 C 97 24 H 100/66 88 L 08/16/16 15:59 08/16/16 15:59 08/16/16 15:59 08/16/16 15:59 08/16/16 15:59 Microbiology 08/15/16 10:55 - Final Sputum, Induced/Suctioned 08/09/16 11:27 Blood Culture - Final Blood Staphylococcus Hominis 08/11/16 03:29 Blood Culture - Final Blood Laboratory Results 08/14/16 05:10 08/16/16 13:00 08/15/16 08/16/16 08/17/16 05:59 05:59 05:59 Intake Total 2034 4532.4 250 Output Total 2700 2450 840 Balance -666 2082.4 -590 PT 14.5 SEC (12.0-15.0) 08/04/16 04:25 INR 1.14 (0.83-1.16) 08/04/16 04:25 discussed on interdisciplinary rounds - Physical Exam Constitutional: no apparent distress, appears nourished, not in pain Eyes: anicteric sclera, EOMI Ears, Nose, Mouth, Throat: moist mucous membranes, hearing normal, ears appear normal, No oral thrush Cardiovascular: regular rate and rhythym, no murmur, rub, or gallop Respiratory: no respiratory distress, no rales or rhonchi, clear to auscultation Gastrointestinal: normoactive bowel sounds, soft, non-tender abdomen, no palpable masses Skin: warm Neurologic: other ( response to questions appropriately) Psychiatric: interacting appropriately, not anxious, not encephalopathic, thought process linear ICD10 Worksheet Patient Problems: Problems Problem Status Diagnosed Pneumonia Acute Respiratory failure Acute Severe sepsis with acute organ dysfunction Acute
--- NOTE | 2016-08-16 18:35 | CPEKG ---
Heart Rate: 124 RR Interval: 484 QRSD Interval: 84 QT Interval: 328 QTC Interval: 471 QRS [place]: -43 T Wave [place]: 188 EKG Severity - ABNORMAL ECG - EKG Impression: ATRIAL FLUTTER, A-RATE 294 EKG Impression: PROBABLE INFERIOR INFARCT, AGE INDETERMINATE EKG Impression: NONSPECIFIC T ABNORMALITIES, ANT-LAT LEADS EKG Impression: BORDERLINE PROLONGED QT INTERVAL Electronically Signed By: Elfego Steinberg 17-Aug-2016 15:04:18
--- NOTE | 2016-08-16 18:44 | SOAPPROG ---
SOAP Progress Note Assessment/Plan: Called to bedside with HR 150s, hypotension after turning patient. S: had PEG placed today and diuresed (-660cc) today. On Fentanyl, Propofol O: afebrile, HR 140s, appears irregular on tele, BP 60/50s Gen: cachetic, ill-appearing HEENT: trach CV: tachy, irreg, irreg, distant heart sounds Lung: coarse BS anteriorly GI: PEG in place Psych: no grimace with exam A&P: 1. Tachycardia: EKG showing flutter. Has been in and out of fib here. Currently on amio and metoprolol -SBP has improved to 90, HR 120s -trial 500cc bolus and reassess 08/16/16 18:44 08/16/16 18:46 Objective: Vital Signs Temp Pulse Resp BP Pulse Ox 36.4 C 144 H 21 H 95/72 L 90 L 08/16/16 18:00 08/16/16 18:00 08/16/16 18:00 08/16/16 18:00 08/16/16 18:00 Microbiology 08/15/16 10:55 - Final Sputum, Induced/Suctioned 08/09/16 11:27 Blood Culture - Final Blood Staphylococcus Hominis 08/11/16 03:29 Blood Culture - Final Blood Laboratory Results 08/14/16 05:10 08/16/16 13:00 08/15/16 08/16/16 08/17/16 05:59 05:59 05:59 Intake Total 2034 4532.4 1871.9 Output Total 2700 2450 980 Balance -666 2082.4 891.9 PT 14.5 SEC (12.0-15.0) 08/04/16 04:25 INR 1.14 (0.83-1.16) 08/04/16 04:25 ICD10 Worksheet Patient Problems: Problems Problem Status Diagnosed Pneumonia Acute Respiratory failure Acute Severe sepsis with acute organ dysfunction Acute
--- NOTE | 2016-08-16 18:59 | PCMIDPN ---
Assessment/Plan: Assessment/Plan: * Sepsis due to pneumococcal bacteremia with bilateral pneumonia: Completed course of antibiotic therapy. * Fever: Persistent fever after treatment of Pseudomonas and S. hominis. May represent drug fever from prior B-lactam use. Repeat blood cultures are no growth. Continue to follow post-d/c of meropenem. If persists, may need further imaging to assess for occult infectious focus. * Transaminitis: Improving. Potentially due to drug hypersensitivity. * S. hominis catheter associated bacteremia: s/p line removal. Repeat blood cultures no growth. See below discussion regarding vancomycin. * Increased creatinine: Potential for vancomycin nephrotoxicity - will hold vancomycin and repeat trough this pm. 08/16/16 18:56 08/16/16 19:01 08/16/16 19:03 Subjective: PEG placement today. Persistent fever. Objective: Vital Signs Temp Pulse Resp BP Pulse Ox 36.4 C 144 H 21 H 95/72 L 90 L 08/16/16 18:00 08/16/16 18:00 08/16/16 18:00 08/16/16 18:00 08/16/16 18:00 Microbiology 08/15/16 10:55 - Final Sputum, Induced/Suctioned 08/09/16 11:27 Blood Culture - Final Blood Staphylococcus Hominis 08/11/16 03:29 Blood Culture - Final Blood Laboratory Results 08/14/16 05:10 08/16/16 13:00 08/15/16 08/16/16 08/17/16 05:59 05:59 05:59 Intake Total 2034 4532.4 1871.9 Output Total 2700 2450 980 Balance -666 2082.4 891.9 Tm 39.0 Blood cultures 08/13/16 no growth Sputum C. albicans Laboratory Tests 08/14/16 08/16/16 10:39 10:01 Total Bilirubin 1.0 AST 240 H ALT 307 H Alkaline Phosphatase 261 H Vancomycin Trough 14.4 - Physical Exam General Appearance: alert, no apparent distress EENT: No scleral icterus Respiratory: coarse breath sounds Cardiac/Chest: tachycardia Extremities: No inflammation Abdomen: non-tender, No distended ICD10 Worksheet Patient Problems: Problems Problem Status Diagnosed Pneumonia Acute Respiratory failure Acute Severe sepsis with acute organ dysfunction Acute
[2016-08-16 19:28] LABS: POTASSIUM 3.8 mEq/L (3.5-5.2)
[2016-08-16] MEDS ORDERED: POTASSIUM Cl (KCl) 50 ML IV ONE (20:12)
[2016-08-16] MEDS: FAMOTIDINE 20 MG TAB PO SCH (20:52)
[2016-08-17] MEDS: ALBUTEROL 60 PUFFS/8 GM MDI IH SCH ×6 (00:23→20:03)
[2016-08-17 00:40] LABS: POTASSIUM 4.2 mEq/L (3.5-5.2)
[2016-08-17] MEDS: INSULIN REGULAR, HUMAN 100 UNIT/1 ML VIAL STANDARD SC SCH ×4 (01:13→17:48)
[2016-08-17 04:57] LABS: IONIZED CALCIUM 1.12 MMOL/L (1.12-1.30)
[2016-08-17 04:58] LABS: HEMATOCRIT 23.6 % (40.0-51.0); MEAN CELL HEMOGLOBIN 27.7 pg (27.9-34.1); MEAN CELL HEMOGLOBIN CONCENTR. 33.9 g/dL (32.4-36.7); MEAN CELL VOLUME 81.7 fL (81.5-99.8); PLATELET COUNT 100 10^3/uL (150-400); RED BLOOD CELL COUNT 2.89 10^6/uL (4.40-6.38); RED CELL DISTRIBUTION WIDTH 17.4 % (11.5-15.2)
[2016-08-17 04:59] LABS: % IMMATURE GRANULYOCYTES 0.7 % (0.0-1.1); ABSOLUTE IMMATURE GRANULOCYTES 0.08 10^3/uL (0.00-0.10); ADD DIFF? NO; ADD MORPH? NO; ADD SCAN? NO; ATYPICAL LYMPHOCYTE FLAG 20 (0-99); FRAGMENT RBC FLAG 20 (0-99); LEFT SHIFT FLG 70 (0-99); LIPEMIA HEMOLYSIS FLAG 90 (0-99); MEAN PLATELET VOLUME 11.5 fL (8.7-11.7); PLATELET CLUMPS FLAG 10 (0-99)
[2016-08-17 05:30] LABS: ALANINE AMINOTRANSFERASE 225 IU/L (21-72); ALBUMIN 2.3 g/dL (3.5-5.0); ALKALINE PHOSPHATASE 265 IU/L (38-126); ANION GAP 9 mEq/L (8-16); ASPARTATE AMINOTRANSFERASE 152 IU/L (17-59); BILIRUBIN,TOTAL 0.8 mg/dL (0.1-1.4); CALCIUM 7.1 mg/dL (8.5-10.4); CARBON DIOXIDE 20 mEq/l (22-31); CHLORIDE 116 mEq/L (97-110); CREATININE 1.5 mg/dL (0.7-1.3); GLOMERULAR FILTRATION RATE 47; GLUCOSE 144 mg/dL (70-100); SODIUM 145 mEq/L (134-144); TOTAL PROTEIN 5.4 g/dL (6.3-8.2)
[2016-08-17] MEDS ORDERED: CALCIUM GLUCONATE 50 ML IV ONE (05:35)
[2016-08-17] MEDS: LORazepam 2 MG/ML INJ IVP PRN ×2 (06:51→20:25)
[2016-08-17] MEDS: fentaNYL/NACL 100 ML IV SCH (07:29)
[2016-08-17] MEDS: AMIODARONE HCL 200 MG TAB TUBE SCH ×2 (07:44→21:24)
[2016-08-17] MEDS: CHLORHEXIDINE GLUCONATE 15 ML UDL PO SCH ×2 (07:44→21:24)
[2016-08-17] MEDS: FAMOTIDINE 20 MG TAB PO SCH (07:44)
[2016-08-17] MEDS: FAMOTIDINE 20 MG TAB TUBE SCH ×2 (08:20→21:24)
--- NOTE | 2016-08-17 08:30 | SOAPPROG ---
SOAP Progress Note Assessment/Plan: Assessment: 1. PEG placement - no evidence of complications overnight - tolerating meds/flushes Plan: 1. PEG Site - bumper adjusted to 2cm - no evidence of PEG placement complication - ok to start PEG use for feeds - TF rate/choice/etc per nutrition svc and primary team - will sign off, call with questions 08/17/16 08:27 Subjective: CC: no acute events S: sedated/trached so unable to elicit focal complaints per RN/chart, no acute events overnight Objective: Vital Signs Temp Pulse Resp BP Pulse Ox 37.9 C 74 24 H 134/81 H 99 08/17/16 08:00 08/17/16 08:00 08/17/16 08:00 08/17/16 08:00 08/17/16 08:00 Microbiology 08/15/16 10:55 - Final Sputum, Induced/Suctioned 08/09/16 11:27 Blood Culture - Final Blood Staphylococcus Hominis 08/11/16 03:29 Blood Culture - Final Blood Laboratory Results 08/17/16 04:40 08/17/16 04:40 08/16/16 08/17/16 08/18/16 05:59 05:59 05:59 Intake Total 4532.4 3562.9 Output Total 2450 1630 1356 Balance 2082.4 1932.9 -1356 PT 14.5 SEC (12.0-15.0) 08/04/16 04:25 INR 1.14 (0.83-1.16) 08/04/16 04:25 Physical Exam - Physical Exam EENT: PERRL/EOMI Neck: non-tender Respiratory: lungs clear Cardiac/Chest: normal peripheral pulses Abdomen: normal bowel sounds, soft, other (PEG site looks good w/o erythema or bleeding), No distended, No guarding, No rebound Skin: normal color Neuro/Psych: no motor/sensory deficits ICD10 Worksheet Patient Problems: Problems Problem Status Diagnosed Pneumonia Acute Respiratory failure Acute Severe sepsis with acute organ dysfunction Acute
[2016-08-17] MEDS ORDERED: ENOXAPARIN 40 MG/0.4 ML SYR SC SCH ×2 (09:00→10:31)
--- NOTE | 2016-08-17 09:04 | PDINTPN ---
Toe Stripper Progress Note Assessment/Plan: Assessment/Plan: * Pneumococcal pneumonia- * Respiratory Failure -Stable on vent. Still with high FIO2 * S/P trach * S/P PEG * Shock-resolved * AFib resolved * B cell lymphoma * Sepsis * Elevated transaminases- * Encephalopathy-resolved * MELODY resolved * Nutrition-will restart this afternoon * VTE proph * Stress ulcer proph * Dispo-okay for LTAC Case discussed with RT and nursing 35 min of critical care time spent with patient Subjective: Awake and alert, comfortable. Objective: Vital Signs Temp Pulse Resp BP Pulse Ox 38.1 C 98 19 134/81 H 95 08/17/16 08:11 08/17/16 08:11 08/17/16 08:11 08/17/16 08:00 08/17/16 08:11 Microbiology 08/15/16 10:55 - Final Sputum, Induced/Suctioned 08/09/16 11:27 Blood Culture - Final Blood Staphylococcus Hominis 08/11/16 03:29 Blood Culture - Final Blood Laboratory Results 08/17/16 04:40 08/17/16 04:40 08/16/16 08/17/16 08/18/16 05:59 05:59 05:59 Intake Total 4532.4 3562.9 Output Total 2450 1630 1356 Balance 2082.4 1932.9 -1356 PT 14.5 SEC (12.0-15.0) 08/04/16 04:25 INR 1.14 (0.83-1.16) 08/04/16 04:25 Laboratory Results 08/17/16 04:40 08/17/16 04:40 08/17/16 08/16/16 04:40 21:50 Calcium 7.1 L mg/dL (8.5 - 10.4) Ionized Calcium 1.12 MMOL/L (1.12 - 1.30) Phosphorus 3.4 mg/dL (2.5 - 4.5) Total Bilirubin 0.8 mg/dL (0.1 - 1.4) AST 152 H IU/L (17 - 59) ALT 225 H IU/L (21 - 72) Alkaline Phosphatase 265 H IU/L (38 - 126) Total Protein 5.4 L g/dL (6.3 - 8.2) Albumin 2.3 L g/dL (3.5 - 5.0) Vancomycin Trough 30.7 H* mcg/mL (5.0 - 20.0) 08/15/16 10:55 - Final Sputum, Induced/Suctioned Sputum Culture - Preliminary Justyna Albicans 08/09/16 11:27 Blood Culture - Final Blood Staphylococcus Hominis Physical Exam - Physical Exam General Appearance: alert EENT: PERRL/EOMI, normal ENT inspection Neck: non-tender, full range of motion, other (trach site okay) Respiratory: crackles (few), No respiratory distress, No stridor, No wheezing Cardiac/Chest: normal peripheral pulses, regular rate, rhythm, systolic murmur Abdomen: normal bowel sounds, non-tender, soft Male Genitalia: deferred Rectal: deferred Skin: normal color, warm/dry ICD10 Worksheet Patient Problems: Problems Problem Status Diagnosed Pneumonia Acute Respiratory failure Acute Severe sepsis with acute organ dysfunction Acute
[2016-08-17] MEDS: ACETAMINOPHEN 650 MG/20.3 ML UDCUP TUBE PRN ×3 (10:06→21:23)
[2016-08-17] MEDS ORDERED: fentaNYL 75 MCG PATCH TD SCH (10:30)
[2016-08-17] MEDS ORDERED: DRONABINOL 2.5 MG CAP PO ONE (10:36)
[2016-08-17] MEDS: NICOTINE 14 MG/24 HR PATCH TD SCH (10:40)
[2016-08-17] MEDS ORDERED: DRONABINOL 2.5 MG CAP PO SCH (11:00)
[2016-08-17] MEDS: LORazepam 1 MG TAB PO PRN ×3 (13:16→23:51)
[2016-08-17] MEDS: OLANZapine 2.5 MG TAB PO SCH ×2 (13:31→21:24)
[2016-08-17 14:13] LABS: COLOR YELLOW; LEUKOCYTE ESTERASE,URINE NEGATIVE (NEGATIVE); NITRITE,URINE NEGATIVE (NEGATIVE)
[2016-08-17 14:16] LABS: BACTERIA TRACE /hpf (NONE SEEN); MUCUS TRACE /lpf (NONE-1+); RBC,URINE 50-182 /hpf (0-3); YEAST PRESENT /hpf (NONE SEEN)
[2016-08-17 15:20] LABS: POTASSIUM 3.6 mEq/L (3.5-5.2)
--- NOTE | 2016-08-17 16:06 | HOSPPROG ---
Hospitalist Progress Note Assessment/Plan: * severe pneumococcal pneumonia * status post ceftriaxone * Pseudomonas in sputum * status post antibiotics * this has been stopped due to drug fever * possible drug fever * off beta-lactam antibiotics * still with fever. Could be vancomycin * elevated liver function tests * may be due to antibiotics as well * seems to be improving * acute respiratory failure * status post tracheostomy now with PEG tube * atrial fibrillation * resolved * continue amiodarone and metoprolol * hypernatremia * due to diuresis * will stop Lasix * Staph hominis bacteremia * on vancomycin * acute renal failure * creatinine has increased due to diuresis * creatinine unchanged with IV fluids yesterday, will continue IV fluids * vancomycin trough was also high * will check urine eosinophils as well * severe anxiety * per family patient ingests an enormous amount of marijuana daily * difficulty weaning off fentanyl and propofol currently * seems to have responded to 1 dose of Marinol. Will schedule this three times daily and see if we can wean further * smoker * start nicotine patch as well * acute encephalopathy * history of lymphoma Subjective: is quite anxious Objective: Vital Signs Temp Pulse Resp BP Pulse Ox 38.4 C H 82 17 145/84 H 95 08/17/16 15:00 08/17/16 15:00 08/17/16 15:00 08/17/16 15:00 08/17/16 15:00 Microbiology 08/15/16 10:55 - Final Sputum, Induced/Suctioned Sputum Culture - Final Justyna Albicans 08/09/16 11:27 Blood Culture - Final Blood Staphylococcus Hominis Laboratory Results 08/17/16 04:40 08/17/16 12:00 08/16/16 08/17/16 08/18/16 05:59 05:59 05:59 Intake Total 4532.4 3562.9 Output Total 2450 1630 1936 Balance 2082.4 1932.9 -1936 PT 14.5 SEC (12.0-15.0) 08/04/16 04:25 INR 1.14 (0.83-1.16) 08/04/16 04:25 discussed with pulmonology - Physical Exam Constitutional: no apparent distress, appears nourished, not in pain Eyes: anicteric sclera, EOMI Ears, Nose, Mouth, Throat: moist mucous membranes, hearing normal, other ( trach in place) Cardiovascular: regular rate and rhythym, no murmur, rub, or gallop, systolic murmur Respiratory: no respiratory distress, no rales or rhonchi, clear to auscultation Gastrointestinal: normoactive bowel sounds, soft, non-tender abdomen, no palpable masses Skin: warm Neurologic: AAOx3 Psychiatric: anxious ICD10 Worksheet Patient Problems: Problems Problem Status Diagnosed Pneumonia Acute Respiratory failure Acute Severe sepsis with acute organ dysfunction Acute
[2016-08-17] MEDS: DRONABINOL 2.5 MG CAP PO SCH ×2 (16:07→21:24)
[2016-08-17 16:26] LABS: EOSMR EOSINOPHILS NO EOS SEEN (NO EOS SEEN)
[2016-08-17 16:29] LABS: EOSMR EPITHELIAL CELLS FEW EPITH CELLS; EOSMR PMNS FEW PMN CELLS; EOSMR RBCS NO RBCS SEEN
[2016-08-17 16:39] LABS: HYALINE CASTS NONE SEEN /lpf (0-1)
--- NOTE | 2016-08-17 17:17 | PCMIDPN ---
Assessment/Plan: Assessment: Streptococcus pneumoniae sepsis and pneumonia. Finished treatment, then covered for possible pseudomonal pneumonia with zosyn then meropenem - now with persisting fevers felt possibly due to drug reaction/drug fever. Staph hominis bacteremia from 08/09 felt to be central line related -- line removed. Despite elimination of meropenem 3 days ago the patient's fevers persist. He is oxygenating well but is clinically not significantly improving as expected. The possibilities for the etiology of the fever include an occult infection not yet recognized or drug fever from vancomycin. At this point will discontinue the vancomycin and consider daptomycin. The fevers began in this persistent pattern on August 09. The vancomycin did not start until August 11. However the fevers initially on the May have been due to the line infection and the persisting fevers may be secondary to drug fever from vancomycin. Renal function also deteriorating potentially from vancomycin issues. Trough level elevated at 30. Plan: 1. Discontinue vancomycin. 2. Repeat blood cultures. 3. Repeat vancomycin random level in the morning. Consider starting intravenous daptomycin once random level falls below 15. Subjective: Patient remains somewhat sedated. Having trouble weaning him off propofol completely. He becomes agitated often. Fevers are persistent and elevated. Oxygenation is adequate. Objective: Vancomycin # 8 Vital Signs Temp Pulse Resp BP Pulse Ox 39.9 C H 100 19 146/77 H 96 08/17/16 17:00 08/17/16 17:00 08/17/16 17:00 08/17/16 17:00 08/17/16 16:05 Microbiology 08/15/16 10:55 - Final Sputum, Induced/Suctioned Sputum Culture - Final Justyna Albicans Laboratory Results 08/17/16 04:40 08/17/16 12:00 08/16/16 08/17/16 08/18/16 05:59 05:59 05:59 Intake Total 4532.4 3562.9 Output Total 2450 1630 2211 Balance 2082.4 1932.9 -2211 - Physical Exam General Appearance: WD/WN, no apparent distress, toxic, No alert (In consistently) Respiratory: lungs clear, normal breath sounds, other (Trach in place), No respiratory distress Cardiac/Chest: regular rate, rhythm, other (Occasional ectopy), No tachycardia Extremities: non-tender, normal inspection Skin: normal color, warm/dry, No rash ICD10 Worksheet Patient Problems: Problems Problem Status Diagnosed Pneumonia Acute Respiratory failure Acute Severe sepsis with acute organ dysfunction Acute
[2016-08-17] MEDS: 1/2 NS 1,000 ML IV SCH (18:32)
[2016-08-17] MEDS: ORAL BALANCE GEL TUBE PO PRN (21:25)
[2016-08-18] MEDS: INSULIN REGULAR, HUMAN 100 UNIT/1 ML VIAL STANDARD SC SCH ×4 (02:30→17:55)
[2016-08-18] MEDS: ALBUTEROL 60 PUFFS/8 GM MDI IH SCH ×6 (04:08→20:16)
[2016-08-18 04:38] LABS: % IMMATURE GRANULYOCYTES 0.7 % (0.0-1.1); ABSOLUTE NRBC COUNT 0.02 10^3/uL (0-0.01); ADD DIFF? NO; ADD MORPH? NO; ADD SCAN? YES; ATYPICAL LYMPHOCYTE FLAG 0 (0-99); FRAGMENT RBC FLAG 20 (0-99); HEMOGLOBIN 8.1 g/dL (13.7-17.5); LIPEMIA HEMOLYSIS FLAG 90 (0-99); MEAN CELL HEMOGLOBIN 27.3 pg (27.9-34.1); MEAN CELL HEMOGLOBIN CONCENTR. 33.8 g/dL (32.4-36.7); MEAN CELL VOLUME 80.8 fL (81.5-99.8); MEAN PLATELET VOLUME 11.4 fL (8.7-11.7); NRBC-AUTO% 0.1 % (0.0-0.2); PLATELET CLUMPS FLAG 0 (0-99); PLATELET COUNT 81 10^3/uL (150-400); RED BLOOD CELL COUNT 2.97 10^6/uL (4.40-6.38); RED CELL DISTRIBUTION WIDTH 17.6 % (11.5-15.2)
[2016-08-18 04:47] LABS: ALANINE AMINOTRANSFERASE 182 IU/L (21-72); ALKALINE PHOSPHATASE 339 IU/L (38-126); ANION GAP 9 mEq/L (8-16); ASPARTATE AMINOTRANSFERASE 143 IU/L (17-59); BILIRUBIN,TOTAL 0.6 mg/dL (0.1-1.4); CALCIUM 7.6 mg/dL (8.5-10.4); CARBON DIOXIDE 21 mEq/l (22-31); CHLORIDE 112 mEq/L (97-110); CREATININE 1.5 mg/dL (0.7-1.3); GLOMERULAR FILTRATION RATE 47; GLUCOSE 106 mg/dL (70-100); LEFT SHIFT FLG 110 (0-99); POTASSIUM 3.6 mEq/L (3.5-5.2); SODIUM 142 mEq/L (134-144)
[2016-08-18 05:13] LABS: SCAN NEGATIVE
[2016-08-18] MEDS: LORazepam 2 MG/ML INJ IVP PRN ×3 (06:37→23:54)
[2016-08-18] MEDS: 1/2 NS 1,000 ML IV SCH ×2 (08:08→23:56)
[2016-08-18] MEDS ORDERED: LIDOCAINE 1% 2 ML INJ ID PRN (08:27)
[2016-08-18] MEDS ORDERED: LORazepam 2 MG/ML INJ ONE (08:32)
[2016-08-18] MEDS ORDERED: LIDOCAINE 1% 30 ML SDV MISC ONE (08:33)
[2016-08-18] MEDS ORDERED: LIDOCAINE 2% JELLY 5 ML TUBE TP ONE (08:45)
[2016-08-18] MEDS: CHLORHEXIDINE GLUCONATE 15 ML UDL PO SCH ×2 (08:47→19:24)
[2016-08-18] MEDS: DRONABINOL 2.5 MG CAP PO SCH (08:53)
[2016-08-18] MEDS: NICOTINE 14 MG/24 HR PATCH TD SCH (08:53)
[2016-08-18] MEDS: FAMOTIDINE 20 MG TAB TUBE SCH ×2 (08:54→19:24)
[2016-08-18] MEDS: AMIODARONE HCL 200 MG TAB TUBE SCH (08:54)
--- NOTE | 2016-08-18 08:57 | PDINTPN ---
Rate Supervisor Progress Note Assessment/Plan: Assessment/Plan: * Pneumococcal pneumonia- * Respiratory Failure -Stable on vent. FIO2 increased. -will bronch for possible mucus plugging * S/P trach * S/P PEG * Shock-resolved * AFib resolved * B cell lymphoma * Sepsis * Elevated transaminases- * Encephalopathy-resolved * MELODY resolved * Nutrition-will restart this afternoon * VTE proph * Stress ulcer proph * Dispo-LTAC soon Case discussed with RT and nursing 40 min of critical care time spent with patient Subjective: sedated Objective: Vital Signs Temp Pulse Resp BP Pulse Ox 39.6 C H 123 H 30 H 132/84 H 88 L 08/18/16 08:00 08/18/16 08:00 08/18/16 08:00 08/18/16 08:00 08/18/16 08:00 Microbiology 08/15/16 10:55 - Final Sputum, Induced/Suctioned Sputum Culture - Final Justyna Albicans Laboratory Results 08/18/16 04:10 08/18/16 04:10 08/17/16 08/18/16 08/19/16 05:59 05:59 05:59 Intake Total 3562.9 3499.6 Output Total 1630 3151 Balance 1932.9 348.6 PT 14.5 SEC (12.0-15.0) 08/04/16 04:25 INR 1.14 (0.83-1.16) 08/04/16 04:25 Physical Exam - Physical Exam General Appearance: No alert EENT: PERRL/EOMI, normal ENT inspection, No pharynx normal (blood in mouth) Neck: non-tender, full range of motion, other (trach okay) Respiratory: chest non-tender, lungs clear, normal breath sounds Cardiac/Chest: normal peripheral pulses, regular rate, rhythm Abdomen: normal bowel sounds, non-tender, soft Male Genitalia: deferred Rectal: deferred Extremities: normal range of motion, non-tender, normal inspection, normal capillary refill ICD10 Worksheet Patient Problems: Problems Problem Status Diagnosed Pneumonia Acute Respiratory failure Acute Severe sepsis with acute organ dysfunction Acute
[2016-08-18] MEDS ORDERED: LORazepam 2 MG/ML INJ IVP ONE (09:00)
[2016-08-18] MEDS: ENOXAPARIN 30 MG/0.3 ML SYR SC SCH (09:09)
[2016-08-18] MEDS: OLANZapine 2.5 MG TAB PO SCH (11:07)
--- NOTE | 2016-08-18 11:19 | GPN ---
[f rep st] PROCEDURE NOTE DATE OF PROCEDURE: 08/18/2016 PROCEDURE: Fiberoptic bronchoscopy. INDICATION: Respiratory failure. Possible mucous plugging. ANESTHESIA GIVEN: The patient is currently sedated and on mechanical ventilation. He was given 2 mg of Versed IV. DESCRIPTION OF PROCEDURE: The procedure was performed in the Intensive Care Unit under continuous pu lse oximetry, EKG and blood pressure monitoring. Please note, the patient is on mechanical ventilati on which is by definition a closed system. He poses no risk to airborne pathogens. The bronchoscope was entered through a #8 tracheostomy tube. The distal trachea and red were visu alized which showed minimal amounts of heme that was therapeutically aspirated. Bronchoscope advance d to the right lung. The right upper lobe, right middle lobe, right lower lobe, including sub-segmen ts, were visualized and showed no endobronchial lesions and normal-appearing mucosa. Bronchoscope ad vanced into the left lung. Left upper lobe and lingula were visualized and showed no endobronchial l esion with normal-appearing mucosa. There was a mild amount of heme in the low left lower lobe that was therapeutically aspirated. Bronchoalveolar lavage was taken in left lower lobe. This was sent f or C and S. /[id number]/MODL
--- NOTE | 2016-08-18 11:51 | CT ---
CT Brain (Without Contrast) at 1133 hours History: Altered mental status, sepsis. Comparison: None. Technique: Axial computed tomographic images of the brain without contrast. Dose reduction techniques were utilized. Findings: Ventricles, cisterns, and sulci are widened consistent with atrophy. No hydrocephalus, mid line shift/herniation, or epidural/subdural hematomas. No acute intraparenchymal hemorrhage or mass e ffect. Cerebrovascular atherosclerosis. Bone windows demonstrate no displaced fractures. Paranasal si nuses and mastoid air cells are clear. Impression: 1. Mild atrophy. 2. No acute hemorrhage, hydrocephalus, or mass effect. 3. Cerebrovascular atherosclerosis. 4. No definite acute infarct. 5. No epidural or subdural hematoma. 6. Consider MRI of the brain, if there is continued clinical concern.
[2016-08-18] MEDS ORDERED: METOCLOPRAMIDE 10 MG/10 ML UDL PO SCH (12:00)
[2016-08-18] MEDS: ACETAMINOPHEN 650 MG SUPP PR PRN ×2 (12:15→23:58)
[2016-08-18] MEDS ORDERED: AMIODARONE HCL 150 MG/100 ML BAG (1.5 MG/ML) IV ONE (12:24)
[2016-08-18] MEDS ORDERED: METOCLOPRAMIDE 10 MG/2 ML VIAL ONE (12:24)
[2016-08-18] MEDS ORDERED: PROPOFOL/EMULSION 1,000 MG/100 ML BOTTLE IV ONE ×2 (12:25)
[2016-08-18] MEDS ORDERED: fentanYL/NACL/100 ML BAG IV ONE (12:26)
--- NOTE | 2016-08-18 12:26 | PCMIDPN ---
Assessment/Plan: Assessment/Plan: * Sepsis due to pneumococcal bacteremia with bilateral pneumonia: Completed course of antibiotic therapy. * Fever: Persistent fever after treatment of Pseudomonas and S. hominis. Considerations continue to be drug fever versus occult infection. Given persistent nature of fever after discontinuing beta-lactam, think should proceed with CT scan of chest, abdomen and pelvis (noncontrast with renal insufficiency) to assess for occult infection. It is possible his initial fever was due to Staph hominis bacteremia and current fever is associated with vancomycin toxicity. * S. hominis catheter associated bacteremia: s/p line removal with repeat negative blood cultures. Now has completed 9 days of vancomycin (vancomycin held but level still therapeutic). * Increased creatinine: Stable. Likely associated with vancomycin toxicity. * Increased LFTs: CT will further assess as patient is at risk for acalculous cholecystitis. 08/18/16 12:23 08/18/16 12:26 Subjective: Patient is somnolent this morning. Persistent fevers present. Objective: Vital Signs Temp Pulse Resp BP Pulse Ox 39.6 C H 159 H 29 H 110/62 93 08/18/16 11:56 08/18/16 11:56 08/18/16 11:56 08/18/16 11:00 08/18/16 11:56 Microbiology 08/13/16 09:59 Blood Culture - Final Blood 08/13/16 09:00 Blood Culture - Final Blood 08/15/16 10:55 - Final Sputum, Induced/Suctioned Sputum Culture - Final Justyna Albicans Laboratory Results 08/18/16 04:10 08/18/16 04:10 08/17/16 08/18/16 08/19/16 05:59 05:59 05:59 Intake Total 3562.9 3499.6 Output Total 1630 3151 Balance 1932.9 348.6 Vancomycin # 9 (vancomycin held on 08/16/16 with level remaining therapeutic through today) Blood cultures x2 pending BAL studies pending and bronchoscopy findings noted Laboratory Tests 08/18/16 08:45 Random Vancomycin 15.9 Laboratory Tests 08/18/16 04:10 Total Bilirubin 0.6 AST 143 H ALT 182 H Alkaline Phosphatase 339 H - Physical Exam General Appearance: non-toxic, other (Somnolence) EENT: No scleral icterus, No conjunctival petechiae Respiratory: coarse breath sounds Cardiac/Chest: tachycardia Extremities: No inflammation Abdomen: non-tender, No distended Skin: No rash ICD10 Worksheet Patient Problems: Problems Problem Status Diagnosed Pneumonia Acute Respiratory failure Acute Severe sepsis with acute organ dysfunction Acute
[2016-08-18] MEDS: METOCLOPRAMIDE 10 MG/2 ML VIAL IVP SCH ×3 (12:30→23:54)
[2016-08-18] MEDS ORDERED: AMIODARONE A.FIB-LOAD DOSE(ORDER 1/3) IV ONE (12:30)
[2016-08-18] MEDS ORDERED: AMIODARONE A.FIB-6HR INFSN (ORDER 2/3) IV ONE (12:30)
[2016-08-18] MEDS: PROPOFOL/EMULSION 100 ML IV SCH (12:35)
[2016-08-18] MEDS: fentaNYL/NACL 100 ML IV SCH (12:36)
[2016-08-18] MEDS ORDERED: ALBUMIN 25% 200 ML IV ONE (13:00)
[2016-08-18] MEDS ORDERED: DILTIAZEM 25 MG/5 ML VIAL IVP ONE ×2 (13:00→13:03)
--- NOTE | 2016-08-18 13:03 | CT ---
CT Abdomen and Pelvis (Without Contrast) at 1136 hours History: Fever of unknown origin with bilateral pneumonia.. COMPARISON: CT abdomen December 2009. Technique: Spiral images were acquired from the upper abdomen through the pelvis without intravenous or oral contrast which limits the study. Dose reduction techniques were utilized. Findings: Abdomen: Limited due to lack of intravenous contrast. Partially calcified complex lesion in the splee n measuring 4 x 2.7 cm probably representing old trauma without splenomegaly. No hepatomegaly althoug h hepatic lesions cannot be entirely excluded. Suggestion of tiny gallstones without gallbladder dist ention or definite biliary ductal dilation. Atrophic pancreas. No definite adrenal enlargement. Moder ate atherosclerotic calcification of the abdominal aorta with infrarenal abdominal aortic aneurysm me asuring 3 cm and ectatic bilateral common iliac arteries up to 1.5 cm. Gastrostomy tube noted in the stomach which is distended with fluid. Several nonspecific air-fluid levels in the bowel suggesting i leus. Both kidneys demonstrate no evidence of nephrolithiasis or hydronephrosis. Multiple bilateral renal c ysts with the largest cyst in the right kidney lower pole region measuring 8.8 cm similar to previous study from December 2009. No significant retroperitoneal adenopathy. No bowel obstruction or pneumoperi toneum. Pelvis: Thomas catheter in the bladder. No definite bladder calculi. No distal bowel obstruction. Sev ere degenerative disk disease at L4-L5 and L5-S1 with degenerative retrolisthesis at L4-L5 and spondy litic grade 2 spondylolisthesis at L5-S1 resulting in moderate to severe bilateral neural foraminal s tenosis at L5-S1 without central canal stenosis. Impression: 1. Ileus. 2. Multiple bilateral renal cysts without urinary tract obstruction. 3. Atherosclerotic aorta and iliac arteries with infrarenal abdominal aortic aneurysm measuring 3 cm. 4. Suspect cholelithiasis without biliary ductal dilation. 5. Thomas catheter in the bladder without urinary tract obstruction. Findings discussed with Dr. Juan David Green at 1250 hours, today. Attention: This CT examination is specifically designed to evaluate patients who are clinically susp ected of having acute obstructive uropathy. This examination does not use radiographic contrast, and as such, provides only a limited evaluation of the abdomen, pelvis and retroperitoneum. If there is further clinical suspicion for pathological conditions other than obstructive uropathy, a complete C T evaluation of the abdomen and pelvis utilizing intravenous, oral, and rectal contrast should be con sidered.
[2016-08-18] MEDS ORDERED: ALBUMIN 25% 100 ML SOLN IV ONE (13:04)
--- NOTE | 2016-08-18 13:29 | CT ---
CT Scan of the Chest Without Contrast at 1136 hours History: Pneumonia, ARDS, sepsis, pneumococcal pneumonia. Comparison: Prior chest x-rays most recent August 16, 2016. Technique: Noncontrast multidetector helical CT imaging was performed from the superior thoracic inl et to the diaphragm. The radiologist manipulated images at the computer workstation. Dose reduction techniques were utilized. Findings: When comparing the CT behavioral health therapist to the prior chest x-rays there are persistent bilateral diffus e infiltrates again noted. Bilateral diffuse alveolar opacities with air bronchograms throughout both lungs especially completel y opacifying bilateral lower lobes and the posterior segments of bilateral upper lobes but also withi n the right middle lobe and lingula with relative sparing of the anterior apical segments of bilatera l upper lobes. The opacities also demonstrate multiple superimposed cystic cavitations predominantly a centimeter in size throughout both lungs associated with the pulmonary infiltrates. There are small bilateral pleural effusions. Dense consolidation of the majority of the right lung and posterior seg ment of the right upper lobe. Diffuse air bronchograms. Heart is normal in size with minimal pericardial thickening. No significant adenopathy. Mild atherosc lerotic thoracic aorta. Tracheostomy tube above the red. Right arm PIC line in the superior vena c lashonda. No destructive osseous lesions. IMPRESSION: 1. Severe diffuse bilateral cavitary pneumonitis involving all the lobes but most prominent bilateral lower lobes, posterior segments bilateral upper lobes and lateral segment of the lingula. 2. Small bilateral pleural effusions. 3. Atherosclerotic aorta without aneurysm. Findings discussed with Dr. Juan David Green at 1255 hours, today.
[2016-08-18] MEDS: DILTIAZEM 125 MG in D5W 125 ML IV SCH (14:10)
[2016-08-18] MEDS ORDERED: DIGOXIN 500 MCG/2 ML AMP ONE (14:14)
[2016-08-18] MEDS: DIGOXIN 500 MCG/2 ML AMP IVP SCH ×3 (14:15→23:52)
[2016-08-18] MEDS ORDERED: DIGOXIN 500 MCG/2 ML AMP IVP ONE (14:44)
--- NOTE | 2016-08-18 16:28 | HOSPPROG ---
Hospitalist Progress Note Assessment/Plan: * severe pneumococcal pneumonia * status post ceftriaxone * Pseudomonas in sputum * status post antibiotics * this has been stopped due to drug fever * fever * was thought to be drug fever but has not resolved with discontinuation of antibiotics * CT scan shows no obvious abscesses although does leave show severe pneumonitis * could consider acalculous cystitis as well. Maybe consider HIDA scan. Infectious Disease is following * elevated liver function tests * may be due to antibiotics as well * seems to be improving * consider acalculous cystitis * acute respiratory failure * status post tracheostomy now with PEG tube * atrial fibrillation * back into atrial fibrillation * rebolused thing with amiodarone * Staph hominis bacteremia * on vancomycin * acute renal failure * possibly due to vancomycin plus diuresis * stable * severe anxiety * per family patient ingests an enormous amount of marijuana daily * difficulty weaning off fentanyl and propofol currently * more somnolent this morning and thus will stop the Marinol as well as Zyprexa * smoker * start nicotine patch as well * acute encephalopathy * history of lymphoma 35 minutes of critical care time spent Subjective: continued fever. More somnolent this morning Objective: Vital Signs Temp Pulse Resp BP Pulse Ox 37.4 C 140 H 24 H 109/74 94 08/18/16 16:00 08/18/16 16:00 08/18/16 16:00 08/18/16 16:00 08/18/16 16:00 Microbiology 08/18/16 08:55 Gram Stain - Final Lung Left Lower Lobe - Bronchial Washings 08/13/16 09:59 Blood Culture - Final Blood 08/13/16 09:00 Blood Culture - Final Blood 08/15/16 10:55 - Final Sputum, Induced/Suctioned Sputum Culture - Final Justyna Albicans Laboratory Results 08/18/16 04:10 08/18/16 04:10 08/17/16 08/18/16 08/19/16 05:59 05:59 05:59 Intake Total 3562.9 3499.6 Output Total 1630 3151 Balance 1932.9 348.6 PT 14.5 SEC (12.0-15.0) 08/04/16 04:25 INR 1.14 (0.83-1.16) 08/04/16 04:25 - Physical Exam Constitutional: not in pain, chronically ill appearing, No appears nourished Eyes: anicteric sclera, EOMI Ears, Nose, Mouth, Throat: dry mucous membranes Cardiovascular: regular rate and rhythym, no murmur, rub, or gallop Respiratory: no respiratory distress, no rales or rhonchi, clear to auscultation Gastrointestinal: normoactive bowel sounds, soft, non-tender abdomen, no palpable masses Skin: warm Neurologic: No AAOx3 Psychiatric: encephalopathic ICD10 Worksheet Patient Problems: Problems Problem Status Diagnosed Pneumonia Acute Respiratory failure Acute Severe sepsis with acute organ dysfunction Acute
[2016-08-18] MEDS ORDERED: AMIODARONE A.FIB-18HR INFSN (ORDER 3/3) IV ONE (18:38)
[2016-08-19] MEDS: INSULIN REGULAR, HUMAN 100 UNIT/1 ML VIAL STANDARD SC SCH ×4 (00:02→19:12)
[2016-08-19] MEDS: ALBUTEROL 60 PUFFS/8 GM MDI IH SCH ×6 (00:56→20:09)
[2016-08-19 04:59] LABS: ABSOLUTE NRBC COUNT 0.02 10^3/uL (0-0.01); ADD DIFF? YES; ADD MORPH? NO; ATYPICAL LYMPHOCYTE FLAG 20 (0-99); FRAGMENT RBC FLAG 20 (0-99); HEMATOCRIT 25.3 % (40.0-51.0); HEMOGLOBIN 8.6 g/dL (13.7-17.5); LIPEMIA HEMOLYSIS FLAG 90 (0-99); MEAN CELL HEMOGLOBIN 27.6 pg (27.9-34.1); MEAN CELL VOLUME 81.1 fL (81.5-99.8); MEAN PLATELET VOLUME 12.7 fL (8.7-11.7); NRBC-AUTO% 0.1 % (0.0-0.2); PLATELET CLUMPS FLAG 0 (0-99); PLATELET COUNT 55 10^3/uL (150-400); RED BLOOD CELL COUNT 3.12 10^6/uL (4.40-6.38); RED CELL DISTRIBUTION WIDTH 17.3 % (11.5-15.2)
[2016-08-19 05:08] LABS: LEFT SHIFT FLG 270 (0-99)
[2016-08-19 05:09] LABS: ADD SCAN? NO
[2016-08-19 05:19] LABS: ANION GAP 10 mEq/L (8-16); CALCIUM 8.1 mg/dL (8.5-10.4); CARBON DIOXIDE 22 mEq/l (22-31); CHLORIDE 111 mEq/L (97-110); CREATININE 1.5 mg/dL (0.7-1.3); GLOMERULAR FILTRATION RATE 47; GLUCOSE 120 mg/dL (70-100); POTASSIUM 3.4 mEq/L (3.5-5.2); SODIUM 143 mEq/L (134-144)
[2016-08-19 05:39] LABS: GIANT PLATELETS PRESENT; HYPOCHROMIA 1+; PLATELET ESTIMATE DECREASED (ADEQ)
[2016-08-19] MEDS: METOCLOPRAMIDE 10 MG/2 ML VIAL IVP SCH ×4 (05:42→23:37)
[2016-08-19] MEDS: DIGOXIN 500 MCG/2 ML AMP IVP SCH (05:42)
[2016-08-19] MEDS: ACETAMINOPHEN 650 MG SUPP PR PRN (05:43)
[2016-08-19] MEDS: DILTIAZEM 125 MG in D5W 125 ML IV SCH (05:54)
[2016-08-19] MEDS: CHLORHEXIDINE GLUCONATE 15 ML UDL PO SCH ×2 (08:02→19:55)
--- NOTE | 2016-08-19 09:00 | PDINTPN ---
[facility] Progress Note Assessment/Plan: Assessment/Plan: * Pneumococcal pneumonia- * Respiratory Failure -Worsening. Increase FIO2 and PEEP. CT chest with worsening cavitary pneumonitis all lobes -continue current settings * Ileus-place NGT to suction * S/P trach * S/P PEG * Shock-resolved * AFib-rate now controlled * B cell lymphoma * Sepsis * Elevated transaminases- * Encephalopathy * MELODY resolved * Nutrition-will hold * VTE proph * Stress ulcer proph Prognosis grim Case discussed with RT and nursing 35 min of critical care time spent with patient Will discuss prognosis with family today Subjective: Obtunded/Sedated Objective: Vital Signs Temp Pulse Resp BP Pulse Ox 38.4 C H 85 30 H 130/79 H 92 08/19/16 06:00 08/19/16 07:00 08/19/16 07:00 08/19/16 07:00 08/19/16 07:00 Microbiology 08/18/16 08:55 Gram Stain - Final Lung Left Lower Lobe - Bronchial Washings 08/13/16 09:59 Blood Culture - Final Blood 08/13/16 09:00 Blood Culture - Final Blood Laboratory Results 08/19/16 04:50 08/19/16 04:50 08/18/16 08/19/16 08/20/16 05:59 05:59 05:59 Intake Total 3499.6 2904.4 Output Total 3151 1825 Balance 348.6 1079.4 PT 14.5 SEC (12.0-15.0) 08/04/16 04:25 INR 1.14 (0.83-1.16) 08/04/16 04:25 CT chest-increased cavitary infiltrates all lobes CT abd-ileur CT head-nothing acute Physical Exam - Physical Exam General Appearance: obtunded, No alert EENT: PERRL/EOMI, normal ENT inspection, other (heme in oropharynx) Neck: non-tender, full range of motion, other (trach) Respiratory: respiratory distress, crackles, prolonged expiration, No wheezing Cardiac/Chest: systolic murmur, irregularly irregular Abdomen: non-tender, soft, No normal bowel sounds Male Genitalia: deferred Rectal: deferred Skin: normal color, warm/dry Lymphatic: no adenopathy Extremities: normal range of motion, non-tender, normal inspection, normal capillary refill Neuro/Psych: No alert ICD10 Worksheet Patient Problems: Problems Problem Status Diagnosed Pneumonia Acute Respiratory failure Acute Severe sepsis with acute organ dysfunction Acute
[2016-08-19] MEDS: NICOTINE 14 MG/24 HR PATCH TD SCH (09:31)
[2016-08-19] MEDS: FAMOTIDINE 20 MG TAB TUBE SCH ×2 (09:33→20:18)
[2016-08-19] MEDS: ORAL BALANCE GEL TUBE PO PRN ×3 (09:39→16:00)
[2016-08-19] MEDS: ENOXAPARIN 30 MG/0.3 ML SYR SC SCH (11:20)
--- NOTE | 2016-08-19 12:42 | HOSPPROG ---
Hospitalist Progress Note Assessment/Plan: 70-year-old male presented with severe pneumococcal pneumonia and acute respiratory failure * acute hypoxic respiratory failure * worsening * severe pneumonitis and cavitary pneumonia on CT scan * antibiotics restarted by ID * considering steroids * fever * was thought to be drug fever but has not resolved with discontinuation of antibiotics * CT scan shows no obvious abscesses although does leave show severe pneumonitis * could consider acalculous cystitis as well. Maybe consider HIDA scan. Infectious Disease is following * elevated liver function tests * may be due to antibiotics as well * seems to be improving * consider acalculous cystitis * atrial fibrillation * back into atrial fibrillation * getting diltiazem * Staph hominis bacteremia * status post vancomycin * acute renal failure * possibly due to vancomycin plus diuresis * stable * severe anxiety * per family patient ingests an enormous amount of marijuana daily * difficulty weaning off fentanyl and propofol currently * severe pneumococcal pneumonia * status post ceftriaxone * Pseudomonas in sputum * status post antibiotics * this has been stopped due to drug fever * smoker * nicotine patch * acute encephalopathy * history of lymphoma 35 minutes of critical care time spent Subjective: worse respiratory status. Objective: Vital Signs Temp Pulse Resp BP Pulse Ox 37.8 C 89 28 H 108/56 L 96 08/19/16 10:49 08/19/16 10:49 08/19/16 10:49 08/19/16 10:00 08/19/16 10:49 Microbiology 08/18/16 08:55 Gram Stain - Final Lung Left Lower Lobe - Bronchial Washings 08/13/16 09:59 Blood Culture - Final Blood 08/13/16 09:00 Blood Culture - Final Blood Laboratory Results 08/19/16 04:50 08/19/16 04:50 08/18/16 08/19/16 08/20/16 05:59 05:59 05:59 Intake Total 3499.6 2904.4 Output Total 3151 1825 Balance 348.6 1079.4 PT 14.5 SEC (12.0-15.0) 08/04/16 04:25 INR 1.14 (0.83-1.16) 08/04/16 04:25 - Physical Exam Constitutional: not in pain, chronically ill appearing Eyes: anicteric sclera, EOMI Ears, Nose, Mouth, Throat: other ( Some blood in mouth) Cardiovascular: irregularly irregular Respiratory: other ( moderate respiratory distress) Gastrointestinal: normoactive bowel sounds, soft, non-tender abdomen, no palpable masses Skin: warm Neurologic: other ( sedated) ICD10 Worksheet Patient Problems: Problems Problem Status Diagnosed Pneumonia Acute Respiratory failure Acute Severe sepsis with acute organ dysfunction Acute
[2016-08-19] MEDS: CEFEPIME HCL 2 GM in D5W 100 ML IV SCH ×2 (12:53→20:19)
[2016-08-19] MEDS: 1/2 NS 1,000 ML IV SCH (12:56)
[2016-08-19] MEDS: fentaNYL/NACL 100 ML IV SCH (12:57)
--- NOTE | 2016-08-19 13:43 | PCMIDPN ---
Assessment/Plan: Assessment/Plan: * Sepsis due to pneumococcal bacteremia with bilateral pneumonia: Completed course of antibiotic therapy. * Fever: CT of chest shows diffuse pulmonary infiltrates and innumerable cystic /cavitary lesions. May all be destruction related to severe invasive pneumococcal disease or pseudomonal pneumonia. Given history of lymphoma, Pneumocystis or other opportunistic process would also be in the differential diagnosis. Have asked lab to add on Pneumocystis stain to prior bronchoscopy wash. BAL culture now showing growth of Pseudomonas. Unclear if actively contributing versus colonization but given overall critical illness, will resume anti pseudomonal therapy with cefepime based on prior susceptibilities. Will also check Aspergillus antigen and see if fungal culture can be added to BAL specimen given prior history of lymphoma. * S. hominis catheter associated bacteremia: s/p line removal and completed 10 days of antibiotic therapy. Repeat blood cultures are negative. Will continue to observe without further targeted therapy for Staphylococcus hominis bacteremia given has completed 10 days of therapy. * Increased creatinine: Stable. Likely associated with vancomycin toxicity. * Increased LFTs: No findings on CT scan to explain increased LFTs. 08/19/16 13:39 08/19/16 13:45 08/19/16 13:48 Subjective: Intubated. Increasing respiratory effort present. Objective: Vital Signs Temp Pulse Resp BP Pulse Ox 37.6 C 86 32 H 118/61 93 08/19/16 12:00 08/19/16 12:00 08/19/16 12:00 08/19/16 12:00 08/19/16 12:00 Microbiology 08/18/16 08:55 Gram Stain - Final Lung Left Lower Lobe - Bronchial Washings 08/13/16 09:59 Blood Culture - Final Blood 08/13/16 09:00 Blood Culture - Final Blood Laboratory Results 08/19/16 04:50 08/19/16 04:50 08/18/16 08/19/16 08/20/16 05:59 05:59 05:59 Intake Total 3499.6 2904.4 Output Total 3151 1825 Balance 348.6 1079.4 Tm 38.9 Vancomycin # 10 (held but likely therapeutic level through today) BAL with growth of pseudomonal species CT of chest with dense bilateral consolidation and innumerable cystic cavitary lesions CT of abdomen and pelvis with cholelithiasis but no ductal dilatation - Physical Exam General Appearance: apparent distress (Increased respiratory effort) EENT: No scleral icterus, No conjunctival petechiae Respiratory: respiratory distress, coarse breath sounds Cardiac/Chest: regular rate, rhythm Abdomen: non-tender, No distended ICD10 Worksheet Patient Problems: Problems Problem Status Diagnosed Pneumonia Acute Respiratory failure Acute Severe sepsis with acute organ dysfunction Acute
[2016-08-19] MEDS ORDERED: LIDOCAINE 1% 30 ML SDV ONE (14:10)
--- NOTE | 2016-08-19 15:29 | GPN ---
[f rep st] PROCEDURE NOTE DATE OF PROCEDURE: 08/19/2016 PROCEDURE: Fiberoptic bronchoscopy. INDICATION: Aspiration of tube feeds. ANESTHESIA: Patient is currently sedated on mechanical ventilation. DESCRIPTION OF PROCEDURE: The procedure was performed in the Intensive Care Unit with continuous pul se oximetry, EKG, and blood pressure monitoring. The bronchoscope was entered through a #8 endotrach eal tube. Distal trachea and red were visualized and showed copious amounts of thin tube feeds th at were therapeutically aspirated. Bronchoscope in the right lung, right upper lobe, right middle lo be, right lower lobe, including sub-segments, were visualized and showed a moderate amount of tube fe eding that was therapeutically aspirated. Bronchoscope in the left lung, left upper lobe, lingula, l eft lower lobe, including sub-segments, were visualized and again showed a modest amount of tube feed s that were therapeutically aspirated. Bronchoalveolar lavage was taken from the left lower lobe. T his was sent for C and S. The patient tolerated the procedure well. There were no apparent complica tions. /[id number]/MODL
[2016-08-19] MEDS: ACETAMINOPHEN 650 MG/20.3 ML UDCUP TUBE PRN (16:28)
[2016-08-19 21:58] VITALS: RESP 24
[2016-08-19] MEDS: PROPOFOL/EMULSION 100 ML IV SCH (23:37)
[2016-08-20] MEDS: LORazepam 2 MG/ML INJ IVP PRN ×2 (00:04→04:03)
[2016-08-20] MEDS: ALBUTEROL 60 PUFFS/8 GM MDI IH SCH ×4 (00:49→11:24)
[2016-08-20] MEDS: INSULIN REGULAR, HUMAN 100 UNIT/1 ML VIAL STANDARD SC SCH ×2 (01:06→06:04)
[2016-08-20] MEDS: ACETAMINOPHEN 650 MG SUPP PR PRN (02:32)
[2016-08-20] MEDS: 1/2 NS 1,000 ML IV SCH (02:33)
[2016-08-20] MEDS: DIGOXIN 500 MCG/2 ML AMP IVP SCH (04:10)
[2016-08-20 04:26] LABS: % IMMATURE GRANULYOCYTES 0.8 % (0.0-1.1); ABSOLUTE IMMATURE GRANULOCYTES 0.08 10^3/uL (0.00-0.10); ABSOLUTE NRBC COUNT 0.03 10^3/uL (0-0.01); ADD DIFF? NO; ADD MORPH? NO; ADD SCAN? YES; ATYPICAL LYMPHOCYTE FLAG 0 (0-99); FRAGMENT RBC FLAG 20 (0-99); HEMATOCRIT 25.8 % (40.0-51.0); HEMOGLOBIN 8.6 g/dL (13.7-17.5); LIPEMIA HEMOLYSIS FLAG 80 (0-99); MEAN CELL HEMOGLOBIN 26.8 pg (27.9-34.1); MEAN CELL HEMOGLOBIN CONCENTR. 33.3 g/dL (32.4-36.7); MEAN CELL VOLUME 80.4 fL (81.5-99.8); NRBC-AUTO% 0.3 % (0.0-0.2); PLATELET CLUMPS FLAG 20 (0-99); RED BLOOD CELL COUNT 3.21 10^6/uL (4.40-6.38); RED CELL DISTRIBUTION WIDTH 17.4 % (11.5-15.2)
[2016-08-20 04:28] LABS: LEFT SHIFT FLG 300 (0-99); PLATELET COUNT 40 10^3/uL (150-400)
[2016-08-20 04:54] LABS: SCAN POSITIVE
[2016-08-20 05:02] LABS: HYPOCHROMIA 1+; SCHISTOCYTES 1+
[2016-08-20 05:03] LABS: PLATELET ESTIMATE DECREASED (ADEQ); TARGET CELLS 1+
[2016-08-20 05:15] LABS: ANION GAP 13 mEq/L (8-16); CALCIUM 8.1 mg/dL (8.5-10.4); CARBON DIOXIDE 20 mEq/l (22-31); CHLORIDE 111 mEq/L (97-110); CREATININE 1.8 mg/dL (0.7-1.3); DIGOXIN 1.6 ng/mL (0.8-2.0); GLOMERULAR FILTRATION RATE 38; GLUCOSE 82 mg/dL (70-100); POTASSIUM 3.6 mEq/L (3.5-5.2); SODIUM 144 mEq/L (134-144)
[2016-08-20] MEDS: METOCLOPRAMIDE 10 MG/2 ML VIAL IVP SCH (06:05)
[2016-08-20 07:06] VITALS: BP 79/47; PULSE 90; TEMP 100.4; O2SAT 90
--- NOTE | 2016-08-20 09:21 | PDINTPN ---
[facility] Progress Note Assessment/Plan: Assessment/Plan: * Pneumococcal pneumonia- * Respiratory Failure -Worsening. Increase FIO2 and PEEP. CT chest with worsening cavitary pneumonitis all lobes -continue current settings * Ileus-place NGT to suction * S/P trach * S/P PEG * Shock-resolved * AFib-rate now controlled * B cell lymphoma * Sepsis * Elevated transaminases- * Encephalopathy * MELODY resolved * Nutrition-will hold * VTE proph * Stress ulcer proph * DNR Prognosis grim Case discussed with RT and nursing 35 min of critical care time spent with patient Long discussion with family. Other family members are flying in this am. Likely withdraw of support later today Subjective: coma Objective: Vital Signs Temp Pulse Resp BP Pulse Ox 38.0 C 90 24 H 79/47 L 90 L 08/20/16 07:05 08/20/16 07:05 08/20/16 07:05 08/20/16 07:05 08/20/16 07:05 Microbiology 08/19/16 14:31 Gram Stain - Final Lung Left Lower Lobe - Bronchial Washings 08/18/16 08:55 Gram Stain - Final Lung Left Lower Lobe - Bronchial Washings Bronchial Washings Culture - Final Pseudomonas Aeruginosa Laboratory Results 08/20/16 04:00 08/20/16 04:00 08/19/16 08/20/16 08/21/16 05:59 05:59 05:59 Intake Total 2904.4 2143.2 Output Total 1825 250 Balance 1079.4 1893.2 PT 14.5 SEC (12.0-15.0) 08/04/16 04:25 INR 1.14 (0.83-1.16) 08/04/16 04:25 Physical Exam - Physical Exam General Appearance: No alert EENT: PERRL/EOMI, normal ENT inspection Neck: other (trach) Respiratory: crackles (scattered) Cardiac/Chest: systolic murmur, irregularly irregular Abdomen: normal bowel sounds, non-tender, soft Male Genitalia: deferred Rectal: deferred Extremities: non-tender Neuro/Psych: No alert ICD10 Worksheet Patient Problems: Problems Problem Status Diagnosed Pneumonia Acute Respiratory failure Acute Severe sepsis with acute organ dysfunction Acute
[2016-08-20] MEDS ORDERED: DIGOXIN 500 MCG/2 ML AMP IVP SCH (10:00)
[2016-08-20] MEDS: LORazepam 2 MG/ML INJ IVP SCH ×3 (10:00→14:00)
--- NOTE | 2016-08-20 15:32 | HOSPPROG ---
Hospitalist Progress Note Assessment/Plan: 70-year-old male presented with severe pneumococcal pneumonia and acute respiratory failure * acute hypoxic respiratory failure * worsening * severe pneumonitis and cavitary pneumonia on CT scan * family coming into town will make comfort care * fever * was thought to be drug fever but has not resolved with discontinuation of antibiotics * CT scan shows no obvious abscesses although does leave show severe pneumonitis * could consider acalculous cystitis as well. Maybe consider HIDA scan. Infectious Disease is following * elevated liver function tests * may be due to antibiotics as well * seems to be improving * consider acalculous cystitis * atrial fibrillation * back into atrial fibrillation * getting diltiazem * Staph hominis bacteremia * status post vancomycin * acute renal failure * possibly due to vancomycin plus diuresis * stable * severe anxiety * per family patient ingests an enormous amount of marijuana daily * difficulty weaning off fentanyl and propofol currently * severe pneumococcal pneumonia * status post ceftriaxone * Pseudomonas in sputum * status post antibiotics * this has been stopped due to drug fever * smoker * nicotine patch * acute encephalopathy * history of lymphoma Subjective: doing worse overnight Objective: Vital Signs Temp Pulse Resp BP Pulse Ox 38.0 C 90 24 H 79/47 L 90 L 08/20/16 07:05 08/20/16 07:05 08/20/16 07:05 08/20/16 07:05 08/20/16 07:05 Microbiology 08/19/16 14:31 Gram Stain - Final Lung Left Lower Lobe - Bronchial Washings 08/18/16 08:55 Gram Stain - Final Lung Left Lower Lobe - Bronchial Washings Bronchial Washings Culture - Final Pseudomonas Aeruginosa Laboratory Results 08/20/16 04:00 08/20/16 04:00 08/19/16 08/20/16 08/21/16 05:59 05:59 05:59 Intake Total 2904.4 2143.2 Output Total 1825 250 Balance 1079.4 1893.2 PT 14.5 SEC (12.0-15.0) 08/04/16 04:25 INR 1.14 (0.83-1.16) 08/04/16 04:25 - Physical Exam Constitutional: chronically ill appearing, cachectic Eyes: anicteric sclera, EOMI Cardiovascular: regular rate and rhythym Respiratory: respiratory distress, rhonchi Skin: warm Neurologic: other ( sedated), No AAOx3 Psychiatric: other ( sedated) ICD10 Worksheet Patient Problems: Problems Problem Status Diagnosed Pneumonia Acute Respiratory failure Acute Severe sepsis with acute organ dysfunction Acute
[2016-08-21 15:35] LABS: HEPARIN INDUCED ANTIBODY Negative (Negative); REACTIVITY 6 % (<20)
--- NOTE | 2016-09-06 09:39 | GDS ---
[f rep st] DISCHARGE SUMMARY FINAL DIAGNOSES: 1. Severe pneumococcal pneumonia. 2. Severe sepsis. 3. Acute respiratory failure. 4. Streptococcus pneumoniae bacteremia. 5. Pseudomonas. 6. Persistent fevers. 7. Elevated liver function tests. 8. Atrial fibrillation. 9. Staph hominis bacteremia. 10. Acute renal failure. 11. Severe anxiety. 12. Acute encephalopathy. 13. Previous history of lymphoma. HISTORY: This 70-year-old male presented with severe pneumococcal pneumonia. HOSPITAL COURSE: The patient was admitted and was on the ventilator for quite some time. He then re quired a tracheostomy. He had been treated with several rounds of different antibiotics and did have persistent fever that was initially thought to be drug fever but then was probably related to progre ssive pneumonia in spite of broad-spectrum antibiotics. He did undergo tracheostomy and G-tube place ment. A couple days before his , he had worsening oxygen requirements and persistent fevers. C AT scan showed severe destructive pneumonia in both lungs. This was in spite of antibiotic treatment . Discussions were had with the family in terms of his poor overall prognosis and on the day of his expiration they withdrew care. /[id number]/MODL
== END 2016-08-20 14:25 | disposition expired | DRG 4 ==
LOC: F2N 20:30
PROVIDERS: ADMIT Internal Medicine; ATTEND Internal Medicine
PROC: 02HV33Z Insertion of Infusion Device into Superior Vena Cava, Percutaneous Approach (ICD-10-PCS; 2016-07-28)
PROC: 0BH18EZ Insertion of Endotracheal Airway into Trachea, Via Natural or Artificial Opening Endoscopic (ICD-10-PCS; 2016-07-28)
PROC: 5A1955Z Respiratory Ventilation, Greater than 96 Consecutive Hours (ICD-10-PCS; 2016-07-28)
PROC: 0B9B8ZX Drainage of Left Lower Lobe Bronchus, Via Natural or Artificial Opening Endoscopic, Diagnostic (ICD-10-PCS; 2016-08-08)
PROC: 0B948ZX Drainage of Right Upper Lobe Bronchus, Via Natural or Artificial Opening Endoscopic, Diagnostic (ICD-10-PCS; 2016-08-08)
PROC: 0B948ZX Drainage of Right Upper Lobe Bronchus, Via Natural or Artificial Opening Endoscopic, Diagnostic (ICD-10-PCS; 2016-08-09)
PROC: 0B9B8ZX Drainage of Left Lower Lobe Bronchus, Via Natural or Artificial Opening Endoscopic, Diagnostic (ICD-10-PCS; 2016-08-09)
PROC: 02HV33Z Insertion of Infusion Device into Superior Vena Cava, Percutaneous Approach (ICD-10-PCS; 2016-08-11)
PROC: 0BH18EZ Insertion of Endotracheal Airway into Trachea, Via Natural or Artificial Opening Endoscopic (ICD-10-PCS; principal; 2016-08-15)
PROC: 5A1955Z Respiratory Ventilation, Greater than 96 Consecutive Hours (ICD-10-PCS; principal; 2016-08-15)
PROC: 0BC Respiratory System, Extirpation (ICD-10-PCS; principal; 2016-08-15)
PROC: 0B113F4 Bypass Trachea to Cutaneous with Tracheostomy Device, Percutaneous Approach (ICD-10-PCS; principal; 2016-08-15)
PROC: 0DH63UZ Insertion of Feeding Device into Stomach, Percutaneous Approach (ICD-10-PCS; 2016-08-16)
PROC: 0B9B8ZX Drainage of Left Lower Lobe Bronchus, Via Natural or Artificial Opening Endoscopic, Diagnostic (ICD-10-PCS; 2016-08-18)
PROC: 0B9B8ZX Drainage of Left Lower Lobe Bronchus, Via Natural or Artificial Opening Endoscopic, Diagnostic (ICD-10-PCS; 2016-08-19)
DX: A40.3 Sepsis due to Streptococcus pneumoniae (principal); R65.21 Severe sepsis with septic shock; J13 Pneumonia due to Streptococcus pneumoniae; J15.1 Pneumonia due to Pseudomonas; J96.01 Acute respiratory failure with hypoxia; J96.02 Acute respiratory failure with hypercapnia; N17.9 Acute kidney failure, unspecified; J98.09 Other diseases of bronchus, not elsewhere classified; G92 Toxic encephalopathy; T40.2X5A Adverse effect of other opioids, initial encounter; L89.151 Pressure ulcer of sacral region, stage 1; T82.7XXA Infection and inflammatory reaction due to other cardiac and vascular devices, implants and grafts, initial encounter; B95.7 Other staphylococcus as the cause of diseases classified elsewhere; I48.0 Paroxysmal atrial fibrillation; I50.31 Acute diastolic (congestive) heart failure; E87.1 Hypo-osmolality and hyponatremia; E87.6 Hypokalemia; E83.51 Hypocalcemia; R50.2 Drug induced fever; T36.8X5A Adverse effect of other systemic antibiotics, initial encounter; F41.9 Anxiety disorder, unspecified; Z85.72 Personal history of non-Hodgkin lymphomas; Z94.84 Stem cells transplant status; F17.210 Nicotine dependence, cigarettes, uncomplicated; Z66 Do not resuscitate
CPT/HCPCS: 82784-90; 82947-QW; 86022-90; 86705-90; 86709-90; 87449-90; 92610-GN; 97162-GP; 97166-GO; 97168-GO; 97530-GP; C1751; G0472; G8978-GP-CM; G8979-GP-CI; G8987-GO-CL; G8987-GO-CM; G8988-GO-CI; G8988-GO-CL; G8996-GN-CH; G8996-GN-CN; G8997-GN-CH; G8997-GN-CL; G8998-GN-CH; J0282; J0330; J0456; J0610; J0692; J0696; J1160; J1170; J1650; J1815; J2185; J2250; J2543; J2704; J2765; J3010; J3370; J3475; P9041; P9047